=== PATIENT | female | born 1930 | race Hispanic/Latino ===

== ENCOUNTER 2017-10-07 11:14 | Inpatient (IN) | payer MEDICARE, OTHER ==
[2017-10-07 11:32] VITALS: BMI 26.5
--- NOTE | 2017-10-07 11:59 | RAD ---
HISTORY: Sepsis Patient COMPARISON: No prior. FINDINGS: LUNGS: No active pulmonary disease. PLEURA: No significant pleural effusion identified, no pneumothorax apparent. CARDIOVASCULAR: Normal. OSSEOUS STRUCTURES: No significant abnormalities. VISUALIZED UPPER ABDOMEN: Normal. OTHER FINDINGS: None. IMPRESSION: No active disease.
--- NOTE | 2017-10-07 12:09 | ED PDOC ---
Arrival/HPI - General Chief Complaint: Trauma Time Seen by Provider: 10/07/17 11:41 Historian: Patient - History of Present Illness Narrative History of Present Illness (Text): 10/07/17 11:43 A 87 year old female, whose past medical history includes dementia, hypertension , pneumonia, arthritis, and bladder CA, brought in by S, presents to the emergency department complaining of pain s/p fall. Patient reports she lives alone at home and had fallen. Patient was unable to get up for 2 days. Patient is uncertain and unable to recall what caused her to fall. States pain to left knee femur and left hip. Patient has no other complaints at this time PMD: Dr. Daniel Past Medical History - Provider Review Nursing Documentation Reviewed: Yes - Cardiac Hx Cardiac Disorders: Yes Hx Hypertension: Yes - Pulmonary Hx Pneumonia: Yes - Neurological Hx Paralysis: No - Hematological/Oncological Hx Blood Transfusions: No Hx Blood Transfusion Reaction: No - Musculoskeletal/Rheumatological Hx Arthritis: Yes Hx Falls: No - Genitourinary/Gynecological Hx Genitourinary Disorders: Yes Hx Bladder Cancer: Yes - Psychiatric Hx Emotional Abuse: No Hx Physical Abuse: No Hx Substance Use: No - Anesthesia Hx Anesthesia Reactions: Yes (diff waking up) Hx Malignant Hyperthermia: No - Suicidal Assessment Feels Threatened In Home Enviroment: No Family/Social History - Physician Review Nursing Documentation Reviewed: Yes Family/Social History: No Known Family HX Smoking Status: Former Smoker Hx Alcohol Use: Yes (wine occassionally) Hx Substance Use: No Allergies/Home Meds Allergies/Adverse Reactions: Allergies No Known Allergies Allergy (Verified 10/07/17 20:22) Review of Systems - Physician Review All systems were reviewed & negative as marked: Yes - Review of Systems Constitutional: Normal. absent: Fevers, Night Sweats Eyes: Normal ENT: Normal Respiratory: Normal Cardiovascular: Syncope Gastrointestinal: Normal Genitourinary Female: Normal Musculoskeletal: Other (left knee femur pain; left hip pain s/p fall) Skin: Normal Neurological: Headache Endocrine: Normal Hemo/Lymphatic: Normal Psychiatric: Normal Physical Exam Vital Signs Reviewed: Yes Vital Signs Pulse Resp BP Pulse Ox 10/07/17 17:03 93 H 19 135/63 95 10/07/17 11:41 106 H 19 150/83 95 Temperature: Afebrile Blood Pressure: Normal Pulse: Tachycardic Respiratory Rate: Normal Appearance: Positive for: Other (foul urine smell) Pain Distress: None Mental Status: No: Alert and Oriented X 3 (alert and oriented x 2 (person & place but not time)) - Systems Exam Head: Present: Other (purpura to forhead) Mouth: Present: Dry Respiratory/Chest: Present: Decreased Breath Sounds (at basis bivascularly) Cardiovascular: Present: Regular Rate and Rhythm, Normal S1, S2. No: Murmurs Abdomen: No: Tenderness, Distention, Peritoneal Signs Back: No: Midline Tenderness (no midline c-spine tenderness) Upper Extremity: Present: Normal Inspection. No: Cyanosis, Edema Lower Extremity: Present: Tenderness (left knee at joint lines), Other (mid femur pain) Neurological: Present: GCS=15, CN II-XII Intact, Speech Normal, Motor Func Grossly Intact, Normal Sensory Function, Normal Cerebellar Funct, Gait Normal Skin: Present: Rashes (mid lumbar) Psychiatric: Present: Alert. No: Oriented x 3 (oriented x 2(person & place but not time)) Medical Decision Making ED Course and Treatment: 10/07/17 11:46 Impression: 87 year old female with s/p fall AMS. Physical exam shows purpura to forehead; dry mucous membranes; lungs decreased in breath sounds at bases bivascularly; mid lumbar rash; mid femur pain; left knee tenderness at join lines. Plan: -- Head CT -- Cervical Spinal CT -- Pelvis CT -- Left Femur X-Ray -- Left hip X-Ray -- Labs -- Venous Blood Gas -- Lactated Ringer's -- Urinalysis -- Serology -- Blood Culture -- Urine Culture -- Reassess and disposition Progress Notes: EKG: Ordered, reviewed, and independently interpreted the EKG. Rate : 106 BPM Rhythm : Sinus tachycardia. Interpretation : No ST- and T- ischemic segments. QTC 196. Comparison : No previous EKG for comparison. - Lab Interpretations Microbiology Results: Microbiology Results 10/07/17 12:59 Blood Blood Culture - Final NO GROWTH AFTER 5 DAYS 10/07/17 12:59 Blood Gram Stain - Final TEST NOT PERFORMED 10/07/17 12:29 Blood Blood Culture - Final NO GROWTH AFTER 5 DAYS 10/07/17 12:29 Blood Gram Stain - Final TEST NOT PERFORMED 10/07/17 14:35 Urine,Clean Catch Urine Culture - Final Streptococcus Viridans Lab Results: 10/07/17 12:29 10/07/17 12:29 Lab Results 10/07/17 14:35: Urine Color Light yellow, Urine Appearance Cloudy, Urine pH 6.0 , Ur Specific [place] >= 1.030, Urine Protein 100 H, Urine Glucose (UA) Negative , Urine Ketones Negative, Urine Blood Large H, Urine Nitrate Negative, Urine Bilirubin Negative, Urine Urobilinogen 0.2, Ur Leukocyte Esterase Moderate H, Urine RBC Tntc, Urine WBC Tntc, Ur Epithelial Cells 1 - 3, Urine Bacteria Large 10/07/17 12:29: Sodium 145, Chloride 106, Potassium 3.6, Carbon Dioxide 25, Anion Gap 19, BUN 42 H, Creatinine 1.6 H, Est GFR ( Amer) 37, Est GFR ( Non-Af Amer) 31, Random Glucose 153 H, Calcium 9.8, Phosphorus 4.8 H, Magnesium 2.1, Total Bilirubin 0.9, AST 54 H, ALT 32, Alkaline Phosphatase 49, Total Creatine Kinase 651 H, CK-MB (CK-2) 12.7 H, CK-MB (CK-2) % 2.0 L, Troponin I 0.05, NT-Pro-B Natriuret Pep 2970 H, Total Protein 8.3, Albumin 4.3, Globulin 4.0, Albumin/Globulin Ratio 1.1 10/07/17 12:29: pO2 29 L, VBG pH 7.36, VBG pCO2 45.0, VBG HCO3 25.4, VBG Total CO2 26.8, VBG O2 Sat (Calc) 57.3, VBG Base Excess -0.4 L, VBG Potassium 4.2, Sodium 143.0, Chloride 108.0 H, Glucose 153 H, Lactate 2.1, FiO2 21.0, Venous Blood Potassium 4.2 10/07/17 12:29: PT 13.6 H, INR 1.18 H, APTT 19.2 L 10/07/17 12:29: Procalcitonin 0.65 H 10/07/17 12:29: WBC 6.7, RBC 3.59, Hgb 11.9 L, Hct 35.2 L, MCV 98.1, MCH 33.1, MCHC 33.8, RDW 15.5 H, Plt Count 271, MPV 10.7, Gran % 66.0, Lymph % (Auto) 24.9 , [place] % (Auto) 8.7 H, Eos % (Auto) 0.1 L, Baso % (Auto) 0.3, Gran # 4.42, Lymph # (Auto) 1.7, [place] # (Auto) 0.6, Eos # (Auto) 0.0, Baso # (Auto) 0.02 - RAD Interpretation Radiology Orders: 10/07/17 11:41 CHEST PORTABLE [RAD] Stat 10/07/17 11:43 CERVICAL SPINE W/O CONTRAST [CT] Stat HEAD W/O CONTRAST [CT] Stat 10/07/17 11:45 Femur Left [FEMUR MIN 2 VIEWS LT] [RAD] Stat 10/07/17 11:46 PELVIS W/O PO OR IV CONTRAST [CT] Stat Hip Left [HIP MIN 2V W/ PELVIS LT] [RAD] Stat - Medication Orders Current Medication Orders: Discontinued Medications Acetaminophen (Tylenol 325mg Tab) 650 mg PO Q4H PRN PRN Reason: Pain, Mild (1-3) Bisacodyl (Dulcolax) 10 mg RC ONCE ONE Stop: 10/11/17 08:28 Last Admin: 10/11/17 08:33 Dose: Not Given Non-Admin Reason: Patient Refused Cefpodoxime Proxetil (Vantin) 200 mg PO Q12 [facility] Last Admin: 10/11/17 09:26 Dose: 200 mg Docusate Sodium (Colace) 100 mg PO BID [facility] Last Admin: 10/11/17 09:27 Dose: 100 mg Lactated Ringer's 2,000 ml/ IV (SUPPLIES) 2,000 mls @ 4,082.34 mls/hr IV ONCE ONE PRN Reason: 60 ML/KG/HR Stop: 10/07/17 11:42 Last Admin: 10/07/17 12:26 Dose: 4,082.34 mls/hr eMAR Start Stop Document 10/07/17 12:26 MR (Rec: 10/07/17 12:27 MR [id number]) Intravenous Solution Start Date 10/07/17 Start Time 12:26 End Date 10/07/17 End time 13:06 Total Infusion Time 40 Ceftriaxone Sodium (Rocephin 1 Gram Ivpb) 1 gm in 100 mls @ 100 mls/hr IVPB DAILY [facility] PRN Reason: Protocol Last Admin: 10/10/17 10:04 Dose: 100 mls/hr eMAR Start Stop Document 10/10/17 10:04 BIR (Rec: 10/10/17 10:05 BIR [id number]) Intravenous Solution Start Date 10/10/17 Start Time 10:04 End Date 10/10/17 End time 11:15 Total Infusion Time 71 Sodium Chloride (Sodium Chloride 0.9%) 1,000 mls @ 75 mls/hr IV .[id number] [facility] Stop: 10/09/17 10:00 Last Admin: 10/08/17 16:04 Dose: Sodium Chloride (Sodium Chloride 0.9%) 1,000 mls @ 50 mls/hr IV .Q20H [facility] Stop: 10/09/17 10:00 Last Admin: 10/08/17 16:30 Dose: 50 mls/hr eMAR Start Stop Document 10/08/17 16:30 ARLYN (Rec: 10/08/17 16:30 ARLYN [id number]) Intravenous Solution Start Date 10/08/17 Start Time 16:30 End Date 10/09/17 End time 12:30 Total Infusion Time 1200 Losartan Potassium (Cozaar) 25 mg PO DAILY [facility] Last Admin: 10/11/17 11:30 Dose: 25 mg Pneumococcal Polyvalent Vaccine (Pneumovax 23 Vaccine) 0.5 ml IM .ONCE ONE Stop: 10/07/17 22:26 Polyethylene Glycol (Miralax) 17 gm PO DAILY [facility] Last Admin: 10/11/17 09:25 Dose: 17 gm Thiamine HCl (Vitamin B1 Tab) 100 mg PO DAILY [facility] Last Admin: 10/11/17 09:26 Dose: 100 mg - Scribe Statement The provider has reviewed the documentation as recorded by the Bianca Bright Provider Scribe Attestation: All medical record entries made by the Kinjalibkenia were at my direction and personally dictated by me. I have reviewed the chart and agree that the record accurately reflects my personal performance of the history, physical exam, medical decision making, and the department course for this patient. I have also personally directed, reviewed, and agree with the discharge instructions and disposition. Disposition/Present on Arrival - Present on Arrival Any Indicators Present on Arrival: Yes History of DVT/PE: No History of Uncontrolled Diabetes: No Urinary Catheter: Yes History of Decub. Ulcer: No History Surgical Site Infection Following: None - Disposition Have Diagnosis and Disposition been Completed?: Yes Diagnosis: UTI (urinary tract infection), Fracture of left humerus Disposition: HOSPITALIZED Disposition Time: 13:00 Patient Plan: Admission, Telemetry Condition: GOOD
[2017-10-07 12:47] LABS: BASO # 0.02 K/mm3 (0.0-2.0); BASO % 0.3 % (0.0-3.0); EOS % 0.1 % (1.5-5.0); GRAN # 4.42 (1.4-6.5); HEMOGLOBIN 11.9 g/dL (12.0-16.0); LYMPH # 1.7 (1.2-3.4); LYMPH % 24.9 % (22.0-35.0); MEAN CELL VOLUME 98.1 fl (80.0-105.0); MEAN CORPUSCULAR HEMOGLOBIN 33.1 pg (25.0-35.0); MEAN CORPUSCULAR HGB CONC 33.8 g/dl (31.0-37.0); MEAN PLATELET VOLUME 10.7 fl (7.0-11.0); MONO # 0.6 (0.1-0.6); MONO % 8.7 % (1.0-6.0); RBC 3.59 10^6/uL (3.5-6.1); RED CELL DISTRIBUTION WIDTH 15.5 % (11.5-14.5); WHITE BLOOD COUNT 6.7 10^3/ul (4.5-11.0)
[2017-10-07 12:48] LABS: VENOUS BLOOD GAS BASE EXCESS -0.4 mmol/L (0.0-2.0); VENOUS BLOOD GAS PO2 29 mm/Hg (30-55); VENOUS BLOOD PH 7.36 (7.32-7.43)
[2017-10-07 13:00] LABS: ALB/GLOB RATIO 1.1 (1.1-1.8); ALBUMIN 4.3 g/dL (3.0-4.8); CALCIUM 9.8 mg/dL (8.4-10.5)
[2017-10-07 13:04] LABS: INR 1.18 (0.93-1.08); PARTIAL THROMBOPLASTIN TIME 19.2 Seconds (25.1-36.5); PROTHROMBIN TIME 13.6 SECONDS (9.4-12.5)
[2017-10-07 13:10] LABS: TROPONIN I 0.05 ng/mL
[2017-10-07 13:25] LABS: CK-MB 12.7 ng/mL (0.0-3.6)
[2017-10-07 14:48] LABS: URINE BILIRUBIN NEGATIVE (NEGATIVE); URINE BLOOD LARGE (NEGATIVE); URINE GLUCOSE (UA) NEGATIVE (NEGATIVE); URINE LEUKOCYTE ESTERASE MODERATE Leu/uL (NEGATIVE); URINE PROTEIN 100 mg/dL (<30 mg/dL); URINE UROBILINOGEN 0.2 E.U./dL (<1 E.U./dL)
[2017-10-07 14:49] LABS: URINE APPEARANCE CLOUDY (CLEAR); URINE COLOR LIGHT YELLOW (YELLOW)
[2017-10-07 15:03] LABS: URINE BACTERIA LARGE (NEG); URINE RBC TNTC /hpf (0-2); URINE WBC TNTC /hpf (0-6)
--- NOTE | 2017-10-07 15:52 | CT ---
PROCEDURE: CT HEAD WITHOUT CONTRAST. HISTORY: fall COMPARISON: None available. TECHNIQUE: Axial computed tomography images were obtained through the head/brain without intravenous contrast. Coronal and sagittal reconstructed images. Radiation dose: Total exam DLP = 841.81 mGy-cm. This CT exam was performed using one or more of the following dose reduction techniques: Automated exposure control, adjustment of the mA and/or kV according to patient size, and/or use of iterative reconstruction technique. FINDINGS: HEMORRHAGE: No intracranial hemorrhage. BRAIN: No mass effect or edema. Cortical and cerebellar atrophy, periventricular small vessel disease. VENTRICLES: Unremarkable CALVARIUM: Unremarkable. PARANASAL SINUSES: Unremarkable as visualized. No significant inflammatory changes. MASTOID AIR CELLS: Unremarkable as visualized. No inflammatory changes. OTHER FINDINGS: None. IMPRESSION: No acute intracranial abnormalities. No significant findings to account for the clinical presentation.
--- NOTE | 2017-10-07 15:55 | CT ---
PROCEDURE: CT Cervical Spine without contrast HISTORY: fall COMPARISON: None available. TECHNIQUE: Axial computed tomography images were obtained of the cervical spine without the use of intravenous contrast. Coronal and sagittal reformatted images were created and reviewed. Radiation dose: Total exam DLP = 673.55 mGy-cm. This CT exam was performed using one or more of the following dose reduction techniques: Automated exposure control, adjustment of the mA and/or kV according to patient size, and/or use of iterative reconstruction technique. FINDINGS: VERTEBRAE: No fracture. Normal alignment. No destructive bony lesion. DISCS/SPINAL CANAL/NEURAL FORAMINA: Cervical spondylotic changes C5-6 and C6-7. Proliferative comparable hypertrophy changes without canal stenosis at these levels. PARASPINAL SOFT TISSUES: Unremarkable. OTHER FINDINGS: None. IMPRESSION: No acute findings related to/accounting for the clinical presentation.
--- NOTE | 2017-10-07 15:58 | CT ---
PROCEDURE: CT of the pelvis without contrast HISTORY: r/o bony trauma COMPARISON: TECHNIQUE: CT of the pelvis was performed in the axial plane without contrast. Reconstructions were performed on the PACs workstation FINDINGS: The study shows no evidence of pelvic fracture or hip fracture. The sacrum is also unremarkable. There is no evidence of soft tissue hematoma. IMPRESSION: No evidence of fracture
--- NOTE | 2017-10-07 16:01 | RAD ---
PROCEDURE: Left Femur Radiographs. HISTORY: fall COMPARISON: None. TECHNIQUE: AP and Lateral Radiographs of the left femur. FINDINGS: FEMUR: Normal. No fracture. SOFT TISSUES: Normal. OTHER FINDINGS: None. IMPRESSION: Unremarkable radiographs of the left femur.
--- NOTE | 2017-10-07 16:01 | RAD ---
PROCEDURE: Left Hip X-ray Radiographs. HISTORY: fall COMPARISON: None. FINDINGS: BONES: Normal. No fracture. JOINTS: Normal. SOFT TISSUES: Normal. OTHER FINDINGS: None. IMPRESSION: Normal left hip radiographs.
[2017-10-07 16:30] LABS: VENOUS BLOOD GAS PO2 45 mm/Hg (30-55)
--- NOTE | 2017-10-07 20:13 | CARD ---
APPROVED REPORT EKG Measurement Heart [id number] <Conclusion> Sinus tachycardia Otherwise normal ECG
[2017-10-07] MEDS ORDERED: Pneumococcal 23-Valent Vaccine IM ONE (22:25)
--- NOTE | 2017-10-08 05:00 | HP ---
HISTORY OF PRESENT ILLNESS: The patient is an 87-year-old female admitted through the emergency department after a fall at home. The patient reports being lying on the floor in her apartment, being unable to get up for the past 2 days. She denied any chest pain or shortness of breath. No cough. No nausea, no vomiting. No diarrhea. The patient lives alone at home. Her daughter checks on her every couple days. PAST MEDICAL HISTORY: Includes congestive heart failure, COPD, hypertension. PAST SURGICAL HISTORY: Patient has a history of carcinoma of the bladder, being followed by Dr. Keegan KONG. MEDICATIONS: Patient is on no current medications. ALLERGIES: SHE HAS NO KNOWN ALLERGIES. REVIEW OF SYSTEMS: Essentially as above. FAMILY HISTORY: Noncontributory. SOCIAL HISTORY: Patient is a smoker in the remote past. No history of alcohol use. Patient is previously independent with ADLs and need assistance with IADLs. PHYSICAL EXAMINATION: GENERAL: The patient is a well-developed female, in no acute distress. VITAL SIGNS: Blood pressure 148/81, pulse 95, temperature 98.6, respiratory rate 20. HEENT: Head is normocephalic, atraumatic. Pupils equal, round, reactive to light. Extraocular movements intact. NECK: Supple. No thyromegaly. No carotid bruit. No adenopathy. LUNGS: Clear. HEART: Regular rate and rhythm. ABDOMEN: Soft, nontender. Bowel sounds are normoactive. EXTREMITIES: With 1+ bipedal edema. NEUROLOGIC: The patient is awake and mildly confused without focal sensory or motor deficits. SKIN: Warm and dry. LABORATORY DATA: WBC 6.7, hemoglobin 11.9, hematocrit 35.2. Sodium 145, potassium 3.6, chloride 106, CO2 25, BUN 42, creatinine 1.6, glucose 153. CPK is elevated at 651. Troponin 0.05. BNP is elevated at 2970. Urinalysis shows large blood and moderate leukocyte esterase, rbc's and wbc's too numerous to count, large bacteria. IMPRESSION: 1. Urinary tract infection, dehydration, status post fall at home. 2. Congestive heart failure. 3. 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 4. Hypertension. 5. Cancer of the bladder. 6. Dementia, probable Alzheimer's type. PLAN: We will admit the patient to medical-surgical floor. Repeat troponin and BNP. Start empiric IV Rocephin 1 g every 24 hours. Physical therapy evaluation and treatment. Social work for discharge planning. CHRISTOFER Cardenas MD
[2017-10-08 07:52] LABS: BASO # 0.04 K/mm3 (0.0-2.0); BASO % 0.7 % (0.0-3.0); EOS # 0.1 (0.0-0.7); EOS % 2.2 % (1.5-5.0); GRAN # 2.74 (1.4-6.5); HEMOGLOBIN 11.2 g/dL (12.0-16.0); LYMPH # 2.4 (1.2-3.4); LYMPH % 40.9 % (22.0-35.0); MEAN CELL VOLUME 99.4 fl (80.0-105.0); MEAN CORPUSCULAR HEMOGLOBIN 32.6 pg (25.0-35.0); MEAN CORPUSCULAR HGB CONC 32.7 g/dl (31.0-37.0); MEAN PLATELET VOLUME 10.8 fl (7.0-11.0); MONO # 0.6 (0.1-0.6); MONO % 10.2 % (1.0-6.0); RBC 3.44 10^6/uL (3.5-6.1); RED CELL DISTRIBUTION WIDTH 15.8 % (11.5-14.5)
[2017-10-08 08:06] LABS: TROPONIN I 0.04 ng/mL
[2017-10-08 08:09] LABS: ALB/GLOB RATIO 1.1 (1.1-1.8); ALBUMIN 3.9 g/dL (3.0-4.8); CALCIUM 9.5 mg/dL (8.4-10.5)
[2017-10-08 08:37] LABS: CK MB% 1.7 % (2.5-3.0)
[2017-10-08] MEDS: cefTRIAXone 1 gm 1 GM/100 ML BAG IVPB SCH (09:50)
--- NOTE | 2017-10-08 11:53 | RAD ---
PROCEDURE: Radiographs of the Left Shoulder HISTORY: s/p fall /pain COMPARISON: No prior. FINDINGS: BONES: There is an acute nondisplaced fracture in the greater tuberosity of the humerus. Bone alignment is normal. There is diffuse bone demineralization. JOINTS: Glenohumeral and acromioclavicular joints preserved. Mild degenerative osteoarthritis. SOFT TISSUES: Normal. OTHER FINDINGS: None. IMPRESSION: Acute nondisplaced fracture in the greater tuberosity of the humerus.
--- NOTE | 2017-10-08 12:05 | RAD ---
PROCEDURE: Radiographs of the left elbow. HISTORY: s/p fall/pain COMPARISON: No prior. FINDINGS: BONES: Normal. No fracture. JOINTS: Normal. No osteoarthritis. SOFT TISSUES: Normal. JOINT EFFUSION: None. OTHER FINDINGS: None IMPRESSION: Unremarkable radiographs of the left elbow.
[2017-10-08] MEDS ORDERED: Sodium Chloride 0.9% 1,000 ML IV SCH ×2 (12:15→12:25)
--- NOTE | 2017-10-08 12:59 | CP.PCM.PN ---
Subjective - Date & Time of Evaluation Date of Evaluation: 10/08/17 Time of Evaluation: 11:30 - Subjective Subjective: c/o pain L shoulder, denies chest pain, no SOB Objective - Vital Signs/Intake and Output Vital Signs (last 24 hours): Temp Pulse Resp BP Pulse Ox 97.5 F L 91 H 20 150/81 96 10/08/17 12:00 10/08/17 12:00 10/08/17 12:00 10/08/17 12:00 10/08/17 06:00 Intake and Output: 10/08/17 10/08/17 06:59 18:59 Intake Total 360 Output Total 600 Balance -240 - Medications Medications: Current Medications Ceftriaxone Sodium (Rocephin 1 Gram Ivpb) 1 gm in 100 mls @ 100 mls/hr IVPB DAILY [facility] PRN Reason: Protocol Last Admin: 10/08/17 09:50 Dose: 100 mls/hr Sodium Chloride (Sodium Chloride 0.9%) 1,000 mls @ 50 mls/hr IV .Q20H [facility] Stop: 10/09/17 10:00 - Labs Labs: 10/08/17 07:00 10/08/17 07:00 PT 13.6 SECONDS (9.4-12.5) H 10/07/17 12:29 INR 1.18 (0.93-1.08) H 10/07/17 12:29 APTT 19.2 Seconds (25.1-36.5) L 10/07/17 12:29 - Respiratory Exam Respiratory Exam: Clear to Ausculation Bilateral, NORMAL BREATHING PATTERN - Cardiovascular Exam Cardiovascular Exam: REGULAR RHYTHM - GI/Abdominal Exam GI & Abdominal Exam: Soft, Normal Bowel Sounds - Extremities Exam Extremities Exam: Joint Swelling - Neurological Exam Neurological Exam: Altered, Awake - Skin Skin Exam: Dry, Warm Assessment and Plan (1) UTI (urinary tract infection) Status: Acute (2) Fracture of left humerus Status: Acute (3) Bladder carcinoma Status: Chronic (4) Dementia Status: Chronic - Assessment and Plan (Free Text) Plan: continue IV Abx, orthopedic surgery consult, PT and SW for discharge planning
--- NOTE | 2017-10-09 01:26 | CON ---
DATE: ORTHOPEDIC CONSULTATION HISTORY OF PRESENT ILLNESS: This is an 87-year-old female, lives alone, she is somewhat confused and altered mental status, came into the hospital on 10/07/[address] Daniel's service. He has been to see her for left shoulder pain. X-rays of the shoulder showed impacted fracture of left proximal humerus in acceptable position with extreme osteopenia. Right away, I put her in a sling to help immobilize shoulder as best as possible, so that we could avoid surgery. She is able to get up out of bed and we told her to if she does get up out of bed and ambulate, not to put any weight on that left shoulder, it is going to take 6 to 8 weeks to heal. I reinforced the sling, so it does not displace much and I will follow her while she is in [facility]. FINAL DIAGNOSIS: Impacted fracture of left proximal humerus at the surgical neck. Prognosis is good for good recovery and this one could heal without displacement for 6 weeks. Mor Bashir DO
[2017-10-09] MEDS: cefTRIAXone 1 gm 1 GM/100 ML BAG IVPB SCH (09:15)
[2017-10-09 11:55] LABS: BASO # 0.02 K/mm3 (0.0-2.0); BASO % 0.4 % (0.0-3.0); EOS # 0.2 (0.0-0.7); EOS % 3.6 % (1.5-5.0); GRAN # 2.03 (1.4-6.5); HEMOGLOBIN 9.9 g/dL (12.0-16.0); LYMPH # 2.3 (1.2-3.4); LYMPH % 44.4 % (22.0-35.0); MEAN CELL VOLUME 100.3 fl (80.0-105.0); MEAN CORPUSCULAR HEMOGLOBIN 32.6 pg (25.0-35.0); MEAN CORPUSCULAR HGB CONC 32.5 g/dl (31.0-37.0); MEAN PLATELET VOLUME 10.3 fl (7.0-11.0); MONO # 0.6 (0.1-0.6); MONO % 11.6 % (1.0-6.0); RBC 3.04 10^6/uL (3.5-6.1); RED CELL DISTRIBUTION WIDTH 15.7 % (11.5-14.5); WHITE BLOOD COUNT 5.1 10^3/ul (4.5-11.0)
[2017-10-09 12:04] LABS: ALBUMIN 3.3 g/dL (3.0-4.8); CALCIUM 8.5 mg/dL (8.4-10.5)
--- NOTE | 2017-10-10 09:33 | CP.PCM.PN ---
Subjective - Date & Time of Evaluation Date of Evaluation: 10/09/17 Time of Evaluation: 10:00 - Subjective Subjective: c/o pain L shoulder, otherwise NAD Objective - Vital Signs/Intake and Output Vital Signs (last 24 hours): Temp Pulse Resp BP Pulse Ox 98.3 F 82 20 156/81 H 94 L 10/10/17 08:47 10/10/17 08:47 10/10/17 08:47 10/10/17 08:47 10/10/17 08:47 Intake and Output: 10/10/17 10/10/17 06:59 18:59 Intake Total 380 Output Total 1100 Balance -720 - Medications Medications: Current Medications Ceftriaxone Sodium (Rocephin 1 Gram Ivpb) 1 gm in 100 mls @ 100 mls/hr IVPB DAILY [facility] PRN Reason: Protocol Last Admin: 10/09/17 09:15 Dose: 100 mls/hr - Labs Labs: 10/09/17 11:45 10/09/17 11:45 PT 13.6 SECONDS (9.4-12.5) H 10/07/17 12:29 INR 1.18 (0.93-1.08) H 10/07/17 12:29 APTT 19.2 Seconds (25.1-36.5) L 10/07/17 12:29 - Respiratory Exam Respiratory Exam: Clear to Ausculation Bilateral, NORMAL BREATHING PATTERN - Cardiovascular Exam Cardiovascular Exam: REGULAR RHYTHM - GI/Abdominal Exam GI & Abdominal Exam: Soft, Normal Bowel Sounds - Extremities Exam Additional comments: pain, decreased ROM L shoulder - Neurological Exam Neurological Exam: Altered - Skin Skin Exam: Dry, Warm Assessment and Plan (1) UTI (urinary tract infection) Status: Acute (2) Fracture of left humerus Status: Acute (3) Bladder carcinoma Status: Chronic (4) Dementia Status: Chronic - Assessment and Plan (Free Text) Plan: orthopedic surgery consult NEREIDA Kirkland for discharge planning
--- NOTE | 2017-10-10 09:37 | CP.PCM.PN ---
Subjective - Date & Time of Evaluation Date of Evaluation: 10/10/17 Time of Evaluation: 09:00 - Subjective Subjective: decreased pain L shoulder, remains confused, denies chest pain,no SOB Objective - Vital Signs/Intake and Output Vital Signs (last 24 hours): Temp Pulse Resp BP Pulse Ox 98.3 F 82 20 156/81 H 94 L 10/10/17 08:47 10/10/17 08:47 10/10/17 08:47 10/10/17 08:47 10/10/17 08:47 Intake and Output: 10/10/17 10/10/17 06:59 18:59 Intake Total 380 Output Total 1100 Balance -720 - Medications Medications: Current Medications Ceftriaxone Sodium (Rocephin 1 Gram Ivpb) 1 gm in 100 mls @ 100 mls/hr IVPB DAILY [facility] PRN Reason: Protocol Last Admin: 10/09/17 09:15 Dose: 100 mls/hr - Labs Labs: 10/09/17 11:45 10/09/17 11:45 PT 13.6 SECONDS (9.4-12.5) H 10/07/17 12:29 INR 1.18 (0.93-1.08) H 10/07/17 12:29 APTT 19.2 Seconds (25.1-36.5) L 10/07/17 12:29 - Respiratory Exam Respiratory Exam: Clear to Ausculation Bilateral, NORMAL BREATHING PATTERN - Cardiovascular Exam Cardiovascular Exam: REGULAR RHYTHM - GI/Abdominal Exam GI & Abdominal Exam: Soft, Normal Bowel Sounds - Extremities Exam Additional comments: sling L shoulder intact - Neurological Exam Neurological Exam: Altered - Skin Skin Exam: Dry, Warm Assessment and Plan (1) UTI (urinary tract infection) Status: Acute (2) Fracture of left humerus Status: Acute (3) Bladder carcinoma Status: Chronic (4) Dementia Status: Chronic - Assessment and Plan (Free Text) Plan: ortho consult appreciated, will obtain neuro eval for capacity for self-care, consult for CA bladder, SW for discharge planning
[2017-10-10 09:53] LABS: BASO # 0.01 K/mm3 (0.0-2.0); BASO % 0.2 % (0.0-3.0); EOS # 0.1 (0.0-0.7); EOS % 2.2 % (1.5-5.0); GRAN # 2.36 (1.4-6.5); GRAN % 47.6 % (50.0-68.0); HEMOGLOBIN 10.3 g/dL (12.0-16.0); LYMPH % 40.7 % (22.0-35.0); MEAN CELL VOLUME 100.3 fl (80.0-105.0); MEAN CORPUSCULAR HEMOGLOBIN 33.3 pg (25.0-35.0); MEAN CORPUSCULAR HGB CONC 33.2 g/dl (31.0-37.0); MEAN PLATELET VOLUME 10.4 fl (7.0-11.0); MONO # 0.5 (0.1-0.6); MONO % 9.3 % (1.0-6.0); RBC 3.09 10^6/uL (3.5-6.1); RED CELL DISTRIBUTION WIDTH 15.6 % (11.5-14.5)
[2017-10-10] MEDS: cefTRIAXone 1 gm 1 GM/100 ML BAG IVPB SCH (10:04)
[2017-10-10 10:05] LABS: IRON 60 ug/dL (45-180)
[2017-10-10 10:12] LABS: ALB/GLOB RATIO 1.1 (1.1-1.8); ALBUMIN 3.7 g/dL (3.0-4.8)
[2017-10-10 10:14] LABS: % IRON SATURATION 22 % (20-55); TOTAL IRON BINDING CAPACITY 272 ug/dL (265-497)
--- NOTE | 2017-10-10 11:14 | CT ---
PROCEDURE: CT Abdomen and Pelvis without intravenous contrast HISTORY: r/o bladder mass COMPARISON: 10/07/2017 CT TECHNIQUE: Without contrast. Contrast Dose: Radiation dose: Total exam DLP = Total exam DLP = 1316 mGy-cm. This CT exam was performed using one or more of the following dose reduction techniques: Automated exposure control, adjustment of the mA and/or kV according to patient size, and/or use of iterative reconstruction technique. FINDINGS: LOWER THORAX: Unremarkable. LIVER: Unremarkable. No gross lesion or ductal dilatation. GALLBLADDER AND BILE DUCTS: Unremarkable. PANCREAS: Unremarkable. No gross lesion or ductal dilatation. SPLEEN: Unremarkable. ADRENALS: Unremarkable. No mass. KIDNEYS AND URETERS: The ureters and renal collecting systems are mildly dilated. There is no obstructing stone. The bladder is decompressed by Starkey catheter. There is some air in both renal collecting systems. VASCULATURE: Unremarkable. No aortic aneurysm. BOWEL: Unremarkable. No obstruction. No gross mural thickening. APPENDIX: Unremarkable. Normal appendix. PERITONEUM: Unremarkable. No free fluid. No free air. LYMPH NODES: Unremarkable. No enlarged lymph nodes. BLADDER: The bladder is completely decompressed by Starkey catheter making it very difficult to evaluate for a possible mass. REPRODUCTIVE: Unremarkable. BONES: No acute fracture. OTHER FINDINGS: None. IMPRESSION: The bladder is completely decompressed by Starkey catheter making it very difficult to evaluate for a possible mass. No acute intra-abdominal findings
--- NOTE | 2017-10-10 14:21 | CP.PCM.PCO ---
Physician Communication Note - Physician Communication Note Physician Communication Note: transient delirium with cognitive impairment. rec: pt/kim/thiamine 100mg OD.
[2017-10-10 17:41] LABS: FOLATE 6.1 ng/mL
--- NOTE | 2017-10-10 23:44 | CON ---
HISTORY OF PRESENT ILLNESS: This is an 87-year-old female with a past medical history of CHF, COPD, hypertension, came to the hospital because the patient fell at home and was unable to get up from the floor for 2 days. No chest pain. Called to evaluate the patient. PAST MEDICAL HISTORY: CHF, COPD, hypertension, and the patient also has a history of carcinoma of the bladder. ALLERGIES: NO KNOWN DRUG ALLERGIES. REVIEW OF SYSTEMS: A 10-point review of systems was negative except . PHYSICAL EXAMINATION: HEENT: Normocephalic, atraumatic. NECK: Supple. NEUROLOGIC: Alert, awake, and oriented x3. No aphasia. Cranial nerves II through XII were tested. Pupils reactive. EOM intact. Visual pinzon full. No facial asymmetry. Tongue midline. Motor examination, moves all the extremities spontaneously except left upper extremity maybe secondary to her shoulder problem. Cerebellar gait deferred. IMPRESSION: Status post fall and possibly syncope, less likely seizure. PLAN: We will do CAT scan of the head and also continue present management. We will follow up. Eulalio Suh MD
[2017-10-11 06:54] LABS: HEMOGLOBIN 10.2 g/dL (12.0-16.0); MEAN CELL VOLUME 99.4 fl (80.0-105.0); MEAN CORPUSCULAR HEMOGLOBIN 32.5 pg (25.0-35.0); MEAN CORPUSCULAR HGB CONC 32.7 g/dl (31.0-37.0); MEAN PLATELET VOLUME 10.2 fl (7.0-11.0); RBC 3.14 10^6/uL (3.5-6.1); RED CELL DISTRIBUTION WIDTH 15.4 % (11.5-14.5); WHITE BLOOD COUNT 5.2 10^3/ul (4.5-11.0)
[2017-10-11 07:09] LABS: BLOOD UREA NITROGEN 34 mg/dL (7-21); GFR AFRICAN-AMERICAN > 60; GFR NON-AFRICAN AMERICAN 53
[2017-10-11] MEDS ORDERED: POLYETHYLENE GLYCOL 3350 17 GM/Dose PACKET PO SCH (10:00)
[2017-10-11] MEDS ORDERED: Cefpodoxime (Vantin) 200 mg Tab PO SCH (10:00)
--- NOTE | 2017-10-11 11:15 | PN ---
DATE: 10/11/2017 UPDATED REPORT An 87-year-old female was admitted to room 377, bed 2 on 10/07/2017 for medical reasons, was found to have a fracture of the left shoulder, which is minimally displaced and has to be reminded to keep using the left arm sling. I gave instructions to elevate the head of the bed 30-40 degrees to allow the shoulder to become dependent and improve reduction and help healing, not to put weight on the shoulder, to wear the sling at all times, and with physical therapy, she will get up out of bed and sit in the chair. Allow the left arm to hang down, which will help alignment of the fracture and help it to heal and it s going to take at least 4 to 6 weeks to heal with the sling. I will follow her in the hospital. Mor Bashir DO
--- NOTE | 2017-10-11 11:17 | CP.PCM.PN ---
Subjective - Date & Time of Evaluation Date of Evaluation: 10/11/17 Time of Evaluation: 11:15 - Subjective Subjective: NAD, confused, c/o L shoulder discomfort Objective - Vital Signs/Intake and Output Vital Signs (last 24 hours): Temp Pulse Resp BP Pulse Ox 98.1 F 84 18 172/80 H 92 L 10/11/17 06:00 10/11/17 06:00 10/11/17 06:00 10/11/17 06:00 10/11/17 06:00 Intake and Output: 10/11/17 10/11/17 06:59 18:59 Intake Total 420 Output Total 400 Balance 20 - Medications Medications: Current Medications Acetaminophen (Tylenol 325mg Tab) 650 mg PO Q4H PRN PRN Reason: Pain, Mild (1-3) Cefpodoxime Proxetil (Vantin) 200 mg PO Q12 [facility] Last Admin: 10/11/17 09:26 Dose: 200 mg Docusate Sodium (Colace) 100 mg PO BID [facility] Last Admin: 10/11/17 09:27 Dose: 100 mg Losartan Potassium (Cozaar) 25 mg PO DAILY [facility] Polyethylene Glycol (Miralax) 17 gm PO DAILY [facility] Last Admin: 10/11/17 09:25 Dose: 17 gm Thiamine HCl (Vitamin B1 Tab) 100 mg PO DAILY [facility] Last Admin: 10/11/17 09:26 Dose: 100 mg - Labs Labs: 10/11/17 06:00 10/11/17 06:00 PT 13.6 SECONDS (9.4-12.5) H 10/07/17 12:29 INR 1.18 (0.93-1.08) H 10/07/17 12:29 APTT 19.2 Seconds (25.1-36.5) L 10/07/17 12:29 - Respiratory Exam Respiratory Exam: Clear to Ausculation Bilateral - Cardiovascular Exam Cardiovascular Exam: REGULAR RHYTHM - GI/Abdominal Exam GI & Abdominal Exam: Soft, Normal Bowel Sounds - Extremities Exam Extremities Exam: Normal Inspection - Neurological Exam Neurological Exam: Altered, Awake - Skin Skin Exam: Dry, Warm Assessment and Plan (1) UTI (urinary tract infection) Status: Acute (2) Fracture of left humerus Status: Acute (3) Bladder carcinoma Status: Chronic (4) Dementia Status: Chronic (5) HTN (hypertension) Status: Chronic - Assessment and Plan (Free Text) Plan: add Losartan 25mg qd for elevated bp, /ortho follow-up, SW for discharge planning
[2017-10-11 18:22] VITALS: BP 143/79; PULSE 92; RESP 26; TEMP 98.6; O2SAT 94
--- NOTE | 2017-10-13 01:03 | DS ---
HOSPITAL COURSE: The patient is an 87-year-old female, admitted through the emergency department on 10/07/2017 after a fall at home. X-ray of the left shoulder revealed a fracture of the humerus. The patient was seen in consultation by Dr. Mor Bashir. The patient was placed in a sling and no further surgical intervention was planned. The patient was also treated for dehydration and a urinary tract infection. She received IV fluids as well as antibiotics and was discharged to subacute rehab in stable condition on 10/11/2017. Physical examination and vital signs are as per progress note dictated on 10/11/2017. IMPRESSION: 1. Urinary tract infection/dehydration, status post fall. 2. Fracture of left humerus. 3. Congestive heart failure. 4. Chronic obstructive pulmonary disease. 5. Hypertension. 6. Carcinoma of the bladder. 7. Probable Alzheimer's dementia. PLAN: The patient was discharged to [facility] on the following medications, losartan 25 mg daily, Vantin 200 mg every 12 hours, MiraLax 17 mg daily and thiamine 100 mg daily. The patient will be maintained on a heart-healthy diet. Activities ad libitum. The patient will be followed up at [facility] for subacute rehab. Jorge A Daniel JD/
--- NOTE | 2017-10-14 10:09 | CON ---
DATE:10/11/2017 GENITOURINARY CONSULTATION CHIEF COMPLAINT Status post fall. HISTORY OF PRESENT ILLNESS This is an 87-year-old female who is known to me. The patient had a fall at home and sustained a fracture of her upper extremity. The patient has a known history of bladder cancer. The patient is extremely noncompliant and has a long-standing history of dementia. I have not seen the patient in over five years. Last time I saw her, she was scheduled for a resection of bladder tumor. However, the patient canceled and refused to have the procedure done and never came for any followup. She reports she had been voiding normally at home, chronic frequency but denies any gross hematuria or weight loss. She does report she does not know how she fell at home, but she wound up on the floor. She was unable to get up for at least two days. She was then found on the floor and brought to the hospital. She had surgery for her arm reportedly and is now seen in her hospital room where she is recovering. The patient is awake and alert and answering questions, although not totally coherently given her history of dementia. consultation was requested regarding history of bladder cancer. PAST MEDICAL HISTORY: Significant for congestive heart failure, COPD, hypertension, bladder cancer. MEDICATIONS: The patient was on no medications chronically at home. In the hospital, she has been on Colace, MiraLax, Tylenol, Vantin and thiamine. ALLERGIES NO KNOWN DRUG ALLERGIES. FAMILY HISTORY: Noncontributory for this admission. SOCIAL HISTORY: The patient denies any current smoking or EtOH use. However, the patient used to smoke many years ago. REVIEW OF SYSTEMS: The patient is complaining of pain in her left arm. She is complaining of some weakness and lethargy. Otherwise, she denies any problems with any of her other systems. PHYSICAL EXAMINATION: GENERAL: The patient is awake and alert, answering questions. Her memory is somewhat suspect. VITAL SIGNS: She is afebrile. Temperature was 98.2, BP 152/72, pulse 96, respirations 20. NECK: Supple. There is no obvious adenopathy. CHEST: Exam reveals normal inspiratory effort. CARDIAC: Exam showed positive S1, S2. ABDOMEN: There is trace peripheral edema on abdominal exam. Soft, nontender, nondistended. There is no splenomegaly. GENITOURINARY: There is no costovertebral angle tenderness. External genitalia are normal. There is a Starkey catheter in place draining clear colored urine. EXTREMITIES: There is no cyanosis. There is trace edema. LABORATORY DATA: Urinalysis showed large blood, moderate leukocyte esterase, too numerous to count RBC and too numerous to count WBC, nitrites were negative, protein greater than 100. GFR of 53, which has improved with IV fluids and elevated serum chloride. WBC count 5.2. Urine culture positive for strep viridans 50,000-100,000 colonies per milliliter. RADIOLOGIC DATA: The patient had a CT scan of the abdomen and pelvis done yesterday, which showed mild dilatation of the ureters and renal collecting systems bilaterally. There are no obstructing stones. The bladder was decompressed by Starkey catheter. There is some air in both renal collecting systems. The bladder was completely decompressed by the Starkey making it difficult to evaluate for a possible mass. IMPRESSION AND PLAN: This is a 87-year-old female with history of bladder cancer who presents now after a fall. I had discussed with the patient that she should have a cystoscopy, which she promptly refused. This has been ongoing problem with this patient. She is extremely noncompliant and has not had urologic followup in many years. In any case, cystoscopy is not emergent. We will need to discuss with the patient's family if the patient is also being seen by Neurology. It is unclear if the patient is capable of making her own decisions or not or if there is a healthcare proxy. If there is a healthcare proxy, I will be happy to discuss cystoscopy with them and we can schedule this up as an outpatient to see if there is any active tumor in the bladder; can consider retrograde pyelograms as well given the dilation noted on the CT scan, although her renal function does appear to be normal for her age. Alternatively, given the patient's age and other medical issues, family and healthcare proxy would need to decide if they are interested in any active treatment of likely recurrent bladder cancer. I will discuss this with Dr. Daniel and if the patient's family and healthcare proxy want a cystoscopy, they can call my office and we can arrange to have this procedure performed. Thank you for allowing me to participate the care of this patient. Cong Allison MD [facility] # [id number] MTDLeilani
== END 2017-10-11 23:02 | DRG 563 ==
LOC: ED 11:14 → ERH 15:32 → 2RSO 17:17 → 3RSO 10-08 17:41
PROVIDERS: ADMIT Internal Medicine; ATTEND Internal Medicine
PROC: 2W3BXYZ Immobilization of Left Upper Arm using Other Device (ICD-10-PCS; principal; 2017-10-08)
DX: S42.212A Unspecified displaced fracture of surgical neck of left humerus, initial encounter for closed fracture (principal); N39.0 Urinary tract infection, site not specified; I11.0 Hypertensive heart disease with heart failure; I50.9 Heart failure, unspecified; C67.9 Malignant neoplasm of bladder, unspecified; G30.9 Alzheimer's disease, unspecified; F02.80 Dementia in other diseases classified elsewhere, unspecified severity, without behavioral disturbance, psychotic disturbance, mood disturbance, and anxiety; E86.0 Dehydration; J44.9 Chronic obstructive pulmonary disease, unspecified; Y92.009 Unspecified place in unspecified non-institutional (private) residence as the place of occurrence of the external cause; W19.XXXA Unspecified fall, initial encounter; Z91.19 Patient's noncompliance with other medical treatment and regimen; Z87.891 Personal history of nicotine dependence

== ENCOUNTER 2018-01-13 05:06 | Inpatient (IN) | payer MEDICARE, OTHER ==
--- NOTE | 2018-01-13 05:11 | ED PDOC ---
Arrival/HPI - General Historian: Patient, Family EM Caveat: Altered Mental Status, Dementia - History of Present Illness Time/Duration: 4-6 hours Symptom Onset: Sudden Symptom Course: Unchanged, Worsening Activities at Onset: Rest - General Chief Complaint: Respiratory Distress Time Seen by Provider: 01/13/18 05:08 - History of Present Illness Narrative History of Present Illness (Text): 01/13/18 05:10 Patient is an 87 year old female with PMH of COPD, DVT, and CHF who arrived via EMS with worsening respiratory distress started tonight. She is a poor historian , has a history of dementia. She is on eliquis for DVT. Denies any pain. On arrival, patient is tachypenic, anxious appearing. 01/13/18 05:32 Per family, she was doing well prior to this event and was able to ambulate independently. 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 ) - Musculoskeletal/Rheumatological Hx Arthritis: Yes (OA) - Genitourinary/Gynecological Hx Genitourinary Disorders: Yes Hx Bladder Cancer: Yes - Psychiatric Hx Substance Use: No - Anesthesia Hx Anesthesia Reactions: Yes (diff waking up) Hx Malignant Hyperthermia: No - Suicidal Assessment Feels Threatened In Home Enviroment: No Family/Social History - Physician Review Nursing Documentation Reviewed: Yes Family/Social History: Unknown Family HX Smoking Status: Former Smoker Hx Alcohol Use: No Hx Substance Use: No Allergies/Home Meds Allergies/Adverse Reactions: Allergies No Known Allergies Allergy (Verified 01/13/18 11:29) Home Medications: Home Meds Medication Instructions Recorded Confirmed Apixaban [Eliquis] 5 mg PO BID 01/13/18 01/13/18 amLODIPine [Norvasc] 5 mg PO DAILY 01/13/18 01/13/18 hydrALAZINE [Apresoline] 25 mg PO Q6H 01/13/18 01/13/18 traMADol [Ultram] 50 mg PO Q12H 01/13/18 01/13/18 Review of Systems - Physician Review All systems were reviewed & negative as marked: Yes (denies any pain) - Review of Systems Systems not reviewed;Unavailable: Dementia Physical Exam Vital Signs Reviewed: Yes Temperature: Afebrile Blood Pressure: Normal Pulse: Tachycardic Respiratory Rate: Tachypneic Appearance: Positive for: Ill-Appearing Mental Status: Positive for: Alert and Oriented X 3 - Systems Exam Head: Present: Atraumatic, Normocephalic Pupils: Present: PERRL Extroacular Muscles: Present: EOMI Mouth: Present: Dry Nose (External): Present: Atraumatic Neck: Present: Normal Range of Motion Respiratory/Chest: Present: Respiratory Distress, Accessory Muscle Use, Wheezes , Decreased Breath Sounds, Retracting, Tachypneic Cardiovascular: Present: Tachycardic Abdomen: No: Tenderness, Rebound, Guarding Upper Extremity: Present: Cyanosis. No: Edema Lower Extremity: Present: Cyanosis. No: Edema Skin: Present: Cold, Pale Psychiatric: Present: Alert, Anxious, Agitated Vital Signs Temp Pulse Resp BP Pulse Ox 01/13/18 06:54 97.1 F L 100 H 20 91/40 L 99 01/13/18 05:26 112 H 28 H 122/51 L 80 L Medical Decision Making - Lab Interpretations I have reviewed the lab results: Yes Interpretation: Abnormal lab values (H/H critical) - EKG Interpretation Interpreted by ED Physician: Yes Type: 12 lead EKG Comparison: No previous EKG avail. ED Course and Treatment: 01/13/18 05:34 -Patient placed on bipap -Currently SpO2 is 98-100% on bipap -Tachypnea and tachycardia improving on bipap -Currently receiving Duo-neb treatment 01/13/18 05:53 -Lab called with critical H/H result of 6.2/29.9 -Guaiac performed and was negative -Spoke with Dr. Estrada who agrees for CCU admission/evaluation 01/13/18 06:13 -VBG with lactate of 11.2 -Code sepsis called at 0614 -CXR with extensive pulmonary congestion, edema -ET intubation performed 0630 (Eder Alonso) 01/13/18 06:50 -pt seen with resident. 87 yo female, hx of chf, copd, dvt on eliquis, presents with ems for sob that started last night. pt upon arrival agated, hypoxic, tachypneic. bipap intiated. labs results marked LA, leukocytosis. antibiotics empically. noted new onset anemia, guiac neg, brown stool in emergency room pt on eliquis. nebs steriods anbitiocis initited. IVF iniatied. blood transfusion initiated. CT imaging ordered 2/2 marked Lactic acidosis. case discussed wtih dr meyer and dr estrada, icu, accpeted icu. (Feliciano Marrero) - Lab Interpretations Microbiology Results: Microbiology Results 01/13/18 05:10 Blood Blood Culture - Preliminary NO GROWTH AFTER 4 DAYS 01/13/18 05:40 Blood Blood Culture - Preliminary NO GROWTH AFTER 3 DAYS Lab Results: 01/13/18 05:10 01/13/18 05:10 Lab Results 01/13/18 06:20: Blood Type Confirm A NEGATIVE 01/13/18 06:00: Blood Type A NEGATIVE, Antibody Screen Negative, Crossmatch See Detail, BBK History Checked No verified bt 01/13/18 05:10: Sodium 144, Chloride 108 H, Potassium 3.9, Carbon Dioxide 12 L, Anion Gap 28 H, BUN 46 H, Creatinine 2.0 H, Est GFR ( Amer) 29, Est GFR ( Non-Af Amer) 24, Random Glucose 277 H, Calcium 9.8, Magnesium 2.1, Total Bilirubin 0.6, AST 38 H, ALT 12, Alkaline Phosphatase 43, Lactate Dehydrogenase 575, Total Creatine Kinase 33 L, Troponin I 0.07 D, NT-Pro-B Natriuret Pep 1330 H, Total Protein 7.5, Albumin 3.8, Globulin 3.7, Albumin/Globulin Ratio 1.0 L 01/13/18 05:10: PT 22.9 H, INR 1.96, APTT 25.5 01/13/18 05:10: WBC 14.2 H D, RBC 1.83 L, Hgb 6.2 L* D, Hct 19.9 L*, MCV 108.7 H D, MCH 33.9, MCHC 31.2, RDW 18.6 H, Plt Count 305, MPV 10.6, Gran % 22.3 L, Lymph % (Auto) 59.2 H, [place] % (Auto) 17.8 H, Eos % (Auto) 0.6 L, Baso % (Auto) 0.1, Gran # 3.16, Lymph # (Auto) 8.4 H, [place] # (Auto) 2.5 H, Eos # (Auto) 0.1, Baso # (Auto) 0.02 01/13/18 05:10: pO2 86 H, VBG pH 7.08 L*, VBG pCO2 41.0, VBG HCO3 12.2 L, VBG Total CO2 13.5 L, VBG O2 Sat (Calc) 95.8 H, VBG Base Excess -17.2 L, VBG Potassium 3.9, Sodium 141.0, Chloride 110.0 H, Glucose 287 H, Lactate 11.2 H*, FiO2 21.0, Venous Blood Potassium 3.9 - RAD Interpretation Radiology Orders: 01/13/18 05:10 CHEST PORTABLE [RAD] Stat 01/13/18 06:26 CHEST,ABDOMEN, PELVIS W/O CONT [CT] Stat CXR [CHEST PORTABLE] [RAD] Stat - EKG Interpretation EKG Interpretation (Text): 01/13/18 05:18 Sinus tachycardia, S and T wave changes consistent with prior ischemia, nonspecific (Eder Alonso) - Medication Orders Current Medication Orders: Albuterol/Ipratropium (Duoneb 3 Mg/0.5 Mg (3 Ml) Ud) 3 ml IH [id number] [facility] Last Admin: 01/17/18 06:43 Dose: 3 ml Albuterol/Ipratropium (Duoneb 3 Mg/0.5 Mg (3 Ml) Ud) 3 ml IH Q2H PRN PRN Reason: Shortness of Breath Furosemide (Lasix) 40 mg IVP BID [facility] Last Admin: 01/17/18 02:00 Dose: 40 mg Comments: adm post K replacement K 3.0 MAR Blood Pressure Document 01/17/18 02:00 [facility] (Rec: 01/17/18 04:[address]) Blood Pressure Blood Pressure (100/60-150/90) 120/56 IVP Administration Document 01/17/18 02:00 RISSA (Rec: 01/17/18 04:[address]) Charges for Administration # of IVP Administrations 1 Heparin Sodium (Porcine) (Heparin) 5,000 units SC Q12 TWAN PRN Reason: Protocol Last Admin: 01/16/18 21:17 Dose: 5,000 units Subcutaneous Administrations Document 01/16/18 21:17 LUMA (Rec: 01/16/18 21:18 [facility] [place] Injection Site MAR Injection Site Right Abdomen Charges for Administration # of Subcutaneous Administrations 1 Hydrocortisone Sodium Succinate (Solu-Cortef) 25 mg IVP Q12 TWAN Last Admin: 01/16/18 21:17 Dose: 25 mg IVP Administration Document 01/16/18 21:17 LUMA (Rec: 01/16/18 21:17 [facility] [place] [facility] [place] Charges for Administration # of IVP Administrations 1 Meropenem (Merrem Iv 1 Gm Premix) 50 mls @ 100 mls/hr IVPB Q12 TWAN PRN Reason: Protocol Last Admin: 01/16/18 21:16 Dose: 100 mls/hr eMAR Start Stop Document 01/16/18 21:16 LUMA (Rec: 01/16/18 21:17 [facility] [place] [facility] [place] Intravenous Solution Start Date 01/16/18 Start Time 22:15 End Date 01/16/18 End time 23:15 Total Infusion Time 60 Doxycycline Hyclate 100 mg/ (Sodium Chloride) 100 mls @ 100 mls/hr IVPB Q12 TWAN PRN Reason: Protocol Last Admin: 01/16/18 21:15 Dose: 100 mls/hr eMAR Start Stop Document 01/16/18 21:15 LUMA (Rec: 01/16/18 21:16 [facility] [place] Intravenous Solution Start Date 01/16/18 Start Time 21:15 End Date 01/16/18 End time 22:15 Total Infusion Time 60 Fentanyl Citrate (Fentanyl Citrate/Sodium Chloride 1 Mg/100 Ml) 1,000 mcg in 100 mls @ 6 mls/hr IV .[id number] PRN; Protocol; 60 MCG/HR PRN Reason: TITRATE PER MD ORDER Last Admin: 01/16/18 23:30 Dose: 100 mcg/hr, 10 mls/hr eMAR Start Stop Document 01/16/18 23:30 LUMA (Rec: 01/17/18 00:27 [facility] [place] Intravenous Solution Start Date 01/16/18 Start Time 23:30 Juarez Agitation Sedation Document 01/16/18 23:30 RISSAO (Rec: 01/17/18 00:27 [facility]14[facility]) Juarez Agitation Sedation Scale Juarez Agitation Sedation Scale Score -2 Light Sedation: briefly awakens with eye contact to voice (<10 sec) Titration Intervention Document 01/16/18 23:30 LUMA (Rec: 01/17/18 00:27 [facility]14[facility]) Titration Intake Cumulative Intake (Rx) 100 Waste Amount 0 Container Volume 100 Titration Dosing Titration Dose 100 IV Rate 10 Intake/Decrease Started/Running Cumulative Dose 1000 Propofol (Diprivan) 1,000 mg in 100 mls @ 4.872 mls/hr IV .[id number] PRN; Protocol; 10 MCG/KG/MIN PRN Reason: TITRATE PER MD ORDER Last Admin: 01/17/18 04:00 Dose: 15 mcg/kg/min, 7.307 mls/hr eMAR Start Stop Document 01/17/18 04:00 LUMA (Rec: 01/17/18 05:35 [facility]14[facility]) Intravenous Solution Start Date 01/17/18 Start Time 04:00 Juarez Agitation Sedation Document 01/17/18 04:00 LUMA (Rec: 01/17/18 05:35 [id number]) Juarez Agitation Sedation Scale Juarez Agitation Sedation Scale Score -2 Light Sedation: briefly awakens with eye contact to voice (<10 sec) Titration Intervention Document 01/17/18 04:00 LUMA (Rec: 01/17/18 05:35 [facility]14[facility]) Titration Intake Cumulative Intake (Rx) 100 Waste Amount 0 Container Volume 100 Titration Dosing Titration Dose 15 IV Rate 7.307 Intake/Decrease Started/Running Cumulative Dose 1000 Pantoprazole Sodium (Protonix Inj) 40 mg IVP DAILY TWAN Last Admin: 01/16/18 09:41 Dose: 40 mg IVP Administration Document 01/16/18 09:41 TERRI (Rec: 01/16/18 09:[address] [address] [facility] [address] [id number]) Charges for Administration # of IVP Administrations 1 Discontinued Medications Albuterol/Ipratropium (Duoneb 3 Mg/0.5 Mg (3 Ml) Ud) 3 ml IH Q15M TWAN Stop: 01/13/18 05:46 Last Admin: 01/13/18 05:46 Dose: 3 ml Furosemide (Lasix) 40 mg IVP ONCE ONE Stop: 01/15/18 07:52 Last Admin: 01/15/18 08:41 Dose: 40 mg MAR Blood Pressure Document 01/15/18 08:41 OYELO (Rec: 01/15/18 08:41 OYELO [id number]) Blood Pressure Blood Pressure (100/60-150/90) 114/41 IVP Administration Document 01/15/18 08:41 OYELO (Rec: 01/15/18 08:41 OYELO [id number]) Charges for Administration # of IVP Administrations 1 Furosemide (Lasix) 40 mg IVP ONCE STA Stop: 01/15/18 16:40 Last Admin: 01/15/18 16:50 Dose: 40 mg MAR Blood Pressure Document 01/15/18 16:50 OYELO (Rec: 01/15/18 16:50 OYELO [id number]) Blood Pressure Blood Pressure (100/60-150/90) 112/42 IVP Administration Document 01/15/18 16:50 OYELO (Rec: 01/15/18 16:50 OYELO [id number]) Charges for Administration # of IVP Administrations 1 Furosemide (Lasix) 40 mg IVP DAILY [facility] Last Admin: 01/16/18 09:42 Dose: 40 mg MAR Blood Pressure Document 01/16/18 09:42 OYELO (Rec: 01/16/18 09:42 OYELO [id number]) Blood Pressure Blood Pressure (100/60-150/90) 181/73 IVP Administration Document 01/16/18 09:42 OYELO (Rec: 01/16/18 09:42 OYELO [id number]) Charges for Administration # of IVP Administrations 1 Furosemide (Lasix) 40 mg IVP BID [facility] Last Admin: 01/16/18 11:37 Dose: Hydrocortisone Sodium Succinate (Solu-Cortef) 50 mg IVP Q6 [facility] Last Admin: 01/15/18 05:21 Dose: 50 mg IVP Administration Document 01/15/18 05:21 KGD (Rec: 01/15/18 05:21 KGD [id number]) Charges for Administration # of IVP Administrations 1 Hydrocortisone Sodium Succinate (Solu-Cortef) 50 mg IVP STAT STA Stop: 01/13/18 15:47 Last Admin: 01/13/18 16:18 Dose: 50 mg IVP Administration Document 01/13/18 16:18 MDU (Rec: 01/13/18 16:18 MDU [id number]) Charges for Administration # of IVP Administrations 1 Hydrocortisone Sodium Succinate (Solu-Cortef) 50 mg IVP Q12 TWAN Last Admin: 01/16/18 09:41 Dose: 50 mg IVP Administration Document 01/16/18 09:41 OYELO (Rec: 01/16/18 09:41 OYELO [id number]) Charges for Administration # of IVP Administrations 1 Sodium Chloride (Sodium Chloride 0.9%) 500 mls @ 999 mls/hr IV .Q31M STA Stop: 01/13/18 06:43 Last Admin: 01/13/18 06:00 Dose: 999 mls/hr eMAR Start Stop Document 01/13/18 06:00 TA (Rec: 01/13/18 06:40 TA [id number]) Intravenous Solution Start Date 01/13/18 Start Time 06:00 Vancomycin HCl (Vancomycin 1gm) 1 gm in 250 mls @ 167 mls/hr IVPB STAT STA PRN Reason: Protocol Stop: 01/13/18 07:42 Last Admin: 01/13/18 06:53 Dose: 167 mls/hr eMAR Start Stop Document 01/13/18 06:53 TA (Rec: 01/13/18 06:53 TA [id number]) Intravenous Solution Start Date 01/13/18 Start Time 06:53 Piperacillin Sod/Tazobactam Sod (Zosyn 3.375 In Ns 100ml) 100 mls @ 200 mls/hr IVPB STAT STA PRN Reason: Protocol Stop: 01/13/18 06:42 Last Admin: 01/13/18 06:41 Dose: 200 mls/hr eMAR Start Stop Document 01/13/18 06:41 TA (Rec: 01/13/18 06:42 TA [id number]) Intravenous Solution Start Date 01/13/18 Start Time 06:42 Sodium Chloride (Sodium Chloride 0.9%) 500 mls @ 999 mls/hr IV .Q31M STA Stop: 01/13/18 06:57 Last Admin: 01/13/18 07:29 Dose: 999 mls/hr eMAR Start Stop Document 01/13/18 07:29 SRE (Rec: 01/13/18 07:29 SRE [id number]) Intravenous Solution Start Date 01/13/18 Start Time 07:00 End Date 01/13/18 End time 07:30 Total Infusion Time 30 Propofol (Diprivan) 1,000 mg in 100 mls @ 4.79 mls/hr IV .[id number] PRN; Protocol ; 10 MCG/KG/MIN PRN Reason: TITRATE PER MD ORDER Last Admin: 01/14/18 07:55 Dose: 15 mcg/kg/min, 7.185 mls/hr eMAR Start Stop Document 01/14/18 07:55 KAC (Rec: 01/14/18 07:56 [facility]14ICUPC) Intravenous Solution Start Date 01/14/18 Start Time 07:56 Juarez Agitation Sedation Document 01/14/18 07:55 KAC (Rec: 01/14/18 07:56 [facility]-[id number]) Juarez Agitation Sedation Scale Juarez Agitation Sedation Scale Score -3 Moderate Sedation:Movement or eye opening to voice (no eye contact) Titration Intervention Document 01/14/18 07:55 KAC (Rec: 01/14/18 07:56 [facility] Titration Intake Cumulative Intake (Rx) 450 Waste Amount 0 Container Volume 100 Titration Dosing Titration Dose 15 IV Rate 7.185 Intake/Decrease Started/Increased Cumulative Dose 4500 Sodium Chloride (Sodium Chloride 0.9%) 1,000 mls @ 999 mls/hr IV .Q1H1M STA Stop: 01/13/18 08:49 Last Admin: 01/13/18 08:00 Dose: 999 mls/hr eMAR Start Stop Document 01/13/18 08:00 MDU (Rec: 01/13/18 11:30 MDU [id number]) Intravenous Solution Start Date 01/13/18 Start Time 07:30 End Date 01/13/18 End time 08:00 Total Infusion Time 30 Sodium Chloride (Sodium Chloride 0.9%) 2,000 mls @ 999 mls/hr IV .Q2H1M STA Stop: 01/13/18 09:50 Last Admin: 01/13/18 08:29 Dose: 999 mls/hr eMAR Start Stop Document 01/13/18 08:29 SRE (Rec: 01/13/18 08:30 SRE [id number]) Intravenous Solution Start Date 01/13/18 Start Time 07:55 End Date 01/13/18 End time 08:55 Total Infusion Time 60 Sodium Bicarbonate 75 meq/ (Sodium Chloride) 1,075 mls @ 100 mls/hr IV .[id number] TWAN Last Admin: 01/14/18 05:51 Dose: 100 mls/hr eMAR Start Stop Document 01/14/18 05:51 JZI (Rec: 01/14/18 05:51 JZI [id number]) Intravenous Solution Start Date 01/14/18 Start Time 05:51 Meropenem 250 mg/ Sodium (Chloride) 100 mls @ 100 mls/hr IVPB Q12H TWAN PRN Reason: Protocol Stop: 01/13/18 09:14 Last Admin: 01/13/18 10:45 Dose: 100 mls/hr eMAR Start Stop Document 01/13/18 10:45 MDU (Rec: 01/13/18 10:45 MDU [id number]) Intravenous Solution Start Date 01/13/18 Start Time 10:45 End Date 01/13/18 End time 11:45 Total Infusion Time 60 Vancomycin HCl (Vancomycin 1gm) 1 gm in 250 mls @ 167 mls/hr IVPB DAILY TWAN PRN Reason: Protocol Phytonadione 10 mg/ Sodium (Chloride) 51 mls @ 100 mls/hr IV ONCE ONE Stop: 01/13/18 09:30 Last Admin: 01/13/18 09:44 Dose: 100 mls/hr eMAR Start Stop Document 01/13/18 09:44 MDU (Rec: 01/13/18 09:45 MDU [id number]) Intravenous Solution Start Date 01/13/18 Start Time 09:44 End Date 01/13/18 End time 10:14 Total Infusion Time 30 NOREPINEPHRINE BIT/0.9 % NACL (Levophed 4 Mg/ 250 Ml Ns Premixed) 4 mg in 250 mls @ 15 mls/hr IV .[id number] PRN; Protocol; 4 MCG/MIN PRN Reason: TITRATE PER MD ORDER Last Titration: 01/14/18 11:00 Dose: 2 mcg/min, 7.5 mls/hr Titration Intervention Document 01/14/18 11:00 KA (Rec: 01/14/18 13:49 [facility]14ICUPC) Titration Intake Titration Intake 20 Cumulative Intake 20 Cumulative Intake (Rx) 270 Waste Amount 0 Container Volume 230 Titration Dosing Titration Dose 2 IV Rate 7.5 Intake/Decrease Decreased Cumulative Dose 4.32 Linezolid (Zyvox 600mg/300ml D5w) 600 mg in 300 mls @ 200 mls/hr IVPB Q12 TWAN PRN Reason: Protocol Stop: 01/20/18 10:01 Last Admin: 01/15/18 10:09 Dose: 200 mls/hr eMAR Start Stop Document 01/15/18 10:09 OYELO (Rec: 01/15/18 10:09 OYELO [id number]) Intravenous Solution Start Date 01/15/18 Start Time 11:40 End Date 01/15/18 End time 13:10 Total Infusion Time 90 Vasopressin 20 units/ Sodium (Chloride) 101 mls @ 9.09 mls/hr IV .Q11H7M TWAN; 0.03 U/MIN PRN Reason: Protocol Last Admin: 01/14/18 14:00 Dose: 9.09 mls/hr eMAR Start Stop Document 01/14/18 14:00 [facility] (Rec: 01/14/18 17:13 [facility]14ICUP) Intravenous Solution Start Date 01/14/18 Start Time 02:00 MAR Blood Pressure Document 01/14/18 14:00 [facility] (Rec: 01/14/18 17:13 [id number]) Blood Pressure Blood Pressure (100/60-150/90) 113/63 Fentanyl Citrate (Fentanyl Citrate/Sodium Chloride 1 Mg/100 Ml) 1,000 mcg in 100 mls @ 7.5 mls/hr IV .[id number] PRN; Protocol; 75 MCG/HR PRN Reason: TITRATE PER MD ORDER Last Titration: 01/16/18 07:00 Dose: 0 mcg/hr, 0 mls/hr Juarez Agitation Sedation Document 01/16/18 07:00 OYELO (Rec: 01/16/18 11:26 OYELO [id number]) Juarez Agitation Sedation Scale Juarez Agitation Sedation Scale Score -2 Light Sedation: briefly awakens with eye contact to voice (<10 sec) Titration Intervention Document 01/16/18 07:00 OYELO (Rec: 01/16/18 11:26 OYELO [id number]) Titration Intake Titration Intake 59 Cumulative Intake 80 Cumulative Intake (Rx) 80 Waste Amount 0 Container Volume 20 Titration Dosing Titration Dose 0 IV Rate 0 Intake/Decrease Paused Cumulative Dose 800 Midazolam 100 mg/100ml in NS (Midazolam 100 Mg/100ml In Ns) 100 mg in 100 mls @ 5 mls/hr IV .Q20H PRN; Protocol; 5 MG/HR PRN Reason: Agitation Last Admin: 01/15/18 05:22 Dose: 5 mg/hr, 5 mls/hr eMAR Start Stop Document 01/15/18 05:22 KGD (Rec: 01/15/18 05:22 KGD [id number]) Intravenous Solution Start Date 01/15/18 Start Time 05:22 Juarez Agitation Sedation Document 01/15/18 05:22 KGD (Rec: 01/15/18 05:22 KGD [id number]) Juarez Agitation Sedation Scale Juarez Agitation Sedation Scale Score -2 Light Sedation: briefly awakens with eye contact to voice (<10 sec) Titration Intervention Document 01/15/18 05:22 KGD (Rec: 01/15/18 05:22 KGD [id number]) Titration Intake Cumulative Intake (Rx) 100 Waste Amount 0 Container Volume 100 Titration Dosing Titration Dose 5 IV Rate 5 Intake/Decrease Started/Running Cumulative Dose 100 Cisatracurium Besylate 200 mg/ (Sodium Chloride) 270 mls @ 3.04 mls/hr IV .Q24H PRN; Protocol; 0.5 MCG/KG/MIN PRN Reason: TITRATE PER MD ORDER Last Titration: 01/15/18 08:00 Dose: 0 mcg/kg/min, 0 mls/hr Titration Intervention Document 01/15/18 08:00 OYELO (Rec: 01/15/18 08:48 OYELO [id number]) Titration Intake Titration Intake 75 Cumulative Intake 145 Cumulative Intake (Rx) 145 Waste Amount 0 Container Volume 125 Titration Dosing Titration Dose 0 IV Rate 0 Intake/Decrease Paused Cumulative Dose 107.4073 Sodium Bicarbonate 150 meq/ (Dextrose) 1,150 mls @ 100 mls/hr IV .[id number] TWAN Last Admin: 01/14/18 21:35 Dose: 100 mls/hr eMAR Start Stop Document 01/14/18 21:35 KGD (Rec: 01/14/18 21:35 KGD [id number]) Intravenous Solution Start Date 01/14/18 Start Time 21:35 Potassium Chloride (Potassium Chloride 20 Meq/100 Ml) 20 meq in 100 mls @ 50 mls/hr IVPB Q2H [facility] Stop: 01/15/18 21:29 Last Admin: 01/16/18 00:33 Dose: 50 mls/hr eMAR Start Stop Document 01/16/18 00:33 JDEMETRIO (Rec: 01/16/18 00:33 JZI [id number]) Intravenous Solution Start Date 01/16/18 Start Time 00:33 Potassium Chloride (Potassium Chloride 20 Meq/100 Ml) 20 meq in 100 mls @ 50 mls/hr IVPB Q2H [facility] Stop: 01/16/18 10:59 Last Admin: 01/16/18 09:42 Dose: 50 mls/hr eMAR Start Stop Document 01/16/18 09:42 OYELO (Rec: 01/16/18 09:43 OYELO [id number]) Intravenous Solution Start Date 01/16/18 Start Time 09:43 End Date 01/16/18 End time 11:43 Total Infusion Time 120 Fentanyl Citrate (Fentanyl Citrate/Sodium Chloride 1 Mg/100 Ml) 1,000 mcg in 100 mls @ 10 mls/hr IV .Q10H PRN; Protocol; 100 MCG/HR PRN Reason: TITRATE PER MD ORDER Potassium Chloride (Potassium Chloride 20 Meq/100 Ml) 20 meq in 100 mls @ 50 mls/hr IVPB Q2H [facility] Stop: 01/17/18 01:29 Last Admin: 01/17/18 00:14 Dose: 50 mls/hr eMAR Start Stop Document 01/17/18 00:14 JBO (Rec: 01/17/18 00:14 JBO [facility] [id number] Intravenous Solution Start Date 01/17/18 Start Time 00:00 End Date 01/17/18 End time 02:00 Total Infusion Time 120 Methylprednisolone (Solu-Medrol) 125 mg IVP STAT STA Stop: 01/13/18 05:11 Last Admin: 01/13/18 05:20 Dose: 125 mg IVP Administration Document 01/13/18 05:20 TA (Rec: 01/13/18 05:20 TA [id number]) Charges for Administration # of IVP Administrations 1 Midazolam HCl (Versed Inj) 2 mg IVP ONCE ONE Stop: 01/13/18 09:13 Last Admin: 01/13/18 09:34 Dose: 2 mg IVP Administration Document 01/13/18 09:34 MDU (Rec: 01/13/18 09:34 MDU [id number]) Charges for Administration # of IVP Administrations 1 Pantoprazole Sodium (Protonix Inj) 40 mg IVP Q12 TWAN Last Admin: 01/14/18 21:35 Dose: 40 mg IVP Administration Document 01/14/18 21:35 KGD (Rec: 01/14/18 21:35 KGD [id number]) Charges for Administration # of IVP Administrations 1 Pneumococcal Polyvalent Vaccine (Pneumovax 23 Vaccine) 0.5 ml IM .ONCE ONE Stop: 01/13/18 15:12 Disposition/Present on Arrival - Present on Arrival Any Indicators Present on Arrival: Yes History of DVT/PE: No History of Uncontrolled Diabetes: No Urinary Catheter: Yes History of Decub. Ulcer: No History Surgical Site Infection Following: None - Disposition Have Diagnosis and Disposition been Completed?: Yes Disposition Time: 05:56 Patient Plan: Admission, ICU - Disposition Diagnosis: Acute and chronic respiratory failure, CHF (congestive heart failure) Disposition: HOSPITALIZED Patient Problems: Current Active Problems Problem Status Onset Acute and chronic respiratory failure Acute CHF (congestive heart failure) Acute Condition: CRITICAL Endotracheal Intubation - Endotracheal Intubation Intubated With ETT Size: 7.5 Blade Type Used: Curved Indication: Respiratory Failure, Airway Protection Intubated: Orally Pre-Intubation Airway Assessment: Ventilated And Oxygenated Medications Used During Pre-Intubation: Etomidate Paralyzed With: Succinylcholine Post-Intubation Assessment: ETT Secured AT (cm): (22), Breath Sounds Equal Bilat , Placement Confirmed Via CXR, Color Change W/End Tidal CO2 Detector, Oxygen Saturation:
[2018-01-13] MEDS: Albuterol-Ipratrop 3 mg / 0.5 (3 ml) UD IH SCH ×7 (05:20→23:50)
[2018-01-13 05:42] LABS: BASO # 0.02 K/mm3 (0.0-2.0); BASO % 0.1 % (0.0-3.0); EOS # 0.1 (0.0-0.7); EOS % 0.6 % (1.5-5.0); GRAN # 3.16 (1.4-6.5); GRAN % 22.3 % (50.0-68.0); LYMPH # 8.4 (1.2-3.4); LYMPH % 59.2 % (22.0-35.0); MEAN CELL VOLUME 108.7 fl (80.0-105.0); MEAN CORPUSCULAR HEMOGLOBIN 33.9 pg (25.0-35.0); MEAN CORPUSCULAR HGB CONC 31.2 g/dl (31.0-37.0); MEAN PLATELET VOLUME 10.6 fl (7.0-11.0); MONO # 2.5 (0.1-0.6); MONO % 17.8 % (1.0-6.0); RBC 1.83 10^6/uL (3.5-6.1); RED CELL DISTRIBUTION WIDTH 18.6 % (11.5-14.5); WHITE BLOOD COUNT 14.2 10^3/ul (4.5-11.0)
[2018-01-13 05:45] LABS: ALBUMIN 3.8 g/dL (3.0-4.8); CALCIUM 9.8 mg/dL (8.4-10.5)
[2018-01-13 05:49] LABS: HEMOGLOBIN 6.2 g/dL (12.0-16.0)
[2018-01-13 05:51] LABS: INR 1.96; PARTIAL THROMBOPLASTIN TIME 25.5 Seconds (25.1-36.5); PROTHROMBIN TIME 22.9 SECONDS (9.4-12.5)
[2018-01-13 05:57] LABS: TROPONIN I 0.07 ng/mL
[2018-01-13 06:10] LABS: VENOUS BLOOD GAS BASE EXCESS -17.2 mmol/L (0.0-2.0); VENOUS BLOOD GAS PO2 86 mm/Hg (30-55)
[2018-01-13 06:12] LABS: VENOUS BLOOD PH 7.08 (7.32-7.43)
[2018-01-13] MEDS ORDERED: Vancomycin 1gm in NS 250ml 1 GM/250 ML BAG IVPB STA (06:13)
[2018-01-13] MEDS ORDERED: Sodium Chloride 0.9% 500 ML IV STA ×2 (06:13→06:27)
[2018-01-13] MEDS ORDERED: Rocuronium 10 mg/ml (5 ml) ONE (06:20)
[2018-01-13] MEDS ORDERED: Succinylcholine 200 mg/10 ml Inj IV ONE (06:23)
[2018-01-13] MEDS: Piperacillin/Tazobact 3.375 gm 100 ML IVPB STA ×2 (06:39→06:41)
[2018-01-13 07:10] LABS: URINE BILIRUBIN NEGATIVE (NEGATIVE); URINE BLOOD LARGE (NEGATIVE); URINE GLUCOSE (UA) NEGATIVE (NEGATIVE); URINE LEUKOCYTE ESTERASE LARGE Leu/uL (NEGATIVE); URINE PROTEIN 100 mg/dL (<30 mg/dL); URINE UROBILINOGEN 0.2 E.U./dL (<1 E.U./dL)
[2018-01-13 07:13] LABS: URINE APPEARANCE CLOUDY (CLEAR); URINE COLOR LIGHT YELLOW (YELLOW)
[2018-01-13] MEDS: Propofol 10 mg/ml 1,000 MG/100 ML VIAL IV PRN ×4 (07:26→21:00)
[2018-01-13 07:44] LABS: ARTERIAL BLOOD GAS HCO3 15.4 mmol/L (21-28); ARTERIAL BLOOD GAS O2 SAT 98.8 % (95-98); ARTERIAL BLOOD GAS PCO2 26 mm/Hg (35-45); ARTERIAL BLOOD GAS PH 7.38 (7.35-7.45); ARTERIAL BLOOD GAS TCO2 16.2 mmol.L (22-28)
[2018-01-13] MEDS ORDERED: Sodium Chloride 0.9% 1,000 ML IV STA (07:49)
[2018-01-13] MEDS ORDERED: Sodium Chloride 0.9% 2,000 ML IV STA (07:50)
[2018-01-13 07:54] LABS: URINE RBC TNTC /hpf (0-2); URINE WBC TNTC /hpf (0-6)
[2018-01-13 07:55] LABS: URINE BACTERIA LARGE (NEG)
[2018-01-13] MEDS ORDERED: Phytonadione 10 mg/ml Inj (Adult) SC ONE (08:24)
--- NOTE | 2018-01-13 08:30 | RAD ---
Date of service: 01/13/2018 HISTORY: intubation COMPARISON: 01/13/2018. FINDINGS: Endotracheal tube terminates 1.8 cm proximal to the sidra. The nasogastric tube terminates in the stomach. LUNGS: The lungs are well inflated. There is diffuse interstitial thickening in both lungs. There is superimposed patchy airspace disease in the right upper lobe. PLEURA: Bilateral pleural effusions, no pneumothorax apparent. CARDIOVASCULAR: Normal. OSSEOUS STRUCTURES: No significant abnormalities. VISUALIZED UPPER ABDOMEN: Normal. OTHER FINDINGS: None. IMPRESSION: Interstitial pulmonary fibrosis. Airspace disease in the right upper lobe may represent developing pneumonia. Small pleural effusions. Endotracheal tube terminates 1.8 cm proximal to the sidra.
--- NOTE | 2018-01-13 08:32 | RAD ---
Date of service: 01/13/2018 HISTORY: Shortness of breath COMPARISON: 10/07/2017. FINDINGS: LUNGS: There is interval development of diffuse interstitial thickening in the lungs. There is bibasilar atelectasis. PLEURA: Small pleural effusions, no pneumothorax apparent. CARDIOVASCULAR: Normal. OSSEOUS STRUCTURES: No significant abnormalities. VISUALIZED UPPER ABDOMEN: Normal. OTHER FINDINGS: None. IMPRESSION: Findings are most compatible with diffuse interstitial pulmonary fibrosis.
--- NOTE | 2018-01-13 08:49 | CP.PCM.CON ---
History of Present Illness - History of Present Illness History of Present Illness: MICU CONSULT NOTE HPI Patient is 87yo female with PMHx of dementia,HTN, COPD/emphysema, former smoker , diastolic CHF, DVT on Eliquis s/p IVC filter, presented with worsening SOB, respiratory failure. History obtained from daughter, who states that the patient woke up from sleep complaining of SOB. Pt presented with resp distress, placed on BIPAP, failued, subsequently intubated by ER staff. Currently intubated, awake, following simple commands. Labs, imaging, chart reviewed. PMHx as above PSHx IVC filter Meds as per EMR FHx NC Social former smoker, lives at home with daughter ROS cannot obtain, intubated Past Patient History - Infectious Disease Hx of Infectious Diseases: None - Past Medical History & Family History Past Medical History?: Yes - Past Social History Smoking Status: Former Smoker - CARDIAC Hx Hypertension: Yes - PULMONARY Hx Chronic Obstructive Pulmonary Disease (COPD): Yes (Emphysema) - NEUROLOGICAL Hx Dementia: Yes - HEENT Hx HEENT Problems: No - RENAL Hx Chronic Kidney Disease: Yes (BLADDER TUMOR/MASS) - ENDOCRINE/METABOLIC Hx Endocrine Disorders: No - HEMATOLOGICAL/ONCOLOGICAL Hx Cancer: Yes - INTEGUMENTARY Hx Dermatological Problems: Yes Hx Psoriasis: Yes (EXSTENSIVE SPECIALLY TO WHOLE BACK AND BUTTOCKS.FLUSHED SKIN. ) - MUSCULOSKELETAL/RHEUMATOLOGICAL Hx Arthritis: Yes (OA) - GENITOURINARY/GYNECOLOGICAL Hx Genitourinary Disorders: Yes Hx Bladder Cancer: Yes - PSYCHIATRIC Hx Substance Use: No - SURGICAL HISTORY Hx Surgeries: Yes (TONSILLECTOMY,BLADDER SX- TURBT,TONSILLECTOMY) - ANESTHESIA Hx Anesthesia Reactions: Yes (diff waking up) Hx Malignant Hyperthermia: No Meds Allergies/Adverse Reactions: Allergies Allergy/AdvReac Type Severity Reaction Status Date / Time No Known Allergies Allergy Verified 01/13/18 05:17 - Medications Medications: Current Medications Propofol (Diprivan) 1,000 mg in 100 mls @ 4.79 mls/hr IV .[id number] PRN; Protocol ; 10 MCG/KG/MIN PRN Reason: TITRATE PER MD ORDER Last Admin: 01/13/18 07:26 Dose: 5.01 mcg/kg/min, 2.4 mls/hr Sodium Chloride (Sodium Chloride 0.9%) 1,000 mls @ 999 mls/hr IV .Q1H1M STA Stop: 01/13/18 08:49 Sodium Chloride (Sodium Chloride 0.9%) 2,000 mls @ 999 mls/hr IV .Q2H1M STA Stop: 01/13/18 09:50 Last Admin: 01/13/18 08:29 Dose: 999 mls/hr Sodium Bicarbonate 75 meq/ (Sodium Chloride) 1,075 mls @ 100 mls/hr IV .[id number] TWAN Meropenem 250 mg/ Sodium (Chloride) 100 mls @ 100 mls/hr IVPB Q12H TWAN PRN Reason: Protocol Stop: 01/13/18 09:14 Vancomycin HCl (Vancomycin 1gm) 1 gm in 250 mls @ 167 mls/hr IVPB DAILY TWAN PRN Reason: Protocol Physical Exam - Constitutional Appears: No Acute Distress, Agitated, Confused - Head Exam Head Exam: NORMAL INSPECTION - Eye Exam Eye Exam: Normal appearance - ENT Exam ENT Exam: Mucous Membranes Dry - Respiratory Exam Respiratory Exam: Rales, NORMAL BREATHING PATTERN - Cardiovascular Exam Cardiovascular Exam: REGULAR RHYTHM, +S1, +S2 - GI/Abdominal Exam GI & Abdominal Exam: Normal Bowel Sounds, Soft - Extremities Exam Extremities exam: Positive for: normal inspection - Neurological Exam Neurological exam: Altered Results - Vital Signs Recent Vital Signs: Last Vital Signs Temp 98 F 01/13/18 08:00 Pulse 86 01/13/18 08:00 Resp 16 01/13/18 08:00 BP 121/63 01/13/18 08:00 Pulse Ox 100 01/13/18 08:00 - Labs Result Diagrams: 01/13/18 05:10 01/13/18 05:10 Labs: Laboratory Results - last 24 hr 01/13/18 01/13/18 06:53 07:30 pCO2 26 L pO2 167.0 H HCO3 15.4 L ABG pH 7.38 ABG Total CO2 16.2 L ABG O2 Saturation 98.8 H ABG Base Excess -8.0 L ABG Potassium 2.9 L Sodium 145.0 Chloride 120.0 H Glucose 145 H Lactate 2.5 H FiO2 100.0 Arterial Blood Potassium 2.9 L Urine Color Light yellow Urine Appearance Cloudy Urine pH 6.0 Ur Specific [place] 1.025 Urine Protein 100 H Urine Glucose (UA) Negative Urine Ketones Negative Urine Blood Large H Urine Nitrate Negative Urine Bilirubin Negative Urine Urobilinogen 0.2 Ur Leukocyte Esterase Large H Urine RBC Tntc Urine WBC Tntc Urine Bacteria Large - Imaging and Cardiology Chest x-ray Status: Image reviewed by me, Report reviewed by me Assessment & Plan - Assessment and Plan (Free Text) Assessment: 87yo female PMhx of COPD, Dementia, HTN, diastolic CHF, DVT on Eliquis, s/p IVC filter a.w anemia, lactic acidosis, septic shock, resp failure Anemia DVT on eliquis, s/p IVC filter Septic Shock resp failure Metabolic Acidosis UTI ARDS r/o cardiogenic shock - currently afebrile, SBP 90-100, intubated, sedated, on PRVC - labs, imaging, chart reviewed Recommend: - cont with vent support, low tidal vol ventilation, 27/03/350/60% - duonebs PRN - Broad spectrum abx: Vanco, Merrem - panculture, UCx, BCx, check procal - check urine Lg, Strep - needs central line - hold BP meds - ECHO - 1/2NS with 75meq NaBicarb @100cc/hr - transfuse 2u prbc, 2u FFP, Vit K 10 mg IV x 1 - renal consult - UA, Ulytes - Renal sono - repeat labs in PM - Q6hr CBC monitoring - check guiac - PPI BID - GI eval - GI ppx - DVT ppx - Monitor in MICU Critical care time 45 minutes
[2018-01-13] MEDS ORDERED: Phytonadione 10 MG in Sodium Chloride 0.9% 50 ML IV ONE (09:00)
[2018-01-13] MEDS: NOREPINEPHRINE BIT/0.9 % NACL 4 MG/250 ML BAG IV PRN (09:05)
[2018-01-13] MEDS ORDERED: Albuterol-Ipratrop 3 mg / 0.5 (3 ml) UD IH PRN (09:07)
[2018-01-13] MEDS ORDERED: Midazolam 2 MG/2 ML VIAL IVP ONE (09:12)
[2018-01-13 10:10] LABS: VENOUS BLOOD GAS BASE EXCESS -7.5 mmol/L (0.0-2.0); VENOUS BLOOD GAS PO2 221 mm/Hg (30-55)
--- NOTE | 2018-01-13 10:26 | RAD ---
Date of service: 01/13/2018 HISTORY: s/p tlc insertion COMPARISON: No prior. FINDINGS: LUNGS: There is a new left internal jugular line that terminates in the SVC. No pneumothorax. Endotracheal and nasogastric tubes unchanged. Bilateral infiltrates unchanged PLEURA: No significant pleural effusion identified, no pneumothorax apparent. CARDIOVASCULAR: Normal. OSSEOUS STRUCTURES: No significant abnormalities. VISUALIZED UPPER ABDOMEN: Normal. OTHER FINDINGS: None. IMPRESSION: There is a new left internal jugular line that terminates in the SVC. No pneumothorax. Endotracheal and nasogastric tubes unchanged. Bilateral infiltrates unchanged
--- NOTE | 2018-01-13 11:07 | CT ---
Date of service: 01/13/2018 PROCEDURE: CT Chest, Abdomen and Pelvis without intravenous contrast HISTORY: leukocytosis, lactic acidosis COMPARISON: None available. TECHNIQUE: Radiation dose: Total exam DLP = 1203 mGy-cm. This CT exam was performed using one or more of the following dose reduction techniques: Automated exposure control, adjustment of the mA and/or kV according to patient size, and/or use of iterative reconstruction technique. FINDINGS: CT CHEST WITHOUT CONTRAST: LUNGS: Diffuse infiltrates are seen in the periphery of both lungs. There is focal consolidation in both lung bases. Findings are most consistent with pneumonia. MEDIASTINUM: Unremarkable. Normal caliber aorta and pulmonary arterial trunk. Normal size heart. Coronary artery calcifications LYMPH NODES: Unremarkable. PLEURA: Unremarkable. No pneumothorax. No pleural fluid. BONES: Unremarkable. OTHER FINDINGS: Nasogastric and endotracheal tube in satisfactory position CT ABDOMEN AND PELVIS: LIVER: Unremarkable. No gross lesion or ductal dilatation. GALLBLADDER AND BILE DUCTS: Unremarkable. PANCREAS: Unremarkable. No gross lesion or ductal dilatation. SPLEEN: Unremarkable. ADRENALS: There is a 2 cm nodule in the right adrenal gland. KIDNEYS AND URETERS: Unremarkable. No hydronephrosis. No solid mass. VASCULATURE: A caval filter is present BOWEL: Unremarkable. No obstruction. No gross mural thickening. APPENDIX: Normal appendix. PERITONEUM: Unremarkable. No free fluid. No free air. LYMPH NODES: Unremarkable. No enlarged lymph nodes. BLADDER: The bladder is decompressed around a Starkey catheter. The ureters are mildly dilated. There is mild hydronephrosis. REPRODUCTIVE: Unremarkable. BONES: Multilevel disc degeneration OTHER FINDINGS: None. IMPRESSION: Diffuse infiltrates are seen in the periphery of both lungs. There is focal consolidation in both lung bases. Findings are most consistent with pneumonia. The bladder is decompressed around a Starkey catheter. The ureters are mildly dilated. There is mild hydronephrosis.
[2018-01-13] MEDS: Linezolid 600 mg in D5W 300 ml 600 MG/300 ML BAG IVPB SCH ×2 (11:24→22:57)
[2018-01-13] MEDS: Meropenem IV 1 gm in NS 50 ML IVPB SCH ×2 (11:29→22:54)
--- NOTE | 2018-01-13 12:29 | PCM.PROC ---
Procedures Attestation:: I certify that I have explained the specified Operation(s) or Procedure(s), risks, benefits and reasonable alternatives to the Patient and/or other person responsible. The opportunity was given to ask questions and all questions answered - Central Line Placement Left Internal Jugular Triple Lumen Catheter Aseptic technique was employed throughout the procedure: Hand Hygiene done prior to procedure, Full sterile barriers (mask, hair cover, sterile gown, sterile gloves), Chloraprep Antiseptic: 30 second prep for IJ or SC sites CVP Time Out Performed: Yes Pt. Placed on Pulse Ox Monitor: Yes Central Line Prep: Povidone-Iodine 1% Local Anesthesia Used: Lidocaine 1% Amount of Anesthesia Used (mls): 10 Ultrasound Used for Placement: Yes Central Line Lumen Inserted: triple Central Line Length: 20 cm (24) Post Procedure: Sutured in Place, Good Blood Return, All Ports Aspirated, Flushed, Capped, Sterile Dressing Applied Secured by: Suture Post procedure dressing: Gauze, Clear vapor permeable, Chlorhexidine disc ( Biopatch) Post Procedure X-Ray: Yes Patient Tolerated Procedure: Well Immediate Complications: None Additional Comments: Supervised and assisted by Dr. Ross Rees MD. Dr. Rees was present for and assisted on all callahan elements of procedure.
--- NOTE | 2018-01-13 13:31 | CP.PCM.CON ---
History of Present Illness - History of Present Illness History of Present Illness: 87 year old female with PMH of COPD, HTN, history of DVT on anticoagulation S/P IVC filter placement, dementia, chronic CHF came in to [facility] because of worsening shortness of breath and cough. She was noted to be in respiratory distress when the patient woke up and was complaining of shortness of breath. In the ED, the patient needed to be intubated, put on the ventilator and sent to the ICU for closer observation and monitoring. The patient was noted to have leukocytosis and elevated lactate levels. Full ROS is unobtainable because of the patient being on the ventilator. Infectious Diseases consult is requested to further evaluate and manage. Review of Systems - Review of Systems Systems not reviewed;Unavailable: Intubated Past Patient History - Infectious Disease Hx of Infectious Diseases: None - Past Medical History & Family History Past Medical History?: Yes - Past Social History Smoking Status: Former Smoker - CARDIAC Hx Hypertension: Yes - PULMONARY Hx Chronic Obstructive Pulmonary Disease (COPD): Yes (Emphysema) - NEUROLOGICAL Hx Dementia: Yes - HEENT Hx HEENT Problems: No - RENAL Hx Chronic Kidney Disease: Yes (BLADDER TUMOR/MASS) - ENDOCRINE/METABOLIC Hx Endocrine Disorders: No - HEMATOLOGICAL/ONCOLOGICAL Hx Cancer: Yes - INTEGUMENTARY Hx Dermatological Problems: Yes Hx Psoriasis: Yes (EXSTENSIVE SPECIALLY TO WHOLE BACK AND BUTTOCKS.FLUSHED SKIN. ) - MUSCULOSKELETAL/RHEUMATOLOGICAL Hx Arthritis: Yes (OA) - GENITOURINARY/GYNECOLOGICAL Hx Genitourinary Disorders: Yes Hx Bladder Cancer: Yes - PSYCHIATRIC Hx Substance Use: No - SURGICAL HISTORY Hx Surgeries: Yes (TONSILLECTOMY,BLADDER SX- TURBT,TONSILLECTOMY) - ANESTHESIA Hx Anesthesia Reactions: Yes (diff waking up) Hx Malignant Hyperthermia: No Meds Allergies/Adverse Reactions: Allergies Allergy/AdvReac Type Severity Reaction Status Date / Time No Known Allergies Allergy Verified 01/13/18 11:29 - Medications Medications: Current Medications Albuterol/Ipratropium (Duoneb 3 Mg/0.5 Mg (3 Ml) Ud) 3 ml IH [id number] TWAN Albuterol/Ipratropium (Duoneb 3 Mg/0.5 Mg (3 Ml) Ud) 3 ml IH Q2H PRN PRN Reason: Shortness of Breath Propofol (Diprivan) 1,000 mg in 100 mls @ 4.79 mls/hr IV .[id number] PRN; Protocol ; 10 MCG/KG/MIN PRN Reason: TITRATE PER MD ORDER Last Admin: 01/13/18 07:26 Dose: 5.01 mcg/kg/min, 2.4 mls/hr Sodium Bicarbonate 75 meq/ (Sodium Chloride) 1,075 mls @ 100 mls/hr IV .[id number] TWAN Vancomycin HCl (Vancomycin 1gm) 1 gm in 250 mls @ 167 mls/hr IVPB DAILY TWAN PRN Reason: Protocol NOREPINEPHRINE BIT/0.9 % NACL (Levophed 4 Mg/ 250 Ml Ns Premixed) 4 mg in 250 mls @ 15 mls/hr IV .[id number] PRN; Protocol; 4 MCG/MIN PRN Reason: TITRATE PER MD ORDER Pantoprazole Sodium (Protonix Inj) 40 mg IVP Q12 TWAN Physical Exam - Constitutional Appears: Chronically Ill - Head Exam Head Exam: NORMAL INSPECTION - ENT Exam ENT Exam: Mucous Membranes Moist Additional comments: ET tube in place - Neck Exam Neck exam: Negative for: Meningismus Additional comments: left IJ TLC in place - Respiratory Exam Respiratory Exam: Decreased Breath Sounds - Cardiovascular Exam Cardiovascular Exam: +S1, +S2 - GI/Abdominal Exam GI & Abdominal Exam: Soft. absent: Tenderness Results - Vital Signs Recent Vital Signs: Last Vital Signs Temp 96.8 F L 01/13/18 08:56 Pulse 93 H 01/13/18 09:00 Resp 27 H 01/13/18 09:00 BP 91/20 L 01/13/18 09:00 Pulse Ox 91 L 01/13/18 09:00 - Labs Result Diagrams: 01/13/18 05:10 01/13/18 05:10 Labs: Laboratory Results - last 24 hr 01/13/18 01/13/18 06:53 07:30 pCO2 26 L pO2 167.0 H HCO3 15.4 L ABG pH 7.38 ABG Total CO2 16.2 L ABG O2 Saturation 98.8 H ABG Base Excess -8.0 L ABG Potassium 2.9 L Sodium 145.0 Chloride 120.0 H Glucose 145 H Lactate 2.5 H FiO2 100.0 Arterial Blood Potassium 2.9 L Urine Color Light yellow Urine Appearance Cloudy Urine pH 6.0 Ur Specific [place] 1.025 Urine Protein 100 H Urine Glucose (UA) Negative Urine Ketones Negative Urine Blood Large H Urine Nitrate Negative Urine Bilirubin Negative Urine Urobilinogen 0.2 Ur Leukocyte Esterase Large H Urine RBC Tntc Urine WBC Tntc Urine Bacteria Large Assessment & Plan - Assessment and Plan (Free Text) Plan: Assessment Consider severe sepsis/ septic shock due to bilateral lower lobe healthcare- associated pneumonia with possible gram positive cocci and/or gram negative bacilli and/or atypical organisms COPD HTN history of DVT on anticoagulation S/P IVC filter placement dementia chronic CHF Plan Started Zyvox, Merrem and Doxycycline pending blood, sputum cx, urine Legionella Ag, PCT; reviewed CT C/A/P will monitor clinically
[2018-01-13 14:26] LABS: GRAN # 2.7 (1.4-6.5); GRAN % 66.3 % (50.0-68.0); HEMOGLOBIN 7.8 g/dL (12.0-16.0); LYMPH % 25.1 % (22.0-35.0); MEAN CELL VOLUME 94.8 fl (80.0-105.0); MEAN CORPUSCULAR HEMOGLOBIN 31.1 pg (25.0-35.0); MEAN CORPUSCULAR HGB CONC 32.8 g/dl (31.0-37.0); MONO # 0.4 (0.1-0.6); MONO % 8.6 % (1.0-6.0); RBC 2.51 10^6/uL (3.5-6.1); RED CELL DISTRIBUTION WIDTH 21.3 % (11.5-14.5); WHITE BLOOD COUNT 4.1 10^3/ul (4.5-11.0)
[2018-01-13 14:44] LABS: VENOUS BLOOD GAS BASE EXCESS -8.3 mmol/L (0.0-2.0); VENOUS BLOOD GAS PO2 166 mm/Hg (30-55); VENOUS BLOOD PH 7.26 (7.32-7.43)
[2018-01-13 15:11] VITALS: BMI 25.2
[2018-01-13] MEDS ORDERED: Pneumococcal 23-Valent Vaccine IM ONE (15:11)
--- NOTE | 2018-01-13 15:19 | CP.PCM.CON ---
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 hold ACEI/ARB due to MAR. avoid hypotension. maintain hemodynamic stable Monitor Input/Output, daily weights and renal function with basic metabolic panel PRBC today as ordered work up for adrenal adenoma as outpt once pt stable Dose meds/antibiotics for reduced GFR. Glycemic control Further work up/management as per primary team Thanks for allowing me to participate in care of your patient. Will follow patient with you. Please call if any Qs. had d/w team Dr Celso Mcclendon Office: [phone] Chief Complaint; Unable Reason for consultation is acute kidney injury HPI: Pt is a 87-year-old female with history of dementia osteoarthritis Ckd stage III baseline grade 1.1-1.3 with GFR 55 Chronic obstructive pulmonary disease with pulmonary hypertension also bladder tumor patient/family had refused intervention, came to hospital with shortness of breath, respi distress , pneumonia/UTI with sepsis, respi failure s/p intubated but also with MAR since presentation and hence renal consulted Patient with hx bilateral extensive deep DVT she had IVC filter placed and was also on systemic a/c No recent iodinated contrast exposure. Noted obvious episodes of low BP. ROS: unable to obtain from pt Physical Examination: General Appearance: orally intubated, ill appearing. Vitals reviewed and noted as below Head; Atraumatic, normocephalic ENT: intubated EYES: deferred Neck; supple no lymphadenopathy, no thyromegaly or bruit Lungs: Normal respiratory rate/effort. Breath sounds bilateral equal and with basal crackle+ Heart: Normal rate. s1s2 normal. No rub or gallop. Extremities: no edema. No varicose veins Neurological: Patient is sedated Skin: Warm and dry. Normal turgor. No rash. Palpitation: Normal elasticity for age Abdomen: Abdomen is soft. Bowel sounds +. There is no abdominal tenderness, no guarding/rigidity no organomegaly Psych: unable MSK: no joint tenderness or swelling. Digits and nails normal, no deformity : kidney/bladder not palpable, has nazario Labs/imaging reviewed. Past medical history, past surgical history, family history, social history, allergy reviewed and noted as below Family hx: no hx of CKD. Rest non-contributory work up reviewed Past Patient History - Infectious Disease Hx of Infectious Diseases: None - Past Medical History & Family History Past Medical History?: Yes - Past Social History Smoking Status: Former Smoker - CARDIAC Hx Hypertension: Yes - PULMONARY Hx Chronic Obstructive Pulmonary Disease (COPD): Yes (Emphysema) - NEUROLOGICAL Hx Dementia: Yes - HEENT Hx HEENT Problems: No - RENAL Hx Chronic Kidney Disease: Yes (BLADDER TUMOR/MASS) - ENDOCRINE/METABOLIC Hx Endocrine Disorders: No - HEMATOLOGICAL/ONCOLOGICAL Hx Cancer: Yes - INTEGUMENTARY Hx Dermatological Problems: Yes Hx Psoriasis: Yes (EXSTENSIVE SPECIALLY TO WHOLE BACK AND BUTTOCKS.FLUSHED SKIN. ) - MUSCULOSKELETAL/RHEUMATOLOGICAL Hx Arthritis: Yes (OA) - GENITOURINARY/GYNECOLOGICAL Hx Genitourinary Disorders: Yes Hx Bladder Cancer: Yes - PSYCHIATRIC Hx Substance Use: No - SURGICAL HISTORY Hx Surgeries: Yes (TONSILLECTOMY,BLADDER SX- TURBT,TONSILLECTOMY) - ANESTHESIA Hx Anesthesia Reactions: Yes (diff waking up) Hx Malignant Hyperthermia: No Meds Allergies/Adverse Reactions: Allergies Allergy/AdvReac Type Severity Reaction Status Date / Time No Known Allergies Allergy Verified 01/13/18 11:29 - Medications Medications: Current Medications Albuterol/Ipratropium (Duoneb 3 Mg/0.5 Mg (3 Ml) Ud) 3 ml IH [id number] TWAN Albuterol/Ipratropium (Duoneb 3 Mg/0.5 Mg (3 Ml) Ud) 3 ml IH Q2H PRN PRN Reason: Shortness of Breath Hydrocortisone Sodium Succinate (Solu-Cortef) 50 mg IVP Q6 TWAN Propofol (Diprivan) 1,000 mg in 100 mls @ 4.79 mls/hr IV .[id number] PRN; Protocol ; 10 MCG/KG/MIN PRN Reason: TITRATE PER MD ORDER Last Admin: 01/13/18 12:33 Dose: 50 mcg/kg/min, 23.95 mls/hr Sodium Bicarbonate 75 meq/ (Sodium Chloride) 1,075 mls @ 100 mls/hr IV .[id number] TWAN Last Admin: 01/13/18 10:49 Dose: Not Given NOREPINEPHRINE BIT/0.9 % NACL (Levophed 4 Mg/ 250 Ml Ns Premixed) 4 mg in 250 mls @ 15 mls/hr IV .[id number] PRN; Protocol; 4 MCG/MIN PRN Reason: TITRATE PER MD ORDER Last Titration: 01/13/18 09:10 Dose: 5 mcg/min, 18.75 mls/hr Meropenem (Merrem Iv 1 Gm Premix) 50 mls @ 100 mls/hr IVPB Q12 TWAN PRN Reason: Protocol Last Admin: 01/13/18 11:29 Dose: Not Given Doxycycline Hyclate 100 mg/ (Sodium Chloride) 100 mls @ 100 mls/hr IVPB Q12 TWAN PRN Reason: Protocol Last Admin: 01/13/18 10:46 Dose: 100 mls/hr Linezolid (Zyvox 600mg/300ml D5w) 600 mg in 300 mls @ 200 mls/hr IVPB Q12 TWAN PRN Reason: Protocol Stop: 01/20/18 10:01 Last Admin: 01/13/18 11:24 Dose: 200 mls/hr Vasopressin 20 units/ Sodium (Chloride) 101 mls @ 9.09 mls/hr IV .[id number] TWAN; 0.03 U/MIN PRN Reason: Protocol Pantoprazole Sodium (Protonix Inj) 40 mg IVP Q12 TWAN Last Admin: 01/13/18 11:37 Dose: 40 mg Results - Vital Signs Recent Vital Signs: Last Vital Signs Temp 93.9 F L 01/13/18 13:30 Pulse 75 01/13/18 13:30 Resp 22 01/13/18 13:29 BP 104/52 L 01/13/18 13:30 Pulse Ox 97 01/13/18 13:30 - Labs Result Diagrams: 01/13/18 14:00 01/13/18 05:10 Labs: Laboratory Results - last 24 hr 01/13/18 01/13/1801/13/18 06:53 07:30 10:00 WBC RBC Hgb Hct MCV MCH MCHC RDW Plt Count MPV Gran % Lymph % (Auto) Dare % (Auto) Eos % (Auto) Baso % (Auto) Gran # Lymph # (Auto) Dare # (Auto) Eos # (Auto) Baso # (Auto) pCO2 26 L pO2 167.0 H 221 H HCO3 15.4 L ABG pH 7.38 ABG Total CO2 16.2 L ABG O2 Saturation 98.8 H ABG Base Excess -8.0 L ABG Potassium 2.9 L VBG pH 7.30 L VBG pCO2 37.0 L VBG HCO3 18.2 L VBG Total CO2 19.3 L VBG O2 Sat (Calc) 100.3 H VBG Base Excess -7.5 L VBG Potassium 3.6 Sodium 145.0 143.0 Chloride 120.0 H 114.0 H Glucose 145 H 194 H Lactate 2.5 H 2.3 H FiO2 100.0 21.0 Arterial Blood Potassium 2.9 L Venous Blood Potassium 3.6 Urine Color Light yellow Urine Appearance Cloudy Urine pH 6.0 Ur Specific [place] 1.025 Urine Protein 100 H Urine Glucose (UA) Negative Urine Ketones Negative Urine Blood Large H Urine Nitrate Negative Urine Bilirubin Negative Urine Urobilinogen 0.2 Ur Leukocyte Esterase Large H Urine RBC Tntc Urine WBC Tntc Urine Bacteria Large 01/13/18 01/13/18 14:00 14:00 WBC 4.1 L D RBC 2.51 L Hgb 7.8 L Hct 23.8 L MCV 94.8 D MCH 31.1 MCHC 32.8 RDW 21.3 H Plt Count 195 MPV 10.0 Gran % 66.3 Lymph % (Auto) 25.1 Dare % (Auto) 8.6 H Eos % (Auto) 0.0 L Baso % (Auto) 0.0 Gran # 2.70 Lymph # (Auto) 1.0 L Dare # (Auto) 0.4 Eos # (Auto) 0.0 Baso # (Auto) 0.00 pCO2 pO2 166 H HCO3 ABG pH ABG Total CO2 ABG O2 Saturation ABG Base Excess ABG Potassium VBG pH 7.26 L VBG pCO2 41.0 VBG HCO3 18.4 L VBG Total CO2 19.7 L VBG O2 Sat (Calc) 99.4 H VBG Base Excess -8.3 L VBG Potassium 3.7 Sodium 141.0 Chloride 112.0 H Glucose 275 H Lactate 1.7 FiO2 21.0 Arterial Blood Potassium Venous Blood Potassium 3.7 Urine Color Urine Appearance Urine pH Ur Specific [place] Urine Protein Urine Glucose (UA) Urine Ketones Urine Blood Urine Nitrate Urine Bilirubin Urine Urobilinogen Ur Leukocyte Esterase Urine RBC Urine WBC Urine Bacteria
[2018-01-13 21:31] LABS: ARTERIAL BLOOD GAS HCO3 18.6 mmol/L (21-28); ARTERIAL BLOOD GAS HEMOGLOBIN 6.6 g/dL (11.7-17.4); ARTERIAL BLOOD GAS O2 CAPACITY 9.1 mL/dl (16-24); ARTERIAL BLOOD GAS O2 SAT 98.6 % (95-98); ARTERIAL BLOOD GAS PCO2 33 mm/Hg (35-45); ARTERIAL BLOOD GAS PH 7.36 (7.35-7.45); ARTERIAL BLOOD GAS TCO2 19.6 mmol.L (22-28)
--- NOTE | 2018-01-13 22:41 | CARD ---
APPROVED REPORT Date of service: 01/13/2018 EKG Measurement Heart [id number] <Conclusion> Sinus tachycardia with premature supraventricular complexes ST & T wave abnormality, consider lateral ischemia Abnormal ECG
[2018-01-14] MEDS: Propofol 10 mg/ml 1,000 MG/100 ML VIAL IV PRN ×2 (00:14→07:55)
[2018-01-14] MEDS: NOREPINEPHRINE BIT/0.9 % NACL 4 MG/250 ML BAG IV PRN (02:22)
--- NOTE | 2018-01-14 02:25 | HP ---
Copied To: CHRISTOFER Cardenas MD Attending MD: CHRISTOFER Cardenas MD DATE OF EXAM: 01/13/2018 HISTORY OF PRESENT ILLNESS: The patient is an 87-year-old female who presented to the emergency department today in respiratory distress. The patient was placed on BiPAP, continued to deteriorate in the emergency department and was intubated. She is now intubated in the Intensive Care Unit, currently on IV sedation with ventilatory support. 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 The patient has a history of dementia. PAST SURGICAL HISTORY: Includes deep vein thrombosis status post IVC filter placement. 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 She was recently admitted to [facility] with a fracture of the humerus. ALLERGIES: THE PATIENT HAS NO KNOWN DRUG ALLERGIES. CURRENT MEDICATIONS: Include doxycycline IV, meropenem IV. The patient has received vancomycin IV. She is on IV Versed and she is on IV Zosyn empirically for presumed sepsis. Her regular medications include Norvasc 10 mg daily, Eliquis 5 mg twice daily and hydralazine 25 mg four times daily. FAMILY HISTORY: Noncontributory. SOCIAL HISTORY: The patient has a history of 40+ pack years tobacco in the remote past. No alcohol abuse. She currently lives with her daughter. She is dependent with IADLs and requires some assistance with ADLs. REVIEW OF SYSTEMS: Unobtainable as the patient is intubated and sedated. PHYSICAL EXAMINATION: GENERAL: The patient is a well-developed female, intubated on the ventilator. VITAL SIGNS: Blood pressure 104/52, temperature 93.9, pulse 72. The patient is on ventilator assist control rate of 20, tidal volume 365, FiO2 of 60% with a PEEP of 10. HEENT: Head is normocephalic, atraumatic. Endotracheal tube is intact. NECK: Supple. LUNGS: Show good air entry bilaterally with some scattered crepitations. HEART: Regular rate and rhythm. Grade II/ systolic murmur. ABDOMEN: Soft, slightly distended. Bowel sounds are hypoactive. EXTREMITIES: There is trace anasarca. NEUROLOGICALLY: The patient is sedated. SKIN: Warm and dry. LABORATORY DATA: WBCs on admission 14.2, now 4.1; hemoglobin 7.8 from 6.2 status post transfusion of packed red cells; Platelet count 195. Sodium of 144, potassium of 3.9, chloride 108, CO2 of 12, BUN 46, creatinine 2, glucose 277. BNP is elevated at 1330. Troponin is 0.07. Urine shows large blood, large leukocyte esterase, rbc's and wbc's too numerous to count with large bacteria. Chest x-ray shows possible pneumonia. CT scan of the chest, abdomen and pelvis shows no intra-abdominal pathology. IMPRESSION: 1. Ventilatory failure, rule out pneumonia with sepsis. 2. Acute kidney injury. 3. Hypertension with hypertensive cardiovascular disease, congestive heart failure. 4. Chronic obstructive pulmonary disease. 5. Dementia. 6. History of cancer of bladder status post transurethral resection of bladder tumor. 7. History of deep venous thrombosis status post inferior vena cava filter, on Eliquis. PLAN: Continue supportive care on mechanical ventilation, empiric IV antibiotics have been started and cultures are pending. Prognosis is poor. Family is aware. Jorge A Daniel JD/
[2018-01-14] MEDS: Albuterol-Ipratrop 3 mg / 0.5 (3 ml) UD IH SCH ×6 (03:45→23:35)
[2018-01-14 05:29] LABS: BASO # 0.01 K/mm3 (0.0-2.0); BASO % 0.1 % (0.0-3.0); GRAN # 4.65 (1.4-6.5); GRAN % 57.6 % (50.0-68.0); HEMOGLOBIN 7.7 g/dL (12.0-16.0); LYMPH # 1.5 (1.2-3.4); LYMPH % 19.1 % (22.0-35.0); MEAN CELL VOLUME 92.7 fl (80.0-105.0); MEAN CORPUSCULAR HEMOGLOBIN 31.3 pg (25.0-35.0); MEAN CORPUSCULAR HGB CONC 33.8 g/dl (31.0-37.0); MEAN PLATELET VOLUME 10.1 fl (7.0-11.0); MONO # 1.9 (0.1-0.6); MONO % 23.2 % (1.0-6.0); PLATELET COUNT 192 10^3/uL (120.0-450.0); RBC 2.46 10^6/uL (3.5-6.1); RED CELL DISTRIBUTION WIDTH 22.5 % (11.5-14.5); WHITE BLOOD COUNT 8.1 10^3/ul (4.5-11.0)
[2018-01-14 06:27] LABS: ARTERIAL BLOOD GAS O2 SAT 94.2 % (95-98); ARTERIAL BLOOD GAS PCO2 37 mm/Hg (35-45); ARTERIAL BLOOD GAS PH 7.34 (7.35-7.45); ARTERIAL BLOOD GAS TCO2 21.1 mmol.L (22-28)
[2018-01-14 06:32] LABS: BAND 8 % (0-2); LYMPHOCYTE 23 % (22.0-35.0); NEUTROPHIL 49 % (50.0-70.0)
[2018-01-14 06:33] LABS: ANISOCYTOSIS 1+; MONOCYTE 20 % (1.0-6.0); PLATELET ESTIMATE NORMAL (NORMAL)
[2018-01-14 06:34] LABS: ALBUMIN 3.6 g/dL (3.0-4.8); CALCIUM 8.9 mg/dL (8.4-10.5)
[2018-01-14] MEDS ORDERED: Fentanyl 1000mcg/100ml NS 1,000 MCG/100 ML BAG IV PRN (08:35)
[2018-01-14] MEDS ORDERED: Cisatracurium Besylate 200 MG in Sodium Chloride 0.9% 250 ML IV PRN (08:36)
[2018-01-14] MEDS: Midazolam 100 mg/100ml in NS 100 MG/100 ML SOL IV PRN (09:26)
[2018-01-14] MEDS: Linezolid 600 mg in D5W 300 ml 600 MG/300 ML BAG IVPB SCH ×2 (09:52→21:34)
--- NOTE | 2018-01-14 09:58 | RAD ---
Date of service: 01/14/2018 HISTORY: ards COMPARISON: 01/13/2018 FINDINGS: LUNGS: Diffuse bilateral pulmonary alveolar opacity, minimally improved. PLEURA: No significant pleural effusion identified, no pneumothorax apparent. CARDIOVASCULAR: Normal heart size. ET tube, NG tube and left IJ central venous catheter are unchanged. OSSEOUS STRUCTURES: No significant abnormalities. VISUALIZED UPPER ABDOMEN: Normal. OTHER FINDINGS: None. IMPRESSION: Minimal improvement in diffuse alveolar opacity. Otherwise no change.
[2018-01-14] MEDS ORDERED: Vancomycin 1gm in NS 250ml 1 GM/250 ML BAG IVPB SCH (10:00)
--- NOTE | 2018-01-14 10:47 | CP.PCM.PN ---
Subjective - Date & Time of Evaluation Date of Evaluation: 01/14/18 Time of Evaluation: 09:45 - Subjective Subjective: sedated; on vent Objective - Vital Signs/Intake and Output Vital Signs (last 24 hours): Temp Pulse Resp BP Pulse Ox 97.5 F L 99 H 22 145/64 92 L 01/14/18 04:00 01/14/18 10:00 01/13/18 13:29 01/14/18 05:00 01/14/18 05:00 Intake and Output: 01/14/18 01/14/18 06:59 18:59 Intake Total 395 15 Balance 395 15 - Medications Medications: Current Medications Albuterol/Ipratropium (Duoneb 3 Mg/0.5 Mg (3 Ml) Ud) 3 ml IH [id number] TWAN Last Admin: 01/14/18 07:30 Dose: 3 ml Albuterol/Ipratropium (Duoneb 3 Mg/0.5 Mg (3 Ml) Ud) 3 ml IH Q2H PRN PRN Reason: Shortness of Breath Heparin Sodium (Porcine) (Heparin) 5,000 units SC Q12 TWAN PRN Reason: Protocol Hydrocortisone Sodium Succinate (Solu-Cortef) 50 mg IVP Q6 TWAN Last Admin: 01/13/18 19:51 Dose: 50 mg NOREPINEPHRINE BIT/0.9 % NACL (Levophed 4 Mg/ 250 Ml Ns Premixed) 4 mg in 250 mls @ 15 mls/hr IV .[id number] PRN; Protocol; 4 MCG/MIN PRN Reason: TITRATE PER MD ORDER Last Admin: 01/14/18 02:22 Dose: 4 mcg/min, 15 mls/hr Meropenem (Merrem Iv 1 Gm Premix) 50 mls @ 100 mls/hr IVPB Q12 TWAN PRN Reason: Protocol Last Admin: 01/13/18 22:54 Dose: 100 mls/hr Doxycycline Hyclate 100 mg/ (Sodium Chloride) 100 mls @ 100 mls/hr IVPB Q12 TWAN PRN Reason: Protocol Last Admin: 01/14/18 09:51 Dose: 100 mls/hr Linezolid (Zyvox 600mg/300ml D5w) 600 mg in 300 mls @ 200 mls/hr IVPB Q12 TWAN PRN Reason: Protocol Stop: 01/20/18 10:01 Last Admin: 01/14/18 09:52 Dose: 200 mls/hr Vasopressin 20 units/ Sodium (Chloride) 101 mls @ 9.09 mls/hr IV .[id number] TWAN; 0.03 U/MIN PRN Reason: Protocol Last Admin: 01/14/18 01:55 Dose: 9.09 mls/hr Fentanyl Citrate (Fentanyl Citrate/Sodium Chloride 1 Mg/100 Ml) 1,000 mcg in 100 mls @ 7.5 mls/hr IV .[id number] PRN; Protocol; 75 MCG/HR PRN Reason: TITRATE PER MD ORDER Last Admin: 01/14/18 08:48 Dose: 75 mcg/hr, 7.5 mls/hr Midazolam 100 mg/100ml in NS (Midazolam 100 Mg/100ml In Ns) 100 mg in 100 mls @ 5 mls/hr IV .Q20H PRN; Protocol; 5 MG/HR PRN Reason: Agitation Last Admin: 01/14/18 09:26 Dose: 5 mg/hr, 5 mls/hr Cisatracurium Besylate 200 mg/ (Sodium Chloride) 270 mls @ 3.04 mls/hr IV .Q24H PRN; Protocol; 0.5 MCG/KG/MIN PRN Reason: TITRATE PER MD ORDER Last Admin: 01/14/18 09:25 Dose: 0.5 mcg/kg/min, 3.04 mls/hr Sodium Bicarbonate 150 meq/ (Dextrose) 1,150 mls @ 100 mls/hr IV .[id number] TWAN Pantoprazole Sodium (Protonix Inj) 40 mg IVP Q12 TWAN Last Admin: 01/14/18 09:51 Dose: 40 mg - Labs Labs: 01/14/18 05:15 01/14/18 05:15 PT 22.9 SECONDS (9.4-12.5) H 01/13/18 05:10 INR 1.96 01/13/18 05:10 APTT 25.5 Seconds (25.1-36.5) 01/13/18 05:10 - Respiratory Exam Respiratory Exam: Rhonchi Additional comments: on vent AC20/TV300/FiO2 70%/PEEP18, ET tube intact, good air entry bilat - Cardiovascular Exam Cardiovascular Exam: REGULAR RHYTHM - GI/Abdominal Exam GI & Abdominal Exam: Soft, Diminished Bowel Sounds - Extremities Exam Extremities Exam: Pedal Edema - Skin Skin Exam: Dry, Warm Assessment and Plan (1) Acute and chronic respiratory failure Status: Acute (2) CHF (congestive heart failure) Status: Acute (3) Acute renal failure Status: Acute (4) Congestive heart failure Status: Chronic (5) Fracture of left humerus Status: Resolved (6) Myocardial infarct Status: Resolved (7) UTI (urinary tract infection) Status: Acute (8) Bladder carcinoma Status: Chronic (9) Dementia Status: Chronic (10) HTN (hypertension) Status: Chronic - Assessment and Plan (Free Text) Plan: continue vent support/pressors/IV Abx, cultures pending, prognosis poor
[2018-01-14 11:05] LABS: ARTERIAL BLOOD GAS HEMOGLOBIN 7.1 g/dL (11.7-17.4); ARTERIAL BLOOD GAS O2 CAPACITY 9.8 mL/dl (16-24); ARTERIAL BLOOD GAS O2 CONTENT 9.4 ML/dl (15-23); ARTERIAL BLOOD GAS O2 SAT 95.9 % (95-98); ARTERIAL BLOOD GAS PCO2 70 mm/Hg (35-45); ARTERIAL BLOOD GAS TCO2 27.1 mmol.L (22-28)
[2018-01-14 11:08] LABS: ARTERIAL BLOOD GAS PH 7.16 (7.35-7.45)
[2018-01-14] MEDS: Meropenem IV 1 gm in NS 50 ML IVPB SCH ×2 (12:00→21:34)
[2018-01-14 12:16] LABS: ARTERIAL BLOOD GAS HCO3 24.2 mmol/L (21-28); ARTERIAL BLOOD GAS HEMOGLOBIN 7.2 g/dL (11.7-17.4); ARTERIAL BLOOD GAS O2 CAPACITY 10.1 mL/dl (16-24); ARTERIAL BLOOD GAS O2 CONTENT 9.9 ML/dl (15-23); ARTERIAL BLOOD GAS PCO2 62 mm/Hg (35-45); ARTERIAL BLOOD GAS TCO2 26.1 mmol.L (22-28)
--- NOTE | 2018-01-14 12:37 | CP.CCUPN ---
<Florencio Rust Shay - Last Filed: 01/14/18 12:28> CCU Subjective - Physician Review Events Since Last Encounter (Free Text): 01/14/18 12:38 Patient seen and examined at bedside. Patient became non-responsive overnight, propofol drip was stopped. Otherwise, patient's history is limited 2/2 intubation and sedation status. CCU Objective - Vital Signs / Intake & Output Vital Signs (Last 4 hours): Vital Signs Temp Pulse BP Pulse Ox 01/14/18 10:50 97.7 F 100 H 93 L 01/14/18 10:40 97.7 F 103 H 93 L 01/14/18 10:30 97.7 F 104 H 152/65 H 93 L 01/14/18 10:20 97.7 F 105 H 94 L 01/14/18 10:10 97.5 F L 99 H 97 01/14/18 10:00 97.5 F L 96 H 143/63 97 01/14/18 09:50 97.3 F L 97 H 96 01/14/18 09:40 97.2 F L 92 H 90 L 01/14/18 09:30 97.0 F L 86 120/44 L 94 L 01/14/18 09:27 96.8 F L 84 110/49 L 94 L 01/14/18 09:20 96.8 F L 83 94 L 01/14/18 09:10 96.4 F L 83 94 L 01/14/18 09:00 96.4 F L 87 116/47 L 93 L 01/14/18 08:50 96.3 F L 85 94 L 01/14/18 08:40 96.1 F L 80 96 01/14/18 08:33 95.9 F L 81 91/51 L 94 L 01/14/18 08:30 95.9 F L 81 93/44 L 93 L Intake and Output (Last 8hrs): Intake & Output 01/13/18 01/14/18 01/14/18 22:59 06:59 14:59 Intake Total 3300 295 15 Output Total 450 Balance 2850 295 15 Weight 81.193 kg Intake: IV 1900 295 15 Right Forearm 1500 Right Upper arm 150 Blood Product 1200 Other 200 Output: Urine 450 Urethral (Starkey) 450 Other: # Bowel Movements 0 - Physical Exam Head: Positive for: Atraumatic, Normocephalic Pupils: Positive for: PERRL Extroacular Muscles: Positive for: EOMI Mouth: Positive for: Dry Nose (External): Positive for: Atraumatic Neck: Positive for: Normal Range of Motion Respiratory/Chest: Positive for: Respiratory Distress, Accessory Muscle Use, Wheezes, Decreased Breath Sounds, Retracting, Tachypneic Cardiovascular: Positive for: Tachycardic Abdomen: Negative for: Tenderness, Rebound, Guarding Upper Extremity: Positive for: Cyanosis. Negative for: Edema Lower Extremity: Positive for: Cyanosis. Negative for: Edema Skin: Positive for: Cold, Pale Psychiatric: Positive for: Alert, Anxious, Agitated - Medications Active Medications: Active Medications Generic Name Dose Route Start Last Admin Trade Name Freq PRN Reason Stop Dose Admin Albuterol/Ipratropium 3 ml 01/13/18 11:30 01/14/18 07:30 Duoneb 3 Mg/0.5 Mg (3 Ml) Ud IH 3 ml [id number] TWAN Administration Albuterol/Ipratropium 3 ml 01/13/18 09:07 Duoneb 3 Mg/0.5 Mg (3 Ml) Ud IH Q2H PRN Shortness of Breath Heparin Sodium (Porcine) 5,000 units 01/14/18 10:00 Heparin SC Q12 TWAN Protocol Hydrocortisone Sodium Succinate 50 mg 01/13/18 18:00 01/13/18 19:51 Solu-Cortef IVP 50 mg Q6 TWAN Administration NOREPINEPHRINE BIT/0.9 % NACL 4 mg in 250 mls @ 15 mls/hr 01/13/18 09:07 12/25 02:22 Levophed 4 Mg/ 250 Ml Ns Premixed IV 4 mcg/min .[id number] PRN 15 mls/hr TITRATE PER MD ORDER Administration Protocol 4 MCG/MIN Meropenem 50 mls @ 100 mls/hr 01/13/18 10:00 01/13/18 22:54 Merrem Iv 1 Gm Premix IVPB 100 mls/hr Q12 TWAN Administration Protocol Doxycycline Hyclate 100 mg/ 100 mls @ 100 mls/hr 01/13/18 10:00 01/14/18 09: 51 Sodium Chloride IVPB 100 mls/hr Q12 TWAN Administration Protocol Linezolid 600 mg in 300 mls @ 200 mls/hr 01/13/18 10:00 01/14/18 09:52 Zyvox 600mg/300ml D5w IVPB 01/20/18 10:01 200 mls/hr Q12 TWAN Administration Protocol Vasopressin 20 units/ Sodium 101 mls @ 9.09 mls/hr 01/13/18 15:15 01/14/18 01 :55 Chloride IV 9.09 mls/hr .[id number] TWAN Administration Protocol 0.03 U/MIN Fentanyl Citrate 1,000 mcg in 100 mls @ 7.5 mls/hr 01/14/18 08:35 01/14/18 08 :48 Fentanyl Citrate/Sodium Chloride 1 Mg/100 Ml IV 75 mcg/hr .[id number] PRN 7.5 mls/hr TITRATE PER MD ORDER Administration Protocol 75 MCG/HR Midazolam 100 mg/100ml in NS 100 mg in 100 mls @ 5 mls/hr 01/14/18 08:35 12/25 09:26 Midazolam 100 Mg/100ml In Ns IV 5 mg/hr .Q20H PRN 5 mls/hr Agitation Administration Protocol 5 MG/HR Cisatracurium Besylate 200 mg/ 270 mls @ 3.04 mls/hr 01/14/18 08:36 01/14/18 09:25 Sodium Chloride IV 0.5 mcg/kg/min .Q24H PRN 3.04 mls/hr TITRATE PER MD ORDER Administration Protocol 0.5 MCG/KG/MIN Sodium Bicarbonate 150 meq/ 1,150 mls @ 100 mls/hr 01/14/18 08:45 Dextrose IV .[id number] TWAN Pantoprazole Sodium 40 mg 01/13/18 10:00 01/14/18 09:51 Protonix Inj IVP 40 mg Q12 TWAN Administration - Patient Studies Lab Studies: Microbiology Studies 01/13/18 08:30 MRSA Culture (Admit) - Final Naris MRSA NOT DETECTED Lab Studies 01/14/18 01/14/18 01/14/18 Range/Units 12:10 10:50 06:10 WBC (4.5-11.0) 10^3/ul RBC (3.5-6.1) 10^6/uL Hgb (12.0-16.0) g/dL Hct (36.0-48.0) % MCV (80.0-105.0) fl MCH (25.0-35.0) pg MCHC (31.0-37.0) g/dl RDW (11.5-14.5) % Plt Count (120.0-450.0) 10^3/uL MPV (7.0-11.0) fl Gran % (50.0-68.0) % Lymph % (Auto) (22.0-35.0) % Lee % (Auto) (1.0-6.0) % Eos % (Auto) (1.5-5.0) % Baso % (Auto) (0.0-3.0) % Gran # (1.4-6.5) Lymph # (Auto) (1.2-3.4) Lee # (Auto) (0.1-0.6) Eos # (Auto) (0.0-0.7) Baso # (Auto) (0.0-2.0) K/mm3 Neutrophils % (Manual) (50.0-70.0) % Band Neutrophils % (0-2) % Lymphocytes % (Manual) (22.0-35.0) % Monocytes % (Manual) (1.0-6.0) % Platelet Evaluation (NORMAL) Anisocytosis (manual) pCO2 62 H 70 H 37 (35-45) mm/Hg pO2 90.0 80.0 60.0 L (30-55) mm/Hg HCO3 24.2 25.0 20.0 L (21-28) mmol/L ABG pH 7.20 L 7.16 L* 7.34 L (7.35-7.45) ABG Total CO2 26.1 27.1 21.1 L (22-28) mmol.L ABG O2 Saturation 98.0 95.9 94.2 L (95-98) % ABG O2 Content 9.9 L 9.4 L (15-23) ML/dl ABG Base Excess -3.8 L -3.7 L -5.3 L (-2.0-3.0) mmol/L ABG Hemoglobin 7.2 L 7.1 L (11.7-17.4) g/dL ABG Carboxyhemoglobin 1.5 1.4 (0.5-1.5) % POC ABG HHb (Measured) 2.0 4.0 (0-5) % ABG Methemoglobin 0.6 1.4 (0.0-3.0) % ABG O2 Capacity 10.1 L 9.8 L (16-24) mL/dl ABG Potassium 3.0 L (3.6-5.2) mmol/L VBG pH (7.32-7.43) VBG pCO2 (40-60) VBG HCO3 (21-28) mmol/l VBG Total CO2 (22-28) mmol.L VBG O2 Sat (Calc) (40-65) % VBG Base Excess (0.0-2.0) mmol/L VBG Potassium (3.6-5.2) mmol/L Hgb O2 Saturation 95.9 93.2 L (95.0-98.0) % Sodium 143.0 (132-148) mmol/L Chloride 113.0 H (98-107) mmol/L Glucose 179 H (65-105) mg/dl Lactate 1.7 (0.7-2.1) mmol/L FiO2 60.0 60.0 60.0 % Potassium (3.6-5.0) mmol/L Carbon Dioxide (21-33) mmol/L Anion Gap (10-20) BUN (7-21) mg/dL Creatinine (0.7-1.2) mg/dl Est GFR ( Amer) Est GFR (Non-Af Amer) POC Glucose (mg/dL) (65-110) mg/dL Random Glucose (70-110) mg/dL Lactic Acid (0.7-2.1) mmol/L Calcium (8.4-10.5) mg/dL Phosphorus (2.5-4.5) mg/dL Magnesium (1.7-2.2) mg/dL Total Bilirubin (0.2-1.3) mg/dL AST (14-36) U/L ALT (7-56) U/L Alkaline Phosphatase (38-126) U/L Ammonia (9-33) umol/L Total Protein (5.8-8.3) g/dL Albumin (3.0-4.8) g/dL Globulin gm/dL Albumin/Globulin Ratio (1.1-1.8) Procalcitonin (0.19-0.49) NG/ML Arterial Blood Potassium 3.0 L (3.6-5.2) mmol/L Venous Blood Potassium (3.6-5.2) mmol/L 01/14/18 01/14/18 01/14/18 Range/Units 05:15 05:15 05:15 WBC (4.5-11.0) 10^3/ul RBC (3.5-6.1) 10^6/uL Hgb (12.0-16.0) g/dL Hct (36.0-48.0) % MCV (80.0-105.0) fl MCH (25.0-35.0) pg MCHC (31.0-37.0) g/dl RDW (11.5-14.5) % Plt Count (120.0-450.0) 10^3/uL MPV (7.0-11.0) fl Gran % (50.0-68.0) % Lymph % (Auto) (22.0-35.0) % Lee % (Auto) (1.0-6.0) % Eos % (Auto) (1.5-5.0) % Baso % (Auto) (0.0-3.0) % Gran # (1.4-6.5) Lymph # (Auto) (1.2-3.4) Lee # (Auto) (0.1-0.6) Eos # (Auto) (0.0-0.7) Baso # (Auto) (0.0-2.0) K/mm3 Neutrophils % (Manual) (50.0-70.0) % Band Neutrophils % (0-2) % Lymphocytes % (Manual) (22.0-35.0) % Monocytes % (Manual) (1.0-6.0) % Platelet Evaluation (NORMAL) Anisocytosis (manual) pCO2 (35-45) mm/Hg pO2 (30-55) mm/Hg HCO3 (21-28) mmol/L ABG pH (7.35-7.45) ABG Total CO2 (22-28) mmol.L ABG O2 Saturation (95-98) % ABG O2 Content (15-23) ML/dl ABG Base Excess (-2.0-3.0) mmol/L ABG Hemoglobin (11.7-17.4) g/dL ABG Carboxyhemoglobin (0.5-1.5) % POC ABG HHb (Measured) (0-5) % ABG Methemoglobin (0.0-3.0) % ABG O2 Capacity (16-24) mL/dl ABG Potassium (3.6-5.2) mmol/L VBG pH (7.32-7.43) VBG pCO2 (40-60) VBG HCO3 (21-28) mmol/l VBG Total CO2 (22-28) mmol.L VBG O2 Sat (Calc) (40-65) % VBG Base Excess (0.0-2.0) mmol/L VBG Potassium (3.6-5.2) mmol/L Hgb O2 Saturation (95.0-98.0) % Sodium 144 (132-148) mmol/L Chloride 109 H (98-107) mmol/L Glucose (65-105) mg/dl Lactate (0.7-2.1) mmol/L FiO2 % Potassium 3.7 (3.6-5.0) mmol/L Carbon Dioxide 21 (21-33) mmol/L Anion Gap 18 (10-20) BUN 46 H (7-21) mg/dL Creatinine 1.4 H (0.7-1.2) mg/dl Est GFR ( Amer) 43 Est GFR (Non-Af Amer) 36 POC Glucose (mg/dL) (65-110) mg/dL Random Glucose 176 H (70-110) mg/dL Lactic Acid 2.0 (0.7-2.1) mmol/L Calcium 8.9 (8.4-10.5) mg/dL Phosphorus 4.4 (2.5-4.5) mg/dL Magnesium 1.9 (1.7-2.2) mg/dL Total Bilirubin 0.9 (0.2-1.3) mg/dL AST 52 H D (14-36) U/L ALT 26 (7-56) U/L Alkaline Phosphatase 48 (38-126) U/L Ammonia < 9 L (9-33) umol/L Total Protein 7.1 (5.8-8.3) g/dL Albumin 3.6 (3.0-4.8) g/dL Globulin 3.5 gm/dL Albumin/Globulin Ratio 1.0 L (1.1-1.8) Procalcitonin (0.19-0.49) NG/ML Arterial Blood Potassium (3.6-5.2) mmol/L Venous Blood Potassium (3.6-5.2) mmol/L 01/14/18 01/14/18 01/13/18 Range/Units 05:15 03:59 21:28 WBC 8.1 D (4.5-11.0) 10^3/ul RBC 2.46 L (3.5-6.1) 10^6/uL Hgb 7.7 L (12.0-16.0) g/dL Hct 22.8 L (36.0-48.0) % MCV 92.7 (80.0-105.0) fl MCH 31.3 (25.0-35.0) pg MCHC 33.8 (31.0-37.0) g/dl RDW 22.5 H (11.5-14.5) % Plt Count 192 (120.0-450.0) 10^3/uL MPV 10.1 (7.0-11.0) fl Gran % 57.6 (50.0-68.0) % Lymph % (Auto) 19.1 L (22.0-35.0) % Lee % (Auto) 23.2 H (1.0-6.0) % Eos % (Auto) 0.0 L (1.5-5.0) % Baso % (Auto) 0.1 (0.0-3.0) % Gran # 4.65 (1.4-6.5) Lymph # (Auto) 1.5 (1.2-3.4) Lee # (Auto) 1.9 H (0.1-0.6) Eos # (Auto) 0.0 (0.0-0.7) Baso # (Auto) 0.01 (0.0-2.0) K/mm3 Neutrophils % (Manual) 49 L (50.0-70.0) % Band Neutrophils % 8 H (0-2) % Lymphocytes % (Manual) 23 (22.0-35.0) % Monocytes % (Manual) 20 H (1.0-6.0) % Platelet Evaluation Normal (NORMAL) Anisocytosis (manual) 1+ pCO2 33 L (35-45) mm/Hg pO2 78.0 L (30-55) mm/Hg HCO3 18.6 L (21-28) mmol/L ABG pH 7.36 (7.35-7.45) ABG Total CO2 19.6 L (22-28) mmol.L ABG O2 Saturation 98.6 H (95-98) % ABG O2 Content 9.0 L (15-23) ML/dl ABG Base Excess -6.2 L (-2.0-3.0) mmol/L ABG Hemoglobin 6.6 L (11.7-17.4) g/dL ABG Carboxyhemoglobin 1.9 H (0.5-1.5) % POC ABG HHb (Measured) 1.4 (0-5) % ABG Methemoglobin 1.2 (0.0-3.0) % ABG O2 Capacity 9.1 L (16-24) mL/dl ABG Potassium (3.6-5.2) mmol/L VBG pH (7.32-7.43) VBG pCO2 (40-60) VBG HCO3 (21-28) mmol/l VBG Total CO2 (22-28) mmol.L VBG O2 Sat (Calc) (40-65) % VBG Base Excess (0.0-2.0) mmol/L VBG Potassium (3.6-5.2) mmol/L Hgb O2 Saturation 95.5 (95.0-98.0) % Sodium (132-148) mmol/L Chloride (98-107) mmol/L Glucose (65-105) mg/dl Lactate (0.7-2.1) mmol/L FiO2 60.0 % Potassium (3.6-5.0) mmol/L Carbon Dioxide (21-33) mmol/L Anion Gap (10-20) BUN (7-21) mg/dL Creatinine (0.7-1.2) mg/dl Est GFR ( Amer) Est GFR (Non-Af Amer) POC Glucose (mg/dL) 209 H (65-110) mg/dL Random Glucose (70-110) mg/dL Lactic Acid (0.7-2.1) mmol/L Calcium (8.4-10.5) mg/dL Phosphorus (2.5-4.5) mg/dL Magnesium (1.7-2.2) mg/dL Total Bilirubin (0.2-1.3) mg/dL AST (14-36) U/L ALT (7-56) U/L Alkaline Phosphatase (38-126) U/L Ammonia (9-33) umol/L Total Protein (5.8-8.3) g/dL Albumin (3.0-4.8) g/dL Globulin gm/dL Albumin/Globulin Ratio (1.1-1.8) Procalcitonin (0.19-0.49) NG/ML Arterial Blood Potassium (3.6-5.2) mmol/L Venous Blood Potassium (3.6-5.2) mmol/L 01/13/18 01/13/18 01/13/18 Range/Units 14:00 14:00 10:00 WBC 4.1 L D (4.5-11.0) 10^3/ul RBC 2.51 L (3.5-6.1) 10^6/uL Hgb 7.8 L (12.0-16.0) g/dL Hct 23.8 L (36.0-48.0) % MCV 94.8 D (80.0-105.0) fl MCH 31.1 (25.0-35.0) pg MCHC 32.8 (31.0-37.0) g/dl RDW 21.3 H (11.5-14.5) % Plt Count 195 (120.0-450.0) 10^3/uL MPV 10.0 (7.0-11.0) fl Gran % 66.3 (50.0-68.0) % Lymph % (Auto) 25.1 (22.0-35.0) % Lee % (Auto) 8.6 H (1.0-6.0) % Eos % (Auto) 0.0 L (1.5-5.0) % Baso % (Auto) 0.0 (0.0-3.0) % Gran # 2.70 (1.4-6.5) Lymph # (Auto) 1.0 L (1.2-3.4) Lee # (Auto) 0.4 (0.1-0.6) Eos # (Auto) 0.0 (0.0-0.7) Baso # (Auto) 0.00 (0.0-2.0) K/mm3 Neutrophils % (Manual) (50.0-70.0) % Band Neutrophils % (0-2) % Lymphocytes % (Manual) (22.0-35.0) % Monocytes % (Manual) (1.0-6.0) % Platelet Evaluation (NORMAL) Anisocytosis (manual) pCO2 (35-45) mm/Hg pO2 166 H (30-55) mm/Hg HCO3 (21-28) mmol/L ABG pH (7.35-7.45) ABG Total CO2 (22-28) mmol.L ABG O2 Saturation (95-98) % ABG O2 Content (15-23) ML/dl ABG Base Excess (-2.0-3.0) mmol/L ABG Hemoglobin (11.7-17.4) g/dL ABG Carboxyhemoglobin (0.5-1.5) % POC ABG HHb (Measured) (0-5) % ABG Methemoglobin (0.0-3.0) % ABG O2 Capacity (16-24) mL/dl ABG Potassium (3.6-5.2) mmol/L VBG pH 7.26 L (7.32-7.43) VBG pCO2 41.0 (40-60) VBG HCO3 18.4 L (21-28) mmol/l VBG Total CO2 19.7 L (22-28) mmol.L VBG O2 Sat (Calc) 99.4 H (40-65) % VBG Base Excess -8.3 L (0.0-2.0) mmol/L VBG Potassium 3.7 (3.6-5.2) mmol/L Hgb O2 Saturation (95.0-98.0) % Sodium 141.0 (132-148) mmol/L Chloride 112.0 H (98-107) mmol/L Glucose 275 H (65-105) mg/dl Lactate 1.7 (0.7-2.1) mmol/L FiO2 21.0 % Potassium (3.6-5.0) mmol/L Carbon Dioxide (21-33) mmol/L Anion Gap (10-20) BUN (7-21) mg/dL Creatinine (0.7-1.2) mg/dl Est GFR ( Amer) Est GFR (Non-Af Amer) POC Glucose (mg/dL) (65-110) mg/dL Random Glucose (70-110) mg/dL Lactic Acid (0.7-2.1) mmol/L Calcium (8.4-10.5) mg/dL Phosphorus (2.5-4.5) mg/dL Magnesium (1.7-2.2) mg/dL Total Bilirubin (0.2-1.3) mg/dL AST (14-36) U/L ALT (7-56) U/L Alkaline Phosphatase (38-126) U/L Ammonia (9-33) umol/L Total Protein (5.8-8.3) g/dL Albumin (3.0-4.8) g/dL Globulin gm/dL Albumin/Globulin Ratio (1.1-1.8) Procalcitonin 0.71 H (0.19-0.49) NG/ML Arterial Blood Potassium (3.6-5.2) mmol/L Venous Blood Potassium 3.7 (3.6-5.2) mmol/L Laboratory Results - last 24 hr 01/13/18 01/13/18 01/13/18 10:00 14:00 14:00 WBC 4.1 L D RBC 2.51 L Hgb 7.8 L Hct 23.8 L MCV 94.8 D MCH 31.1 MCHC 32.8 RDW 21.3 H Plt Count 195 MPV 10.0 Gran % 66.3 Lymph % (Auto) 25.1 Lee % (Auto) 8.6 H Eos % (Auto) 0.0 L Baso % (Auto) 0.0 Gran # 2.70 Lymph # (Auto) 1.0 L Lee # (Auto) 0.4 Eos # (Auto) 0.0 Baso # (Auto) 0.00 Neutrophils % (Manual) Band Neutrophils % Lymphocytes % (Manual) Monocytes % (Manual) Platelet Evaluation Anisocytosis (manual) pCO2 pO2 166 H HCO3 ABG pH ABG Total CO2 ABG O2 Saturation ABG O2 Content ABG Base Excess ABG Hemoglobin ABG Carboxyhemoglobin POC ABG HHb (Measured) ABG Methemoglobin ABG O2 Capacity ABG Potassium VBG pH 7.26 L VBG pCO2 41.0 VBG HCO3 18.4 L VBG Total CO2 19.7 L VBG O2 Sat (Calc) 99.4 H VBG Base Excess -8.3 L VBG Potassium 3.7 Hgb O2 Saturation Sodium 141.0 Chloride 112.0 H Glucose 275 H Lactate 1.7 FiO2 21.0 Potassium Carbon Dioxide Anion Gap BUN Creatinine Est GFR ( Amer) Est GFR (Non-Af Amer) POC Glucose (mg/dL) Random Glucose Lactic Acid Calcium Phosphorus Magnesium Total Bilirubin AST ALT Alkaline Phosphatase Ammonia Total Protein Albumin Globulin Albumin/Globulin Ratio Procalcitonin 0.71 H Arterial Blood Potassium Venous Blood Potassium 3.7 01/13/18 01/14/18 01/14/18 21:28 03:59 05:15 WBC 8.1 D RBC 2.46 L Hgb 7.7 L Hct 22.8 L MCV 92.7 MCH 31.3 MCHC 33.8 RDW 22.5 H Plt Count 192 MPV 10.1 Gran % 57.6 Lymph % (Auto) 19.1 L Lee % (Auto) 23.2 H Eos % (Auto) 0.0 L Baso % (Auto) 0.1 Gran # 4.65 Lymph # (Auto) 1.5 Lee # (Auto) 1.9 H Eos # (Auto) 0.0 Baso # (Auto) 0.01 Neutrophils % (Manual) 49 L Band Neutrophils % 8 H Lymphocytes % (Manual) 23 Monocytes % (Manual) 20 H Platelet Evaluation Normal Anisocytosis (manual) 1+ pCO2 33 L pO2 78.0 L HCO3 18.6 L ABG pH 7.36 ABG Total CO2 19.6 L ABG O2 Saturation 98.6 H ABG O2 Content 9.0 L ABG Base Excess -6.2 L ABG Hemoglobin 6.6 L ABG Carboxyhemoglobin 1.9 H POC ABG HHb (Measured) 1.4 ABG Methemoglobin 1.2 ABG O2 Capacity 9.1 L ABG Potassium VBG pH VBG pCO2 VBG HCO3 VBG Total CO2 VBG O2 Sat (Calc) VBG Base Excess VBG Potassium Hgb O2 Saturation 95.5 Sodium Chloride Glucose Lactate FiO2 60.0 Potassium Carbon Dioxide Anion Gap BUN Creatinine Est GFR ( Amer) Est GFR (Non-Af Amer) POC Glucose (mg/dL) 209 H Random Glucose Lactic Acid Calcium Phosphorus Magnesium Total Bilirubin AST ALT Alkaline Phosphatase Ammonia Total Protein Albumin Globulin Albumin/Globulin Ratio Procalcitonin Arterial Blood Potassium Venous Blood Potassium 01/14/18 01/14/18 01/14/18 05:15 05:15 05:15 WBC RBC Hgb Hct MCV MCH MCHC RDW Plt Count MPV Gran % Lymph % (Auto) Lee % (Auto) Eos % (Auto) Baso % (Auto) Gran # Lymph # (Auto) Lee # (Auto) Eos # (Auto) Baso # (Auto) Neutrophils % (Manual) Band Neutrophils % Lymphocytes % (Manual) Monocytes % (Manual) Platelet Evaluation Anisocytosis (manual) pCO2 pO2 HCO3 ABG pH ABG Total CO2 ABG O2 Saturation ABG O2 Content ABG Base Excess ABG Hemoglobin ABG Carboxyhemoglobin POC ABG HHb (Measured) ABG Methemoglobin ABG O2 Capacity ABG Potassium VBG pH VBG pCO2 VBG HCO3 VBG Total CO2 VBG O2 Sat (Calc) VBG Base Excess VBG Potassium Hgb O2 Saturation Sodium 144 Chloride 109 H Glucose Lactate FiO2 Potassium 3.7 Carbon Dioxide 21 Anion Gap 18 BUN 46 H Creatinine 1.4 H Est GFR ( Amer) 43 Est GFR (Non-Af Amer) 36 POC Glucose (mg/dL) Random Glucose 176 H Lactic Acid 2.0 Calcium 8.9 Phosphorus 4.4 Magnesium 1.9 Total Bilirubin 0.9 AST 52 H D ALT 26 Alkaline Phosphatase 48 Ammonia < 9 L Total Protein 7.1 Albumin 3.6 Globulin 3.5 Albumin/Globulin Ratio 1.0 L Procalcitonin Arterial Blood Potassium Venous Blood Potassium 01/14/18 01/14/18 01/14/18 06:10 10:50 12:10 WBC RBC Hgb Hct MCV MCH MCHC RDW Plt Count MPV Gran % Lymph % (Auto) Lee % (Auto) Eos % (Auto) Baso % (Auto) Gran # Lymph # (Auto) Lee # (Auto) Eos # (Auto) Baso # (Auto) Neutrophils % (Manual) Band Neutrophils % Lymphocytes % (Manual) Monocytes % (Manual) Platelet Evaluation Anisocytosis (manual) pCO2 37 70 H 62 H pO2 60.0 L 80.0 90.0 HCO3 20.0 L 25.0 24.2 ABG pH 7.34 L 7.16 L* 7.20 L ABG Total CO2 21.1 L 27.1 26.1 ABG O2 Saturation 94.2 L 95.9 98.0 ABG O2 Content 9.4 L 9.9 L ABG Base Excess -5.3 L -3.7 L -3.8 L ABG Hemoglobin 7.1 L 7.2 L ABG Carboxyhemoglobin 1.4 1.5 POC ABG HHb (Measured) 4.0 2.0 ABG Methemoglobin 1.4 0.6 ABG O2 Capacity 9.8 L 10.1 L ABG Potassium 3.0 L VBG pH VBG pCO2 VBG HCO3 VBG Total CO2 VBG O2 Sat (Calc) VBG Base Excess VBG Potassium Hgb O2 Saturation 93.2 L 95.9 Sodium 143.0 Chloride 113.0 H Glucose 179 H Lactate 1.7 FiO2 60.0 60.0 60.0 Potassium Carbon Dioxide Anion Gap BUN Creatinine Est GFR ( Amer) Est GFR (Non-Af Amer) POC Glucose (mg/dL) Random Glucose Lactic Acid Calcium Phosphorus Magnesium Total Bilirubin AST ALT Alkaline Phosphatase Ammonia Total Protein Albumin Globulin Albumin/Globulin Ratio Procalcitonin Arterial Blood Potassium 3.0 L Venous Blood Potassium Fingerstick Blood Sugar Results: 209 Assessment/Plan - Assessment and Plan (Free Text) Assessment: 87 F under ICU mgmt for Multiorgan failure including possible ARDS vs Acute Hypercapneic HYpoxic Respiratory Failure, MAR likely 2/2 septic shock due to UTI vs HCAP PNA. Acute Metabolic Acidosis with Superimposed Respiratory Alkalosis - improving Acute Anemia Hx DVT on eliquis, s/p IVC filter RE: anemia, patient's Hgb 6.2 5A-->1U at 8:41 and 1 U at 10:56; 1 FFP at 1:04--> Hg 7.8 at 2P-->1 U FFP at 3:52P-->Hgb this am 7.7. Regarding septic shock, WBC of 14.2 --> 8.1, patient pressures being maintained on pressors. Blood cultures are negative thus far; Chest XR from this am shows no interval change from yesterday. RE: MAR, patient's creatinine is improving from 2.0 to 1.4. Plan: Neuro: Sedated and paralyzed with Nimbex, Versed, and Fentanyl; Maintained normothermia with kyle hugger Pulm: Vent settings: 60 15 18 320; Abx: Doxy, Zyvox, Merrem; Duonebs. Maintain high PEEP low Tv. Maintain O2 Sats > 92% Cardio: Vasopressin; Levophed. Maintain MAP > 70 GI: Protonix for GI PPX, no indication for early gastric feeding given that patient is on pressors : Bicarb drip, continue to correct met acidosis by treating septic shock. Maintain euvolemia; monitor MAR ID: Continue Doxy, Merrem, Zyvox Heme: Patient is s/p 2U PRBC and 2 U FFP with stable Hgb, Heparin for DVT PPX Endo: Maintain euglycemia <Edmund Fox - Last Filed: 01/14/18 18:11> CCU Objective - Vital Signs / Intake & Output Intake and Output (Last 8hrs): Intake & Output 01/14/18 01/14/18 01/14/18 06:59 14:59 22:59 Intake Total 295 45 75 Balance 295 45 75 Weight 179 lb Intake: IV 295 45 75 - Medications Active Medications: Active Medications Generic Name Dose Route Start Last Admin Trade Name Freq PRN Reason Stop Dose Admin Albuterol/Ipratropium 3 ml 01/13/18 11:30 01/14/18 15:53 Duoneb 3 Mg/0.5 Mg (3 Ml) Ud IH 3 ml [id number] TWAN Administration Albuterol/Ipratropium 3 ml 01/13/18 09:07 Duoneb 3 Mg/0.5 Mg (3 Ml) Ud IH Q2H PRN Shortness of Breath Heparin Sodium (Porcine) 5,000 units 01/14/18 10:00 01/14/18 13:47 Heparin SC 5,000 units Q12 TWAN Administration Protocol Hydrocortisone Sodium Succinate 50 mg 01/13/18 18:00 01/14/18 17:09 Solu-Cortef IVP 50 mg Q6 TWAN Administration NOREPINEPHRINE BIT/0.9 % NACL 4 mg in 250 mls @ 15 mls/hr 01/13/18 09:07 12/25 11:00 Levophed 4 Mg/ 250 Ml Ns Premixed IV 2 mcg/min .[id number] PRN 7.5 mls/hr TITRATE PER MD ORDER Titration Protocol 4 MCG/MIN Meropenem 50 mls @ 100 mls/hr 01/13/18 10:00 01/14/18 12:00 Merrem Iv 1 Gm Premix IVPB 100 mls/hr Q12 TWAN Administration Protocol Doxycycline Hyclate 100 mg/ 100 mls @ 100 mls/hr 01/13/18 10:00 01/14/18 09: 51 Sodium Chloride IVPB 100 mls/hr Q12 TWAN Administration Protocol Linezolid 600 mg in 300 mls @ 200 mls/hr 01/13/18 10:00 01/14/18 09:52 Zyvox 600mg/300ml D5w IVPB 01/20/18 10:01 200 mls/hr Q12 TWAN Administration Protocol Vasopressin 20 units/ Sodium 101 mls @ 9.09 mls/hr 01/13/18 15:15 01/14/18 14 :00 Chloride IV 9.09 mls/hr .[id number] TWAN Administration Protocol 0.03 U/MIN Fentanyl Citrate 1,000 mcg in 100 mls @ 7.5 mls/hr 01/14/18 08:35 01/14/18 17 :16 Fentanyl Citrate/Sodium Chloride 1 Mg/100 Ml IV 70 mcg/hr .[id number] PRN 7 mls/hr TITRATE PER MD ORDER Titration Protocol 75 MCG/HR Midazolam 100 mg/100ml in NS 100 mg in 100 mls @ 5 mls/hr 01/14/18 08:35 12/25 09:26 Midazolam 100 Mg/100ml In Ns IV 5 mg/hr .Q20H PRN 5 mls/hr Agitation Administration Protocol 5 MG/HR Cisatracurium Besylate 200 mg/ 270 mls @ 3.04 mls/hr 01/14/18 08:36 01/14/18 18:05 Sodium Chloride IV 1 mcg/kg/min .Q24H PRN 6.09 mls/hr TITRATE PER MD ORDER Titration Protocol 0.5 MCG/KG/MIN Sodium Bicarbonate 150 meq/ 1,150 mls @ 100 mls/hr 01/14/18 08:45 01/14/18 16 :57 Dextrose IV 100 mls/hr .[id number] TWAN Administration Pantoprazole Sodium 40 mg 01/13/18 10:00 01/14/18 09:51 Protonix Inj IVP 40 mg Q12 TWAN Administration - Patient Studies Lab Studies: Microbiology Studies 01/13/18 06:53 Urine Culture - Preliminary Urine Gram Negative Deepak 01/13/18 08:30 MRSA Culture (Admit) - Final Naris MRSA NOT DETECTED Lab Studies 01/14/18 01/14/18 01/14/18 Range/Units 17:55 16:19 12:10 WBC 7.4 (4.5-11.0) 10^3/ul RBC 2.30 L (3.5-6.1) 10^6/uL Hgb 7.2 L (12.0-16.0) g/dL Hct 22.2 L (36.0-48.0) % MCV 96.5 D (80.0-105.0) fl MCH 31.3 (25.0-35.0) pg MCHC 32.4 (31.0-37.0) g/dl RDW 22.9 H (11.5-14.5) % Plt Count 192 (120.0-450.0) 10^3/uL MPV 9.8 (7.0-11.0) fl Gran % 57.3 (50.0-68.0) % Lymph % (Auto) 24.0 (22.0-35.0) % Lee % (Auto) 18.7 H (1.0-6.0) % Eos % (Auto) 0.0 L (1.5-5.0) % Baso % (Auto) 0.0 (0.0-3.0) % Gran # 4.22 (1.4-6.5) Lymph # (Auto) 1.8 (1.2-3.4) Lee # (Auto) 1.4 H (0.1-0.6) Eos # (Auto) 0.0 (0.0-0.7) Baso # (Auto) 0.00 (0.0-2.0) K/mm3 Neutrophils % (Manual) (50.0-70.0) % Band Neutrophils % (0-2) % Lymphocytes % (Manual) (22.0-35.0) % Monocytes % (Manual) (1.0-6.0) % Platelet Evaluation (NORMAL) Anisocytosis (manual) pCO2 52 H 62 H (35-45) mm/Hg pO2 62.0 L 90.0 (80-100) mm/Hg HCO3 24.4 24.2 (21-28) mmol/L ABG pH 7.28 L 7.20 L (7.35-7.45) ABG Total CO2 26.0 26.1 (22-28) mmol.L ABG O2 Saturation 95.4 98.0 (95-98) % ABG O2 Content 9.9 L (15-23) ML/dl ABG Base Excess -3.0 L -3.8 L (-2.0-3.0) mmol/L ABG Hemoglobin 7.2 L (11.7-17.4) g/dL ABG Carboxyhemoglobin 1.5 (0.5-1.5) % POC ABG HHb (Measured) 2.0 (0-5) % ABG Methemoglobin 0.6 (0.0-3.0) % ABG O2 Capacity 10.1 L (16-24) mL/dl ABG Potassium (3.6-5.2) mmol/L Hgb O2 Saturation 95.9 (95.0-98.0) % Glucose 125 H (65-105) mg/dl Lactate 1.0 (0.7-2.1) mmol/L FiO2 50 60.0 % Sodium (132-148) mmol/L Potassium (3.6-5.0) mmol/L Chloride 111.0 H (98-107) mmol/L Carbon Dioxide (21-33) mmol/L Anion Gap (10-20) BUN (7-21) mg/dL Creatinine (0.7-1.2) mg/dl Est GFR ( Amer) Est GFR (Non-Af Amer) POC Glucose (mg/dL) (65-110) mg/dL Random Glucose (70-110) mg/dL Lactic Acid (0.7-2.1) mmol/L Calcium (8.4-10.5) mg/dL Phosphorus (2.5-4.5) mg/dL Magnesium (1.7-2.2) mg/dL Total Bilirubin (0.2-1.3) mg/dL AST (14-36) U/L ALT (7-56) U/L Alkaline Phosphatase (38-126) U/L Ammonia (9-33) umol/L Total Protein (5.8-8.3) g/dL Albumin (3.0-4.8) g/dL Globulin gm/dL Albumin/Globulin Ratio (1.1-1.8) Arterial Blood Potassium (3.6-5.2) mmol/L 01/14/18 01/14/18 01/14/18 Range/Units 10:50 06:10 05:15 WBC (4.5-11.0) 10^3/ul RBC (3.5-6.1) 10^6/uL Hgb (12.0-16.0) g/dL Hct (36.0-48.0) % MCV (80.0-105.0) fl MCH (25.0-35.0) pg MCHC (31.0-37.0) g/dl RDW (11.5-14.5) % Plt Count (120.0-450.0) 10^3/uL MPV (7.0-11.0) fl Gran % (50.0-68.0) % Lymph % (Auto) (22.0-35.0) % Lee % (Auto) (1.0-6.0) % Eos % (Auto) (1.5-5.0) % Baso % (Auto) (0.0-3.0) % Gran # (1.4-6.5) Lymph # (Auto) (1.2-3.4) Lee # (Auto) (0.1-0.6) Eos # (Auto) (0.0-0.7) Baso # (Auto) (0.0-2.0) K/mm3 Neutrophils % (Manual) (50.0-70.0) % Band Neutrophils % (0-2) % Lymphocytes % (Manual) (22.0-35.0) % Monocytes % (Manual) (1.0-6.0) % Platelet Evaluation (NORMAL) Anisocytosis (manual) pCO2 70 H 37 (35-45) mm/Hg pO2 80.0 60.0 L (80-100) mm/Hg HCO3 25.0 20.0 L (21-28) mmol/L ABG pH 7.16 L* 7.34 L (7.35-7.45) ABG Total CO2 27.1 21.1 L (22-28) mmol.L ABG O2 Saturation 95.9 94.2 L (95-98) % ABG O2 Content 9.4 L (15-23) ML/dl ABG Base Excess -3.7 L -5.3 L (-2.0-3.0) mmol/L ABG Hemoglobin 7.1 L (11.7-17.4) g/dL ABG Carboxyhemoglobin 1.4 (0.5-1.5) % POC ABG HHb (Measured) 4.0 (0-5) % ABG Methemoglobin 1.4 (0.0-3.0) % ABG O2 Capacity 9.8 L (16-24) mL/dl ABG Potassium 3.0 L (3.6-5.2) mmol/L Hgb O2 Saturation 93.2 L (95.0-98.0) % Glucose 179 H (65-105) mg/dl Lactate 1.7 (0.7-2.1) mmol/L FiO2 60.0 60.0 % Sodium 143.0 (132-148) mmol/L Potassium (3.6-5.0) mmol/L Chloride 113.0 H (98-107) mmol/L Carbon Dioxide (21-33) mmol/L Anion Gap (10-20) BUN (7-21) mg/dL Creatinine (0.7-1.2) mg/dl Est GFR ( Amer) Est GFR (Non-Af Amer) POC Glucose (mg/dL) (65-110) mg/dL Random Glucose (70-110) mg/dL Lactic Acid 2.0 (0.7-2.1) mmol/L Calcium (8.4-10.5) mg/dL Phosphorus (2.5-4.5) mg/dL Magnesium (1.7-2.2) mg/dL Total Bilirubin (0.2-1.3) mg/dL AST (14-36) U/L ALT (7-56) U/L Alkaline Phosphatase (38-126) U/L Ammonia (9-33) umol/L Total Protein (5.8-8.3) g/dL Albumin (3.0-4.8) g/dL Globulin gm/dL Albumin/Globulin Ratio (1.1-1.8) Arterial Blood Potassium 3.0 L (3.6-5.2) mmol/L 01/14/18 01/14/18 01/14/18 Range/Units 05:15 05:15 05:15 WBC 8.1 D (4.5-11.0) 10^3/ul RBC 2.46 L (3.5-6.1) 10^6/uL Hgb 7.7 L (12.0-16.0) g/dL Hct 22.8 L (36.0-48.0) % MCV 92.7 (80.0-105.0) fl MCH 31.3 (25.0-35.0) pg MCHC 33.8 (31.0-37.0) g/dl RDW 22.5 H (11.5-14.5) % Plt Count 192 (120.0-450.0) 10^3/uL MPV 10.1 (7.0-11.0) fl Gran % 57.6 (50.0-68.0) % Lymph % (Auto) 19.1 L (22.0-35.0) % Lee % (Auto) 23.2 H (1.0-6.0) % Eos % (Auto) 0.0 L (1.5-5.0) % Baso % (Auto) 0.1 (0.0-3.0) % Gran # 4.65 (1.4-6.5) Lymph # (Auto) 1.5 (1.2-3.4) Lee # (Auto) 1.9 H (0.1-0.6) Eos # (Auto) 0.0 (0.0-0.7) Baso # (Auto) 0.01 (0.0-2.0) K/mm3 Neutrophils % (Manual) 49 L (50.0-70.0) % Band Neutrophils % 8 H (0-2) % Lymphocytes % (Manual) 23 (22.0-35.0) % Monocytes % (Manual) 20 H (1.0-6.0) % Platelet Evaluation Normal (NORMAL) Anisocytosis (manual) 1+ pCO2 (35-45) mm/Hg pO2 (80-100) mm/Hg HCO3 (21-28) mmol/L ABG pH (7.35-7.45) ABG Total CO2 (22-28) mmol.L ABG O2 Saturation (95-98) % ABG O2 Content (15-23) ML/dl ABG Base Excess (-2.0-3.0) mmol/L ABG Hemoglobin (11.7-17.4) g/dL ABG Carboxyhemoglobin (0.5-1.5) % POC ABG HHb (Measured) (0-5) % ABG Methemoglobin (0.0-3.0) % ABG O2 Capacity (16-24) mL/dl ABG Potassium (3.6-5.2) mmol/L Hgb O2 Saturation (95.0-98.0) % Glucose (65-105) mg/dl Lactate (0.7-2.1) mmol/L FiO2 % Sodium 144 (132-148) mmol/L Potassium 3.7 (3.6-5.0) mmol/L Chloride 109 H (98-107) mmol/L Carbon Dioxide 21 (21-33) mmol/L Anion Gap 18 (10-20) BUN 46 H (7-21) mg/dL Creatinine 1.4 H (0.7-1.2) mg/dl Est GFR ( Amer) 43 Est GFR (Non-Af Amer) 36 POC Glucose (mg/dL) (65-110) mg/dL Random Glucose 176 H (70-110) mg/dL Lactic Acid (0.7-2.1) mmol/L Calcium 8.9 (8.4-10.5) mg/dL Phosphorus 4.4 (2.5-4.5) mg/dL Magnesium 1.9 (1.7-2.2) mg/dL Total Bilirubin 0.9 (0.2-1.3) mg/dL AST 52 H D (14-36) U/L ALT 26 (7-56) U/L Alkaline Phosphatase 48 (38-126) U/L Ammonia < 9 L (9-33) umol/L Total Protein 7.1 (5.8-8.3) g/dL Albumin 3.6 (3.0-4.8) g/dL Globulin 3.5 gm/dL Albumin/Globulin Ratio 1.0 L (1.1-1.8) Arterial Blood Potassium (3.6-5.2) mmol/L 01/14/18 01/13/18 Range/Units 03:59 21:28 WBC (4.5-11.0) 10^3/ul RBC (3.5-6.1) 10^6/uL Hgb (12.0-16.0) g/dL Hct (36.0-48.0) % MCV (80.0-105.0) fl MCH (25.0-35.0) pg MCHC (31.0-37.0) g/dl RDW (11.5-14.5) % Plt Count (120.0-450.0) 10^3/uL MPV (7.0-11.0) fl Gran % (50.0-68.0) % Lymph % (Auto) (22.0-35.0) % Lee % (Auto) (1.0-6.0) % Eos % (Auto) (1.5-5.0) % Baso % (Auto) (0.0-3.0) % Gran # (1.4-6.5) Lymph # (Auto) (1.2-3.4) Lee # (Auto) (0.1-0.6) Eos # (Auto) (0.0-0.7) Baso # (Auto) (0.0-2.0) K/mm3 Neutrophils % (Manual) (50.0-70.0) % Band Neutrophils % (0-2) % Lymphocytes % (Manual) (22.0-35.0) % Monocytes % (Manual) (1.0-6.0) % Platelet Evaluation (NORMAL) Anisocytosis (manual) pCO2 33 L (35-45) mm/Hg pO2 78.0 L (80-100) mm/Hg HCO3 18.6 L (21-28) mmol/L ABG pH 7.36 (7.35-7.45) ABG Total CO2 19.6 L (22-28) mmol.L ABG O2 Saturation 98.6 H (95-98) % ABG O2 Content 9.0 L (15-23) ML/dl ABG Base Excess -6.2 L (-2.0-3.0) mmol/L ABG Hemoglobin 6.6 L (11.7-17.4) g/dL ABG Carboxyhemoglobin 1.9 H (0.5-1.5) % POC ABG HHb (Measured) 1.4 (0-5) % ABG Methemoglobin 1.2 (0.0-3.0) % ABG O2 Capacity 9.1 L (16-24) mL/dl ABG Potassium (3.6-5.2) mmol/L Hgb O2 Saturation 95.5 (95.0-98.0) % Glucose (65-105) mg/dl Lactate (0.7-2.1) mmol/L FiO2 60.0 % Sodium (132-148) mmol/L Potassium (3.6-5.0) mmol/L Chloride (98-107) mmol/L Carbon Dioxide (21-33) mmol/L Anion Gap (10-20) BUN (7-21) mg/dL Creatinine (0.7-1.2) mg/dl Est GFR ( Amer) Est GFR (Non-Af Amer) POC Glucose (mg/dL) 209 H (65-110) mg/dL Random Glucose (70-110) mg/dL Lactic Acid (0.7-2.1) mmol/L Calcium (8.4-10.5) mg/dL Phosphorus (2.5-4.5) mg/dL Magnesium (1.7-2.2) mg/dL Total Bilirubin (0.2-1.3) mg/dL AST (14-36) U/L ALT (7-56) U/L Alkaline Phosphatase (38-126) U/L Ammonia (9-33) umol/L Total Protein (5.8-8.3) g/dL Albumin (3.0-4.8) g/dL Globulin gm/dL Albumin/Globulin Ratio (1.1-1.8) Arterial Blood Potassium (3.6-5.2) mmol/L Laboratory Results - last 24 hr 01/13/18 01/14/18 01/14/18 21:28 03:59 05:15 WBC 8.1 D RBC 2.46 L Hgb 7.7 L Hct 22.8 L MCV 92.7 MCH 31.3 MCHC 33.8 RDW 22.5 H Plt Count 192 MPV 10.1 Gran % 57.6 Lymph % (Auto) 19.1 L Lee % (Auto) 23.2 H Eos % (Auto) 0.0 L Baso % (Auto) 0.1 Gran # 4.65 Lymph # (Auto) 1.5 Lee # (Auto) 1.9 H Eos # (Auto) 0.0 Baso # (Auto) 0.01 Neutrophils % (Manual) 49 L Band Neutrophils % 8 H Lymphocytes % (Manual) 23 Monocytes % (Manual) 20 H Platelet Evaluation Normal Anisocytosis (manual) 1+ pCO2 33 L pO2 78.0 L HCO3 18.6 L ABG pH 7.36 ABG Total CO2 19.6 L ABG O2 Saturation 98.6 H ABG O2 Content 9.0 L ABG Base Excess -6.2 L ABG Hemoglobin 6.6 L ABG Carboxyhemoglobin 1.9 H POC ABG HHb (Measured) 1.4 ABG Methemoglobin 1.2 ABG O2 Capacity 9.1 L ABG Potassium Hgb O2 Saturation 95.5 Glucose Lactate FiO2 60.0 Sodium Potassium Chloride Carbon Dioxide Anion Gap BUN Creatinine Est GFR ( Amer) Est GFR (Non-Af Amer) POC Glucose (mg/dL) 209 H Random Glucose Lactic Acid Calcium Phosphorus Magnesium Total Bilirubin AST ALT Alkaline Phosphatase Ammonia Total Protein Albumin Globulin Albumin/Globulin Ratio Arterial Blood Potassium 01/14/18 01/14/18 01/14/18 05:15 05:15 05:15 WBC RBC Hgb Hct MCV MCH MCHC RDW Plt Count MPV Gran % Lymph % (Auto) Lee % (Auto) Eos % (Auto) Baso % (Auto) Gran # Lymph # (Auto) Lee # (Auto) Eos # (Auto) Baso # (Auto) Neutrophils % (Manual) Band Neutrophils % Lymphocytes % (Manual) Monocytes % (Manual) Platelet Evaluation Anisocytosis (manual) pCO2 pO2 HCO3 ABG pH ABG Total CO2 ABG O2 Saturation ABG O2 Content ABG Base Excess ABG Hemoglobin ABG Carboxyhemoglobin POC ABG HHb (Measured) ABG Methemoglobin ABG O2 Capacity ABG Potassium Hgb O2 Saturation Glucose Lactate FiO2 Sodium 144 Potassium 3.7 Chloride 109 H Carbon Dioxide 21 Anion Gap 18 BUN 46 H Creatinine 1.4 H Est GFR ( Amer) 43 Est GFR (Non-Af Amer) 36 POC Glucose (mg/dL) Random Glucose 176 H Lactic Acid 2.0 Calcium 8.9 Phosphorus 4.4 Magnesium 1.9 Total Bilirubin 0.9 AST 52 H D ALT 26 Alkaline Phosphatase 48 Ammonia < 9 L Total Protein 7.1 Albumin 3.6 Globulin 3.5 Albumin/Globulin Ratio 1.0 L Arterial Blood Potassium 01/14/18 01/14/18 01/14/18 06:10 10:50 12:10 WBC RBC Hgb Hct MCV MCH MCHC RDW Plt Count MPV Gran % Lymph % (Auto) Lee % (Auto) Eos % (Auto) Baso % (Auto) Gran # Lymph # (Auto) Lee # (Auto) Eos # (Auto) Baso # (Auto) Neutrophils % (Manual) Band Neutrophils % Lymphocytes % (Manual) Monocytes % (Manual) Platelet Evaluation Anisocytosis (manual) pCO2 37 70 H 62 H pO2 60.0 L 80.0 90.0 HCO3 20.0 L 25.0 24.2 ABG pH 7.34 L 7.16 L* 7.20 L ABG Total CO2 21.1 L 27.1 26.1 ABG O2 Saturation 94.2 L 95.9 98.0 ABG O2 Content 9.4 L 9.9 L ABG Base Excess -5.3 L -3.7 L -3.8 L ABG Hemoglobin 7.1 L 7.2 L ABG Carboxyhemoglobin 1.4 1.5 POC ABG HHb (Measured) 4.0 2.0 ABG Methemoglobin 1.4 0.6 ABG O2 Capacity 9.8 L 10.1 L ABG Potassium 3.0 L Hgb O2 Saturation 93.2 L 95.9 Glucose 179 H Lactate 1.7 FiO2 60.0 60.0 60.0 Sodium 143.0 Potassium Chloride 113.0 H Carbon Dioxide Anion Gap BUN Creatinine Est GFR ( Amer) Est GFR (Non-Af Amer) POC Glucose (mg/dL) Random Glucose Lactic Acid Calcium Phosphorus Magnesium Total Bilirubin AST ALT Alkaline Phosphatase Ammonia Total Protein Albumin Globulin Albumin/Globulin Ratio Arterial Blood Potassium 3.0 L 01/14/18 01/14/18 16:19 17:55 WBC 7.4 RBC 2.30 L Hgb 7.2 L Hct 22.2 L MCV 96.5 D MCH 31.3 MCHC 32.4 RDW 22.9 H Plt Count 192 MPV 9.8 Gran % 57.3 Lymph % (Auto) 24.0 Lee % (Auto) 18.7 H Eos % (Auto) 0.0 L Baso % (Auto) 0.0 Gran # 4.22 Lymph # (Auto) 1.8 Lee # (Auto) 1.4 H Eos # (Auto) 0.0 Baso # (Auto) 0.00 Neutrophils % (Manual) Band Neutrophils % Lymphocytes % (Manual) Monocytes % (Manual) Platelet Evaluation Anisocytosis (manual) pCO2 52 H pO2 62.0 L HCO3 24.4 ABG pH 7.28 L ABG Total CO2 26.0 ABG O2 Saturation 95.4 ABG O2 Content ABG Base Excess -3.0 L ABG Hemoglobin ABG Carboxyhemoglobin POC ABG HHb (Measured) ABG Methemoglobin ABG O2 Capacity ABG Potassium Hgb O2 Saturation Glucose 125 H Lactate 1.0 FiO2 50 Sodium Potassium Chloride 111.0 H Carbon Dioxide Anion Gap BUN Creatinine Est GFR ( Amer) Est GFR (Non-Af Amer) POC Glucose (mg/dL) Random Glucose Lactic Acid Calcium Phosphorus Magnesium Total Bilirubin AST ALT Alkaline Phosphatase Ammonia Total Protein Albumin Globulin Albumin/Globulin Ratio Arterial Blood Potassium Attending/Attestation - Attestation I have personally seen and examined this patient.: Yes I have fully participated in the care of the patient.: Yes I have reviewed all pertinent clinical information: Yes Notes (Text): 01/14/18 18:[address] Fox's note
--- NOTE | 2018-01-14 12:44 | CP.PCM.PN ---
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 hold ACEI/ARB due to MAR. avoid hypotension. maintain hemodynamic stable Monitor Input/Output, daily weights and renal function with basic metabolic panel PRBC as needed, supplement lytes as needed can d/c bicarb drip from renal perspective and can give NS or LR if needed. consider loop diuretics soon, as tolerated by BP work up for adrenal adenoma as outpt once pt stable Dose meds/antibiotics for reduced GFR. Glycemic control Further work up/management as per primary team Thanks for allowing me to participate in care of your patient. Will follow patient with you. Please call if any Qs. had d/w team Dr Celso Mcclendon Office: [phone] Chief Complaint; Unable Reason for consultation is acute kidney injury HPI: Pt is a 87-year-old female with history of dementia osteoarthritis Ckd stage III baseline grade 1.1-1.3 with GFR 55 Chronic obstructive pulmonary disease with pulmonary hypertension also bladder tumor patient/family had refused intervention, came to hospital with shortness of breath, respi distress , pneumonia/UTI with sepsis, respi failure s/p intubated but also with MAR since presentation and hence renal consulted Patient with hx bilateral extensive deep DVT she had IVC filter placed and was also on systemic a/c No recent iodinated contrast exposure. Noted obvious episodes of low BP. ROS: unable to obtain from pt Physical Examination: General Appearance: orally intubated, ill appearing. Vitals reviewed and noted as below Head; Atraumatic, normocephalic ENT: intubated EYES: deferred Neck; supple no lymphadenopathy, no thyromegaly or bruit Lungs: Normal respiratory rate/effort. Breath sounds bilateral equal and with basal crackle+ Heart: Normal rate. s1s2 normal. No rub or gallop. Extremities: no edema. No varicose veins Neurological: Patient is sedated Skin: Warm and dry. Normal turgor. No rash. Palpitation: Normal elasticity for age Abdomen: Abdomen is soft. Bowel sounds +. There is no abdominal tenderness, no guarding/rigidity no organomegaly Psych: unable MSK: no joint tenderness or swelling. Digits and nails normal, no deformity : kidney/bladder not palpable, has nazario Labs/imaging reviewed. Past medical history, past surgical history, family history, social history, allergy reviewed and noted as below Family hx: no hx of CKD. Rest non-contributory work up reviewed Objective - Vital Signs/Intake and Output Vital Signs (last 24 hours): Temp Pulse Resp BP Pulse Ox 97.7 F 100 H 22 152/65 H 93 L 01/14/18 10:50 01/14/18 10:50 01/13/18 13:29 01/14/18 10:30 01/14/18 10:50 Intake and Output: 01/14/18 01/14/18 06:59 18:59 Intake Total 395 15 Balance 395 15 - Medications Medications: Current Medications Albuterol/Ipratropium (Duoneb 3 Mg/0.5 Mg (3 Ml) Ud) 3 ml [id number] Last Admin: 01/14/18 07:30 Dose: 3 ml Albuterol/Ipratropium (Duoneb 3 Mg/0.5 Mg (3 Ml) Ud) 3 ml IH Q2H PRN PRN Reason: Shortness of Breath Heparin Sodium (Porcine) (Heparin) 5,000 units SC Q12 TWAN PRN Reason: Protocol Hydrocortisone Sodium Succinate (Solu-Cortef) 50 mg IVP Q6 TWAN Last Admin: 01/13/18 19:51 Dose: 50 mg NOREPINEPHRINE BIT/0.9 % NACL (Levophed 4 Mg/ 250 Ml Ns Premixed) 4 mg in 250 mls @ 15 mls/hr IV .[id number] PRN; Protocol; 4 MCG/MIN PRN Reason: TITRATE PER MD ORDER Last Admin: 01/14/18 02:22 Dose: 4 mcg/min, 15 mls/hr Meropenem (Merrem Iv 1 Gm Premix) 50 mls @ 100 mls/hr IVPB Q12 TWAN PRN Reason: Protocol Last Admin: 01/13/18 22:54 Dose: 100 mls/hr Doxycycline Hyclate 100 mg/ (Sodium Chloride) 100 mls @ 100 mls/hr IVPB Q12 TWAN PRN Reason: Protocol Last Admin: 01/14/18 09:51 Dose: 100 mls/hr Linezolid (Zyvox 600mg/300ml D5w) 600 mg in 300 mls @ 200 mls/hr IVPB Q12 TWAN PRN Reason: Protocol Stop: 01/20/18 10:01 Last Admin: 01/14/18 09:52 Dose: 200 mls/hr Vasopressin 20 units/ Sodium (Chloride) 101 mls @ 9.09 mls/hr IV .[id number] TWAN; 0.03 U/MIN PRN Reason: Protocol Last Admin: 01/14/18 01:55 Dose: 9.09 mls/hr Fentanyl Citrate (Fentanyl Citrate/Sodium Chloride 1 Mg/100 Ml) 1,000 mcg in 100 mls @ 7.5 mls/hr IV .[id number] PRN; Protocol; 75 MCG/HR PRN Reason: TITRATE PER MD ORDER Last Admin: 01/14/18 08:48 Dose: 75 mcg/hr, 7.5 mls/hr Midazolam 100 mg/100ml in NS (Midazolam 100 Mg/100ml In Ns) 100 mg in 100 mls @ 5 mls/hr IV .Q20H PRN; Protocol; 5 MG/HR PRN Reason: Agitation Last Admin: 01/14/18 09:26 Dose: 5 mg/hr, 5 mls/hr Cisatracurium Besylate 200 mg/ (Sodium Chloride) 270 mls @ 3.04 mls/hr IV .Q24H PRN; Protocol; 0.5 MCG/KG/MIN PRN Reason: TITRATE PER MD ORDER Last Admin: 01/14/18 09:25 Dose: 0.5 mcg/kg/min, 3.04 mls/hr Sodium Bicarbonate 150 meq/ (Dextrose) 1,150 mls @ 100 mls/hr IV .[id number] TWAN Pantoprazole Sodium (Protonix Inj) 40 mg IVP Q12 TWAN Last Admin: 01/14/18 09:51 Dose: 40 mg - Labs Labs: 01/14/18 05:15 01/14/18 05:15 PT 22.9 SECONDS (9.4-12.5) H 01/13/18 05:10 INR 1.96 01/13/18 05:10 APTT 25.5 Seconds (25.1-36.5) 01/13/18 05:10
--- NOTE | 2018-01-14 14:47 | PN ---
Copied To: Edmund Fox MD Attending MD: Edmund Fox MD DATE: 01/14/2018 SUBJECTIVE: The patient is examined at bedside. She is on propofol 50 mcg/kg per minute (will be switched to Versed, fentanyl in anticipation of neuromuscular blockade with Nimbex). The patient is on norepinephrine 6 mcg per minute and vasopressin 0.03 units per minute. The patient is on bicarb drip at 100 mL per hour. PHYSICAL EXAMINATION: VITAL SIGNS: The patient is on PRVC 360/20/15/60. On that setting, the patient's blood pressure is 116/47 with mean arterial pressure of 77, heart rate 83, oxygen saturation 94%, end-tidal CO2 on the monitor 27, temperature 96.6 (the patient is on Kaet Hugger and was slightly hypothermic prior to that). HEENT: Head and neck atraumatic. LUNGS: Few crackles bilaterally. HEART: Regular rate and rhythm. S1, S2 distant. ABDOMEN: Soft, nontender, nondistended. MUSCULOSKELETAL: No C/C/E. NEURO: The patient is sedated. SKIN: Moist. PSYCH: Patient is sedated. LABORATORY DATA: WBC 8.1, hemoglobin 7.7, platelet count 192. Sodium 144, potassium 3.7, chloride 109, carbon dioxide 21, BUN 46, creatinine 1.4, down from 2. Lactic acid 2, AST 52, ALT 26, ammonia less than 9, total bilirubin 0.9, INR 1.96. ABG from today morning 7.34/37/60 on 60% FIO2. Lactic acid 1.7. Urine is positive for large leukocyte esterase but negative for nitrites, wbc's too numerous to be counted, bacteria large amount, rbc's too numerous to be counted. Chest x-ray showed bilateral fluffy infiltrates consistent with pulmonary edema, whether cardiogenic or noncardiogenic. Echocardiogram is pending. MEDICATIONS; DuoNeb p.r.n. every 4 hours, doxycycline, fentanyl drip, heparin 5000 subcu every 12 hours, hydrocortisone 50 mg IV every 6 hours, meropenem, Nimbex drip, norepinephrine drip, Protonix, bicarb drip, vasopressin, Versed, Zyvox. ASSESSMENT AND PLAN: This is an 87-year-old lady who presented with septic shock secondary to either severe community-acquired pneumonia or urinary tract infection, complicated by multiorgan system failure including acute kidney injury, septic encephalopathy, hypoxemic respiratory failure, acute respiratory distress syndrome, severe lactic acidosis. Neuro: At present time, the patient will be sedated with Versed and fentanyl, propofol will be switched off due to its hypotensive effect. The patient will be on neuromuscular blockade to improve ventilator-patient synchrony in light of worsening acute respiratory distress syndrome. Pulmonary: The patient will be on strict protective lung ventilation including tidal volume 4-8 mL per predicted body weight and maintaining plateau pressure less than 30. We will try to maintain driving pressure below 15 and stress index between 0.95 and 1.1. We will start the patient on neuromuscular blockade. We will continue with permissive hypercapnia, however will try to limit pc02 to below 50 if possible (nice review by Jain et al; CHEST 2018). Of note, the patient will be on bicarb drip in light of recent BICAR- ICU trial result--will adjust Ve to avoid potential pc02 rise due to increased production. We will continue with head of bed elevated more than 35 degrees and oral hygiene. Deep venous thrombosis prophylaxis and gastrointestinal prophylaxis as a part of ventilator-associated pneumonia bundle will be instituted. Sputum culture was sent for analysis. Once hypoxemic respiratory failure improved and septic shock improved, we will consider conservative fluid and oxygen management with daily sedation vacation and weaning trials. The patient has pulmonary edema, cardiogenic versus noncardiogenic (ARDS: inflammatory vs capillary leak in the setting of sepsis). Echocardiogram is pending. BNP is not highly elevated and troponin is negative. There were no specific ischemic changes on EKG. Cardiovascular: The patient appears to be in distributive shock secondary to sepsis/urinary tract infection. Urine cultures pending. Septic workup is in progress. Patient is supported with norepinephrine 6 mcg per minute, vasopressin 0.03 units per minute and stress-dose steroids. Echocardiogram is pending to rule out cardiogenic component to the patient's hemodynamic compromise. Infectious Disease: The patient appears to be in septic shock. Blood, urine and sputum culture were ordered. Urine for Legionella and streptococcal antigen are ordered. The patient is on doxycycline, meropenem, and Zyvox. Infectious Disease service is following the patient as well. Gastrointestinal: The patient will be n.p.o. for now. Gastrointestinal prophylaxis, head of bed elevated more than 35 degrees. Renal: The patient has acute kidney injury which Is somewhat getting better. Urine output for the last night 450 mL. Creatinine down to 1.4 from 2. Bicarb drip is going in light of recent results of BICAR-ICU trial. We will continue to maintain euvolemia, avoiding hyperchloremia. Avoiding hypo or hyperglycemia for additional nephro protective effect. We will try to avoid nephrotoxic medication but not at expense of treating underlying disease. Nephrology consult is pending. Heme: We will maintain hemoglobin between 7 and 9 in the absence of overt bleeding and improved lactic acidosis. Endocrine: We will maintain blood glucose within 140-180 range according to night sugar trial. The patient is on stress-dose steroids. ccm time 40 min Edmund Fox MD MTDD
[2018-01-14 16:34] LABS: ARTERIAL BLOOD GAS HCO3 24.4 mmol/L (21-28); ARTERIAL BLOOD GAS PCO2 52 mm/Hg (35-45); ARTERIAL BLOOD GAS PH 7.28 (7.35-7.45)
[2018-01-14 16:35] LABS: ARTERIAL BLOOD GAS FIO2 50 %; ARTERIAL BLOOD GAS O2 SAT 95.4 % (95-98)
[2018-01-14] MEDS: Sodium Bicarbonate 8.4% 150 MEQ in Dextrose 5% In Water 1,000 ML IV SCH ×2 (16:57→21:35)
--- NOTE | 2018-01-14 17:57 | CARD ---
APPROVED REPORT Date of service: 01/14/2018 EXAM: Two-dimensional and M-mode echocardiogram with Doppler and color Doppler. INDICATION Congestive Heart Failure 2D DIMENSIONS Left Atrium (2D)5.0 (1.6-4.0cm)IVSd1.3 (0.7-1.1cm) LVDd3.8 (3.9-5.9cm)PWd1.2 (0.7-1.1cm) LVDs2.5 (2.5-4.0cm)FS (%) 34.7 % LVEF (%)64.7 (>50%) M-Mode DIMENSIONS Aortic Root2.80 (2.2-3.7cm)Aortic Cusp Exc.1.50 (1.5-2.0cm) Aortic Valve AoV Peak Cdonbphf888.0cm/sAoV VTI48.6cmAO Peak GR.18mmHg LVOT Peak Oorsiecb077.0cm/sLVOT VTI25.40cmAO Mean GR.10mmHg Mitral Valve MV E Mxbwmbtk124.0cm/sMV A Ivdnbrfu321.0cm/sMV IGG05ie E/A ratio1.5MVA (PHT)2.50cm2 TDI Lateral E' Peak V7.31cm/sMedial E' Peak V5.65cm/sE/Lateral E'22.8 E/Medial E'29.6 Pulmonary Valve PV Peak Pqheywln67.5cm/sPV Peak Grad.3mmHg Tricuspid Valve TR Peak Kmjzlepj613tp/sRAP UBMMKKZZ26jaAdEU Peak Gr.35mmHg [id number] LEFT VENTRICLE The left ventricle is normal size. There is mild concentric left ventricular hypertrophy. The left ventricular ejection fraction is within the normal range. Septal hypokinesis Transmitral Doppler flow pattern is Grade II-pseudonormal filling dynamics. RIGHT VENTRICLE The right ventricle is normal size. There is normal right ventricular wall thickness. The right ventricular systolic function is normal. ATRIA The left atrium is mildly dilated. The right atrium is mildly dilated. AORTIC VALVE The aortic valve is moderately sclerotic. No aortic regurgitation is present. MITRAL VALVE The mitral valve is moderately thickened. Mitral regurgitation is mild to moderate. There is no mitral valve stenosis. TRICUSPID VALVE The tricuspid valve is normal in structure. There is mild to moderate tricuspid regurgitation. There is mild to moderate pulmonary hypertension. GREAT VESSELS The aortic root is normal in size. PERICARDIAL EFFUSION There is a trace loculated anterior pericardial effusion. <Conclusion> The left ventricle is normal size. There is mild concentric left ventricular hypertrophy. The left ventricular ejection fraction is within the normal range. Septal hypokinesis Transmitral Doppler flow pattern is Grade II-pseudonormal filling dynamics. The aortic valve is moderately sclerotic. Mitral regurgitation is mild to moderate. There is mild to moderate tricuspid regurgitation. There is mild to moderate pulmonary hypertension.
--- NOTE | 2018-01-14 17:58 | RAD ---
Date of service: 01/14/2018 HISTORY: Pneumonia. COMPARISON: January 14, 2018. Time of the most recent examination: 08:48. FINDINGS: LUNGS: Improving multifocal infiltrates bilaterally. PLEURA: No significant pleural effusion identified, no pneumothorax apparent. CARDIOVASCULAR: Normal. OSSEOUS STRUCTURES: No significant abnormalities. VISUALIZED UPPER ABDOMEN: Normal. OTHER FINDINGS: Stable position of nasogastric tube and endotracheal tube. Stable position of venous access catheter. IMPRESSION: Improving pulmonary edema. Stable, satisfactory position ventilatory, vascular and nasogastric apparatus.
[2018-01-14 18:04] LABS: GRAN # 4.22 (1.4-6.5); GRAN % 57.3 % (50.0-68.0); HEMOGLOBIN 7.2 g/dL (12.0-16.0); LYMPH # 1.8 (1.2-3.4); MEAN CELL VOLUME 96.5 fl (80.0-105.0); MEAN CORPUSCULAR HEMOGLOBIN 31.3 pg (25.0-35.0); MEAN CORPUSCULAR HGB CONC 32.4 g/dl (31.0-37.0); MEAN PLATELET VOLUME 9.8 fl (7.0-11.0); MONO # 1.4 (0.1-0.6); MONO % 18.7 % (1.0-6.0); RBC 2.3 10^6/uL (3.5-6.1); RED CELL DISTRIBUTION WIDTH 22.9 % (11.5-14.5); WHITE BLOOD COUNT 7.4 10^3/ul (4.5-11.0)
--- NOTE | 2018-01-14 18:09 | CP.PCM.PN ---
Subjective - Date & Time of Evaluation Date of Evaluation: 01/14/18 Time of Evaluation: 09:15 - Subjective Subjective: Patient continues to be on the ventilator, no fevers, sedated. Objective - Vital Signs/Intake and Output Vital Signs (last 24 hours): Temp Pulse Resp BP Pulse Ox 97.5 F L 95 H 22 145/64 92 L 01/14/18 04:00 01/14/18 05:00 01/13/18 13:29 01/14/18 05:00 01/14/18 05:00 Intake and Output: 01/13/18 01/14/18 18:59 06:59 Intake Total 3665 395 Output Total 450 Balance 3215 395 - Medications Medications: Current Medications Albuterol/Ipratropium (Duoneb 3 Mg/0.5 Mg (3 Ml) Ud) 3 ml IH [id number] [facility] Last Admin: 01/14/18 03:45 Dose: 3 ml Albuterol/Ipratropium (Duoneb 3 Mg/0.5 Mg (3 Ml) Ud) 3 ml IH Q2H PRN PRN Reason: Shortness of Breath Hydrocortisone Sodium Succinate (Solu-Cortef) 50 mg IVP Q6 [facility] Last Admin: 01/13/18 19:51 Dose: 50 mg Propofol (Diprivan) 1,000 mg in 100 mls @ 4.79 mls/hr IV .[id number] PRN; Protocol ; 10 MCG/KG/MIN PRN Reason: TITRATE PER MD ORDER Last Titration: 01/14/18 04:00 Dose: 0 mcg/kg/min, 0 mls/hr Sodium Bicarbonate 75 meq/ (Sodium Chloride) 1,075 mls @ 100 mls/hr IV .[id number] [facility] Last Admin: 01/14/18 05:51 Dose: 100 mls/hr NOREPINEPHRINE BIT/0.9 % NACL (Levophed 4 Mg/ 250 Ml Ns Premixed) 4 mg in 250 mls @ 15 mls/hr IV .[id number] PRN; Protocol; 4 MCG/MIN PRN Reason: TITRATE PER MD ORDER Last Admin: 01/14/18 02:22 Dose: 4 mcg/min, 15 mls/hr Meropenem (Merrem Iv 1 Gm Premix) 50 mls @ 100 mls/hr IVPB Q12 TWAN PRN Reason: Protocol Last Admin: 01/13/18 22:54 Dose: 100 mls/hr Doxycycline Hyclate 100 mg/ (Sodium Chloride) 100 mls @ 100 mls/hr IVPB Q12 TWAN PRN Reason: Protocol Last Admin: 01/13/18 22:56 Dose: 100 mls/hr Linezolid (Zyvox 600mg/300ml D5w) 600 mg in 300 mls @ 200 mls/hr IVPB Q12 TWAN PRN Reason: Protocol Stop: 01/20/18 10:01 Last Admin: 01/13/18 22:57 Dose: 200 mls/hr Vasopressin 20 units/ Sodium (Chloride) 101 mls @ 9.09 mls/hr IV .[id number] TWAN; 0.03 U/MIN PRN Reason: Protocol Last Admin: 01/14/18 01:55 Dose: 9.09 mls/hr Pantoprazole Sodium (Protonix Inj) 40 mg IVP Q12 TWAN Last Admin: 01/13/18 22:55 Dose: 40 mg - Labs Labs: 01/14/18 05:15 01/14/18 05:15 PT 22.9 SECONDS (9.4-12.5) H 01/13/18 05:10 INR 1.96 01/13/18 05:10 APTT 25.5 Seconds (25.1-36.5) 01/13/18 05:10 - Constitutional Appears: Chronically Ill, Other (intubated, sedated) - ENT Exam Additional comments: ET tube in place - Respiratory Exam Respiratory Exam: Decreased Breath Sounds - Cardiovascular Exam Cardiovascular Exam: +S1, +S2 - GI/Abdominal Exam GI & Abdominal Exam: Soft. absent: Tenderness Assessment and Plan - Assessment and Plan (Free Text) Plan: Assessment Consider severe sepsis/ septic shock due to bilateral lower lobe healthcare- associated pneumonia with possible gram positive cocci and/or gram negative bacilli and/or atypical organisms COPD HTN history of DVT on anticoagulation S/P IVC filter placement dementia chronic CHF Plan continue Zyvox, Merrem and Doxycycline day 2 pending final cx results, urine Legionella Ag; PCT is elevated at 0.71; reviewed CT C/A/P will continue to monitor clinically overall prognosis is poor
[2018-01-14 18:24] LABS: ALBUMIN 3.2 g/dL (3.0-4.8); CALCIUM 7.9 mg/dL (8.4-10.5)
[2018-01-14 21:18] LABS: ARTERIAL BLOOD GAS HCO3 28.2 mmol/L (21-28); ARTERIAL BLOOD GAS HEMOGLOBIN 7.1 g/dL (11.7-17.4); ARTERIAL BLOOD GAS O2 CAPACITY 9.8 mL/dl (16-24); ARTERIAL BLOOD GAS O2 CONTENT 9.7 ML/dl (15-23); ARTERIAL BLOOD GAS O2 SAT 98.5 % (95-98); ARTERIAL BLOOD GAS PCO2 81 mm/Hg (35-45); ARTERIAL BLOOD GAS TCO2 30.7 mmol.L (22-28)
[2018-01-14 21:22] LABS: ARTERIAL BLOOD GAS PH 7.15 (7.35-7.45)
[2018-01-14 23:27] LABS: ARTERIAL BLOOD GAS HCO3 25.9 mmol/L (21-28); ARTERIAL BLOOD GAS HEMOGLOBIN 6.3 g/dL (11.7-17.4); ARTERIAL BLOOD GAS O2 CAPACITY 9.1 mL/dl (16-24); ARTERIAL BLOOD GAS O2 SAT 99.3 % (95-98); ARTERIAL BLOOD GAS PCO2 47 mm/Hg (35-45); ARTERIAL BLOOD GAS PH 7.35 (7.35-7.45); ARTERIAL BLOOD GAS TCO2 27.3 mmol.L (22-28)
[2018-01-15] MEDS: Albuterol-Ipratrop 3 mg / 0.5 (3 ml) UD IH SCH ×6 (04:15→23:20)
[2018-01-15] MEDS: Midazolam 100 mg/100ml in NS 100 MG/100 ML SOL IV PRN (05:22)
[2018-01-15 05:50] LABS: ARTERIAL BLOOD GAS HCO3 26.6 mmol/L (21-28); ARTERIAL BLOOD GAS O2 SAT 99.4 % (95-98); ARTERIAL BLOOD GAS PCO2 41 mm/Hg (35-45); ARTERIAL BLOOD GAS PH 7.42 (7.35-7.45); ARTERIAL BLOOD GAS TCO2 27.9 mmol.L (22-28)
[2018-01-15 06:21] LABS: GRAN # 2.01 (1.4-6.5); LYMPH # 0.8 (1.2-3.4); LYMPH % 22.3 % (22.0-35.0); MEAN CELL VOLUME 95.5 fl (80.0-105.0); MEAN CORPUSCULAR HEMOGLOBIN 31.7 pg (25.0-35.0); MEAN CORPUSCULAR HGB CONC 33.2 g/dl (31.0-37.0); MEAN PLATELET VOLUME 10.2 fl (7.0-11.0); MONO # 0.9 (0.1-0.6); MONO % 23.7 % (1.0-6.0); RBC 1.99 10^6/uL (3.5-6.1); RED CELL DISTRIBUTION WIDTH 22.6 % (11.5-14.5); WHITE BLOOD COUNT 3.7 10^3/ul (4.5-11.0)
[2018-01-15 06:31] LABS: ALBUMIN 2.9 g/dL (3.0-4.8)
[2018-01-15 06:43] LABS: HEMOGLOBIN 6.3 g/dL (12.0-16.0)
--- NOTE | 2018-01-15 09:09 | RAD ---
Date of service: 01/14/2018 HISTORY: r/o pn thx COMPARISON: Earlier same day FINDINGS: LUNGS: No change in left-sided infiltrate. No evidence of pneumothorax. Central lines and tubes are unchanged PLEURA: No significant pleural effusion identified, no pneumothorax apparent. CARDIOVASCULAR: Normal. OSSEOUS STRUCTURES: No significant abnormalities. VISUALIZED UPPER ABDOMEN: Normal. OTHER FINDINGS: None. IMPRESSION: No change in left-sided infiltrate. No evidence of pneumothorax. Central lines and tubes unchanged
--- NOTE | 2018-01-15 09:22 | RAD ---
Date of service: 01/15/2018 HISTORY: PNA; ARDS COMPARISON: 01/14/2018 FINDINGS: LUNGS: Left-sided perihilar infiltrate. Bilateral interstitial infiltrate. Findings are unchanged PLEURA: No significant pleural effusion identified, no pneumothorax apparent. CARDIOVASCULAR: Normal. OSSEOUS STRUCTURES: No significant abnormalities. VISUALIZED UPPER ABDOMEN: Normal. OTHER FINDINGS: Central lines and tubes unchanged IMPRESSION: No change in bilateral infiltrates left greater than right
--- NOTE | 2018-01-15 09:36 | CP.PCM.PN ---
Subjective - Date & Time of Evaluation Date of Evaluation: 01/15/18 Time of Evaluation: 09:20 - Subjective Subjective: remains on vent, AC14/TV360/FiO2 40%, unresponsive Objective - Vital Signs/Intake and Output Vital Signs (last 24 hours): Temp Pulse Resp BP Pulse Ox 98.6 F 75 30 H 102/41 L 100 01/15/18 09:23 01/15/18 09:23 01/15/18 09:23 01/15/18 09:23 01/15/18 07:42 Intake and Output: 01/15/18 01/15/18 06:59 18:59 Intake Total 1174 75 Balance 1174 75 - Medications Medications: Current Medications Albuterol/Ipratropium (Duoneb 3 Mg/0.5 Mg (3 Ml) Ud) 3 ml IH [id number] TWAN Last Admin: 01/15/18 08:01 Dose: 3 ml Albuterol/Ipratropium (Duoneb 3 Mg/0.5 Mg (3 Ml) Ud) 3 ml IH Q2H PRN PRN Reason: Shortness of Breath Heparin Sodium (Porcine) (Heparin) 5,000 units SC Q12 TWAN PRN Reason: Protocol Last Admin: 01/14/18 21:34 Dose: 5,000 units Hydrocortisone Sodium Succinate (Solu-Cortef) 50 mg IVP Q12 TWAN Meropenem (Merrem Iv 1 Gm Premix) 50 mls @ 100 mls/hr IVPB Q12 TWAN PRN Reason: Protocol Last Admin: 01/14/18 21:34 Dose: 100 mls/hr Doxycycline Hyclate 100 mg/ (Sodium Chloride) 100 mls @ 100 mls/hr IVPB Q12 TWAN PRN Reason: Protocol Last Admin: 01/14/18 21:45 Dose: 100 mls/hr Linezolid (Zyvox 600mg/300ml D5w) 600 mg in 300 mls @ 200 mls/hr IVPB Q12 TWAN PRN Reason: Protocol Stop: 01/20/18 10:01 Last Admin: 01/14/18 21:34 Dose: 200 mls/hr Fentanyl Citrate (Fentanyl Citrate/Sodium Chloride 1 Mg/100 Ml) 1,000 mcg in 100 mls @ 7.5 mls/hr IV .[id number] PRN; Protocol; 75 MCG/HR PRN Reason: TITRATE PER MD ORDER Last Titration: 01/14/18 19:07 Dose: 6 mcg/hr, 0.6 mls/hr Midazolam 100 mg/100ml in NS (Midazolam 100 Mg/100ml In Ns) 100 mg in 100 mls @ 5 mls/hr IV .Q20H PRN; Protocol; 5 MG/HR PRN Reason: Agitation Last Admin: 01/15/18 05:22 Dose: 5 mg/hr, 5 mls/hr Cisatracurium Besylate 200 mg/ (Sodium Chloride) 270 mls @ 3.04 mls/hr IV .Q24H PRN; Protocol; 0.5 MCG/KG/MIN PRN Reason: TITRATE PER MD ORDER Last Titration: 01/15/18 08:00 Dose: 0 mcg/kg/min, 0 mls/hr Pantoprazole Sodium (Protonix Inj) 40 mg IVP DAILY TWAN - Labs Labs: 01/15/18 06:00 01/15/18 06:00 PT 22.9 SECONDS (9.4-12.5) H 01/13/18 05:10 INR 1.96 01/13/18 05:10 APTT 25.5 Seconds (25.1-36.5) 01/13/18 05:10 - Respiratory Exam Respiratory Exam: Rhonchi Additional comments: ET tube intact, good air entry bilat - Cardiovascular Exam Cardiovascular Exam: REGULAR RHYTHM - GI/Abdominal Exam GI & Abdominal Exam: Soft, Diminished Bowel Sounds - Extremities Exam Extremities Exam: Pedal Edema - Neurological Exam Neurological Exam: Altered - Skin Skin Exam: Dry, Warm Assessment and Plan (1) Acute and chronic respiratory failure Status: Acute (2) CHF (congestive heart failure) Status: Acute (3) Acute renal failure Status: Acute (4) Congestive heart failure Status: Chronic (5) UTI (urinary tract infection) Status: Acute (6) Bladder carcinoma Status: Chronic (7) Dementia Status: Chronic (8) HTN (hypertension) Status: Chronic - Assessment and Plan (Free Text) Plan: continue vent support/IVAbx/prognosis remains poor
[2018-01-15] MEDS: Meropenem IV 1 gm in NS 50 ML IVPB SCH ×2 (10:05→21:39)
[2018-01-15] MEDS: Linezolid 600 mg in D5W 300 ml 600 MG/300 ML BAG IVPB SCH (10:09)
--- NOTE | 2018-01-15 13:58 | CP.PCM.PN ---
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 avoid hypotension. maintain hemodynamic stable Monitor Input/Output, daily weights and renal function with basic metabolic panel PRBC as needed, supplement lytes as needed can continue with trial of loop diuretics, as tolerated by BP work up for adrenal adenoma as outpt once pt stable Dose meds/antibiotics for reduced GFR. Glycemic control Further work up/management as per primary team Thanks for allowing me to participate in care of your patient. Will follow patient with you. Please call if any Qs. had d/w team Dr Celso Mcclendon Office: [phone] Chief Complaint; Unable Reason for consultation is acute kidney injury HPI: Pt is a 87-year-old female with history of dementia osteoarthritis Ckd stage III baseline grade 1.1-1.3 with GFR 55 Chronic obstructive pulmonary disease with pulmonary hypertension also bladder tumor patient/family had refused intervention, came to hospital with shortness of breath, respi distress , pneumonia/UTI with sepsis, respi failure s/p intubated but also with MAR since presentation and hence renal consulted Patient with hx bilateral extensive deep DVT she had IVC filter placed and was also on systemic a/c No recent iodinated contrast exposure. Noted obvious episodes of low BP. ROS: unable to obtain from pt Physical Examination: General Appearance: orally intubated, ill appearing. 40% fiO2 and PEEP 14. off pressors now Vitals reviewed and noted as below Head; Atraumatic, normocephalic ENT: intubated EYES: deferred Neck; supple no lymphadenopathy, no thyromegaly or bruit Lungs: Normal respiratory rate/effort. Breath sounds bilateral equal and clearer Heart: Normal rate. s1s2 normal. No rub or gallop. Extremities: no edema. No varicose veins Neurological: Patient is sedated Skin: Warm and dry. Normal turgor. No rash. Palpitation: Normal elasticity for age Abdomen: Abdomen is soft. Bowel sounds +. There is no abdominal tenderness, no guarding/rigidity no organomegaly Psych: unable MSK: no joint tenderness or swelling. Digits and nails normal, no deformity : kidney/bladder not palpable, has nazario Labs/imaging reviewed. Past medical history, past surgical history, family history, social history, allergy reviewed and noted as below Family hx: no hx of CKD. Rest non-contributory work up reviewed Objective - Vital Signs/Intake and Output Vital Signs (last 24 hours): Temp Pulse Resp BP Pulse Ox 97.7 F 73 30 H 118/53 L 100 01/15/18 12:25 01/15/18 12:25 01/15/18 12:25 01/15/18 12:25 01/15/18 07:42 Intake and Output: 01/15/18 01/15/18 06:59 18:59 Intake Total 1174 445 Balance 1174 445 - Medications Medications: Current Medications Albuterol/Ipratropium (Duoneb 3 Mg/0.5 Mg (3 Ml) Ud) 3 ml IH [id number] [facility] Last Admin: 01/15/18 11:03 Dose: 3 ml Albuterol/Ipratropium (Duoneb 3 Mg/0.5 Mg (3 Ml) Ud) 3 ml IH Q2H PRN PRN Reason: Shortness of Breath Heparin Sodium (Porcine) (Heparin) 5,000 units SC Q12 TWAN PRN Reason: Protocol Last Admin: 01/15/18 10:11 Dose: 5,000 units Hydrocortisone Sodium Succinate (Solu-Cortef) 50 mg IVP Q12 TWAN Last Admin: 01/15/18 12:06 Dose: 50 mg Meropenem (Merrem Iv 1 Gm Premix) 50 mls @ 100 mls/hr IVPB Q12 TWAN PRN Reason: Protocol Last Admin: 01/15/18 10:05 Dose: 100 mls/hr Doxycycline Hyclate 100 mg/ (Sodium Chloride) 100 mls @ 100 mls/hr IVPB Q12 TWAN PRN Reason: Protocol Last Admin: 01/15/18 10:08 Dose: 100 mls/hr Linezolid (Zyvox 600mg/300ml D5w) 600 mg in 300 mls @ 200 mls/hr IVPB Q12 TWAN PRN Reason: Protocol Stop: 01/20/18 10:01 Last Admin: 01/15/18 10:09 Dose: 200 mls/hr Fentanyl Citrate (Fentanyl Citrate/Sodium Chloride 1 Mg/100 Ml) 1,000 mcg in 100 mls @ 7.5 mls/hr IV .[id number] PRN; Protocol; 75 MCG/HR PRN Reason: TITRATE PER MD ORDER Last Titration: 01/14/18 19:07 Dose: 6 mcg/hr, 0.6 mls/hr Midazolam 100 mg/100ml in NS (Midazolam 100 Mg/100ml In Ns) 100 mg in 100 mls @ 5 mls/hr IV .Q20H PRN; Protocol; 5 MG/HR PRN Reason: Agitation Last Admin: 01/15/18 05:22 Dose: 5 mg/hr, 5 mls/hr Cisatracurium Besylate 200 mg/ (Sodium Chloride) 270 mls @ 3.04 mls/hr IV .Q24H PRN; Protocol; 0.5 MCG/KG/MIN PRN Reason: TITRATE PER MD ORDER Last Titration: 01/15/18 08:00 Dose: 0 mcg/kg/min, 0 mls/hr Pantoprazole Sodium (Protonix Inj) 40 mg IVP DAILY [facility] Last Admin: 01/15/18 10:10 Dose: 40 mg - Labs Labs: 01/15/18 06:00 01/15/18 06:00 PT 22.9 SECONDS (9.4-12.5) H 01/13/18 05:10 INR 1.96 01/13/18 05:10 APTT 25.5 Seconds (25.1-36.5) 01/13/18 05:10
--- NOTE | 2018-01-15 14:15 | CP.CCUPN ---
<YocastaFlorencio - Last Filed: 01/15/18 14:03> CCU Subjective - Physician Review Events Since Last Encounter (Free Text): 01/15/18 14:03 Patient seen and examined at bedside. No acute overnight events. History limited 2/2 patient's intubation status. Patient's hemoglobin dropped this am. CCU Objective - Vital Signs / Intake & Output Vital Signs (Last 4 hours): Vital Signs Temp Pulse Resp BP 01/15/18 12:25 97.7 F 73 30 H 118/53 L 01/15/18 12:13 97.7 F 73 30 H 121/51 L 01/15/18 12:07 97.9 F 78 30 H 124/56 L 01/15/18 12:00 76 01/15/18 11:55 97.9 F 77 30 H 123/54 L 01/15/18 10:08 98.2 F 67 30 H 112/49 L Intake and Output (Last 8hrs): Intake & Output 01/14/18 01/15/18 01/15/18 22:59 06:59 14:59 Intake Total 999 1168 445 Output Total 700 Balance 299 1168 445 Weight 81.193 kg Intake: IV 999 1168 75 Left Wrist 450 450 Right Antecubital 360 360 Right Forearm 108 108 Right Upper arm 150 Blood Product 320 Red Blood Cells Cpd As1 320 Lr Unit [id number] Red Blood Cells Cpd As1 0 Lr Unit [id number] Other 50 Red Blood Cells Cpd As1 50 Lr Unit [id number] Output: Urine 700 Urethral (Starkey) 700 - Physical Exam Head: Positive for: Atraumatic, Normocephalic Pupils: Positive for: PERRL Extroacular Muscles: Positive for: EOMI Mouth: Positive for: Dry Nose (External): Positive for: Atraumatic Neck: Positive for: Normal Range of Motion Respiratory/Chest: Positive for: Respiratory Distress, Accessory Muscle Use, Wheezes, Decreased Breath Sounds, Retracting, Tachypneic Cardiovascular: Positive for: Tachycardic Abdomen: Negative for: Tenderness, Rebound, Guarding Upper Extremity: Positive for: Cyanosis. Negative for: Edema Lower Extremity: Positive for: Cyanosis. Negative for: Edema Skin: Positive for: Cold, Pale Psychiatric: Positive for: Alert, Anxious, Agitated - Medications Active Medications: Active Medications Generic Name Dose Route Start Last Admin Trade Name Freq PRN Reason Stop Dose Admin Albuterol/Ipratropium 3 ml 01/13/18 11:30 01/15/18 11:03 Duoneb 3 Mg/0.5 Mg (3 Ml) Ud IH 3 ml [id number] TWAN Administration Albuterol/Ipratropium 3 ml 01/13/18 09:07 Duoneb 3 Mg/0.5 Mg (3 Ml) Ud IH Q2H PRN Shortness of Breath Heparin Sodium (Porcine) 5,000 units 01/14/18 10:00 01/15/18 10:11 Heparin SC 5,000 units Q12 TWAN Administration Protocol Hydrocortisone Sodium Succinate 50 mg 01/15/18 12:00 01/15/18 12:06 Solu-Cortef IVP 50 mg Q12 TWAN Administration Meropenem 50 mls @ 100 mls/hr 01/13/18 10:00 01/15/18 10:05 Merrem Iv 1 Gm Premix IVPB 100 mls/hr Q12 TWAN Administration Protocol Doxycycline Hyclate 100 mg/ 100 mls @ 100 mls/hr 01/13/18 10:00 01/15/18 10: 08 Sodium Chloride IVPB 100 mls/hr Q12 TWAN Administration Protocol Linezolid 600 mg in 300 mls @ 200 mls/hr 01/13/18 10:00 01/15/18 10:09 Zyvox 600mg/300ml D5w IVPB 01/20/18 10:01 200 mls/hr Q12 TWAN Administration Protocol Fentanyl Citrate 1,000 mcg in 100 mls @ 7.5 mls/hr 01/14/18 08:35 01/14/18 19 :07 Fentanyl Citrate/Sodium Chloride 1 Mg/100 Ml IV 6 mcg/hr .[id number] PRN 0.6 mls/hr TITRATE PER MD ORDER Titration Protocol 75 MCG/HR Midazolam 100 mg/100ml in NS 100 mg in 100 mls @ 5 mls/hr 01/14/18 08:35 01/25 05:22 Midazolam 100 Mg/100ml In Ns IV 5 mg/hr .Q20H PRN 5 mls/hr Agitation Administration Protocol 5 MG/HR Cisatracurium Besylate 200 mg/ 270 mls @ 3.04 mls/hr 01/14/18 08:36 08/08/18 08:00 Sodium Chloride IV 0 mcg/kg/min .Q24H PRN 0 mls/hr TITRATE PER MD ORDER Titration Protocol 0.5 MCG/KG/MIN Pantoprazole Sodium 40 mg 01/15/18 10:00 01/15/18 10:10 Protonix Inj IVP 40 mg DAILY TWAN Administration - Patient Studies Lab Studies: Microbiology Studies 01/13/18 06:53 Urine Culture - Final Urine Escherichia Coli 01/14/18 19:14 Gram Stain - Final Trachasp 01/13/18 08:30 MRSA Culture (Admit) - Final Naris MRSA NOT DETECTED Lab Studies 01/15/18 01/15/18 01/15/18 Range/Units 06:00 06:00 06:00 WBC 3.7 L D (4.5-11.0) 10^3/ul RBC 1.99 L (3.5-6.1) 10^6/uL Hgb 6.3 L* (12.0-16.0) g/dL Hct 19.0 L* (36.0-48.0) % MCV 95.5 (80.0-105.0) fl MCH 31.7 (25.0-35.0) pg MCHC 33.2 (31.0-37.0) g/dl RDW 22.6 H (11.5-14.5) % Plt Count 161 (120.0-450.0) 10^3/uL MPV 10.2 (7.0-11.0) fl Gran % 54.0 (50.0-68.0) % Lymph % (Auto) 22.3 (22.0-35.0) % [place] % (Auto) 23.7 H (1.0-6.0) % Eos % (Auto) 0.0 L (1.5-5.0) % Baso % (Auto) 0.0 (0.0-3.0) % Gran # 2.01 (1.4-6.5) Lymph # (Auto) 0.8 L (1.2-3.4) [place] # (Auto) 0.9 H (0.1-0.6) Eos # (Auto) 0.0 (0.0-0.7) Baso # (Auto) 0.00 (0.0-2.0) K/mm3 pCO2 (35-45) mm/Hg pO2 (80-100) mm/Hg HCO3 (21-28) mmol/L ABG pH (7.35-7.45) ABG Total CO2 (22-28) mmol.L ABG O2 Saturation (95-98) % ABG O2 Content (15-23) ML/dl ABG Base Excess (-2.0-3.0) mmol/L ABG Hemoglobin (11.7-17.4) g/dL ABG Carboxyhemoglobin (0.5-1.5) % POC ABG HHb (Measured) (0-5) % ABG Methemoglobin (0.0-3.0) % ABG O2 Capacity (16-24) mL/dl ABG Potassium (3.6-5.2) mmol/L Hgb O2 Saturation (95.0-98.0) % Chloride 104 (98-107) mmol/L Glucose (65-105) mg/dl Lactate (0.7-2.1) mmol/L FiO2 % Sodium 140 (132-148) mmol/L Potassium 4.0 (3.6-5.0) mmol/L Carbon Dioxide 26 (21-33) mmol/L Anion Gap 13 (10-20) BUN 54 H (7-21) mg/dL Creatinine 1.5 H (0.7-1.2) mg/dl Est GFR ( Amer) 40 Est GFR (Non-Af Amer) 33 Random Glucose 106 (70-110) mg/dL Calcium 8.0 L (8.4-10.5) mg/dL Phosphorus 4.3 (2.5-4.5) mg/dL Magnesium 1.8 (1.7-2.2) mg/dL Total Bilirubin 0.6 (0.2-1.3) mg/dL AST 30 (14-36) U/L ALT 28 (7-56) U/L Alkaline Phosphatase 34 L (38-126) U/L Total Protein 5.8 (5.8-8.3) g/dL Albumin 2.9 L (3.0-4.8) g/dL Globulin 3.0 gm/dL Albumin/Globulin Ratio 1.0 L (1.1-1.8) Procalcitonin 1.92 H (0.19-0.49) NG/ML Arterial Blood Potassium (3.6-5.2) mmol/L 01/15/18 01/14/18 01/14/18 Range/Units 05:40 23:20 21:13 WBC (4.5-11.0) 10^3/ul RBC (3.5-6.1) 10^6/uL Hgb (12.0-16.0) g/dL Hct (36.0-48.0) % MCV (80.0-105.0) fl MCH (25.0-35.0) pg MCHC (31.0-37.0) g/dl RDW (11.5-14.5) % Plt Count (120.0-450.0) 10^3/uL MPV (7.0-11.0) fl Gran % (50.0-68.0) % Lymph % (Auto) (22.0-35.0) % [place] % (Auto) (1.0-6.0) % Eos % (Auto) (1.5-5.0) % Baso % (Auto) (0.0-3.0) % Gran # (1.4-6.5) Lymph # (Auto) (1.2-3.4) [place] # (Auto) (0.1-0.6) Eos # (Auto) (0.0-0.7) Baso # (Auto) (0.0-2.0) K/mm3 pCO2 41 47 H 81 H* (35-45) mm/Hg pO2 165.0 H 141.0 H 84.0 (80-100) mm/Hg HCO3 26.6 25.9 28.2 H (21-28) mmol/L ABG pH 7.42 7.35 7.15 L* (7.35-7.45) ABG Total CO2 27.9 27.3 30.7 H (22-28) mmol.L ABG O2 Saturation 99.4 H 99.3 H 98.5 H (95-98) % ABG O2 Content 9.0 L 9.7 L (15-23) ML/dl ABG Base Excess 1.9 0.2 -1.0 (-2.0-3.0) mmol/L ABG Hemoglobin 6.3 L 7.1 L (11.7-17.4) g/dL ABG Carboxyhemoglobin 1.3 2.1 H (0.5-1.5) % POC ABG HHb (Measured) 0.7 1.5 (0-5) % ABG Methemoglobin 0.8 0.4 (0.0-3.0) % ABG O2 Capacity 9.1 L 9.8 L (16-24) mL/dl ABG Potassium 3.6 (3.6-5.2) mmol/L Hgb O2 Saturation 97.2 96.0 (95.0-98.0) % Chloride 112.0 H (98-107) mmol/L Glucose 107 H (65-105) mg/dl Lactate 1.3 (0.7-2.1) mmol/L FiO2 50.0 50.0 50.0 % Sodium 140.0 (132-148) mmol/L Potassium (3.6-5.0) mmol/L Carbon Dioxide (21-33) mmol/L Anion Gap (10-20) BUN (7-21) mg/dL Creatinine (0.7-1.2) mg/dl Est GFR ( Amer) Est GFR (Non-Af Amer) Random Glucose (70-110) mg/dL Calcium (8.4-10.5) mg/dL Phosphorus (2.5-4.5) mg/dL Magnesium (1.7-2.2) mg/dL Total Bilirubin (0.2-1.3) mg/dL AST (14-36) U/L ALT (7-56) U/L Alkaline Phosphatase (38-126) U/L Total Protein (5.8-8.3) g/dL Albumin (3.0-4.8) g/dL Globulin gm/dL Albumin/Globulin Ratio (1.1-1.8) Procalcitonin (0.19-0.49) NG/ML Arterial Blood Potassium 3.6 (3.6-5.2) mmol/L 01/14/18 01/14/18 01/14/18 Range/Units 17:55 17:55 16:19 WBC 7.4 (4.5-11.0) 10^3/ul RBC 2.30 L (3.5-6.1) 10^6/uL Hgb 7.2 L (12.0-16.0) g/dL Hct 22.2 L (36.0-48.0) % MCV 96.5 D (80.0-105.0) fl MCH 31.3 (25.0-35.0) pg MCHC 32.4 (31.0-37.0) g/dl RDW 22.9 H (11.5-14.5) % Plt Count 192 (120.0-450.0) 10^3/uL MPV 9.8 (7.0-11.0) fl Gran % 57.3 (50.0-68.0) % Lymph % (Auto) 24.0 (22.0-35.0) % [place] % (Auto) 18.7 H (1.0-6.0) % Eos % (Auto) 0.0 L (1.5-5.0) % Baso % (Auto) 0.0 (0.0-3.0) % Gran # 4.22 (1.4-6.5) Lymph # (Auto) 1.8 (1.2-3.4) [place] # (Auto) 1.4 H (0.1-0.6) Eos # (Auto) 0.0 (0.0-0.7) Baso # (Auto) 0.00 (0.0-2.0) K/mm3 pCO2 52 H (35-45) mm/Hg pO2 62.0 L (80-100) mm/Hg HCO3 24.4 (21-28) mmol/L ABG pH 7.28 L (7.35-7.45) ABG Total CO2 26.0 (22-28) mmol.L ABG O2 Saturation 95.4 (95-98) % ABG O2 Content (15-23) ML/dl ABG Base Excess -3.0 L (-2.0-3.0) mmol/L ABG Hemoglobin (11.7-17.4) g/dL ABG Carboxyhemoglobin (0.5-1.5) % POC ABG HHb (Measured) (0-5) % ABG Methemoglobin (0.0-3.0) % ABG O2 Capacity (16-24) mL/dl ABG Potassium (3.6-5.2) mmol/L Hgb O2 Saturation (95.0-98.0) % Chloride 105 111.0 H (98-107) mmol/L Glucose 125 H (65-105) mg/dl Lactate 1.0 (0.7-2.1) mmol/L FiO2 50 % Sodium 141 (132-148) mmol/L Potassium 3.9 (3.6-5.0) mmol/L Carbon Dioxide 27 (21-33) mmol/L Anion Gap 12 (10-20) BUN 46 H (7-21) mg/dL Creatinine 1.3 H (0.7-1.2) mg/dl Est GFR ( Amer) 47 Est GFR (Non-Af Amer) 39 Random Glucose 168 H (70-110) mg/dL Calcium 7.9 L (8.4-10.5) mg/dL Phosphorus 5.3 H (2.5-4.5) mg/dL Magnesium 1.8 (1.7-2.2) mg/dL Total Bilirubin 0.6 (0.2-1.3) mg/dL AST 31 (14-36) U/L ALT 29 (7-56) U/L Alkaline Phosphatase 40 (38-126) U/L Total Protein 6.5 (5.8-8.3) g/dL Albumin 3.2 (3.0-4.8) g/dL Globulin 3.3 gm/dL Albumin/Globulin Ratio 1.0 L (1.1-1.8) Procalcitonin (0.19-0.49) NG/ML Arterial Blood Potassium (3.6-5.2) mmol/L Laboratory Results - last 24 hr 01/14/18 01/14/18 01/14/18 16:19 17:55 17:55 WBC 7.4 RBC 2.30 L Hgb 7.2 L Hct 22.2 L MCV 96.5 D MCH 31.3 MCHC 32.4 RDW 22.9 H Plt Count 192 MPV 9.8 Gran % 57.3 Lymph % (Auto) 24.0 [place] % (Auto) 18.7 H Eos % (Auto) 0.0 L Baso % (Auto) 0.0 Gran # 4.22 Lymph # (Auto) 1.8 [place] # (Auto) 1.4 H Eos # (Auto) 0.0 Baso # (Auto) 0.00 pCO2 52 H pO2 62.0 L HCO3 24.4 ABG pH 7.28 L ABG Total CO2 26.0 ABG O2 Saturation 95.4 ABG O2 Content ABG Base Excess -3.0 L ABG Hemoglobin ABG Carboxyhemoglobin POC ABG HHb (Measured) ABG Methemoglobin ABG O2 Capacity ABG Potassium Hgb O2 Saturation Chloride 111.0 H 105 Glucose 125 H Lactate 1.0 FiO2 50 Sodium 141 Potassium 3.9 Carbon Dioxide 27 Anion Gap 12 BUN 46 H Creatinine 1.3 H Est GFR ( Amer) 47 Est GFR (Non-Af Amer) 39 Random Glucose 168 H Calcium 7.9 L Phosphorus 5.3 H Magnesium 1.8 Total Bilirubin 0.6 AST 31 ALT 29 Alkaline Phosphatase 40 Total Protein 6.5 Albumin 3.2 Globulin 3.3 Albumin/Globulin Ratio 1.0 L Procalcitonin Arterial Blood Potassium 01/14/18 01/14/18 01/15/18 21:13 23:20 05:40 WBC RBC Hgb Hct MCV MCH MCHC RDW Plt Count MPV Gran % Lymph % (Auto) [place] % (Auto) Eos % (Auto) Baso % (Auto) Gran # Lymph # (Auto) [place] # (Auto) Eos # (Auto) Baso # (Auto) pCO2 81 H* 47 H 41 pO2 84.0 141.0 H 165.0 H HCO3 28.2 H 25.9 26.6 ABG pH 7.15 L* 7.35 7.42 ABG Total CO2 30.7 H 27.3 27.9 ABG O2 Saturation 98.5 H 99.3 H 99.4 H ABG O2 Content 9.7 L 9.0 L ABG Base Excess -1.0 0.2 1.9 ABG Hemoglobin 7.1 L 6.3 L ABG Carboxyhemoglobin 2.1 H 1.3 POC ABG HHb (Measured) 1.5 0.7 ABG Methemoglobin 0.4 0.8 ABG O2 Capacity 9.8 L 9.1 L ABG Potassium 3.6 Hgb O2 Saturation 96.0 97.2 Chloride 112.0 H Glucose 107 H Lactate 1.3 FiO2 50.0 50.0 50.0 Sodium 140.0 Potassium Carbon Dioxide Anion Gap BUN Creatinine Est GFR ( Amer) Est GFR (Non-Af Amer) Random Glucose Calcium Phosphorus Magnesium Total Bilirubin AST ALT Alkaline Phosphatase Total Protein Albumin Globulin Albumin/Globulin Ratio Procalcitonin Arterial Blood Potassium 3.6 01/15/18 01/15/18 01/15/18 06:00 06:00 06:00 WBC 3.7 L D RBC 1.99 L Hgb 6.3 L* Hct 19.0 L* MCV 95.5 MCH 31.7 MCHC 33.2 RDW 22.6 H Plt Count 161 MPV 10.2 Gran % 54.0 Lymph % (Auto) 22.3 [place] % (Auto) 23.7 H Eos % (Auto) 0.0 L Baso % (Auto) 0.0 Gran # 2.01 Lymph # (Auto) 0.8 L [place] # (Auto) 0.9 H Eos # (Auto) 0.0 Baso # (Auto) 0.00 pCO2 pO2 HCO3 ABG pH ABG Total CO2 ABG O2 Saturation ABG O2 Content ABG Base Excess ABG Hemoglobin ABG Carboxyhemoglobin POC ABG HHb (Measured) ABG Methemoglobin ABG O2 Capacity ABG Potassium Hgb O2 Saturation Chloride 104 Glucose Lactate FiO2 Sodium 140 Potassium 4.0 Carbon Dioxide 26 Anion Gap 13 BUN 54 H Creatinine 1.5 H Est GFR ( Amer) 40 Est GFR (Non-Af Amer) 33 Random Glucose 106 Calcium 8.0 L Phosphorus 4.3 Magnesium 1.8 Total Bilirubin 0.6 AST 30 ALT 28 Alkaline Phosphatase 34 L Total Protein 5.8 Albumin 2.9 L Globulin 3.0 Albumin/Globulin Ratio 1.0 L Procalcitonin 1.92 H Arterial Blood Potassium Fingerstick Blood Sugar Results: 209 Critical Care Progress Note - Nutrition Nutrition: Nutrition Category Date Time Status NPO Diet [DIET] Diets 01/15/18 Breakfast Ordered Assessment/Plan - Assessment and Plan (Free Text) Assessment: 87 F under ICU mgmt for Multiorgan failure including lactic acidosis, possible ARDS, and MAR likely 2/2 septic shock due to UTI vs HCAP PNA. Acute Metabolic Acidosis with Superimposed Respiratory Alkalosis - resolved Acute Anemia s/p 4 U PRBC, 2 U FFP Hx DVT on eliquis, s/p IVC filter RE: anemia, patient's Hgb 6.2 5A-->1U at 8:41 and 1 U at 10:56; 1 FFP at 1:04--> Hg 7.8 at 2P-->1 U FFP at 3:52P-->Hgb yesterday am 7.7; but this morning, Hgb was 6.3 Regarding septic shock, WBC of 14.2 --> 8.1-->3.7 this AM, patient pressures being maintained on pressors. Blood cultures are negative thus far, but U Cx with akbar-sensitive E.Coli; Chest XR from this am shows no interval change from yesterday. RE: MAR, patient's creatinine is improving from 2.0 to 1.5. Patient's acidosis status is improved today, as well as patient's shock. However, some concern re: pancytopenia has arisen, this could be secondary to ABx vs Sepsis. Plan: Neuro: Sedated with Versed and Fentanyl; Maintained normothermia without kyle hugger Pulm: Vent settings: 40 14 30 360; Abx: Continue Doxy, Merrem; d/c Zyvox. Continue Duonebs. Maintain high PEEP low Tv; tapered steroids to Solu-cortef 50q12 from q8 Maintain O2 Sats > 92% Cardio: Off pressors; Start Lasix today. Maintain MAP > 70 for this patient , given septic shock GI: Protonix for GI PPX, no indication for early gastric feeding given that patient was on pressors < 24 hours ago : Discontinue bicarb drip, continue to correct metabolic acidosis by treating septic shock. Maintain euvolemia; monitor MAR ID: Continue Doxy, Merrem; discontinue Zyvox in setting of akbar-cytopenia Heme: Patient is s/p 2U PRBC and 2 U FFP with stable Hgb, Heparin for DVT PPX. Endo: Maintain euglycemia <Edmund Fox - Last Filed: 01/15/18 17:59> CCU Objective - Vital Signs / Intake & Output Vital Signs (Last 4 hours): Vital Signs Temp Pulse Resp BP 01/15/18 16:50 112/42 L 01/15/18 14:54 97.7 F 70 30 H 120/50 L 01/15/18 14:52 97.7 F 70 30 H 120/50 L Intake and Output (Last 8hrs): Intake & Output 01/15/18 01/15/1818 06:59 14:59 22:59 Intake Total 1168 1540 57 Output Total 950 475 Balance 1168 590 -418 Weight 179 lb Intake: IV 1168 75 7 Left Internal Jugular 7 Left Wrist 450 Right Antecubital 360 Right Forearm 108 Right Upper arm 150 Blood Product 1295 Red Blood Cells Cpd As1 320 Lr Unit [id number] Red Blood Cells Cpd As1 325 Lr Unit [id number] Other 170 50 Red Blood Cells Cpd As1 50 Lr Unit [id number] Red Blood Cells Cpd As1 20 Lr Unit [id number] Output: Urine 950 475 Urethral (Starkey) 950 475 Other: # Bowel Movements 0 0 - Medications Active Medications: Active Medications Generic Name Dose Route Start Last Admin Trade Name Freq PRN Reason Stop Dose Admin Albuterol/Ipratropium 3 ml 01/13/18 11:30 01/15/18 16:15 Duoneb 3 Mg/0.5 Mg (3 Ml) Ud IH 3 ml [id number] TWAN Administration Albuterol/Ipratropium 3 ml 01/13/18 09:07 Duoneb 3 Mg/0.5 Mg (3 Ml) Ud IH Q2H PRN Shortness of Breath Heparin Sodium (Porcine) 5,000 units 01/14/18 10:00 01/15/18 10:11 Heparin SC 5,000 units Q12 TWAN Administration Protocol Hydrocortisone Sodium Succinate 50 mg 01/15/18 12:00 01/15/18 12:06 Solu-Cortef IVP 50 mg Q12 TWAN Administration Meropenem 50 mls @ 100 mls/hr 01/13/18 10:00 01/15/18 10:05 Merrem Iv 1 Gm Premix IVPB 100 mls/hr Q12 TWAN Administration Protocol Doxycycline Hyclate 100 mg/ 100 mls @ 100 mls/hr 01/13/18 10:00 01/15/18 10: 08 Sodium Chloride IVPB 100 mls/hr Q12 TWAN Administration Protocol Fentanyl Citrate 1,000 mcg in 100 mls @ 7.5 mls/hr 01/14/18 08:35 01/14/18 19 :07 Fentanyl Citrate/Sodium Chloride 1 Mg/100 Ml IV 6 mcg/hr .[id number] PRN 0.6 mls/hr TITRATE PER MD ORDER Titration Protocol 75 MCG/HR Cisatracurium Besylate 200 mg/ 270 mls @ 3.04 mls/hr 01/14/18 08:36 01/15/18 08:00 Sodium Chloride IV 0 mcg/kg/min .Q24H PRN 0 mls/hr TITRATE PER MD ORDER Titration Protocol 0.5 MCG/KG/MIN Potassium Chloride 20 meq in 100 mls @ 50 mls/hr 01/15/18 17:30 Potassium Chloride 20 Meq/100 Ml IVPB 01/15/18 21:29 Q2H TWAN Pantoprazole Sodium 40 mg 01/15/18 10:00 01/15/18 10:10 Protonix Inj IVP 40 mg DAILY TWAN Administration - Patient Studies Lab Studies: Microbiology Studies 01/13/18 06:53 Urine Culture - Final Urine Escherichia Coli 01/14/18 19:14 Gram Stain - Final Trachasp Lab Studies 01/15/18 01/15/18 01/15/18 Range/Units 16:40 15:30 06:00 WBC 4.4 L (4.5-11.0) 10^3/ul RBC 2.79 L (3.5-6.1) 10^6/uL Hgb 8.6 L D (12.0-16.0) g/dL Hct 25.9 L (36.0-48.0) % MCV 92.8 (80.0-105.0) fl MCH 30.8 (25.0-35.0) pg MCHC 33.2 (31.0-37.0) g/dl RDW 19.4 H (11.5-14.5) % Plt Count 122 (120.0-450.0) 10^3/uL MPV 9.5 (7.0-11.0) fl Gran % (50.0-68.0) % Lymph % (Auto) (22.0-35.0) % [place] % (Auto) (1.0-6.0) % Eos % (Auto) (1.5-5.0) % Baso % (Auto) (0.0-3.0) % Gran # (1.4-6.5) Lymph # (Auto) (1.2-3.4) [place] # (Auto) (0.1-0.6) Eos # (Auto) (0.0-0.7) Baso # (Auto) (0.0-2.0) K/mm3 pCO2 38 (35-45) mm/Hg pO2 90.0 (80-100) mm/Hg HCO3 27.7 (21-28) mmol/L ABG pH 7.47 H (7.35-7.45) ABG Total CO2 28.9 H (22-28) mmol.L ABG O2 Saturation 99.2 H (95-98) % ABG O2 Content (15-23) ML/dl ABG Base Excess 3.9 H (-2.0-3.0) mmol/L ABG Hemoglobin (11.7-17.4) g/dL ABG Carboxyhemoglobin (0.5-1.5) % POC ABG HHb (Measured) (0-5) % ABG Methemoglobin (0.0-3.0) % ABG O2 Capacity (16-24) mL/dl ABG Potassium 3.1 L (3.6-5.2) mmol/L Hgb O2 Saturation (95.0-98.0) % Glucose 108 H (65-105) mg/dl Lactate 1.1 (0.7-2.1) mmol/L Mechanical Rate 25 FiO2 40.0 % Tidal Volume 360 PEEP 14 Sodium 141.0 (132-148) mmol/L Potassium (3.6-5.0) mmol/L Chloride 110.0 H (98-107) mmol/L Carbon Dioxide (21-33) mmol/L Anion Gap (10-20) BUN (7-21) mg/dL Creatinine (0.7-1.2) mg/dl Est GFR ( Amer) Est GFR (Non-Af Amer) Random Glucose (70-110) mg/dL Calcium (8.4-10.5) mg/dL Phosphorus (2.5-4.5) mg/dL Magnesium (1.7-2.2) mg/dL Total Bilirubin (0.2-1.3) mg/dL AST (14-36) U/L ALT (7-56) U/L Alkaline Phosphatase (38-126) U/L Total Protein (5.8-8.3) g/dL Albumin (3.0-4.8) g/dL Globulin gm/dL Albumin/Globulin Ratio (1.1-1.8) Procalcitonin 1.92 H (0.19-0.49) NG/ML Arterial Blood Potassium 3.1 L (3.6-5.2) mmol/L 01/15/18 01/15/18 01/15/18 Range/Units 06:00 06:00 05:40 WBC 3.7 L D (4.5-11.0) 10^3/ul RBC 1.99 L (3.5-6.1) 10^6/uL Hgb 6.3 L* (12.0-16.0) g/dL Hct 19.0 L* (36.0-48.0) % MCV 95.5 (80.0-105.0) fl MCH 31.7 (25.0-35.0) pg MCHC 33.2 (31.0-37.0) g/dl RDW 22.6 H (11.5-14.5) % Plt Count 161 (120.0-450.0) 10^3/uL MPV 10.2 (7.0-11.0) fl Gran % 54.0 (50.0-68.0) % Lymph % (Auto) 22.3 (22.0-35.0) % [place] % (Auto) 23.7 H (1.0-6.0) % Eos % (Auto) 0.0 L (1.5-5.0) % Baso % (Auto) 0.0 (0.0-3.0) % Gran # 2.01 (1.4-6.5) Lymph # (Auto) 0.8 L (1.2-3.4) [place] # (Auto) 0.9 H (0.1-0.6) Eos # (Auto) 0.0 (0.0-0.7) Baso # (Auto) 0.00 (0.0-2.0) K/mm3 pCO2 41 (35-45) mm/Hg pO2 165.0 H (80-100) mm/Hg HCO3 26.6 (21-28) mmol/L ABG pH 7.42 (7.35-7.45) ABG Total CO2 27.9 (22-28) mmol.L ABG O2 Saturation 99.4 H (95-98) % ABG O2 Content (15-23) ML/dl ABG Base Excess 1.9 (-2.0-3.0) mmol/L ABG Hemoglobin (11.7-17.4) g/dL ABG Carboxyhemoglobin (0.5-1.5) % POC ABG HHb (Measured) (0-5) % ABG Methemoglobin (0.0-3.0) % ABG O2 Capacity (16-24) mL/dl ABG Potassium 3.6 (3.6-5.2) mmol/L Hgb O2 Saturation (95.0-98.0) % Glucose 107 H (65-105) mg/dl Lactate 1.3 (0.7-2.1) mmol/L Mechanical Rate FiO2 50.0 % Tidal Volume PEEP Sodium 140 140.0 (132-148) mmol/L Potassium 4.0 (3.6-5.0) mmol/L Chloride 104 112.0 H (98-107) mmol/L Carbon Dioxide 26 (21-33) mmol/L Anion Gap 13 (10-20) BUN 54 H (7-21) mg/dL Creatinine 1.5 H (0.7-1.2) mg/dl Est GFR ( Amer) 40 Est GFR (Non-Af Amer) 33 Random Glucose 106 (70-110) mg/dL Calcium 8.0 L (8.4-10.5) mg/dL Phosphorus 4.3 (2.5-4.5) mg/dL Magnesium 1.8 (1.7-2.2) mg/dL Total Bilirubin 0.6 (0.2-1.3) mg/dL AST 30 (14-36) U/L ALT 28 (7-56) U/L Alkaline Phosphatase 34 L (38-126) U/L Total Protein 5.8 (5.8-8.3) g/dL Albumin 2.9 L (3.0-4.8) g/dL Globulin 3.0 gm/dL Albumin/Globulin Ratio 1.0 L (1.1-1.8) Procalcitonin (0.19-0.49) NG/ML Arterial Blood Potassium 3.6 (3.6-5.2) mmol/L 01/14/18 01/14/18 01/14/18 Range/Units 23:20 21:13 17:55 WBC (4.5-11.0) 10^3/ul RBC (3.5-6.1) 10^6/uL Hgb (12.0-16.0) g/dL Hct (36.0-48.0) % MCV (80.0-105.0) fl MCH (25.0-35.0) pg MCHC (31.0-37.0) g/dl RDW (11.5-14.5) % Plt Count (120.0-450.0) 10^3/uL MPV (7.0-11.0) fl Gran % (50.0-68.0) % Lymph % (Auto) (22.0-35.0) % [place] % (Auto) (1.0-6.0) % Eos % (Auto) (1.5-5.0) % Baso % (Auto) (0.0-3.0) % Gran # (1.4-6.5) Lymph # (Auto) (1.2-3.4) [place] # (Auto) (0.1-0.6) Eos # (Auto) (0.0-0.7) Baso # (Auto) (0.0-2.0) K/mm3 pCO2 47 H 81 H* (35-45) mm/Hg pO2 141.0 H 84.0 (80-100) mm/Hg HCO3 25.9 28.2 H (21-28) mmol/L ABG pH 7.35 7.15 L* (7.35-7.45) ABG Total CO2 27.3 30.7 H (22-28) mmol.L ABG O2 Saturation 99.3 H 98.5 H (95-98) % ABG O2 Content 9.0 L 9.7 L (15-23) ML/dl ABG Base Excess 0.2 -1.0 (-2.0-3.0) mmol/L ABG Hemoglobin 6.3 L 7.1 L (11.7-17.4) g/dL ABG Carboxyhemoglobin 1.3 2.1 H (0.5-1.5) % POC ABG HHb (Measured) 0.7 1.5 (0-5) % ABG Methemoglobin 0.8 0.4 (0.0-3.0) % ABG O2 Capacity 9.1 L 9.8 L (16-24) mL/dl ABG Potassium (3.6-5.2) mmol/L Hgb O2 Saturation 97.2 96.0 (95.0-98.0) % Glucose (65-105) mg/dl Lactate (0.7-2.1) mmol/L Mechanical Rate FiO2 50.0 50.0 % Tidal Volume PEEP Sodium 141 (132-148) mmol/L Potassium 3.9 (3.6-5.0) mmol/L Chloride 105 (98-107) mmol/L Carbon Dioxide 27 (21-33) mmol/L Anion Gap 12 (10-20) BUN 46 H (7-21) mg/dL Creatinine 1.3 H (0.7-1.2) mg/dl Est GFR ( Amer) 47 Est GFR (Non-Af Amer) 39 Random Glucose 168 H (70-110) mg/dL Calcium 7.9 L (8.4-10.5) mg/dL Phosphorus 5.3 H (2.5-4.5) mg/dL Magnesium 1.8 (1.7-2.2) mg/dL Total Bilirubin 0.6 (0.2-1.3) mg/dL AST 31 (14-36) U/L ALT 29 (7-56) U/L Alkaline Phosphatase 40 (38-126) U/L Total Protein 6.5 (5.8-8.3) g/dL Albumin 3.2 (3.0-4.8) g/dL Globulin 3.3 gm/dL Albumin/Globulin Ratio 1.0 L (1.1-1.8) Procalcitonin (0.19-0.49) NG/ML Arterial Blood Potassium (3.6-5.2) mmol/L 01/14/18 Range/Units 17:55 WBC 7.4 (4.5-11.0) 10^3/ul RBC 2.30 L (3.5-6.1) 10^6/uL Hgb 7.2 L (12.0-16.0) g/dL Hct 22.2 L (36.0-48.0) % MCV 96.5 D (80.0-105.0) fl MCH 31.3 (25.0-35.0) pg MCHC 32.4 (31.0-37.0) g/dl RDW 22.9 H (11.5-14.5) % Plt Count 192 (120.0-450.0) 10^3/uL MPV 9.8 (7.0-11.0) fl Gran % 57.3 (50.0-68.0) % Lymph % (Auto) 24.0 (22.0-35.0) % [place] % (Auto) 18.7 H (1.0-6.0) % Eos % (Auto) 0.0 L (1.5-5.0) % Baso % (Auto) 0.0 (0.0-3.0) % Gran # 4.22 (1.4-6.5) Lymph # (Auto) 1.8 (1.2-3.4) [place] # (Auto) 1.4 H (0.1-0.6) Eos # (Auto) 0.0 (0.0-0.7) Baso # (Auto) 0.00 (0.0-2.0) K/mm3 pCO2 (35-45) mm/Hg pO2 (80-100) mm/Hg HCO3 (21-28) mmol/L ABG pH (7.35-7.45) ABG Total CO2 (22-28) mmol.L ABG O2 Saturation (95-98) % ABG O2 Content (15-23) ML/dl ABG Base Excess (-2.0-3.0) mmol/L ABG Hemoglobin (11.7-17.4) g/dL ABG Carboxyhemoglobin (0.5-1.5) % POC ABG HHb (Measured) (0-5) % ABG Methemoglobin (0.0-3.0) % ABG O2 Capacity (16-24) mL/dl ABG Potassium (3.6-5.2) mmol/L Hgb O2 Saturation (95.0-98.0) % Glucose (65-105) mg/dl Lactate (0.7-2.1) mmol/L Mechanical Rate FiO2 % Tidal Volume PEEP Sodium (132-148) mmol/L Potassium (3.6-5.0) mmol/L Chloride (98-107) mmol/L Carbon Dioxide (21-33) mmol/L Anion Gap (10-20) BUN (7-21) mg/dL Creatinine (0.7-1.2) mg/dl Est GFR ( Amer) Est GFR (Non-Af Amer) Random Glucose (70-110) mg/dL Calcium (8.4-10.5) mg/dL Phosphorus (2.5-4.5) mg/dL Magnesium (1.7-2.2) mg/dL Total Bilirubin (0.2-1.3) mg/dL AST (14-36) U/L ALT (7-56) U/L Alkaline Phosphatase (38-126) U/L Total Protein (5.8-8.3) g/dL Albumin (3.0-4.8) g/dL Globulin gm/dL Albumin/Globulin Ratio (1.1-1.8) Procalcitonin (0.19-0.49) NG/ML Arterial Blood Potassium (3.6-5.2) mmol/L Laboratory Results - last 24 hr 01/14/18 01/14/18 01/14/18 17:55 17:55 21:13 WBC 7.4 RBC 2.30 L Hgb 7.2 L Hct 22.2 L MCV 96.5 D MCH 31.3 MCHC 32.4 RDW 22.9 H Plt Count 192 MPV 9.8 Gran % 57.3 Lymph % (Auto) 24.0 [place] % (Auto) 18.7 H Eos % (Auto) 0.0 L Baso % (Auto) 0.0 Gran # 4.22 Lymph # (Auto) 1.8 [place] # (Auto) 1.4 H Eos # (Auto) 0.0 Baso # (Auto) 0.00 pCO2 81 H* pO2 84.0 HCO3 28.2 H ABG pH 7.15 L* ABG Total CO2 30.7 H ABG O2 Saturation 98.5 H ABG O2 Content 9.7 L ABG Base Excess -1.0 ABG Hemoglobin 7.1 L ABG Carboxyhemoglobin 2.1 H POC ABG HHb (Measured) 1.5 ABG Methemoglobin 0.4 ABG O2 Capacity 9.8 L ABG Potassium Hgb O2 Saturation 96.0 Glucose Lactate Mechanical Rate FiO2 50.0 Tidal Volume PEEP Sodium 141 Potassium 3.9 Chloride 105 Carbon Dioxide 27 Anion Gap 12 BUN 46 H Creatinine 1.3 H Est GFR ( Amer) 47 Est GFR (Non-Af Amer) 39 Random Glucose 168 H Calcium 7.9 L Phosphorus 5.3 H Magnesium 1.8 Total Bilirubin 0.6 AST 31 ALT 29 Alkaline Phosphatase 40 Total Protein 6.5 Albumin 3.2 Globulin 3.3 Albumin/Globulin Ratio 1.0 L Procalcitonin Arterial Blood Potassium 01/14/18 01/15/18 01/15/18 23:20 05:40 06:00 WBC 3.7 L D RBC 1.99 L Hgb 6.3 L* Hct 19.0 L* MCV 95.5 MCH 31.7 MCHC 33.2 RDW 22.6 H Plt Count 161 MPV 10.2 Gran % 54.0 Lymph % (Auto) 22.3 [place] % (Auto) 23.7 H Eos % (Auto) 0.0 L Baso % (Auto) 0.0 Gran # 2.01 Lymph # (Auto) 0.8 L [place] # (Auto) 0.9 H Eos # (Auto) 0.0 Baso # (Auto) 0.00 pCO2 47 H 41 pO2 141.0 H 165.0 H HCO3 25.9 26.6 ABG pH 7.35 7.42 ABG Total CO2 27.3 27.9 ABG O2 Saturation 99.3 H 99.4 H ABG O2 Content 9.0 L ABG Base Excess 0.2 1.9 ABG Hemoglobin 6.3 L ABG Carboxyhemoglobin 1.3 POC ABG HHb (Measured) 0.7 ABG Methemoglobin 0.8 ABG O2 Capacity 9.1 L ABG Potassium 3.6 Hgb O2 Saturation 97.2 Glucose 107 H Lactate 1.3 Mechanical Rate FiO2 50.0 50.0 Tidal Volume PEEP Sodium 140.0 Potassium Chloride 112.0 H Carbon Dioxide Anion Gap BUN Creatinine Est GFR ( Amer) Est GFR (Non-Af Amer) Random Glucose Calcium Phosphorus Magnesium Total Bilirubin AST ALT Alkaline Phosphatase Total Protein Albumin Globulin Albumin/Globulin Ratio Procalcitonin Arterial Blood Potassium 3.6 01/15/18 01/15/18 01/15/18 06:00 06:00 15:30 WBC 4.4 L RBC 2.79 L Hgb 8.6 L D Hct 25.9 L MCV 92.8 MCH 30.8 MCHC 33.2 RDW 19.4 H Plt Count 122 MPV 9.5 Gran % Lymph % (Auto) [place] % (Auto) Eos % (Auto) Baso % (Auto) Gran # Lymph # (Auto) [place] # (Auto) Eos # (Auto) Baso # (Auto) pCO2 pO2 HCO3 ABG pH ABG Total CO2 ABG O2 Saturation ABG O2 Content ABG Base Excess ABG Hemoglobin ABG Carboxyhemoglobin POC ABG HHb (Measured) ABG Methemoglobin ABG O2 Capacity ABG Potassium Hgb O2 Saturation Glucose Lactate Mechanical Rate FiO2 Tidal Volume PEEP Sodium 140 Potassium 4.0 Chloride 104 Carbon Dioxide 26 Anion Gap 13 BUN 54 H Creatinine 1.5 H Est GFR ( Amer) 40 Est GFR (Non-Af Amer) 33 Random Glucose 106 Calcium 8.0 L Phosphorus 4.3 Magnesium 1.8 Total Bilirubin 0.6 AST 30 ALT 28 Alkaline Phosphatase 34 L Total Protein 5.8 Albumin 2.9 L Globulin 3.0 Albumin/Globulin Ratio 1.0 L Procalcitonin 1.92 H Arterial Blood Potassium 01/15/18 16:40 WBC RBC Hgb Hct MCV MCH MCHC RDW Plt Count MPV Gran % Lymph % (Auto) [place] % (Auto) Eos % (Auto) Baso % (Auto) Gran # Lymph # (Auto) [place] # (Auto) Eos # (Auto) Baso # (Auto) pCO2 38 pO2 90.0 HCO3 27.7 ABG pH 7.47 H ABG Total CO2 28.9 H ABG O2 Saturation 99.2 H ABG O2 Content ABG Base Excess 3.9 H ABG Hemoglobin ABG Carboxyhemoglobin POC ABG HHb (Measured) ABG Methemoglobin ABG O2 Capacity ABG Potassium 3.1 L Hgb O2 Saturation Glucose 108 H Lactate 1.1 Mechanical Rate 25 FiO2 40.0 Tidal Volume 360 PEEP 14 Sodium 141.0 Potassium Chloride 110.0 H Carbon Dioxide Anion Gap BUN Creatinine Est GFR ( Amer) Est GFR (Non-Af Amer) Random Glucose Calcium Phosphorus Magnesium Total Bilirubin AST ALT Alkaline Phosphatase Total Protein Albumin Globulin Albumin/Globulin Ratio Procalcitonin Arterial Blood Potassium 3.1 L Critical Care Progress Note - Nutrition Nutrition: Nutrition Category Date Time Status NPO Diet [DIET] Diets 01/15/18 Breakfast Ordered Attending/Attestation - Attestation I have personally seen and examined this patient.: Yes I have fully participated in the care of the patient.: Yes I have reviewed all pertinent clinical information: Yes Notes (Text): 01/15/18 17:[address] Fox's note
--- NOTE | 2018-01-15 14:27 | PN ---
Copied To: Edmund Fox MD Attending MD: Edmund Fox MD DATE: 01/15/2018 SUBJECTIVE: The patient is seen and examined at bedside. She is on Nimbex 0.8 mcg/kg per minute. The patient is on Versed 5 mg/hr and fentanyl 60 mcg/hr. Her blood gas substantially improved overnight. She is on PRVC 360/30/14/40% (changes were made from last night, such as, decrease of FiO2 from 50% to 40% and respiratory rate from 35 to 30). The patient's stress index is close to 1, driving pressure about 12. At present time, nimbex will be stopped and the patient will be monitored off of neuromuscular blockade. Levophed and vasopressin were stopped yesterday as well. PHYSICAL EXAMINATION: VITAL SIGNS: Heart rate 93, oxygen saturation 92%, end-tidal CO2 on the monitor 40, respiratory rate 30, temperature 99, blood pressure 137/61. ENT: Head and neck, atraumatic. LUNGS: A few rales, left more than right. HEART: Regular rate an d rhythm. S1, S2 normal. ABDOMEN: Soft, nontender, nondistended. MUSCULOSKELETAL: Trace bilateral pedal and ankle edema. NEUROLOGIC: The patient is still on the neuromuscular blockade. SKIN: Moist. PSYCH: The patient is under neuromuscular blockade. LABORATORY DATA: Chest x-ray showed some improvement in bilateral infiltrates, endotracheal tube is in correct position. WBC 3.7, hemoglobin 6.3, platelet count 161. Sodium 140, potassium 4, chloride 104, carbon dioxide 26, BUN 54, creatinine 1.5, glucose 106, AST 30, ALT 28, total bilirubin 0.6. ABG today morning 7.42/41/165 (the patient is on 50% FiO2 and respiratory rate 35; since ABG was done, the above changes were . Urine culture positive for gram negative rods. MEDICATIONS: DuoNeb p.r.n. and every 4 hours, doxycycline, fentanyl drip, Lasix 40 mg IV times 1 was ordered, hydrocortisone 50 mg IV every 12 hours, heparin 5000 subcu every 12 hours, meropenem, Nimbex drip, Protonix 40 mg IV daily, Diamox, Versed. Edmund Fox MD [facility] # [id number] DONNA
--- NOTE | 2018-01-15 14:29 | PN ---
Copied To: Edmund Fox MD Attending MD: Edmund Fox MD This is an addendum to my progress note dictated earlier on 01/15/2018 DATE: 01/15/2018 ASSESSMENT AND PLAN: This is an 87-year-old lady who presented to ICU with septic shock secondary to UTI complicated by multiorgan system failure including acute respiratory distress syndrome, hypoxemic respiratory failure, acute kidney injury, severe lactic acidosis, and septic encephalopathy. The patient required intubation, neuromuscular blockade, and vasopressor support. Neuro: At present time, the patient showed some strides toward improvement in her respiratory status. Neuromuscular blockade will be stopped. We will try to taper down her sedation and assess her mental status afterwards. Need for EEG or CT head will be determined later when enough time given for presumed clearance of NMB and sedatives. Pulmonary: We will continue with strict protective lung ventilation strategy including tidal volume 4 to 8 mL per predicted body weight and plateau pressure less than 30 cm of water. Presently, plateau pressure is 25 and her gas exchange parameters substantially improved. Her acid base disorder substantially improved, which allowed to decrease respiratory rate to 30 from 35. Her stress index is 1.08. Her PEEP 14. Her driving pressure is 12. At present time, we will proceed with conservative fluid and oxygen management. We will maintain pO2 between 75 and 100. The patient will be diuresed, first dose of 40 mg Lasix was ordered. Chest x-ray shows slight improvement compared with yesterday. I will continue with head of bed elevated more than 35 degrees. Oral hygiene. We will continue with daily sedation vacation and when a little bit more awake and alert, weaning trial. Cardiovascular: The patient's distributive shock resolved. Echocardiogram did not show significant left or right ventricular abnormalities.. ID: The patient has UTI with gram-negative rods. She is on meropenem. I will touch base with ID service whether it is time to de-escalate antibiotic therapy just to cover gram negatives. Meanwhile, blood culture is negative. MRSA screen is negative and sputum analysis did not show any organism or polymorphonuclear cells. Procalcitonin was slightly elevated at 0.71. We will repeat procalcitonin to follow its trends. GI: The patient currently is n.p.o.; however, once neuromuscular blockade is a little bit worn off, we will start the patient on trophic feeds with aspiration precaution. Her vasopressor support was weaned off. I will continue with GI prophylaxis. Endocrine: The patient is on stress dose steroids; however, we will start weaning it down. We will maintain blood glucose within 140 to 180 range according to [employer] trial. Renal: The patient has slight spike in creatinine. The patient had urine output 250 mL overnight, which represents a little drop to less than 0.5 mL/kg per hour. Bicarbonate drip was stopped yesterday. Nephrology service is following the following the patient as well. We will try to avoid hyperchloremia and maintain euvolemia and euglycemia. We might want to repeat renal ultrasound as CAT scan of the abdomen and pelvis showed mild hydronephrosis and we will follow up on that. Heme: The patient has pancytopenia with drop in white cell count, hemoglobin and platelets. We will maintain hemoglobin between 7 and 9 mg/dL. The patient will be transfused two units of blood. I am concerned about leukopenia, which per se is a poor prognostic feature in sepsis, however overall clinically patient is doing better; We will continue target euvolemia, euglycemia, normothermia and oxygen saturation more than 90%. We will continue with DVT and GI prophylaxis. Addendum: ABG much improved, but shows mild combined respiratory and metabolic alkalosis. Will continue with diuresis, to maintain neg 1L fluid, but will go down on RR/Ve--patient is not overbreathing vent yet. Versed and nimbex stopped , open eyes on command, but very sleepy. Procalcitonin came back higher--likely due to worsening MAR-->will repeat CMP. Patient responded to first dose lasix well with about 100 cc/hr u/o for first 4 hrs, but still positive fluid balance marley. Will try to balance between keeping lungs dry and avoid kidney hypoperfusion. Responded to 2 PRBC adequately. Started NGT feeds. Bedside bladder scanner did not reveal significant urine retention ccm time 40 min Edmund Fox MD MTDLeilani
[2018-01-15 15:49] LABS: HEMOGLOBIN 8.6 g/dL (12.0-16.0); MEAN CELL VOLUME 92.8 fl (80.0-105.0); MEAN CORPUSCULAR HEMOGLOBIN 30.8 pg (25.0-35.0); MEAN CORPUSCULAR HGB CONC 33.2 g/dl (31.0-37.0); MEAN PLATELET VOLUME 9.5 fl (7.0-11.0); RBC 2.79 10^6/uL (3.5-6.1); RED CELL DISTRIBUTION WIDTH 19.4 % (11.5-14.5); WHITE BLOOD COUNT 4.4 10^3/ul (4.5-11.0)
--- NOTE | 2018-01-15 16:42 | CP.PCM.PN ---
Subjective - Date & Time of Evaluation Date of Evaluation: 01/15/18 Time of Evaluation: 08:10 - Subjective Subjective: Patient continues to be on the ventilator, no fevers, sedated, no diarrhea. Objective - Vital Signs/Intake and Output Vital Signs (last 24 hours): Temp Pulse Resp BP Pulse Ox 97.7 F 70 30 H 120/50 L 100 01/15/18 14:54 01/15/18 14:54 01/15/18 14:54 01/15/18 14:54 01/15/18 07:42 Intake and Output: 01/15/18 01/15/18 06:59 18:59 Intake Total 1174 1540 Output Total 1250 Balance 1174 290 - Medications Medications: Current Medications Albuterol/Ipratropium (Duoneb 3 Mg/0.5 Mg (3 Ml) Ud) 3 ml IH [id number] TWAN Last Admin: 01/15/18 16:15 Dose: 3 ml Albuterol/Ipratropium (Duoneb 3 Mg/0.5 Mg (3 Ml) Ud) 3 ml IH Q2H PRN PRN Reason: Shortness of Breath Heparin Sodium (Porcine) (Heparin) 5,000 units SC Q12 TWAN PRN Reason: Protocol Last Admin: 01/15/18 10:11 Dose: 5,000 units Hydrocortisone Sodium Succinate (Solu-Cortef) 50 mg IVP Q12 TWAN Last Admin: 01/15/18 12:06 Dose: 50 mg Meropenem (Merrem Iv 1 Gm Premix) 50 mls @ 100 mls/hr IVPB Q12 TWAN PRN Reason: Protocol Last Admin: 01/15/18 10:05 Dose: 100 mls/hr Doxycycline Hyclate 100 mg/ (Sodium Chloride) 100 mls @ 100 mls/hr IVPB Q12 TWAN PRN Reason: Protocol Last Admin: 01/15/18 10:08 Dose: 100 mls/hr Fentanyl Citrate (Fentanyl Citrate/Sodium Chloride 1 Mg/100 Ml) 1,000 mcg in 100 mls @ 7.5 mls/hr IV .[id number] PRN; Protocol; 75 MCG/HR PRN Reason: TITRATE PER MD ORDER Last Titration: 01/14/18 19:07 Dose: 6 mcg/hr, 0.6 mls/hr Midazolam 100 mg/100ml in NS (Midazolam 100 Mg/100ml In Ns) 100 mg in 100 mls @ 5 mls/hr IV .Q20H PRN; Protocol; 5 MG/HR PRN Reason: Agitation Last Admin: 01/15/18 05:22 Dose: 5 mg/hr, 5 mls/hr Cisatracurium Besylate 200 mg/ (Sodium Chloride) 270 mls @ 3.04 mls/hr IV .Q24H PRN; Protocol; 0.5 MCG/KG/MIN PRN Reason: TITRATE PER MD ORDER Last Titration: 01/15/18 08:00 Dose: 0 mcg/kg/min, 0 mls/hr Pantoprazole Sodium (Protonix Inj) 40 mg IVP DAILY TWAN Last Admin: 01/15/18 10:10 Dose: 40 mg - Labs Labs: 01/15/18 15:30 01/15/18 06:00 PT 22.9 SECONDS (9.4-12.5) H 01/13/18 05:10 INR 1.96 01/13/18 05:10 APTT 25.5 Seconds (25.1-36.5) 01/13/18 05:10 - Constitutional Appears: Other (intubated and sedated) - Head Exam Head Exam: NORMAL INSPECTION - ENT Exam Additional comments: ET tube in place - Neck Exam Additional comments: left IJ TLC in place - Respiratory Exam Respiratory Exam: Decreased Breath Sounds - Cardiovascular Exam Cardiovascular Exam: +S1, +S2 - GI/Abdominal Exam GI & Abdominal Exam: Soft. absent: Tenderness Assessment and Plan - Assessment and Plan (Free Text) Plan: Assessment Consider severe sepsis/ septic shock due to bilateral lower lobe healthcare- associated pneumonia with possible gram positive cocci and/or gram negative bacilli and/or atypical organisms COPD HTN history of DVT on anticoagulation S/P IVC filter placement dementia chronic CHF Plan continue Zyvox, Merrem and Doxycycline day 3 - cx have been negative, urine Legionella Ag is negative; PCT is elevated at 0.71; reviewed CT C/A/P will continue to monitor clinically overall prognosis is poor
[2018-01-15 16:43] LABS: ARTERIAL BLOOD GAS HCO3 27.7 mmol/L (21-28); ARTERIAL BLOOD GAS O2 SAT 99.2 % (95-98); ARTERIAL BLOOD GAS PCO2 38 mm/Hg (35-45); ARTERIAL BLOOD GAS PH 7.47 (7.35-7.45); ARTERIAL BLOOD GAS TCO2 28.9 mmol.L (22-28)
[2018-01-15 20:40] LABS: CALCIUM 8.1 mg/dL (8.4-10.5)
[2018-01-16] MEDS: Albuterol-Ipratrop 3 mg / 0.5 (3 ml) UD IH SCH ×6 (03:50→22:49)
[2018-01-16 06:41] LABS: GRAN # 3.44 (1.4-6.5); GRAN % 58.4 % (50.0-68.0); HEMOGLOBIN 9.1 g/dL (12.0-16.0); LYMPH % 17.7 % (22.0-35.0); MEAN CELL VOLUME 92.2 fl (80.0-105.0); MEAN CORPUSCULAR HGB CONC 33.6 g/dl (31.0-37.0); MEAN PLATELET VOLUME 10.7 fl (7.0-11.0); MONO # 1.4 (0.1-0.6); MONO % 23.9 % (1.0-6.0); RBC 2.94 10^6/uL (3.5-6.1); RED CELL DISTRIBUTION WIDTH 19.7 % (11.5-14.5); WHITE BLOOD COUNT 5.9 10^3/ul (4.5-11.0)
[2018-01-16 06:48] LABS: ALBUMIN 3.2 g/dL (3.0-4.8); CALCIUM 8.4 mg/dL (8.4-10.5)
--- NOTE | 2018-01-16 09:30 | RAD ---
Date of service: 01/16/2018 HISTORY: ARDS; PNA COMPARISON: 01/15/2018. FINDINGS: Endotracheal tube terminates 2.5 cm proximal to the sidra. The right IJV line terminates in the left brachiocephalic vein. The nasogastric tube terminates in the stomach. LUNGS: There is interval worsening with development of presumable alveolar pulmonary edema. PLEURA: Suspect layering pleural effusions, no pneumothorax apparent. CARDIOVASCULAR: Normal. OSSEOUS STRUCTURES: No significant abnormalities. VISUALIZED UPPER ABDOMEN: Normal. OTHER FINDINGS: None. IMPRESSION: Worsening presumable alveolar pulmonary edema. No focal consolidation. Stable position of support line and tubes.
[2018-01-16] MEDS: Meropenem IV 1 gm in NS 50 ML IVPB SCH ×2 (09:44→21:16)
--- NOTE | 2018-01-16 10:28 | CP.PCM.PN ---
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 avoid hypotension. maintain hemodynamic stable Monitor Input/Output, daily weights and renal function with basic metabolic panel PRBC as needed, supplement lytes as needed continue diuresis withloop diuretics, as tolerated by BP. good UOP yesterday work up for adrenal adenoma as outpt once pt stable Dose meds/antibiotics for reduced GFR. Glycemic control Further work up/management as per primary team Thanks for allowing me to participate in care of your patient. Will follow patient with you. Please call if any Qs. had d/w team Dr Celso Mcclendon Office: [phone] Chief Complaint; Unable Reason for consultation is acute kidney injury HPI: Pt is a 87-year-old female with history of dementia osteoarthritis Ckd stage III baseline grade 1.1-1.3 with GFR 55 Chronic obstructive pulmonary disease with pulmonary hypertension also bladder tumor patient/family had refused intervention, came to hospital with shortness of breath, respi distress , pneumonia/UTI with sepsis, respi failure s/p intubated but also with MAR since presentation and hence renal consulted Patient with hx bilateral extensive deep DVT she had IVC filter placed and was also on systemic a/c No recent iodinated contrast exposure. Noted obvious episodes of low BP. ROS: unable to obtain from pt Physical Examination: General Appearance: orally intubated, better appearing. off pressors now Vitals reviewed and noted as below Head; Atraumatic, normocephalic ENT: intubated EYES: deferred Neck; supple no lymphadenopathy, no thyromegaly or bruit Lungs: Normal respiratory rate/effort. Breath sounds bilateral equal and clearer Heart: Normal rate. s1s2 normal. No rub or gallop. Extremities: no edema. No varicose veins Neurological: Patient is sedated Skin: Warm and dry. Normal turgor. No rash. Palpitation: Normal elasticity for age Abdomen: Abdomen is soft. Bowel sounds +. There is no abdominal tenderness, no guarding/rigidity no organomegaly Psych: unable MSK: no joint tenderness or swelling. Digits and nails normal, no deformity : kidney/bladder not palpable, has nazario Labs/imaging reviewed. Past medical history, past surgical history, family history, social history, allergy reviewed and noted as below Family hx: no hx of CKD. Rest non-contributory work up reviewed Objective - Vital Signs/Intake and Output Vital Signs (last 24 hours): Temp Pulse Resp BP Pulse Ox 96.8 F L 86 24 181/73 H 94 L 01/15/18 21:20 01/16/18 02:00 01/16/18 06:50 01/16/18 09:42 01/16/18 06:50 Intake and Output: 01/16/18 01/16/18 06:59 18:59 Intake Total 810 180 Output Total 1600 700 Balance -790 -520 - Medications Medications: Current Medications Albuterol/Ipratropium (Duoneb 3 Mg/0.5 Mg (3 Ml) Ud) 3 ml IH [id number] [facility] Last Admin: 01/16/18 07:00 Dose: 3 ml Albuterol/Ipratropium (Duoneb 3 Mg/0.5 Mg (3 Ml) Ud) 3 ml IH Q2H PRN PRN Reason: Shortness of Breath Furosemide (Lasix) 40 mg IVP BID [facility] Heparin Sodium (Porcine) (Heparin) 5,000 units SC Q12 TWAN PRN Reason: Protocol Last Admin: 01/16/18 09:44 Dose: 5,000 units Hydrocortisone Sodium Succinate (Solu-Cortef) 50 mg IVP Q12 [facility] Last Admin: 01/16/18 09:41 Dose: 50 mg Meropenem (Merrem Iv 1 Gm Premix) 50 mls @ 100 mls/hr IVPB Q12 TWAN PRN Reason: Protocol Last Admin: 01/16/18 09:44 Dose: 100 mls/hr Doxycycline Hyclate 100 mg/ (Sodium Chloride) 100 mls @ 100 mls/hr IVPB Q12 TWAN PRN Reason: Protocol Last Admin: 01/16/18 09:43 Dose: 100 mls/hr Fentanyl Citrate (Fentanyl Citrate/Sodium Chloride 1 Mg/100 Ml) 1,000 mcg in 100 mls @ 7.5 mls/hr IV .[id number] PRN; Protocol; 75 MCG/HR PRN Reason: TITRATE PER MD ORDER Last Titration: 01/14/18 19:07 Dose: 6 mcg/hr, 0.6 mls/hr Cisatracurium Besylate 200 mg/ (Sodium Chloride) 270 mls @ 3.04 mls/hr IV .Q24H PRN; Protocol; 0.5 MCG/KG/MIN PRN Reason: TITRATE PER MD ORDER Last Titration: 01/15/18 08:00 Dose: 0 mcg/kg/min, 0 mls/hr Potassium Chloride (Potassium Chloride 20 Meq/100 Ml) 20 meq in 100 mls @ 50 mls/hr IVPB Q2H TWAN Stop: 01/16/18 10:59 Last Admin: 01/16/18 09:42 Dose: 50 mls/hr Pantoprazole Sodium (Protonix Inj) 40 mg IVP DAILY TWAN Last Admin: 01/16/18 09:41 Dose: 40 mg - Labs Labs: 01/16/18 06:00 01/16/18 06:00 PT 22.9 SECONDS (9.4-12.5) H 01/13/18 05:10 INR 1.96 01/13/18 05:10 APTT 25.5 Seconds (25.1-36.5) 01/13/18 05:10
--- NOTE | 2018-01-16 11:00 | CP.CCUPN ---
<Florencio Rust - Last Filed: 01/16/18 10:52> CCU Subjective - Physician Review Events Since Last Encounter (Free Text): 01/16/18 10:52 Patient seen and examined at bedside. Patient seen by wound care yesterday, no skin breakdown noted. Otherwise no acute overnight events. History limited 2/ 2 intubation status. Hgb stabilized this am. CCU Objective - Vital Signs / Intake & Output Vital Signs (Last 4 hours): Vital Signs Temp Pulse BP Pulse Ox 01/16/18 10:20 98.8 F 106 H 95 01/16/18 10:10 98.8 F 107 H 95 01/16/18 10:00 98.8 F 112 H 185/75 H 93 L 01/16/18 09:50 98.6 F 110 H 95 01/16/18 09:42 181/73 H 01/16/18 09:40 98.6 F 112 H 90 L 01/16/18 09:30 98.6 F 117 H 181/73 H 91 L 01/16/18 09:20 98.6 F 105 H 93 L 01/16/18 09:10 98.6 F 108 H 92 L 01/16/18 09:00 172/77 H 01/16/18 08:59 98.6 F 109 H 94 L 01/16/18 08:50 98.6 F 103 H 94 L 01/16/18 08:40 98.6 F 106 H 95 01/16/18 08:30 98.8 F 105 H 156/62 H 94 L 01/16/18 08:20 98.8 F 111 H 92 L 01/16/18 08:10 98.8 F 105 H 93 L 01/16/18 08:00 159/64 H 01/16/18 07:59 98.6 F 103 H 93 L 01/16/18 07:50 98.6 F 109 H 94 L 01/16/18 07:40 98.6 F 107 H 95 01/16/18 07:30 98.8 F 107 H 153/60 H 92 L 01/16/18 07:20 98.8 F 106 H 95 01/16/18 07:10 98.8 F 106 H 96 01/16/18 07:00 98.8 F 102 H 156/57 H 96 Intake and Output (Last 8hrs): Intake & Output 01/15/18 01/16/18 01/16/18 22:59 06:59 14:59 Intake Total 135 810 180 Output Total 800 1600 700 Balance -665 -790 -520 Intake: IV 25 350 120 Left Forearm 0 0 Left Internal Jugular 7 350 100 Left Wrist 0 0 Right Antecubital 0 0 Right Forearm 18 20 Right Upper arm 0 Tube Feeding 60 460 60 Other 50 Output: Urine 800 1600 700 Urethral (Starkey) 800 1600 700 Emesis 0 0 Other: # Bowel Movements 0 0 0 - Physical Exam Head: Positive for: Atraumatic, Normocephalic Pupils: Positive for: PERRL Extroacular Muscles: Positive for: EOMI Mouth: Positive for: Dry Nose (External): Positive for: Atraumatic Neck: Positive for: Normal Range of Motion Respiratory/Chest: Positive for: Respiratory Distress, Accessory Muscle Use, Wheezes, Decreased Breath Sounds, Retracting, Tachypneic Cardiovascular: Positive for: Tachycardic Abdomen: Negative for: Tenderness, Rebound, Guarding Upper Extremity: Positive for: Cyanosis. Negative for: Edema Lower Extremity: Positive for: Cyanosis. Negative for: Edema Skin: Positive for: Cold, Pale Psychiatric: Positive for: Alert, Anxious, Agitated - Medications Active Medications: Active Medications Generic Name Dose Route Start Last Admin Trade Name Freq PRN Reason Stop Dose Admin Albuterol/Ipratropium 3 ml 01/13/18 11:30 01/16/18 07:00 Duoneb 3 Mg/0.5 Mg (3 Ml) Ud IH 3 ml [id number] TWAN Administration Albuterol/Ipratropium 3 ml 01/13/18 09:07 Duoneb 3 Mg/0.5 Mg (3 Ml) Ud IH Q2H PRN Shortness of Breath Furosemide 40 mg 01/16/18 10:00 Lasix IVP BID TWAN Heparin Sodium (Porcine) 5,000 units 01/14/18 10:00 01/16/18 09:44 Heparin SC 5,000 units Q12 TWAN Administration Protocol Hydrocortisone Sodium Succinate 50 mg 01/15/18 12:00 01/16/18 09:41 Solu-Cortef IVP 50 mg Q12 TWAN Administration Meropenem 50 mls @ 100 mls/hr 01/13/18 10:00 01/16/18 09:44 Merrem Iv 1 Gm Premix IVPB 100 mls/hr Q12 TWAN Administration Protocol Doxycycline Hyclate 100 mg/ 100 mls @ 100 mls/hr 01/13/18 10:00 01/16/18 09: 43 Sodium Chloride IVPB 100 mls/hr Q12 TWAN Administration Protocol Fentanyl Citrate 1,000 mcg in 100 mls @ 7.5 mls/hr 01/14/18 08:35 01/14/18 19 :07 Fentanyl Citrate/Sodium Chloride 1 Mg/100 Ml IV 6 mcg/hr .[id number] PRN 0.6 mls/hr TITRATE PER MD ORDER Titration Protocol 75 MCG/HR Cisatracurium Besylate 200 mg/ 270 mls @ 3.04 mls/hr 01/14/18 08:36 01/15/18 08:00 Sodium Chloride IV 0 mcg/kg/min .Q24H PRN 0 mls/hr TITRATE PER MD ORDER Titration Protocol 0.5 MCG/KG/MIN Potassium Chloride 20 meq in 100 mls @ 50 mls/hr 01/16/18 07:00 01/16/18 09: 42 Potassium Chloride 20 Meq/100 Ml IVPB 01/16/18 10:59 50 mls/hr Q2H TWAN Administration Pantoprazole Sodium 40 mg 01/15/18 10:00 01/16/18 09:41 Protonix Inj IVP 40 mg DAILY TWAN Administration - Patient Studies Lab Studies: Microbiology Studies 01/14/18 19:14 Gram Stain - Final Trachasp 01/13/18 06:53 Urine Culture - Final Urine Escherichia Coli Lab Studies 01/16/18 01/16/18 01/15/18 Range/Units 06:00 06:00 20:15 WBC 5.9 D (4.5-11.0) 10^3/ul RBC 2.94 L (3.5-6.1) 10^6/uL Hgb 9.1 L (12.0-16.0) g/dL Hct 27.1 L (36.0-48.0) % MCV 92.2 (80.0-105.0) fl MCH 31.0 (25.0-35.0) pg MCHC 33.6 (31.0-37.0) g/dl RDW 19.7 H (11.5-14.5) % Plt Count 152 (120.0-450.0) 10^3/uL MPV 10.7 (7.0-11.0) fl Gran % 58.4 (50.0-68.0) % Lymph % (Auto) 17.7 L (22.0-35.0) % Walsh % (Auto) 23.9 H (1.0-6.0) % Eos % (Auto) 0.0 L (1.5-5.0) % Baso % (Auto) 0.0 (0.0-3.0) % Gran # 3.44 (1.4-6.5) Lymph # (Auto) 1.0 L (1.2-3.4) Walsh # (Auto) 1.4 H (0.1-0.6) Eos # (Auto) 0.0 (0.0-0.7) Baso # (Auto) 0.00 (0.0-2.0) K/mm3 pCO2 (35-45) mm/Hg pO2 (80-100) mm/Hg HCO3 (21-28) mmol/L ABG pH (7.35-7.45) ABG Total CO2 (22-28) mmol.L ABG O2 Saturation (95-98) % ABG Base Excess (-2.0-3.0) mmol/L ABG Potassium (3.6-5.2) mmol/L Sodium 143 142 (132-148) mmol/L Chloride 104 104 (98-107) mmol/L Glucose (65-105) mg/dl Lactate (0.7-2.1) mmol/L Mechanical Rate FiO2 % Tidal Volume PEEP Potassium 3.2 L 3.0 L (3.6-5.0) mmol/L Carbon Dioxide 30 29 (21-33) mmol/L Anion Gap 13 12 (10-20) BUN 62 H 57 H (7-21) mg/dL Creatinine 1.7 H 1.7 H (0.7-1.2) mg/dl Est GFR ( Amer) 35 35 Est GFR (Non-Af Amer) 29 29 Random Glucose 108 118 H (70-110) mg/dL Calcium 8.4 8.1 L (8.4-10.5) mg/dL Phosphorus 2.7 (2.5-4.5) mg/dL Magnesium 1.8 (1.7-2.2) mg/dL Total Bilirubin 0.8 (0.2-1.3) mg/dL AST 35 (14-36) U/L ALT 23 (7-56) U/L Alkaline Phosphatase 40 (38-126) U/L Total Protein 6.2 (5.8-8.3) g/dL Albumin 3.2 (3.0-4.8) g/dL Globulin 3.1 gm/dL Albumin/Globulin Ratio 1.0 L (1.1-1.8) Procalcitonin (0.19-0.49) NG/ML Arterial Blood Potassium (3.6-5.2) mmol/L 01/15/18 01/15/18 01/15/18 Range/Units 16:40 15:30 06:00 WBC 4.4 L (4.5-11.0) 10^3/ul RBC 2.79 L (3.5-6.1) 10^6/uL Hgb 8.6 L D (12.0-16.0) g/dL Hct 25.9 L (36.0-48.0) % MCV 92.8 (80.0-105.0) fl MCH 30.8 (25.0-35.0) pg MCHC 33.2 (31.0-37.0) g/dl RDW 19.4 H (11.5-14.5) % Plt Count 122 (120.0-450.0) 10^3/uL MPV 9.5 (7.0-11.0) fl Gran % (50.0-68.0) % Lymph % (Auto) (22.0-35.0) % Walsh % (Auto) (1.0-6.0) % Eos % (Auto) (1.5-5.0) % Baso % (Auto) (0.0-3.0) % Gran # (1.4-6.5) Lymph # (Auto) (1.2-3.4) Walsh # (Auto) (0.1-0.6) Eos # (Auto) (0.0-0.7) Baso # (Auto) (0.0-2.0) K/mm3 pCO2 38 (35-45) mm/Hg pO2 90.0 (80-100) mm/Hg HCO3 27.7 (21-28) mmol/L ABG pH 7.47 H (7.35-7.45) ABG Total CO2 28.9 H (22-28) mmol.L ABG O2 Saturation 99.2 H (95-98) % ABG Base Excess 3.9 H (-2.0-3.0) mmol/L ABG Potassium 3.1 L (3.6-5.2) mmol/L Sodium 141.0 (132-148) mmol/L Chloride 110.0 H (98-107) mmol/L Glucose 108 H (65-105) mg/dl Lactate 1.1 (0.7-2.1) mmol/L Mechanical Rate 25 FiO2 40.0 % Tidal Volume 360 PEEP 14 Potassium (3.6-5.0) mmol/L Carbon Dioxide (21-33) mmol/L Anion Gap (10-20) BUN (7-21) mg/dL Creatinine (0.7-1.2) mg/dl Est GFR ( Amer) Est GFR (Non-Af Amer) Random Glucose (70-110) mg/dL Calcium (8.4-10.5) mg/dL Phosphorus (2.5-4.5) mg/dL Magnesium (1.7-2.2) mg/dL Total Bilirubin (0.2-1.3) mg/dL AST (14-36) U/L ALT (7-56) U/L Alkaline Phosphatase (38-126) U/L Total Protein (5.8-8.3) g/dL Albumin (3.0-4.8) g/dL Globulin gm/dL Albumin/Globulin Ratio (1.1-1.8) Procalcitonin 1.92 H (0.19-0.49) NG/ML Arterial Blood Potassium 3.1 L (3.6-5.2) mmol/L Laboratory Results - last 24 hr 01/15/18 01/15/18 01/15/18 06:00 15:30 16:40 WBC 4.4 L RBC 2.79 L Hgb 8.6 L D Hct 25.9 L MCV 92.8 MCH 30.8 MCHC 33.2 RDW 19.4 H Plt Count 122 MPV 9.5 Gran % Lymph % (Auto) Walsh % (Auto) Eos % (Auto) Baso % (Auto) Gran # Lymph # (Auto) Walsh # (Auto) Eos # (Auto) Baso # (Auto) pCO2 38 pO2 90.0 HCO3 27.7 ABG pH 7.47 H ABG Total CO2 28.9 H ABG O2 Saturation 99.2 H ABG Base Excess 3.9 H ABG Potassium 3.1 L Sodium 141.0 Chloride 110.0 H Glucose 108 H Lactate 1.1 Mechanical Rate 25 FiO2 40.0 Tidal Volume 360 PEEP 14 Potassium Carbon Dioxide Anion Gap BUN Creatinine Est GFR ( Amer) Est GFR (Non-Af Amer) Random Glucose Calcium Phosphorus Magnesium Total Bilirubin AST ALT Alkaline Phosphatase Total Protein Albumin Globulin Albumin/Globulin Ratio Procalcitonin 1.92 H Arterial Blood Potassium 3.1 L 01/15/18 01/16/18 01/16/18 20:15 06:00 06:00 WBC 5.9 D RBC 2.94 L Hgb 9.1 L Hct 27.1 L MCV 92.2 MCH 31.0 MCHC 33.6 RDW 19.7 H Plt Count 152 MPV 10.7 Gran % 58.4 Lymph % (Auto) 17.7 L Walsh % (Auto) 23.9 H Eos % (Auto) 0.0 L Baso % (Auto) 0.0 Gran # 3.44 Lymph # (Auto) 1.0 L Walsh # (Auto) 1.4 H Eos # (Auto) 0.0 Baso # (Auto) 0.00 pCO2 pO2 HCO3 ABG pH ABG Total CO2 ABG O2 Saturation ABG Base Excess ABG Potassium Sodium 142 143 Chloride 104 104 Glucose Lactate Mechanical Rate FiO2 Tidal Volume PEEP Potassium 3.0 L 3.2 L Carbon Dioxide 29 30 Anion Gap 12 13 BUN 57 H 62 H Creatinine 1.7 H 1.7 H Est GFR ( Amer) 35 35 Est GFR (Non-Af Amer) 29 29 Random Glucose 118 H 108 Calcium 8.1 L 8.4 Phosphorus 2.7 Magnesium 1.8 Total Bilirubin 0.8 AST 35 ALT 23 Alkaline Phosphatase 40 Total Protein 6.2 Albumin 3.2 Globulin 3.1 Albumin/Globulin Ratio 1.0 L Procalcitonin Arterial Blood Potassium Fingerstick Blood Sugar Results: 209 Critical Care Progress Note - Nutrition Nutrition: Nutrition Category Date Time Status NPO Diet [DIET] Diets 01/15/18 Breakfast Ordered Assessment/Plan - Assessment and Plan (Free Text) Assessment: 87 F under ICU mgmt for septic shock due to UTI vs HCAP PNA with multiorgan failure in the setting of lactic acidosis, possible ARDS, and MAR - improving. Acute Metabolic Acidosis with Superimposed Respiratory Alkalosis - resolved Acute Anemia s/p 4 U PRBC, 2 U FFP Hx DVT on eliquis, s/p IVC filter RE: anemia, patient's hemoglobin has stabilized after discontinuation of Zyvox. On admission, patient's Hgb 6.2 5A-->1U at 8:41 and 1 U at 10:56; 1 FFP at 1: 04-->Hg 7.8 at 2P-->1 U FFP at 3:52P-->Hgb on 01/14 am 7.7; 01/15 morning, Hgb was 6.3, now stable at 9.1. Regarding septic shock, WBC of 14.2 --> 8.1-->3.7 yesterday AM, now stabilized patient pressures maintained now off of pressors. Blood cultures are negative thus far, but U Cx with akbar-sensitive E.Coli; Chest XR from this am shows no interval change from yesterday. RE: MAR, patient's creatinine was improving from 2.0 to 1.3, but has been bumping back up the past two days, likely 2/2 lasix and volume status. Patient's acidosis status is improved today, as well as patient's shock. However, some concern re: pancytopenia has arisen, this could be secondary to ABx vs Sepsis; pancytopenia improved after Zyvx was discotninued Plan: Neuro: Sedated with Versed and Fentanyl; Maintained normothermia without kyle hugger Pulm: Vent settings: 50 10 20 350; Abx: Continue Doxy, Merrem; d/c Zyvox. Continue Duonebs. Maintain high PEEP low Tv; tapered steroids to Solu-cortef 25q12 from 50q12 Maintain O2 Sats > 92% Cardio: Off pressors; Start Lasix 40 BID, changed from daily. Maintain MAP > 70 for this patient, given septic shock GI: Protonix for GI PPX, continue gastric feeding : Discontinue bicarb drip, continue to correct metabolic acidosis by treating septic shock. Maintain euvolemia; monitor MAR Per Nephro: work up for adrenal adenoma as outpt once pt stable Dose meds/ antibiotics for reduced GFR. ID: Continue Doxy, Merrem; discontinue Zyvox in setting of akbar-cytopenia Heme: Patient is s/p 3U PRBC and 2 U FFP with stable Hgb, Heparin for DVT PPX. Endo: Maintain euglycemia <Ross Rees - Last Filed: 01/16/18 12:01> CCU Objective - Vital Signs / Intake & Output Vital Signs (Last 4 hours): Vital Signs Temp Pulse BP Pulse Ox 01/16/18 10:20 98.8 F 106 H 95 01/16/18 10:10 98.8 F 107 H 95 01/16/18 10:00 98.8 F 112 H 185/75 H 93 L 01/16/18 09:50 98.6 F 110 H 95 01/16/18 09:42 181/73 H 01/16/18 09:40 98.6 F 112 H 90 L 01/16/18 09:30 98.6 F 117 H 181/73 H 91 L 01/16/18 09:20 98.6 F 105 H 93 L 01/16/18 09:10 98.6 F 108 H 92 L 01/16/18 09:00 172/77 H 01/16/18 08:59 98.6 F 109 H 94 L 01/16/18 08:50 98.6 F 103 H 94 L 01/16/18 08:40 98.6 F 106 H 95 01/16/18 08:30 98.8 F 105 H 156/62 H 94 L 01/16/18 08:20 98.8 F 111 H 92 L 01/16/18 08:10 98.8 F 105 H 93 L 01/16/18 08:00 159/64 H 01/16/18 07:59 98.6 F 103 H 93 L Intake and Output (Last 8hrs): Intake & Output 01/15/18 01/16/18 01/16/18 22:59 06:59 14:59 Intake Total 135 810 239 Output Total 800 1600 700 Balance -665 -790 -461 Intake: IV 25 350 179 Left Forearm 0 0 Left Internal Jugular 7 350 100 Left Wrist 0 0 Right Antecubital 0 0 Right Forearm 18 20 Right Upper arm 0 Tube Feeding 60 460 60 Other 50 Output: Urine 800 1600 700 Urethral (Starkey) 800 1600 700 Emesis 0 0 Other: # Bowel Movements 0 0 0 - Medications Active Medications: Active Medications Generic Name Dose Route Start Last Admin Trade Name Freq PRN Reason Stop Dose Admin Albuterol/Ipratropium 3 ml 01/13/18 11:30 01/16/18 11:01 Duoneb 3 Mg/0.5 Mg (3 Ml) Ud IH 3 ml [id number] TWAN Administration Albuterol/Ipratropium 3 ml 01/13/18 09:07 Duoneb 3 Mg/0.5 Mg (3 Ml) Ud IH Q2H PRN Shortness of Breath Furosemide 40 mg 01/16/18 22:00 Lasix IVP BID TWAN Heparin Sodium (Porcine) 5,000 units 01/14/18 10:00 01/16/18 09:44 Heparin SC 5,000 units Q12 TWAN Administration Protocol Hydrocortisone Sodium Succinate 50 mg 01/15/18 12:00 01/16/18 09:41 Solu-Cortef IVP 50 mg Q12 TWAN Administration Meropenem 50 mls @ 100 mls/hr 01/13/18 10:00 01/16/18 09:44 Merrem Iv 1 Gm Premix IVPB 100 mls/hr Q12 TWAN Administration Protocol Doxycycline Hyclate 100 mg/ 100 mls @ 100 mls/hr 01/13/18 10:00 01/16/18 09: 43 Sodium Chloride IVPB 100 mls/hr Q12 TWAN Administration Protocol Cisatracurium Besylate 200 mg/ 270 mls @ 3.04 mls/hr 01/14/18 08:36 01/15/18 08:00 Sodium Chloride IV 0 mcg/kg/min .Q24H PRN 0 mls/hr TITRATE PER MD ORDER Titration Protocol 0.5 MCG/KG/MIN Fentanyl Citrate 1,000 mcg in 100 mls @ 6 mls/hr 01/16/18 11:22 Fentanyl Citrate/Sodium Chloride 1 Mg/100 Ml IV .[id number] PRN TITRATE PER MD ORDER Protocol 60 MCG/HR Pantoprazole Sodium 40 mg 01/15/18 10:00 01/16/18 09:41 Protonix Inj IVP 40 mg DAILY TWAN Administration - Patient Studies Lab Studies: Microbiology Studies 01/14/18 19:14 Gram Stain - Final Trachasp 01/13/18 06:53 Urine Culture - Final Urine Escherichia Coli Lab Studies 01/16/18 01/16/18 01/15/18 Range/Units 06:00 06:00 20:15 WBC 5.9 D (4.5-11.0) 10^3/ul RBC 2.94 L (3.5-6.1) 10^6/uL Hgb 9.1 L (12.0-16.0) g/dL Hct 27.1 L (36.0-48.0) % MCV 92.2 (80.0-105.0) fl MCH 31.0 (25.0-35.0) pg MCHC 33.6 (31.0-37.0) g/dl RDW 19.7 H (11.5-14.5) % Plt Count 152 (120.0-450.0) 10^3/uL MPV 10.7 (7.0-11.0) fl Gran % 58.4 (50.0-68.0) % Lymph % (Auto) 17.7 L (22.0-35.0) % Walsh % (Auto) 23.9 H (1.0-6.0) % Eos % (Auto) 0.0 L (1.5-5.0) % Baso % (Auto) 0.0 (0.0-3.0) % Gran # 3.44 (1.4-6.5) Lymph # (Auto) 1.0 L (1.2-3.4) Walsh # (Auto) 1.4 H (0.1-0.6) Eos # (Auto) 0.0 (0.0-0.7) Baso # (Auto) 0.00 (0.0-2.0) K/mm3 pCO2 (35-45) mm/Hg pO2 (80-100) mm/Hg HCO3 (21-28) mmol/L ABG pH (7.35-7.45) ABG Total CO2 (22-28) mmol.L ABG O2 Saturation (95-98) % ABG Base Excess (-2.0-3.0) mmol/L ABG Potassium (3.6-5.2) mmol/L Sodium 143 142 (132-148) mmol/L Chloride 104 104 (98-107) mmol/L Glucose (65-105) mg/dl Lactate (0.7-2.1) mmol/L Mechanical Rate FiO2 % Tidal Volume PEEP Potassium 3.2 L 3.0 L (3.6-5.0) mmol/L Carbon Dioxide 30 29 (21-33) mmol/L Anion Gap 13 12 (10-20) BUN 62 H 57 H (7-21) mg/dL Creatinine 1.7 H 1.7 H (0.7-1.2) mg/dl Est GFR ( Amer) 35 35 Est GFR (Non-Af Amer) 29 29 Random Glucose 108 118 H (70-110) mg/dL Calcium 8.4 8.1 L (8.4-10.5) mg/dL Phosphorus 2.7 (2.5-4.5) mg/dL Magnesium 1.8 (1.7-2.2) mg/dL Total Bilirubin 0.8 (0.2-1.3) mg/dL AST 35 (14-36) U/L ALT 23 (7-56) U/L Alkaline Phosphatase 40 (38-126) U/L Total Protein 6.2 (5.8-8.3) g/dL Albumin 3.2 (3.0-4.8) g/dL Globulin 3.1 gm/dL Albumin/Globulin Ratio 1.0 L (1.1-1.8) Procalcitonin (0.19-0.49) NG/ML Arterial Blood Potassium (3.6-5.2) mmol/L 01/15/18 01/15/18 01/15/18 Range/Units 16:40 15:30 06:00 WBC 4.4 L (4.5-11.0) 10^3/ul RBC 2.79 L (3.5-6.1) 10^6/uL Hgb 8.6 L D (12.0-16.0) g/dL Hct 25.9 L (36.0-48.0) % MCV 92.8 (80.0-105.0) fl MCH 30.8 (25.0-35.0) pg MCHC 33.2 (31.0-37.0) g/dl RDW 19.4 H (11.5-14.5) % Plt Count 122 (120.0-450.0) 10^3/uL MPV 9.5 (7.0-11.0) fl Gran % (50.0-68.0) % Lymph % (Auto) (22.0-35.0) % Walsh % (Auto) (1.0-6.0) % Eos % (Auto) (1.5-5.0) % Baso % (Auto) (0.0-3.0) % Gran # (1.4-6.5) Lymph # (Auto) (1.2-3.4) Walsh # (Auto) (0.1-0.6) Eos # (Auto) (0.0-0.7) Baso # (Auto) (0.0-2.0) K/mm3 pCO2 38 (35-45) mm/Hg pO2 90.0 (80-100) mm/Hg HCO3 27.7 (21-28) mmol/L ABG pH 7.47 H (7.35-7.45) ABG Total CO2 28.9 H (22-28) mmol.L ABG O2 Saturation 99.2 H (95-98) % ABG Base Excess 3.9 H (-2.0-3.0) mmol/L ABG Potassium 3.1 L (3.6-5.2) mmol/L Sodium 141.0 (132-148) mmol/L Chloride 110.0 H (98-107) mmol/L Glucose 108 H (65-105) mg/dl Lactate 1.1 (0.7-2.1) mmol/L Mechanical Rate 25 FiO2 40.0 % Tidal Volume 360 PEEP 14 Potassium (3.6-5.0) mmol/L Carbon Dioxide (21-33) mmol/L Anion Gap (10-20) BUN (7-21) mg/dL Creatinine (0.7-1.2) mg/dl Est GFR ( Amer) Est GFR (Non-Af Amer) Random Glucose (70-110) mg/dL Calcium (8.4-10.5) mg/dL Phosphorus (2.5-4.5) mg/dL Magnesium (1.7-2.2) mg/dL Total Bilirubin (0.2-1.3) mg/dL AST (14-36) U/L ALT (7-56) U/L Alkaline Phosphatase (38-126) U/L Total Protein (5.8-8.3) g/dL Albumin (3.0-4.8) g/dL Globulin gm/dL Albumin/Globulin Ratio (1.1-1.8) Procalcitonin 1.92 H (0.19-0.49) NG/ML Arterial Blood Potassium 3.1 L (3.6-5.2) mmol/L Laboratory Results - last 24 hr 01/15/18 01/15/18 01/15/18 06:00 15:30 16:40 WBC 4.4 L RBC 2.79 L Hgb 8.6 L D Hct 25.9 L MCV 92.8 MCH 30.8 MCHC 33.2 RDW 19.4 H Plt Count 122 MPV 9.5 Gran % Lymph % (Auto) Walsh % (Auto) Eos % (Auto) Baso % (Auto) Gran # Lymph # (Auto) Walsh # (Auto) Eos # (Auto) Baso # (Auto) pCO2 38 pO2 90.0 HCO3 27.7 ABG pH 7.47 H ABG Total CO2 28.9 H ABG O2 Saturation 99.2 H ABG Base Excess 3.9 H ABG Potassium 3.1 L Sodium 141.0 Chloride 110.0 H Glucose 108 H Lactate 1.1 Mechanical Rate 25 FiO2 40.0 Tidal Volume 360 PEEP 14 Potassium Carbon Dioxide Anion Gap BUN Creatinine Est GFR ( Amer) Est GFR (Non-Af Amer) Random Glucose Calcium Phosphorus Magnesium Total Bilirubin AST ALT Alkaline Phosphatase Total Protein Albumin Globulin Albumin/Globulin Ratio Procalcitonin 1.92 H Arterial Blood Potassium 3.1 L 01/15/18 01/16/18 01/16/18 20:15 06:00 06:00 WBC 5.9 D RBC 2.94 L Hgb 9.1 L Hct 27.1 L MCV 92.2 MCH 31.0 MCHC 33.6 RDW 19.7 H Plt Count 152 MPV 10.7 Gran % 58.4 Lymph % (Auto) 17.7 L Walsh % (Auto) 23.9 H Eos % (Auto) 0.0 L Baso % (Auto) 0.0 Gran # 3.44 Lymph # (Auto) 1.0 L Walsh # (Auto) 1.4 H Eos # (Auto) 0.0 Baso # (Auto) 0.00 pCO2 pO2 HCO3 ABG pH ABG Total CO2 ABG O2 Saturation ABG Base Excess ABG Potassium Sodium 142 143 Chloride 104 104 Glucose Lactate Mechanical Rate FiO2 Tidal Volume PEEP Potassium 3.0 L 3.2 L Carbon Dioxide 29 30 Anion Gap 12 13 BUN 57 H 62 H Creatinine 1.7 H 1.7 H Est GFR ( Amer) 35 35 Est GFR (Non-Af Amer) 29 29 Random Glucose 118 H 108 Calcium 8.1 L 8.4 Phosphorus 2.7 Magnesium 1.8 Total Bilirubin 0.8 AST 35 ALT 23 Alkaline Phosphatase 40 Total Protein 6.2 Albumin 3.2 Globulin 3.1 Albumin/Globulin Ratio 1.0 L Procalcitonin Arterial Blood Potassium Critical Care Progress Note - Nutrition Nutrition: Nutrition Category Date Time Status NPO Diet [DIET] Diets 01/15/18 Breakfast Ordered Assessment/Plan - Assessment and Plan (Free Text) Assessment: Patient seen and examined, on rounds with resident, agree with note with following additions/exceptions: Patient is 87yo female PMhx of COPD, Dementia, HTN, diastolic CHF, DVT on Eliquis, s/p IVC filter a.w anemia, lactic acidosis, septic shock, resp failure , ARDS. Patient was on paralytics, now OFF. Aferbrile, HD stable, OFF vasopressor support Labs, imaging, chart reviewed Patient FiO2 requirements and PEEP decreasing. CXR today with worsening congestion, volume overload, on Lasix IV Would hold off extubation today given CXR findings. Anemia DVT on eliquis, s/p IVC filter Septic Shock resp failure Metabolic Acidosis UTI ARDS Recommend: - cont with vent support, low tidal vol ventilation, daily CPAP trials, ABGs, CXR - duonebs PRN - Abx as per ID, consider changing Merrem to Rocephin - hold BP meds - Lasix 40mg IV BID - renal follow up - PPI BID - GI ppx - DVT ppx - Monitor in MICU Critical care time 30 minutes
[2018-01-16] MEDS: Fentanyl 1000mcg/100ml NS 1,000 MCG/100 ML BAG IV PRN ×2 (11:12→23:30)
[2018-01-16] MEDS ORDERED: Fentanyl 1000mcg/100ml NS 1,000 MCG/100 ML BAG IV PRN (11:20)
--- NOTE | 2018-01-16 11:57 | CP.PCM.PN ---
Subjective - Date & Time of Evaluation Date of Evaluation: 01/16/18 Time of Evaluation: 08:55 - Subjective Subjective: Continues to be on the ventilator, awake but not following all commands, no fevers overnight. Objective - Vital Signs/Intake and Output Vital Signs (last 24 hours): Temp Pulse Resp BP Pulse Ox 96.8 F L 93 H 24 129/46 L 94 L 01/15/18 21:20 01/15/18 22:00 01/16/18 06:50 01/15/18 21:00 01/16/18 06:50 - Medications Medications: Current Medications Albuterol/Ipratropium (Duoneb 3 Mg/0.5 Mg (3 Ml) Ud) 3 ml IH [id number] TWAN Last Admin: 01/16/18 07:00 Dose: 3 ml Albuterol/Ipratropium (Duoneb 3 Mg/0.5 Mg (3 Ml) Ud) 3 ml IH Q2H PRN PRN Reason: Shortness of Breath Heparin Sodium (Porcine) (Heparin) 5,000 units SC Q12 TWAN PRN Reason: Protocol Last Admin: 01/15/18 21:39 Dose: 5,000 units Hydrocortisone Sodium Succinate (Solu-Cortef) 50 mg IVP Q12 TWAN Last Admin: 01/15/18 21:38 Dose: 50 mg Meropenem (Merrem Iv 1 Gm Premix) 50 mls @ 100 mls/hr IVPB Q12 TWAN PRN Reason: Protocol Last Admin: 01/15/18 21:39 Dose: 100 mls/hr Doxycycline Hyclate 100 mg/ (Sodium Chloride) 100 mls @ 100 mls/hr IVPB Q12 TWAN PRN Reason: Protocol Last Admin: 01/16/18 01:06 Dose: 100 mls/hr Fentanyl Citrate (Fentanyl Citrate/Sodium Chloride 1 Mg/100 Ml) 1,000 mcg in 100 mls @ 7.5 mls/hr IV .[id number] PRN; Protocol; 75 MCG/HR PRN Reason: TITRATE PER MD ORDER Last Titration: 01/14/18 19:07 Dose: 6 mcg/hr, 0.6 mls/hr Cisatracurium Besylate 200 mg/ (Sodium Chloride) 270 mls @ 3.04 mls/hr IV .Q24H PRN; Protocol; 0.5 MCG/KG/MIN PRN Reason: TITRATE PER MD ORDER Last Titration: 01/15/18 08:00 Dose: 0 mcg/kg/min, 0 mls/hr Potassium Chloride (Potassium Chloride 20 Meq/100 Ml) 20 meq in 100 mls @ 50 mls/hr IVPB Q2H TWAN Stop: 01/16/18 10:59 Pantoprazole Sodium (Protonix Inj) 40 mg IVP DAILY TWAN Last Admin: 01/15/18 10:10 Dose: 40 mg - Labs Labs: 01/15/18 15:30 01/16/18 06:00 PT 22.9 SECONDS (9.4-12.5) H 01/13/18 05:10 INR 1.96 01/13/18 05:10 APTT 25.5 Seconds (25.1-36.5) 01/13/18 05:10 - Constitutional Appears: Chronically Ill, Other (intubated) - Head Exam Head Exam: NORMAL INSPECTION - ENT Exam Additional comments: ET tube in place - Neck Exam Additional comments: left IJ TLC in place - Respiratory Exam Respiratory Exam: Decreased Breath Sounds - Cardiovascular Exam Cardiovascular Exam: +S1, +S2 - GI/Abdominal Exam GI & Abdominal Exam: Soft. absent: Tenderness Assessment and Plan - Assessment and Plan (Free Text) Plan: Assessment Consider severe sepsis/ septic shock due to bilateral lower lobe healthcare- associated pneumonia with possible gram positive cocci and/or gram negative bacilli and/or atypical organisms COPD HTN history of DVT on anticoagulation S/P IVC filter placement dementia chronic CHF Plan continue Merrem and Doxycycline day 4, we have d/c'ed Zyvox since MRSA nares is negative and so far sputum cx are negative - cx have been negative, urine Legionella Ag is negative; PCT is elevated at 0.71; reviewed CT C/A/P - should complete 4-7 days of antibiotics will continue to monitor clinically overall prognosis is poor
--- NOTE | 2018-01-16 13:08 | CP.PCM.PN ---
Subjective - Date & Time of Evaluation Date of Evaluation: 01/16/18 Time of Evaluation: 12:00 - Subjective Subjective: remains on vent, now awake and responsive to verbal commands Objective - Vital Signs/Intake and Output Vital Signs (last 24 hours): Temp Pulse Resp BP Pulse Ox 98.8 F 106 H 24 185/75 H 95 01/16/18 10:20 01/16/18 10:20 01/16/18 06:50 01/16/18 10:00 01/16/18 10:20 Intake and Output: 01/16/18 01/16/18 06:59 18:59 Intake Total 810 245 Output Total 1600 700 Balance -790 -455 - Medications Medications: Current Medications Albuterol/Ipratropium (Duoneb 3 Mg/0.5 Mg (3 Ml) Ud) 3 ml IH [id number] [facility] Last Admin: 01/16/18 11:01 Dose: 3 ml Albuterol/Ipratropium (Duoneb 3 Mg/0.5 Mg (3 Ml) Ud) 3 ml IH Q2H PRN PRN Reason: Shortness of Breath Furosemide (Lasix) 40 mg IVP BID [facility] Heparin Sodium (Porcine) (Heparin) 5,000 units SC Q12 TWAN PRN Reason: Protocol Last Admin: 01/16/18 09:44 Dose: 5,000 units Hydrocortisone Sodium Succinate (Solu-Cortef) 50 mg IVP Q12 [facility] Last Admin: 01/16/18 09:41 Dose: 50 mg Meropenem (Merrem Iv 1 Gm Premix) 50 mls @ 100 mls/hr IVPB Q12 TWAN PRN Reason: Protocol Last Admin: 01/16/18 09:44 Dose: 100 mls/hr Doxycycline Hyclate 100 mg/ (Sodium Chloride) 100 mls @ 100 mls/hr IVPB Q12 TWAN PRN Reason: Protocol Last Admin: 01/16/18 09:43 Dose: 100 mls/hr Cisatracurium Besylate 200 mg/ (Sodium Chloride) 270 mls @ 3.04 mls/hr IV .Q24H PRN; Protocol; 0.5 MCG/KG/MIN PRN Reason: TITRATE PER MD ORDER Last Titration: 01/15/18 08:00 Dose: 0 mcg/kg/min, 0 mls/hr Fentanyl Citrate (Fentanyl Citrate/Sodium Chloride 1 Mg/100 Ml) 1,000 mcg in 100 mls @ 6 mls/hr IV .[id number] PRN; Protocol; 60 MCG/HR PRN Reason: TITRATE PER MD ORDER Last Titration: 01/16/18 12:19 Dose: 80 mcg/hr, 8 mls/hr Pantoprazole Sodium (Protonix Inj) 40 mg IVP DAILY TWAN Last Admin: 01/16/18 09:41 Dose: 40 mg - Labs Labs: 01/16/18 06:00 01/16/18 06:00 PT 22.9 SECONDS (9.4-12.5) H 01/13/18 05:10 INR 1.96 01/13/18 05:10 APTT 25.5 Seconds (25.1-36.5) 01/13/18 05:10 - Respiratory Exam Respiratory Exam: Rhonchi Additional comments: ET tube intact, vent AC14, TV360, FiO2 50%, PEEP10, good air entry bilat - Cardiovascular Exam Cardiovascular Exam: REGULAR RHYTHM - GI/Abdominal Exam GI & Abdominal Exam: Soft, Normal Bowel Sounds - Extremities Exam Extremities Exam: Pedal Edema - Neurological Exam Neurological Exam: Awake - Skin Skin Exam: Dry, Warm Assessment and Plan (1) Acute and chronic respiratory failure Status: Acute (2) CHF (congestive heart failure) Status: Acute (3) Acute renal failure Status: Acute (4) Congestive heart failure Status: Chronic (5) UTI (urinary tract infection) Status: Acute (6) Bladder carcinoma Status: Chronic (7) Dementia Status: Chronic (8) HTN (hypertension) Status: Chronic - Assessment and Plan (Free Text) Plan: continue vent support/wean as tolerated/prognosis guarded
--- NOTE | 2018-01-16 17:20 | RAD ---
Date of service: 01/16/2018 HISTORY: Monitor fluid status; Patient intubated COMPARISON: Multiple serial examinations preceding the most recent study: January 16, 2018. Time of the most recent examination: 08:56 FINDINGS: LUNGS: Stable pulmonary edema. PLEURA: No significant pleural effusion identified, no pneumothorax apparent. CARDIOVASCULAR: No significant interval change compared to the prior examination(s). OSSEOUS STRUCTURES: No significant abnormalities. VISUALIZED UPPER ABDOMEN: Normal. OTHER FINDINGS: Stable, satisfactory position ventilatory, vascular and nasogastric apparatus. IMPRESSION: Stable severe and slightly asymmetrical pulmonary edema right more pronounced than left. Stable position of support apparatus.
[2018-01-16] MEDS: Propofol 10 mg/ml 1,000 MG/100 ML VIAL IV PRN (17:24)
[2018-01-16 21:11] LABS: CALCIUM 8.4 mg/dL (8.4-10.5)
[2018-01-17] MEDS: Propofol 10 mg/ml 1,000 MG/100 ML VIAL IV PRN (04:00)
[2018-01-17] MEDS: Albuterol-Ipratrop 3 mg / 0.5 (3 ml) UD IH SCH ×5 (05:00→23:13)
[2018-01-17 06:11] LABS: ARTERIAL BLOOD GAS HCO3 31.9 mmol/L (21-28); ARTERIAL BLOOD GAS HEMOGLOBIN 9.4 g/dL (11.7-17.4); ARTERIAL BLOOD GAS O2 CAPACITY 12.9 mL/dl (16-24); ARTERIAL BLOOD GAS O2 CONTENT 12.8 ML/dl (15-23); ARTERIAL BLOOD GAS O2 SAT 99.1 % (95-98); ARTERIAL BLOOD GAS PCO2 48 mm/Hg (35-45); ARTERIAL BLOOD GAS PH 7.43 (7.35-7.45); ARTERIAL BLOOD GAS TCO2 33.4 mmol.L (22-28)
[2018-01-17 06:39] LABS: GRAN # 2.47 (1.4-6.5); GRAN % 48.5 % (50.0-68.0); HEMOGLOBIN 9.4 g/dL (12.0-16.0); LYMPH # 1.7 (1.2-3.4); LYMPH % 33.4 % (22.0-35.0); MEAN CELL VOLUME 94.7 fl (80.0-105.0); MEAN CORPUSCULAR HEMOGLOBIN 31.3 pg (25.0-35.0); MEAN CORPUSCULAR HGB CONC 33.1 g/dl (31.0-37.0); MEAN PLATELET VOLUME 10.4 fl (7.0-11.0); MONO # 0.9 (0.1-0.6); MONO % 18.1 % (1.0-6.0); RED CELL DISTRIBUTION WIDTH 19.7 % (11.5-14.5); WHITE BLOOD COUNT 5.1 10^3/ul (4.5-11.0)
[2018-01-17 07:06] LABS: ALBUMIN 3.2 g/dL (3.0-4.8); CALCIUM 8.6 mg/dL (8.4-10.5)
--- NOTE | 2018-01-17 09:25 | RAD ---
Date of service: 01/17/2018 HISTORY: fluid overload COMPARISON: 01/16/2018 FINDINGS: LUNGS: The endotracheal tube and nasogastric tube are unchanged. There is improved vascular and interstitial congestion. PLEURA: No significant pleural effusion identified, no pneumothorax apparent. CARDIOVASCULAR: Normal. OSSEOUS STRUCTURES: No significant abnormalities. VISUALIZED UPPER ABDOMEN: Normal. OTHER FINDINGS: Left internal jugular line in satisfactory position IMPRESSION: Improved vascular and interstitial congestion.
[2018-01-17] MEDS: Meropenem IV 1 gm in NS 50 ML IVPB SCH ×2 (09:43→22:30)
[2018-01-17] MEDS: Fentanyl 1000mcg/100ml NS 1,000 MCG/100 ML BAG IV PRN ×2 (09:58→22:07)
--- NOTE | 2018-01-17 10:32 | CP.CCUPN ---
<Florencio Rust - Last Filed: 01/17/18 10:35> CCU Subjective - Physician Review Events Since Last Encounter (Free Text): 01/17/18 09:53 Patient seen and examined at bedside. No acute events overnight. Patient is awake today, moving her eyes spontaneously. Still cannot communicate 2/2 intubation status. CCU Objective - Vital Signs / Intake & Output Vital Signs (Last 4 hours): Vital Signs Temp Pulse Resp BP Pulse Ox 01/17/18 09:36 134/56 L 01/17/18 06:40 97.7 F 70 98 01/17/18 06:39 25 H 96 01/17/18 06:30 97.7 F 69 132/57 L 95 01/17/18 06:20 97.7 F 63 100 01/17/18 06:10 97.7 F 58 L 100 01/17/18 06:00 97.7 F 59 L 20 125/45 L 100 Intake and Output (Last 8hrs): Intake & Output 01/16/18 01/17/18 01/17/18 22:59 06:59 14:59 Intake Total 398.8 1249.2 Output Total 1340 Balance -941.2 1249.2 Weight 79.18 kg Intake: IV 168.8 789.2 Left Forearm 0 Left Internal Jugular 64 640 Left Wrist 0 Right Antecubital 0 Right Forearm 60 Right Upper arm 0 Tube Feeding 180 460 Other 50 Output: Urine 1340 Urethral (Starkey) 1340 Stool 0 Emesis 0 Other: # Voids Urethral (Starkey) 900 - Physical Exam Head: Positive for: Atraumatic, Normocephalic Pupils: Positive for: PERRL Extroacular Muscles: Positive for: EOMI Mouth: Positive for: Dry Nose (External): Positive for: Atraumatic Neck: Positive for: Normal Range of Motion Respiratory/Chest: Positive for: Respiratory Distress, Accessory Muscle Use, Wheezes, Decreased Breath Sounds, Retracting, Tachypneic Cardiovascular: Positive for: Tachycardic Abdomen: Negative for: Tenderness, Rebound, Guarding Upper Extremity: Positive for: Cyanosis. Negative for: Edema Lower Extremity: Positive for: Cyanosis. Negative for: Edema Skin: Positive for: Cold, Pale Psychiatric: Positive for: Alert, Anxious, Agitated - Medications Active Medications: Active Medications Generic Name Dose Route Start Last Admin Trade Name Freq PRN Reason Stop Dose Admin Albuterol/Ipratropium 3 ml 01/13/18 11:30 01/17/18 06:43 Duoneb 3 Mg/0.5 Mg (3 Ml) Ud IH 3 ml [id number] TWAN Administration Albuterol/Ipratropium 3 ml 01/13/18 09:07 Duoneb 3 Mg/0.5 Mg (3 Ml) Ud IH Q2H PRN Shortness of Breath Furosemide 40 mg 01/16/18 22:00 01/17/18 09:36 Lasix IVP 40 mg BID TWAN Administration Heparin Sodium (Porcine) 5,000 units 01/14/18 10:00 01/17/18 09:40 Heparin SC 5,000 units Q12 TWAN Administration Protocol Hydrocortisone Sodium Succinate 25 mg 01/16/18 14:17 01/17/18 09:32 Solu-Cortef IVP 25 mg Q12 TWAN Administration Meropenem 50 mls @ 100 mls/hr 01/13/18 10:00 01/17/18 09:43 Merrem Iv 1 Gm Premix IVPB 100 mls/hr Q12 TWAN Administration Protocol Doxycycline Hyclate 100 mg/ 100 mls @ 100 mls/hr 01/13/18 10:00 01/17/18 09: 43 Sodium Chloride IVPB 100 mls/hr Q12 TWAN Administration Protocol Fentanyl Citrate 1,000 mcg in 100 mls @ 6 mls/hr 01/16/18 11:22 01/16/18 23: 30 Fentanyl Citrate/Sodium Chloride 1 Mg/100 Ml IV 100 mcg/hr .[id number] PRN 10 mls/hr TITRATE PER MD ORDER Administration Protocol 60 MCG/HR Propofol 1,000 mg in 100 mls @ 4.872 mls/hr 01/16/18 17:13 01/17/18 04:00 Diprivan IV 15 mcg/kg/min .[id number] PRN 7.307 mls/hr TITRATE PER MD ORDER Administration Protocol 10 MCG/KG/MIN Pantoprazole Sodium 40 mg 01/15/18 10:00 01/17/18 09:42 Protonix Inj IVP 40 mg DAILY TWAN Administration - Patient Studies Lab Studies: Microbiology Studies 01/14/18 19:14 Gram Stain - Final Trachasp Sputum Culture - Final Yeast Species Lab Studies 01/17/18 01/17/18 01/17/18 Range/Units 06:00 06:00 05:55 WBC 5.1 (4.5-11.0) 10^3/ul RBC 3.00 L (3.5-6.1) 10^6/uL Hgb 9.4 L (12.0-16.0) g/dL Hct 28.4 L (36.0-48.0) % MCV 94.7 (80.0-105.0) fl MCH 31.3 (25.0-35.0) pg MCHC 33.1 (31.0-37.0) g/dl RDW 19.7 H (11.5-14.5) % Plt Count 151 (120.0-450.0) 10^3/uL MPV 10.4 (7.0-11.0) fl Gran % 48.5 L (50.0-68.0) % Lymph % (Auto) 33.4 (22.0-35.0) % Talbot % (Auto) 18.1 H (1.0-6.0) % Eos % (Auto) 0.0 L (1.5-5.0) % Baso % (Auto) 0.0 (0.0-3.0) % Gran # 2.47 (1.4-6.5) Lymph # (Auto) 1.7 (1.2-3.4) Talbot # (Auto) 0.9 H (0.1-0.6) Eos # (Auto) 0.0 (0.0-0.7) Baso # (Auto) 0.00 (0.0-2.0) K/mm3 pCO2 48 H (35-45) mm/Hg pO2 104.0 H (80-100) mm/Hg HCO3 31.9 H (21-28) mmol/L ABG pH 7.43 (7.35-7.45) ABG Total CO2 33.4 H (22-28) mmol.L ABG O2 Saturation 99.1 H (95-98) % ABG O2 Content 12.8 L (15-23) ML/dl ABG Base Excess 6.7 H (-2.0-3.0) mmol/L ABG Hemoglobin 9.4 L (11.7-17.4) g/dL ABG Carboxyhemoglobin 2.1 H (0.5-1.5) % POC ABG HHb (Measured) 0.9 (0-5) % ABG Methemoglobin 1.4 (0.0-3.0) % ABG O2 Capacity 12.9 L (16-24) mL/dl Hgb O2 Saturation 95.6 (95.0-98.0) % FiO2 50.0 % Sodium 144 (132-148) mmol/L Potassium 4.3 (3.6-5.0) mmol/L Chloride 103 (98-107) mmol/L Carbon Dioxide 35 H (21-33) mmol/L Anion Gap 10 (10-20) BUN 73 H (7-21) mg/dL Creatinine 1.4 H (0.7-1.2) mg/dl Est GFR ( Amer) 43 Est GFR (Non-Af Amer) 36 Random Glucose 96 (70-110) mg/dL Calcium 8.6 (8.4-10.5) mg/dL Phosphorus 3.3 (2.5-4.5) mg/dL Magnesium 1.8 (1.7-2.2) mg/dL Total Bilirubin 1.1 (0.2-1.3) mg/dL AST 38 H (14-36) U/L ALT 19 (7-56) U/L Alkaline Phosphatase 39 (38-126) U/L Total Protein 6.3 (5.8-8.3) g/dL Albumin 3.2 (3.0-4.8) g/dL Globulin 3.1 gm/dL Albumin/Globulin Ratio 1.0 L (1.1-1.8) /02/25 Range/Units 20:50 WBC (4.5-11.0) 10^3/ul RBC (3.5-6.1) 10^6/uL Hgb (12.0-16.0) g/dL Hct (36.0-48.0) % MCV (80.0-105.0) fl MCH (25.0-35.0) pg MCHC (31.0-37.0) g/dl RDW (11.5-14.5) % Plt Count (120.0-450.0) 10^3/uL MPV (7.0-11.0) fl Gran % (50.0-68.0) % Lymph % (Auto) (22.0-35.0) % Talbot % (Auto) (1.0-6.0) % Eos % (Auto) (1.5-5.0) % Baso % (Auto) (0.0-3.0) % Gran # (1.4-6.5) Lymph # (Auto) (1.2-3.4) Talbot # (Auto) (0.1-0.6) Eos # (Auto) (0.0-0.7) Baso # (Auto) (0.0-2.0) K/mm3 pCO2 (35-45) mm/Hg pO2 (80-100) mm/Hg HCO3 (21-28) mmol/L ABG pH (7.35-7.45) ABG Total CO2 (22-28) mmol.L ABG O2 Saturation (95-98) % ABG O2 Content (15-23) ML/dl ABG Base Excess (-2.0-3.0) mmol/L ABG Hemoglobin (11.7-17.4) g/dL ABG Carboxyhemoglobin (0.5-1.5) % POC ABG HHb (Measured) (0-5) % ABG Methemoglobin (0.0-3.0) % ABG O2 Capacity (16-24) mL/dl Hgb O2 Saturation (95.0-98.0) % FiO2 % Sodium 145 (132-148) mmol/L Potassium 3.0 L (3.6-5.0) mmol/L Chloride 103 (98-107) mmol/L Carbon Dioxide 34 H (21-33) mmol/L Anion Gap 11 (10-20) BUN 65 H (7-21) mg/dL Creatinine 1.4 H (0.7-1.2) mg/dl Est GFR ( Amer) 43 Est GFR (Non-Af Amer) 36 Random Glucose 86 (70-110) mg/dL Calcium 8.4 (8.4-10.5) mg/dL Phosphorus (2.5-4.5) mg/dL Magnesium 1.7 (1.7-2.2) mg/dL Total Bilirubin (0.2-1.3) mg/dL AST (14-36) U/L ALT (7-56) U/L Alkaline Phosphatase (38-126) U/L Total Protein (5.8-8.3) g/dL Albumin (3.0-4.8) g/dL Globulin gm/dL Albumin/Globulin Ratio (1.1-1.8) Laboratory Results - last 24 hr 01/16/18 01/17/18 01/17/18 20:50 05:55 06:00 WBC 5.1 RBC 3.00 L Hgb 9.4 L Hct 28.4 L MCV 94.7 MCH 31.3 MCHC 33.1 RDW 19.7 H Plt Count 151 MPV 10.4 Gran % 48.5 L Lymph % (Auto) 33.4 Talbot % (Auto) 18.1 H Eos % (Auto) 0.0 L Baso % (Auto) 0.0 Gran # 2.47 Lymph # (Auto) 1.7 Talbot # (Auto) 0.9 H Eos # (Auto) 0.0 Baso # (Auto) 0.00 pCO2 48 H pO2 104.0 H HCO3 31.9 H ABG pH 7.43 ABG Total CO2 33.4 H ABG O2 Saturation 99.1 H ABG O2 Content 12.8 L ABG Base Excess 6.7 H ABG Hemoglobin 9.4 L ABG Carboxyhemoglobin 2.1 H POC ABG HHb (Measured) 0.9 ABG Methemoglobin 1.4 ABG O2 Capacity 12.9 L Hgb O2 Saturation 95.6 FiO2 50.0 Sodium 145 Potassium 3.0 L Chloride 103 Carbon Dioxide 34 H Anion Gap 11 BUN 65 H Creatinine 1.4 H Est GFR ( Amer) 43 Est GFR (Non-Af Amer) 36 Random Glucose 86 Calcium 8.4 Phosphorus Magnesium 1.7 Total Bilirubin AST ALT Alkaline Phosphatase Total Protein Albumin Globulin Albumin/Globulin Ratio 01/17/18 06:00 WBC RBC Hgb Hct MCV MCH MCHC RDW Plt Count MPV Gran % Lymph % (Auto) Talbot % (Auto) Eos % (Auto) Baso % (Auto) Gran # Lymph # (Auto) Talbot # (Auto) Eos # (Auto) Baso # (Auto) pCO2 pO2 HCO3 ABG pH ABG Total CO2 ABG O2 Saturation ABG O2 Content ABG Base Excess ABG Hemoglobin ABG Carboxyhemoglobin POC ABG HHb (Measured) ABG Methemoglobin ABG O2 Capacity Hgb O2 Saturation FiO2 Sodium 144 Potassium 4.3 Chloride 103 Carbon Dioxide 35 H Anion Gap 10 BUN 73 H Creatinine 1.4 H Est GFR ( Amer) 43 Est GFR (Non-Af Amer) 36 Random Glucose 96 Calcium 8.6 Phosphorus 3.3 Magnesium 1.8 Total Bilirubin 1.1 AST 38 H ALT 19 Alkaline Phosphatase 39 Total Protein 6.3 Albumin 3.2 Globulin 3.1 Albumin/Globulin Ratio 1.0 L Fingerstick Blood Sugar Results: 209 Critical Care Progress Note - Nutrition Nutrition: Nutrition Category Date Time Status NPO Diet [DIET] Diets 01/15/18 Breakfast Ordered Assessment/Plan - Assessment and Plan (Free Text) Assessment: 87 F under ICU mgmt for septic shock due to UTI vs HCAP PNA with multiorgan failure in the setting of lactic acidosis, possible ARDS, and MAR - improving. 1. Acute Metabolic Acidosis with Superimposed Respiratory Alkalosis - resolved 2. Acute Anemia s/p 4 U PRBC, 2 U FFP 3. Hx DVT on eliquis, s/p IVC filter RE: anemia, patient's hemoglobin has stabilized after discontinuation of Zyvox. On admission, patient's Hgb 6.2 5A-->1U at 8:41 and 1 U at 10:56; 1 FFP at 1: 04-->Hg 7.8 at 2P-->1 U FFP at 3:52P-->Hgb on 01/14 am 7.7; 01/15 morning, Hgb was 6.3, now stable at 9.1. Regarding septic shock, WBC of 14.2 --> 8.1-->3.7 yesterday AM, now stabilized patient pressures maintained now off of pressors. Blood cultures are negative thus far, but U Cx with akbar-sensitive E.Coli; Chest XR from this am shows no interval change from yesterday. RE: MAR, patient's creatinine was improving from 2.0 to 1.3, but has been bumping back up the past two days, likely 2/2 lasix and volume status. Patient's acidosis status is improved today, as well as patient's shock. However, some concern re: pancytopenia arose, could have been secondary to ABx vs Sepsis; pancytopenia improved after Zyvx was discontinued Plan: Neuro: Sedated with Versed and Fentanyl; Maintained normothermia without kyle hugger Pulm: Vent settings: 50/8/20/360; Abx: Continue Doxy, Merrem; d/c Zyvox. Continue Duonebs. Maintain high PEEP low Tv; Maintain steroids Solu-cortef 25q12. Maintain O2 Sats > 92% Cardio: Off pressors; Lasix 40 BID, changed from daily. Maintain MAP > 70 for this patient, given septic shock GI: Protonix for GI PPX, continue gastric feeding : Discontinue bicarb drip, continue to correct metabolic acidosis by treating septic shock. Maintain euvolemia; monitor MAR Per Nephro: work up for adrenal adenoma as outpt once pt stable Dose meds/ antibiotics for reduced GFR. ID: Continue Doxy, Merrem; discontinue Zyvox in setting of akbar-cytopenia Heme: Patient is s/p 3U PRBC and 2 U FFP with stable Hgb, Heparin for DVT PPX. Endo: Maintain euglycemia <Garett Gil - Last Filed: 01/17/18 10:56> CCU Objective - Vital Signs / Intake & Output Vital Signs (Last 4 hours): Vital Signs BP 01/17/18 09:36 134/56 L Intake and Output (Last 8hrs): Intake & Output 01/16/18 01/17/18 01/17/18 22:59 06:59 14:59 Intake Total 398.8 1249.2 100 Output Total 1340 Balance -941.2 1249.2 100 Weight 174 lb 9 oz Intake: IV 168.8 789.2 100 Left Forearm 0 Left Internal Jugular 64 640 Left Wrist 0 Right Antecubital 0 Right Forearm 60 Right Upper arm 0 Tube Feeding 180 460 Other 50 Output: Urine 1340 Urethral (Starkey) 1340 Stool 0 Emesis 0 Other: # Voids Urethral (Starkey) 900 - Medications Active Medications: Active Medications Generic Name Dose Route Start Last Admin Trade Name Freq PRN Reason Stop Dose Admin Albuterol/Ipratropium 3 ml 01/13/18 11:30 01/17/18 06:43 Duoneb 3 Mg/0.5 Mg (3 Ml) Ud IH 3 ml [id number] TWAN Administration Albuterol/Ipratropium 3 ml 01/13/18 09:07 Duoneb 3 Mg/0.5 Mg (3 Ml) Ud IH Q2H PRN Shortness of Breath Furosemide 40 mg 01/16/18 22:00 01/17/18 09:36 Lasix IVP 40 mg BID TWAN Administration Heparin Sodium (Porcine) 5,000 units 01/14/18 10:00 01/17/18 09:40 Heparin SC 5,000 units Q12 TWAN Administration Protocol Hydrocortisone Sodium Succinate 25 mg 01/16/18 14:17 01/17/18 09:32 Solu-Cortef IVP 25 mg Q12 TWAN Administration Meropenem 50 mls @ 100 mls/hr 01/13/18 10:00 01/17/18 09:43 Merrem Iv 1 Gm Premix IVPB 100 mls/hr Q12 TWAN Administration Protocol Doxycycline Hyclate 100 mg/ 100 mls @ 100 mls/hr 01/13/18 10:00 01/17/18 09: 43 Sodium Chloride IVPB 100 mls/hr Q12 TWAN Administration Protocol Fentanyl Citrate 1,000 mcg in 100 mls @ 6 mls/hr 01/16/18 11:22 01/17/18 09: 58 Fentanyl Citrate/Sodium Chloride 1 Mg/100 Ml IV 100 mcg/hr .[id number] PRN 10 mls/hr TITRATE PER MD ORDER Administration Protocol 60 MCG/HR Propofol 1,000 mg in 100 mls @ 4.872 mls/hr 01/16/18 17:13 01/17/18 04:00 Diprivan IV 15 mcg/kg/min .[id number] PRN 7.307 mls/hr TITRATE PER MD ORDER Administration Protocol 10 MCG/KG/MIN Pantoprazole Sodium 40 mg 01/15/18 10:00 01/17/18 09:42 Protonix Inj IVP 40 mg DAILY TWAN Administration - Patient Studies Lab Studies: Microbiology Studies 01/14/18 19:14 Gram Stain - Final Trachasp Sputum Culture - Final Yeast Species Lab Studies 01/17/18 01/17/18 01/17/18 Range/Units 06:00 06:00 05:55 WBC 5.1 (4.5-11.0) 10^3/ul RBC 3.00 L (3.5-6.1) 10^6/uL Hgb 9.4 L (12.0-16.0) g/dL Hct 28.4 L (36.0-48.0) % MCV 94.7 (80.0-105.0) fl MCH 31.3 (25.0-35.0) pg MCHC 33.1 (31.0-37.0) g/dl RDW 19.7 H (11.5-14.5) % Plt Count 151 (120.0-450.0) 10^3/uL MPV 10.4 (7.0-11.0) fl Gran % 48.5 L (50.0-68.0) % Lymph % (Auto) 33.4 (22.0-35.0) % Talbot % (Auto) 18.1 H (1.0-6.0) % Eos % (Auto) 0.0 L (1.5-5.0) % Baso % (Auto) 0.0 (0.0-3.0) % Gran # 2.47 (1.4-6.5) Lymph # (Auto) 1.7 (1.2-3.4) Talbot # (Auto) 0.9 H (0.1-0.6) Eos # (Auto) 0.0 (0.0-0.7) Baso # (Auto) 0.00 (0.0-2.0) K/mm3 pCO2 48 H (35-45) mm/Hg pO2 104.0 H (80-100) mm/Hg HCO3 31.9 H (21-28) mmol/L ABG pH 7.43 (7.35-7.45) ABG Total CO2 33.4 H (22-28) mmol.L ABG O2 Saturation 99.1 H (95-98) % ABG O2 Content 12.8 L (15-23) ML/dl ABG Base Excess 6.7 H (-2.0-3.0) mmol/L ABG Hemoglobin 9.4 L (11.7-17.4) g/dL ABG Carboxyhemoglobin 2.1 H (0.5-1.5) % POC ABG HHb (Measured) 0.9 (0-5) % ABG Methemoglobin 1.4 (0.0-3.0) % ABG O2 Capacity 12.9 L (16-24) mL/dl Hgb O2 Saturation 95.6 (95.0-98.0) % FiO2 50.0 % Sodium 144 (132-148) mmol/L Potassium 4.3 (3.6-5.0) mmol/L Chloride 103 (98-107) mmol/L Carbon Dioxide 35 H (21-33) mmol/L Anion Gap 10 (10-20) BUN 73 H (7-21) mg/dL Creatinine 1.4 H (0.7-1.2) mg/dl Est GFR ( Amer) 43 Est GFR (Non-Af Amer) 36 Random Glucose 96 (70-110) mg/dL Calcium 8.6 (8.4-10.5) mg/dL Phosphorus 3.3 (2.5-4.5) mg/dL Magnesium 1.8 (1.7-2.2) mg/dL Total Bilirubin 1.1 (0.2-1.3) mg/dL AST 38 H (14-36) U/L ALT 19 (7-56) U/L Alkaline Phosphatase 39 (38-126) U/L Total Protein 6.3 (5.8-8.3) g/dL Albumin 3.2 (3.0-4.8) g/dL Globulin 3.1 gm/dL Albumin/Globulin Ratio 1.0 L (1.1-1.8) 01/16/18 Range/Units 20:50 WBC (4.5-11.0) 10^3/ul RBC (3.5-6.1) 10^6/uL Hgb (12.0-16.0) g/dL Hct (36.0-48.0) % MCV (80.0-105.0) fl MCH (25.0-35.0) pg MCHC (31.0-37.0) g/dl RDW (11.5-14.5) % Plt Count (120.0-450.0) 10^3/uL MPV (7.0-11.0) fl Gran % (50.0-68.0) % Lymph % (Auto) (22.0-35.0) % Talbot % (Auto) (1.0-6.0) % Eos % (Auto) (1.5-5.0) % Baso % (Auto) (0.0-3.0) % Gran # (1.4-6.5) Lymph # (Auto) (1.2-3.4) Talbot # (Auto) (0.1-0.6) Eos # (Auto) (0.0-0.7) Baso # (Auto) (0.0-2.0) K/mm3 pCO2 (35-45) mm/Hg pO2 (80-100) mm/Hg HCO3 (21-28) mmol/L ABG pH (7.35-7.45) ABG Total CO2 (22-28) mmol.L ABG O2 Saturation (95-98) % ABG O2 Content (15-23) ML/dl ABG Base Excess (-2.0-3.0) mmol/L ABG Hemoglobin (11.7-17.4) g/dL ABG Carboxyhemoglobin (0.5-1.5) % POC ABG HHb (Measured) (0-5) % ABG Methemoglobin (0.0-3.0) % ABG O2 Capacity (16-24) mL/dl Hgb O2 Saturation (95.0-98.0) % FiO2 % Sodium 145 (132-148) mmol/L Potassium 3.0 L (3.6-5.0) mmol/L Chloride 103 (98-107) mmol/L Carbon Dioxide 34 H (21-33) mmol/L Anion Gap 11 (10-20) BUN 65 H (7-21) mg/dL Creatinine 1.4 H (0.7-1.2) mg/dl Est GFR ( Amer) 43 Est GFR (Non-Af Amer) 36 Random Glucose 86 (70-110) mg/dL Calcium 8.4 (8.4-10.5) mg/dL Phosphorus (2.5-4.5) mg/dL Magnesium 1.7 (1.7-2.2) mg/dL Total Bilirubin (0.2-1.3) mg/dL AST (14-36) U/L ALT (7-56) U/L Alkaline Phosphatase (38-126) U/L Total Protein (5.8-8.3) g/dL Albumin (3.0-4.8) g/dL Globulin gm/dL Albumin/Globulin Ratio (1.1-1.8) Laboratory Results - last 24 hr 01/16/18 01/17/18 01/17/18 20:50 05:55 06:00 WBC 5.1 RBC 3.00 L Hgb 9.4 L Hct 28.4 L MCV 94.7 MCH 31.3 MCHC 33.1 RDW 19.7 H Plt Count 151 MPV 10.4 Gran % 48.5 L Lymph % (Auto) 33.4 Talbot % (Auto) 18.1 H Eos % (Auto) 0.0 L Baso % (Auto) 0.0 Gran # 2.47 Lymph # (Auto) 1.7 [place]bot # (Auto) 0.9 H Eos # (Auto) 0.0 Baso # (Auto) 0.00 pCO2 48 H pO2 104.0 H HCO3 31.9 H ABG pH 7.43 ABG Total CO2 33.4 H ABG O2 Saturation 99.1 H ABG O2 Content 12.8 L ABG Base Excess 6.7 H ABG Hemoglobin 9.4 L ABG Carboxyhemoglobin 2.1 H POC ABG HHb (Measured) 0.9 ABG Methemoglobin 1.4 ABG O2 Capacity 12.9 L Hgb O2 Saturation 95.6 FiO2 50.0 Sodium 145 Potassium 3.0 L Chloride 103 Carbon Dioxide 34 H Anion Gap 11 BUN 65 H Creatinine 1.4 H Est GFR ( Amer) 43 Est GFR (Non-Af Amer) 36 Random Glucose 86 Calcium 8.4 Phosphorus Magnesium 1.7 Total Bilirubin AST ALT Alkaline Phosphatase Total Protein Albumin Globulin Albumin/Globulin Ratio 01/17/18 06:00 WBC RBC Hgb Hct MCV MCH MCHC RDW Plt Count MPV Gran % Lymph % (Auto) [place]bot % (Auto) Eos % (Auto) Baso % (Auto) Gran # Lymph # (Auto) [place]bot # (Auto) Eos # (Auto) Baso # (Auto) pCO2 pO2 HCO3 ABG pH ABG Total CO2 ABG O2 Saturation ABG O2 Content ABG Base Excess ABG Hemoglobin ABG Carboxyhemoglobin POC ABG HHb (Measured) ABG Methemoglobin ABG O2 Capacity Hgb O2 Saturation FiO2 Sodium 144 Potassium 4.3 Chloride 103 Carbon Dioxide 35 H Anion Gap 10 BUN 73 H Creatinine 1.4 H Est GFR ( Amer) 43 Est GFR (Non-Af Amer) 36 Random Glucose 96 Calcium 8.6 Phosphorus 3.3 Magnesium 1.8 Total Bilirubin 1.1 AST 38 H ALT 19 Alkaline Phosphatase 39 Total Protein 6.3 Albumin 3.2 Globulin 3.1 Albumin/Globulin Ratio 1.0 L Critical Care Progress Note - Nutrition Nutrition: Nutrition Category Date Time Status NPO Diet [DIET] Diets 01/15/18 Breakfast Ordered Attending/Attestation - Attestation I have personally seen and examined this patient.: Yes I have fully participated in the care of the patient.: Yes I have reviewed all pertinent clinical information: Yes Notes (Text): 01/17/18 10:53 The patient was seen and examined at the bedside. Patient care was discussed with resident Medical records, lab studies, and imaging were reviewed and management issues were discussed and formulated. Last 24H events reviewed. Agree with above treatment plans as outlined in 's note with addition of the following: Acute Respiratory Failure \ Hypoxemia \ Sepsis \ PNA \ UTI \ MAR \ COPD \ Dyastolic CHF \ -hemodynamic monitoring to maintain MAP>65 -mechanical ventilation and o2 supplementation to maintain Spo2 >90 Pao2>60 -monitor for TV 6ml\kg IBW and plateau pressure <30 -ABG in AM reviewed and PEEP decreased to 8 -PS and weaning trial once oxygenation improves -CXR reviewed -continue nebs and steroids and pulmonary toileting -continue broad spectrum Abx as per ID team and f\u cultures -f\u Bun\Cr and U\o; monitor and replace e-lites; diuresis with lasix -Tube feds diet and aspiration precautions -DVT \ PUD prophylaxis CCM time 34min
--- NOTE | 2018-01-17 11:46 | CP.PCM.PN ---
Subjective - Date & Time of Evaluation Date of Evaluation: 01/17/18 Time of Evaluation: 09:25 - Subjective Subjective: Patient continues to be on the ventilator, arousable but does not follow commands, no fevers. Objective - Vital Signs/Intake and Output Vital Signs (last 24 hours): Temp Pulse Resp BP Pulse Ox 98.8 F 106 H 24 185/75 H 95 01/16/18 10:20 01/16/18 10:20 01/16/18 06:50 01/16/18 10:00 01/16/18 10:20 Intake and Output: 01/16/18 01/16/18 06:59 18:59 Intake Total 810 239 Output Total 1600 700 Balance -790 -461 - Medications Medications: Current Medications Albuterol/Ipratropium (Duoneb 3 Mg/0.5 Mg (3 Ml) Ud) 3 ml IH [id number] [facility] Last Admin: 01/16/18 11:01 Dose: 3 ml Albuterol/Ipratropium (Duoneb 3 Mg/0.5 Mg (3 Ml) Ud) 3 ml IH Q2H PRN PRN Reason: Shortness of Breath Furosemide (Lasix) 40 mg IVP BID TWAN Heparin Sodium (Porcine) (Heparin) 5,000 units SC Q12 TWAN PRN Reason: Protocol Last Admin: 01/16/18 09:44 Dose: 5,000 units Hydrocortisone Sodium Succinate (Solu-Cortef) 50 mg IVP Q12 [facility] Last Admin: 01/16/18 09:41 Dose: 50 mg Meropenem (Merrem Iv 1 Gm Premix) 50 mls @ 100 mls/hr IVPB Q12 [facility] PRN Reason: Protocol Last Admin: 01/16/18 09:44 Dose: 100 mls/hr Doxycycline Hyclate 100 mg/ (Sodium Chloride) 100 mls @ 100 mls/hr IVPB Q12 [facility] PRN Reason: Protocol Last Admin: 01/16/18 09:43 Dose: 100 mls/hr Cisatracurium Besylate 200 mg/ (Sodium Chloride) 270 mls @ 3.04 mls/hr IV .Q24H PRN; Protocol; 0.5 MCG/KG/MIN PRN Reason: TITRATE PER MD ORDER Last Titration: 01/15/18 08:00 Dose: 0 mcg/kg/min, 0 mls/hr Fentanyl Citrate (Fentanyl Citrate/Sodium Chloride 1 Mg/100 Ml) 1,000 mcg in 100 mls @ 6 mls/hr IV .[id number] PRN; Protocol; 60 MCG/HR PRN Reason: TITRATE PER MD ORDER Pantoprazole Sodium (Protonix Inj) 40 mg IVP DAILY [facility] Last Admin: 01/16/18 09:41 Dose: 40 mg - Labs Labs: 01/16/18 06:00 01/16/18 06:00 PT 22.9 SECONDS (9.4-12.5) H 01/13/18 05:10 INR 1.96 01/13/18 05:10 APTT 25.5 Seconds (25.1-36.5) 01/13/18 05:10 - Constitutional Appears: Chronically Ill, Other (intubated) - Head Exam Head Exam: NORMAL INSPECTION - ENT Exam Additional comments: ET tube in place - Neck Exam Additional comments: left IJ TLC in place - Respiratory Exam Respiratory Exam: Decreased Breath Sounds - Cardiovascular Exam Cardiovascular Exam: +S1, +S2 - GI/Abdominal Exam GI & Abdominal Exam: Soft. absent: Tenderness Assessment and Plan - Assessment and Plan (Free Text) Plan: Assessment Consider severe sepsis/ septic shock due to bilateral lower lobe healthcare- associated pneumonia with possible gram positive cocci and/or gram negative bacilli and/or atypical organisms COPD HTN history of DVT on anticoagulation S/P IVC filter placement dementia chronic CHF Plan continue Merrem and Doxycycline day 5, we have d/c'ed Zyvox since MRSA nares is negative and so far sputum cx are negative - cx have been negative, urine Legionella Ag is negative; PCT is elevated at 0.71; reviewed CT C/A/P - should complete up to 7 days of antibiotics will continue to monitor clinically overall prognosis is poor
--- NOTE | 2018-01-17 12:22 | CP.PCM.PN ---
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 avoid hypotension. maintain hemodynamic stable Monitor Input/Output, daily weights and renal function with basic metabolic panel PRBC as needed, supplement lytes as needed continue diuresis with loop diuretics, as tolerated by BP. good UOP yesterday work up for adrenal adenoma as outpt once pt stable Dose meds/antibiotics for reduced GFR. Glycemic control Further work up/management as per primary team Thanks for allowing me to participate in care of your patient. Will follow patient with you. Please call if any Qs. had d/w team Dr Celso Mcclendon Office: [phone] Chief Complaint; Unable Reason for consultation is acute kidney injury HPI: Pt is a 87-year-old female with history of dementia osteoarthritis Ckd stage III baseline grade 1.1-1.3 with GFR 55 Chronic obstructive pulmonary disease with pulmonary hypertension also bladder tumor patient/family had refused intervention, came to hospital with shortness of breath, respi distress , pneumonia/UTI with sepsis, respi failure s/p intubated but also with MAR since presentation and hence renal consulted Patient with hx bilateral extensive deep DVT she had IVC filter placed and was also on systemic a/c No recent iodinated contrast exposure. Noted obvious episodes of low BP. ROS: unable to obtain from pt Physical Examination: General Appearance: orally intubated, better appearing. off pressors now Vitals reviewed and noted as below Head; Atraumatic, normocephalic ENT: intubated EYES: deferred Neck; supple no lymphadenopathy, no thyromegaly or bruit Lungs: Normal respiratory rate/effort. Breath sounds bilateral equal and clearer Heart: Normal rate. s1s2 normal. No rub or gallop. Extremities: no edema. No varicose veins Neurological: Patient is sedated Skin: Warm and dry. Normal turgor. No rash. Palpitation: Normal elasticity for age Abdomen: Abdomen is soft. Bowel sounds +. There is no abdominal tenderness, no guarding/rigidity no organomegaly Psych: unable MSK: no joint tenderness or swelling. Digits and nails normal, no deformity : kidney/bladder not palpable, has nazario Labs/imaging reviewed. Past medical history, past surgical history, family history, social history, allergy reviewed and noted as below Family hx: no hx of CKD. Rest non-contributory work up reviewed Objective - Vital Signs/Intake and Output Vital Signs (last 24 hours): Temp Pulse Resp BP Pulse Ox 97.7 F 75 18 154/65 H 98 01/17/18 11:30 01/17/18 11:30 01/17/18 10:10 01/17/18 11:30 01/17/18 11:30 Intake and Output: 01/17/18 01/17/18 06:59 18:59 Intake Total 1361.2 100 Output Total 350 Balance 1011.2 100 - Medications Medications: Current Medications Albuterol/Ipratropium (Duoneb 3 Mg/0.5 Mg (3 Ml) Ud) 3 ml IH [id number] [facility] Last Admin: 01/17/18 10:55 Dose: 3 ml Albuterol/Ipratropium (Duoneb 3 Mg/0.5 Mg (3 Ml) Ud) 3 ml IH Q2H PRN PRN Reason: Shortness of Breath Furosemide (Lasix) 40 mg IVP BID [facility] Last Admin: 01/17/18 09:36 Dose: 40 mg Heparin Sodium (Porcine) (Heparin) 5,000 units SC Q12 [facility] PRN Reason: Protocol Last Admin: 01/17/18 09:40 Dose: 5,000 units Hydrocortisone Sodium Succinate (Solu-Cortef) 25 mg IVP Q12 [facility] Last Admin: 01/17/18 09:32 Dose: 25 mg Meropenem (Merrem Iv 1 Gm Premix) 50 mls @ 100 mls/hr IVPB Q12 [facility] PRN Reason: Protocol Last Admin: 08/10/18 09:43 Dose: 100 mls/hr Doxycycline Hyclate 100 mg/ (Sodium Chloride) 100 mls @ 100 mls/hr IVPB Q12 [facility] PRN Reason: Protocol Last Admin: 01/17/18 09:43 Dose: 100 mls/hr Fentanyl Citrate (Fentanyl Citrate/Sodium Chloride 1 Mg/100 Ml) 1,000 mcg in 100 mls @ 6 mls/hr IV .[id number] PRN; Protocol; 60 MCG/HR PRN Reason: TITRATE PER MD ORDER Last Admin: 01/17/18 09:58 Dose: 100 mcg/hr, 10 mls/hr Propofol (Diprivan) 1,000 mg in 100 mls @ 4.872 mls/hr IV .[id number] PRN; Protocol; 10 MCG/KG/MIN PRN Reason: TITRATE PER MD ORDER Last Admin: 01/17/18 04:00 Dose: 15 mcg/kg/min, 7.307 mls/hr Pantoprazole Sodium (Protonix Inj) 40 mg IVP DAILY [facility] Last Admin: 01/17/18 09:42 Dose: 40 mg - Labs Labs: 01/17/18 06:00 01/17/18 06:00 PT 22.9 SECONDS (9.4-12.5) H 01/13/18 05:10 INR 1.96 01/13/18 05:10 APTT 25.5 Seconds (25.1-36.5) 01/13/18 05:10
--- NOTE | 2018-01-17 13:03 | CP.PCM.PN ---
Subjective - Date & Time of Evaluation Date of Evaluation: 01/17/18 Time of Evaluation: 11:30 - Subjective Subjective: on vent AC TV360, FiO2 50%, PEEP8, lethargic, Objective - Vital Signs/Intake and Output Vital Signs (last 24 hours): Temp Pulse Resp BP Pulse Ox 97.7 F 75 18 154/65 H 98 01/17/18 11:30 01/17/18 11:30 01/17/18 10:10 01/17/18 11:30 01/17/18 11:30 Intake and Output: 01/17/18 01/17/18 06:59 18:59 Intake Total 1361.2 100 Output Total 350 Balance 1011.2 100 - Medications Medications: Current Medications Albuterol/Ipratropium (Duoneb 3 Mg/0.5 Mg (3 Ml) Ud) 3 ml IH [id number] [facility] Last Admin: 01/17/18 10:55 Dose: 3 ml Albuterol/Ipratropium (Duoneb 3 Mg/0.5 Mg (3 Ml) Ud) 3 ml IH Q2H PRN PRN Reason: Shortness of Breath Furosemide (Lasix) 40 mg IVP BID [facility] Last Admin: 01/17/18 09:36 Dose: 40 mg Heparin Sodium (Porcine) (Heparin) 5,000 units SC Q12 [facility] PRN Reason: Protocol Last Admin: 01/17/18 09:40 Dose: 5,000 units Hydrocortisone Sodium Succinate (Solu-Cortef) 25 mg IVP Q12 [facility] Last Admin: 01/17/18 09:32 Dose: 25 mg Meropenem (Merrem Iv 1 Gm Premix) 50 mls @ 100 mls/hr IVPB Q12 [facility] PRN Reason: Protocol Last Admin: 01/17/18 09:43 Dose: 100 mls/hr Doxycycline Hyclate 100 mg/ (Sodium Chloride) 100 mls @ 100 mls/hr IVPB Q12 [facility] PRN Reason: Protocol Last Admin: 01/17/18 09:43 Dose: 100 mls/hr Fentanyl Citrate (Fentanyl Citrate/Sodium Chloride 1 Mg/100 Ml) 1,000 mcg in 100 mls @ 6 mls/hr IV .[id number] PRN; Protocol; 60 MCG/HR PRN Reason: TITRATE PER MD ORDER Last Admin: 01/17/18 09:58 Dose: 100 mcg/hr, 10 mls/hr Propofol (Diprivan) 1,000 mg in 100 mls @ 4.872 mls/hr IV .[id number] PRN; Protocol; 10 MCG/KG/MIN PRN Reason: TITRATE PER MD ORDER Last Admin: 01/17/18 04:00 Dose: 15 mcg/kg/min, 7.307 mls/hr Pantoprazole Sodium (Protonix Inj) 40 mg IVP DAILY [facility] Last Admin: 01/17/18 09:42 Dose: 40 mg - Labs Labs: 01/17/18 06:00 01/17/18 06:00 PT 22.9 SECONDS (9.4-12.5) H 01/13/18 05:10 INR 1.96 01/13/18 05:10 APTT 25.5 Seconds (25.1-36.5) 01/13/18 05:10 - Respiratory Exam Respiratory Exam: Rhonchi Additional comments: ET tube intact, good air entry bilat - Cardiovascular Exam Cardiovascular Exam: REGULAR RHYTHM - GI/Abdominal Exam GI & Abdominal Exam: Soft, Normal Bowel Sounds - Extremities Exam Extremities Exam: Pedal Edema - Neurological Exam Neurological Exam: Altered - Skin Skin Exam: Dry, Warm Assessment and Plan (1) Acute and chronic respiratory failure Status: Acute (2) CHF (congestive heart failure) Status: Acute (3) Acute renal failure Status: Acute (4) Congestive heart failure Status: Chronic (5) UTI (urinary tract infection) Status: Acute (6) Bladder carcinoma Status: Chronic (7) Dementia Status: Chronic (8) HTN (hypertension) Status: Chronic - Assessment and Plan (Free Text) Plan: continue vent support/IV Abx/enteral feeding/wean as tolerated/prognosis guarded
[2018-01-18] MEDS: Albuterol-Ipratrop 3 mg / 0.5 (3 ml) UD IH SCH ×7 (03:51→23:30)
[2018-01-18] MEDS: Propofol 10 mg/ml 1,000 MG/100 ML VIAL IV PRN ×2 (05:36→21:15)
[2018-01-18] MEDS: Meropenem IV 1 gm in NS 50 ML IVPB SCH ×2 (09:39→21:16)
--- NOTE | 2018-01-18 10:26 | CP.PCM.PN ---
Subjective - Date & Time of Evaluation Date of Evaluation: 01/18/18 Time of Evaluation: 10:00 - Subjective Subjective: on vent, sedated Objective - Vital Signs/Intake and Output Vital Signs (last 24 hours): Temp Pulse Resp BP Pulse Ox 98.8 F 82 17 111/39 L 94 L 01/18/18 05:40 01/18/18 06:00 01/17/18 14:00 01/18/18 09:40 01/18/18 05:40 Intake and Output: 01/18/18 01/18/18 06:59 18:59 Intake Total 936 Output Total 1000 Balance -64 - Medications Medications: Current Medications Albuterol/Ipratropium (Duoneb 3 Mg/0.5 Mg (3 Ml) Ud) 3 ml IH [id number] [facility] Last Admin: 01/18/18 07:59 Dose: 3 ml Albuterol/Ipratropium (Duoneb 3 Mg/0.5 Mg (3 Ml) Ud) 3 ml IH Q2H PRN PRN Reason: Shortness of Breath Furosemide (Lasix) 40 mg IVP BID [facility] Last Admin: 01/18/18 09:40 Dose: 40 mg Heparin Sodium (Porcine) (Heparin) 5,000 units SC Q12 [facility] PRN Reason: Protocol Last Admin: 01/18/18 09:40 Dose: 5,000 units Hydrocortisone Sodium Succinate (Solu-Cortef) 25 mg IVP Q12 [facility] Last Admin: 01/18/18 09:40 Dose: 25 mg Meropenem (Merrem Iv 1 Gm Premix) 50 mls @ 100 mls/hr IVPB Q12 [facility] PRN Reason: Protocol Last Admin: 01/18/18 09:39 Dose: 100 mls/hr Doxycycline Hyclate 100 mg/ (Sodium Chloride) 100 mls @ 100 mls/hr IVPB Q12 [facility] PRN Reason: Protocol Last Admin: 01/18/18 09:41 Dose: 100 mls/hr Fentanyl Citrate (Fentanyl Citrate/Sodium Chloride 1 Mg/100 Ml) 1,000 mcg in 100 mls @ 6 mls/hr IV .[id number] PRN; Protocol; 60 MCG/HR PRN Reason: TITRATE PER MD ORDER Last Admin: 01/17/18 22:07 Dose: 100 mcg/hr, 10 mls/hr Propofol (Diprivan) 1,000 mg in 100 mls @ 4.872 mls/hr IV .[id number] PRN; Protocol; 10 MCG/KG/MIN PRN Reason: TITRATE PER MD ORDER Last Admin: 01/18/18 05:36 Dose: 15 mcg/kg/min, 7.307 mls/hr Pantoprazole Sodium (Protonix Inj) 40 mg IVP DAILY [facility] Last Admin: 01/18/18 09:38 Dose: 40 mg - Labs Labs: 01/17/18 06:00 01/17/18 06:00 PT 22.9 SECONDS (9.4-12.5) H 01/13/18 05:10 INR 1.96 01/13/18 05:10 APTT 25.5 Seconds (25.1-36.5) 01/13/18 05:10 - Respiratory Exam Respiratory Exam: Rhonchi Additional comments: ET tube intact, vent rr20, TV 350, FiO2 50%, PEEP 8, good air entry bilat - Cardiovascular Exam Cardiovascular Exam: REGULAR RHYTHM - GI/Abdominal Exam GI & Abdominal Exam: Soft, Normal Bowel Sounds Additional comments: orogastri ctube intact - Exam Additional comments: nazario cath intact urine clear - Neurological Exam Neurological Exam: Altered - Skin Skin Exam: Dry, Warm Assessment and Plan (1) Acute and chronic respiratory failure Status: Acute (2) CHF (congestive heart failure) Status: Acute (3) Acute renal failure Status: Resolved (4) Congestive heart failure Status: Chronic (5) UTI (urinary tract infection) Status: Resolved (6) Bladder carcinoma Status: Chronic (7) Dementia Status: Chronic (8) HTN (hypertension) Status: Chronic - Assessment and Plan (Free Text) Plan: continue IV Abx (meropenem and doxycycline), vent support/wean as tolerated, continue enteral feeding, prognosis remains guarded
--- NOTE | 2018-01-18 11:04 | CP.PCM.PN ---
Subjective - Date & Time of Evaluation Date of Evaluation: 01/18/18 Time of Evaluation: 10:45 - Subjective Subjective: Still on the ventilator, arousable, not in distress, no fevers overnight, no diarrhea. Objective - Vital Signs/Intake and Output Vital Signs (last 24 hours): Temp Pulse Resp BP Pulse Ox 97.7 F 75 18 154/65 H 98 01/17/18 11:30 01/17/18 11:30 01/17/18 10:10 01/17/18 11:30 01/17/18 11:30 Intake and Output: 01/17/18 01/17/18 06:59 18:59 Intake Total 1361.2 100 Output Total 350 Balance 1011.2 100 - Medications Medications: Current Medications Albuterol/Ipratropium (Duoneb 3 Mg/0.5 Mg (3 Ml) Ud) 3 ml IH [id number] [facility] Last Admin: 01/17/18 10:55 Dose: 3 ml Albuterol/Ipratropium (Duoneb 3 Mg/0.5 Mg (3 Ml) Ud) 3 ml IH Q2H PRN PRN Reason: Shortness of Breath Furosemide (Lasix) 40 mg IVP BID [facility] Last Admin: 01/17/18 09:36 Dose: 40 mg Heparin Sodium (Porcine) (Heparin) 5,000 units SC Q12 [facility] PRN Reason: Protocol Last Admin: 01/17/18 09:40 Dose: 5,000 units Hydrocortisone Sodium Succinate (Solu-Cortef) 25 mg IVP Q12 [facility] Last Admin: 01/17/18 09:32 Dose: 25 mg Meropenem (Merrem Iv 1 Gm Premix) 50 mls @ 100 mls/hr IVPB Q12 [facility] PRN Reason: Protocol Last Admin: 01/17/18 09:43 Dose: 100 mls/hr Doxycycline Hyclate 100 mg/ (Sodium Chloride) 100 mls @ 100 mls/hr IVPB Q12 [facility] PRN Reason: Protocol Last Admin: 01/17/18 09:43 Dose: 100 mls/hr Fentanyl Citrate (Fentanyl Citrate/Sodium Chloride 1 Mg/100 Ml) 1,000 mcg in 100 mls @ 6 mls/hr IV .[id number] PRN; Protocol; 60 MCG/HR PRN Reason: TITRATE PER MD ORDER Last Admin: 01/17/18 09:58 Dose: 100 mcg/hr, 10 mls/hr Propofol (Diprivan) 1,000 mg in 100 mls @ 4.872 mls/hr IV .[id number] PRN; Protocol; 10 MCG/KG/MIN PRN Reason: TITRATE PER MD ORDER Last Admin: 01/17/18 04:00 Dose: 15 mcg/kg/min, 7.307 mls/hr Pantoprazole Sodium (Protonix Inj) 40 mg IVP DAILY [facility] Last Admin: 01/17/18 09:42 Dose: 40 mg - Labs Labs: 01/17/18 06:00 01/17/18 06:00 PT 22.9 SECONDS (9.4-12.5) H 01/13/18 05:10 INR 1.96 01/13/18 05:10 APTT 25.5 Seconds (25.1-36.5) 01/13/18 05:10 - Constitutional Appears: Chronically Ill, Other (intubated) - Head Exam Head Exam: NORMAL INSPECTION - ENT Exam Additional comments: ET tube in place - Neck Exam Additional comments: let IJ TLC in place - Respiratory Exam Respiratory Exam: Decreased Breath Sounds - Cardiovascular Exam Cardiovascular Exam: +S1, +S2 - GI/Abdominal Exam GI & Abdominal Exam: Soft. absent: Tenderness Assessment and Plan - Assessment and Plan (Free Text) Plan: Assessment Consider severe sepsis/ septic shock due to bilateral lower lobe healthcare- associated pneumonia with possible gram positive cocci and/or gram negative bacilli and/or atypical organisms COPD HTN history of DVT on anticoagulation S/P IVC filter placement dementia chronic CHF Plan continue Merrem and Doxycycline day 6, we have d/c'ed Zyvox since MRSA nares is negative and so far sputum cx are negative - cx have been negative, urine Legionella Ag is negative; PCT is elevated at 0.71; reviewed CT C/A/P - should complete up to 7 days of antibiotics will continue to follow clinically overall prognosis is poor
[2018-01-18] MEDS: Fentanyl 1000mcg/100ml NS 1,000 MCG/100 ML BAG IV PRN ×2 (11:16→21:52)
[2018-01-18 11:36] LABS: GRAN # 2.15 (1.4-6.5); GRAN % 44.9 % (50.0-68.0); LYMPH # 1.5 (1.2-3.4); LYMPH % 31.3 % (22.0-35.0); MEAN CELL VOLUME 96.6 fl (80.0-105.0); MEAN CORPUSCULAR HEMOGLOBIN 31.3 pg (25.0-35.0); MEAN CORPUSCULAR HGB CONC 32.4 g/dl (31.0-37.0); MEAN PLATELET VOLUME 10.6 fl (7.0-11.0); MONO # 1.1 (0.1-0.6); MONO % 23.8 % (1.0-6.0); PLATELET COUNT 146 10^3/uL (120.0-450.0); RED CELL DISTRIBUTION WIDTH 18.6 % (11.5-14.5); WHITE BLOOD COUNT 4.8 10^3/ul (4.5-11.0)
[2018-01-18 11:45] LABS: ALBUMIN 3.3 g/dL (3.0-4.8); CALCIUM 9.2 mg/dL (8.4-10.5)
--- NOTE | 2018-01-18 13:19 | RAD ---
Date of service: 01/18/2018 HISTORY: Intubated COMPARISON: No prior. FINDINGS: In situ ETT, tip of which lies approximately 2.7 cm above sidra. NGT is present tip of which has not been included on this film though distal aspect does lie well below EG junction. In situ left IJ central venous line with tip in the brachiocephalic SVC junction unchanged LUNGS: Pulmonary vascular congestive changes with bilateral lower lobe alveolar-type infiltrates and bilateral effusions. PLEURA: As above. No pneumothorax apparent. CARDIOVASCULAR: Heart size is enlarged unchanged OSSEOUS STRUCTURES: No significant abnormalities. VISUALIZED UPPER ABDOMEN: Normal. OTHER FINDINGS: None. IMPRESSION: ETT and NGT as above. Pulmonary vascular congestive changes with bilateral lower lobe alveolar-type infiltrates and bilateral effusions.
--- NOTE | 2018-01-18 13:28 | CP.CCUPN ---
<ObinnaMichael - Last Filed: 01/18/18 14:11> CCU Subjective - Physician Review Events Since Last Encounter (Free Text): Michael Yeboah, PGY-1 ICU Progress Note Patient seen and examined at bedside this morning. No acute events overnight. PEEP is down to 5 and patient tolerating well. Will do weaning trial today with possible extubation tomorrow. She is able to open eyes spontaneously and is not in respiratory difficulty. Patient unable to communicate secondary to intubation status. CCU Objective - Vital Signs / Intake & Output Vital Signs (Last 4 hours): Vital Signs BP 01/18/18 09:40 111/39 L Intake and Output (Last 8hrs): Intake & Output 01/17/18 01/18/18 01/18/18 22:59 06:59 14:59 Intake Total 764 442 100 Output Total 500 500 Balance 264 -58 100 Intake: IV 504 162 100 Left Internal Jugular 254 162 fentanyl 20 propofol 30 Tube Feeding 260 280 Output: Urine 500 500 Urethral (Starkey) 500 500 Other: # Voids Urethral (Starkey) 700 # Bowel Movements 1 1 - Physical Exam Head: Positive for: Atraumatic, Normocephalic Pupils: Positive for: PERRL Extroacular Muscles: Positive for: EOMI Mouth: Positive for: Dry Nose (External): Positive for: Atraumatic Neck: Positive for: Normal Range of Motion Respiratory/Chest: Positive for: Clear to Auscultation, Wheezes, Decreased Breath Sounds, Retracting, Tachypneic Cardiovascular: Positive for: Tachycardic Abdomen: Negative for: Tenderness, Rebound, Guarding Upper Extremity: Positive for: Cyanosis. Negative for: Edema Lower Extremity: Positive for: Cyanosis. Negative for: Edema Skin: Positive for: Cold, Pale Psychiatric: Positive for: Alert, Anxious, Agitated - Medications Active Medications: Active Medications Generic Name Dose Route Start Last Admin Trade Name Freq PRN Reason Stop Dose Admin Albuterol/Ipratropium 3 ml 01/13/18 11:30 01/18/18 12:11 Duoneb 3 Mg/0.5 Mg (3 Ml) Ud IH 3 ml [id number] TWAN Administration Albuterol/Ipratropium 3 ml 01/13/18 09:07 Duoneb 3 Mg/0.5 Mg (3 Ml) Ud IH Q2H PRN Shortness of Breath Furosemide 40 mg 01/16/18 22:00 01/18/18 09:40 Lasix IVP 40 mg BID TWAN Administration Heparin Sodium (Porcine) 5,000 units 01/14/18 10:00 01/18/18 09:40 Heparin SC 5,000 units Q12 TWAN Administration Protocol Hydrocortisone Sodium Succinate 25 mg 01/16/18 14:17 01/18/18 09:40 Solu-Cortef IVP 25 mg Q12 TWAN Administration Meropenem 50 mls @ 100 mls/hr 01/13/18 10:00 01/18/18 09:39 Merrem Iv 1 Gm Premix IVPB 100 mls/hr Q12 TWAN Administration Protocol Doxycycline Hyclate 100 mg/ 100 mls @ 100 mls/hr 01/13/18 10:00 01/18/18 09: 41 Sodium Chloride IVPB 100 mls/hr Q12 TWAN Administration Protocol Fentanyl Citrate 1,000 mcg in 100 mls @ 6 mls/hr 01/16/18 11:22 01/18/18 11: 16 Fentanyl Citrate/Sodium Chloride 1 Mg/100 Ml IV 100 mcg/hr .[id number] PRN 10 mls/hr TITRATE PER MD ORDER Administration Protocol 60 MCG/HR Propofol 1,000 mg in 100 mls @ 4.872 mls/hr 01/16/18 17:13 01/18/18 05:36 Diprivan IV 15 mcg/kg/min .[id number] PRN 7.307 mls/hr TITRATE PER MD ORDER Administration Protocol 10 MCG/KG/MIN Pantoprazole Sodium 40 mg 01/15/18 10:00 01/18/18 09:38 Protonix Inj IVP 40 mg DAILY TWAN Administration - Patient Studies Lab Studies: Lab Studies 01/18/18 01/18/18 01/17/18 Range/Units 11:20 11:20 11:15 WBC 4.8 (4.5-11.0) 10^3/ul RBC 3.20 L (3.5-6.1) 10^6/uL Hgb 10.0 L (12.0-16.0) g/dL Hct 30.9 L (36.0-48.0) % MCV 96.6 (80.0-105.0) fl MCH 31.3 (25.0-35.0) pg MCHC 32.4 (31.0-37.0) g/dl RDW 18.6 H (11.5-14.5) % Plt Count 146 (120.0-450.0) 10^3/uL MPV 10.6 (7.0-11.0) fl Gran % 44.9 L (50.0-68.0) % Lymph % (Auto) 31.3 (22.0-35.0) % [place] % (Auto) 23.8 H (1.0-6.0) % Eos % (Auto) 0.0 L (1.5-5.0) % Baso % (Auto) 0.0 (0.0-3.0) % Gran # 2.15 (1.4-6.5) Lymph # (Auto) 1.5 (1.2-3.4) [place] # (Auto) 1.1 H (0.1-0.6) Eos # (Auto) 0.0 (0.0-0.7) Baso # (Auto) 0.00 (0.0-2.0) K/mm3 Sodium 148 (132-148) mmol/L Potassium 4.1 (3.6-5.0) mmol/L Chloride 103 (98-107) mmol/L Carbon Dioxide 39 H (21-33) mmol/L Anion Gap 11 (10-20) BUN 78 H (7-21) mg/dL Creatinine 1.1 (0.7-1.2) mg/dl Est GFR ( Amer) 57 Est GFR (Non-Af Amer) 47 Random Glucose 111 H (70-110) mg/dL Calcium 9.2 (8.4-10.5) mg/dL Total Bilirubin 1.3 (0.2-1.3) mg/dL AST 54 H D (14-36) U/L ALT 39 (7-56) U/L Alkaline Phosphatase 41 (38-126) U/L Total Protein 6.6 (5.8-8.3) g/dL Albumin 3.3 (3.0-4.8) g/dL Globulin 3.3 gm/dL Albumin/Globulin Ratio 1.0 L (1.1-1.8) Ur L.pneumophila Ag Negative (NEGATIVE) Laboratory Results - last 24 hr 01/17/18 01/18/18 01/18/18 11:15 11:20 11:20 WBC 4.8 RBC 3.20 L Hgb 10.0 L Hct 30.9 L MCV 96.6 MCH 31.3 MCHC 32.4 RDW 18.6 H Plt Count 146 MPV 10.6 Gran % 44.9 L Lymph % (Auto) 31.3 [place] % (Auto) 23.8 H Eos % (Auto) 0.0 L Baso % (Auto) 0.0 Gran # 2.15 Lymph # (Auto) 1.5 [place] # (Auto) 1.1 H Eos # (Auto) 0.0 Baso # (Auto) 0.00 Sodium 148 Potassium 4.1 Chloride 103 Carbon Dioxide 39 H Anion Gap 11 BUN 78 H Creatinine 1.1 Est GFR ( Amer) 57 Est GFR (Non-Af Amer) 47 Random Glucose 111 H Calcium 9.2 Total Bilirubin 1.3 AST 54 H D ALT 39 Alkaline Phosphatase 41 Total Protein 6.6 Albumin 3.3 Globulin 3.3 Albumin/Globulin Ratio 1.0 L Ur L.pneumophila Ag Negative Fingerstick Blood Sugar Results: 209 Critical Care Progress Note - Nutrition Nutrition: Nutrition Category Date Time Status NPO Diet [DIET] Diets 01/15/18 Breakfast Ordered Assessment/Plan - Assessment and Plan (Free Text) Assessment: This is a 87F with PMH of COPD, HTN, DVT on anticoagulation S/P IVC filter placement, dementia, and chronic CHF presenting to the ICU for management of septic shock due to UTI vs HCAP PNA with multiorgan failure in the setting of lactic acidosis, possible ARDS, and MAR. PEEP turned down to 5 and patient tolerating well. Vent settings are currently TV of 360, FiO2 40% from 50%, RR 16 from 20 and PEEP of 5 from 10 yesterday. Will get ABG tomorrow at 5am and monitor if patient tolerating well. Will try extubation tomorrow. Plan: Neuro: -Maintained normothermia -Tapering down sedation for weaning trial -Patient is awake and opens eyes spontaneously Pulm: -maintain SaO2 >90% -supplementary O2 as needed -On duamna fayeu-cortef -TV of 360, FiO2 of 40%, RR 16 and PEEP of 5 -Will do trial of weaning today, possible extubation tomorrow -ABG pending tomorrow AM Cardio: -Maintain MAP > 70 in setting of septic shock -Lasix 40mg BID up from 40mg daily -Cuurently off of pressors GI: -Protonix for GI PPX -continue gastric feeding Renal: -maintain euvolemia -avoid nephrotoxic agents, hypochloremia -replace electrolytes as needed -BUN/Cr today is 73/1.4, will monitor -Per Nephro: work up for adrenal adenoma as outpt once pt stable -Dose meds/antibiotics for reduced GFR. ID: -WBC today is 4.8, afebrile -Continue Doxy, Merrem; discontinue Zyvox in setting of akbar-cytopenia -Blood culture negative after 5 days, urine culture positive for E Coli, sputum positive for yeast, MRSA negative Heme: -H/H today is 04/08.9, will monitor -Patient is s/p 3U PRBC and 2U FFP with stable Hgb -Heparin for DVT PPX. Endo: -Maintain euglycemia <Frausto,Bilal - Last Filed: 01/18/18 15:34> CCU Objective - Vital Signs / Intake & Output Vital Signs (Last 4 hours): Vital Signs Temp Pulse BP Pulse Ox 01/18/18 15:20 98.4 F 74 95 01/18/18 15:10 98.4 F 73 94 L 01/18/18 15:00 98.4 F 73 165/66 H 96 01/18/18 14:50 98.2 F 72 96 01/18/18 14:40 98.4 F 72 96 01/18/18 14:30 98.2 F 72 98 01/18/18 14:20 98.2 F 71 97 01/18/18 14:10 98.2 F 71 97 01/18/18 14:00 98.1 F 75 158/69 H 96 01/18/18 13:50 98.2 F 73 96 01/18/18 13:40 98.2 F 71 97 01/18/18 13:30 98.2 F 72 98 01/18/18 13:20 98.2 F 70 95 01/18/18 13:10 98.2 F 70 95 01/18/18 13:00 98.1 F 70 132/48 L 96 01/18/18 12:50 98.2 F 72 94 L 01/18/18 12:40 98.1 F 71 96 01/18/18 12:30 98.1 F 75 96 01/18/18 12:20 98.1 F 71 01/18/18 12:10 98.1 F 73 01/18/18 12:00 98.1 F 74 137/53 L 96 01/18/18 11:50 98.1 F 74 94 L 01/18/18 11:40 98.1 F 72 96 Intake and Output (Last 8hrs): Intake & Output 01/18/18 01/18/18 01/18/18 06:59 14:59 22:59 Intake Total 442 100 Output Total 500 Balance -58 100 Intake: IV 162 100 Left Internal Jugular 162 Tube Feeding 280 Output: Urine 500 Urethral (Starkey) 500 Other: # Bowel Movements 1 - Medications Active Medications: Active Medications Generic Name Dose Route Start Last Admin Trade Name Freq PRN Reason Stop Dose Admin Albuterol/Ipratropium 3 ml 01/13/18 11:30 01/18/18 12:11 Duoneb 3 Mg/0.5 Mg (3 Ml) Ud IH 3 ml [id number] TWAN Administration Albuterol/Ipratropium 3 ml 01/13/18 09:07 Duoneb 3 Mg/0.5 Mg (3 Ml) Ud IH Q2H PRN Shortness of Breath Furosemide 40 mg 01/16/18 22:00 01/18/18 09:40 Lasix IVP 40 mg BID TWAN Administration Heparin Sodium (Porcine) 5,000 units 01/14/18 10:00 01/18/18 09:40 Heparin SC 5,000 units Q12 TWAN Administration Protocol Hydrocortisone Sodium Succinate 25 mg 01/16/18 14:17 01/18/18 09:40 Solu-Cortef IVP 25 mg Q12 TWAN Administration Meropenem 50 mls @ 100 mls/hr 01/13/18 10:00 01/18/18 09:39 Merrem Iv 1 Gm Premix IVPB 100 mls/hr Q12 TWAN Administration Protocol Doxycycline Hyclate 100 mg/ 100 mls @ 100 mls/hr 01/13/18 10:00 01/18/18 09: 41 Sodium Chloride IVPB 100 mls/hr Q12 TWAN Administration Protocol Fentanyl Citrate 1,000 mcg in 100 mls @ 6 mls/hr 01/16/18 11:22 01/18/18 11: 16 Fentanyl Citrate/Sodium Chloride 1 Mg/100 Ml IV 100 mcg/hr .[id number] PRN 10 mls/hr TITRATE PER MD ORDER Administration Protocol 60 MCG/HR Propofol 1,000 mg in 100 mls @ 4.872 mls/hr 01/16/18 17:13 01/18/18 05:36 Diprivan IV 15 mcg/kg/min .[id number] PRN 7.307 mls/hr TITRATE PER MD ORDER Administration Protocol 10 MCG/KG/MIN Pantoprazole Sodium 40 mg 01/15/18 10:00 01/18/18 09:38 Protonix Inj IVP 40 mg DAILY TWAN Administration - Patient Studies Lab Studies: Lab Studies 01/18/18 01/18/18 01/18/18 Range/Units 13:38 11:20 11:20 WBC 4.8 (4.5-11.0) 10^3/ul RBC 3.20 L (3.5-6.1) 10^6/uL Hgb 10.0 L (12.0-16.0) g/dL Hct 30.9 L (36.0-48.0) % MCV 96.6 (80.0-105.0) fl MCH 31.3 (25.0-35.0) pg MCHC 32.4 (31.0-37.0) g/dl RDW 18.6 H (11.5-14.5) % Plt Count 146 (120.0-450.0) 10^3/uL MPV 10.6 (7.0-11.0) fl Gran % 44.9 L (50.0-68.0) % Lymph % (Auto) 31.3 (22.0-35.0) % [place] % (Auto) 23.8 H (1.0-6.0) % Eos % (Auto) 0.0 L (1.5-5.0) % Baso % (Auto) 0.0 (0.0-3.0) % Gran # 2.15 (1.4-6.5) Lymph # (Auto) 1.5 (1.2-3.4) [place] # (Auto) 1.1 H (0.1-0.6) Eos # (Auto) 0.0 (0.0-0.7) Baso # (Auto) 0.00 (0.0-2.0) K/mm3 Neutrophils % (Manual) 45 L (50.0-70.0) % Band Neutrophils % 4 H (0-2) % Lymphocytes % (Manual) 32 (22.0-35.0) % Atypical Lymphs % 2 H (0.0-0.0) % Monocytes % (Manual) 15 H (1.0-6.0) % Platelet Evaluation Normal (NORMAL) Hypochromasia Slight Anisocytosis (manual) 1+ pCO2 51 H (35-45) mm/Hg pO2 121.0 H (80-100) mm/Hg HCO3 37.1 H (21-28) mmol/L ABG pH 7.47 H (7.35-7.45) ABG Total CO2 38.7 H (22-28) mmol.L ABG O2 Saturation 99.2 H (95-98) % ABG O2 Content 12.9 L (15-23) ML/dl ABG Base Excess 12.0 H (-2.0-3.0) mmol/L ABG Hemoglobin 9.4 L (11.7-17.4) g/dL ABG Carboxyhemoglobin 2.1 H (0.5-1.5) % POC ABG HHb (Measured) 0.8 (0-5) % ABG Methemoglobin 1.1 (0.0-3.0) % ABG O2 Capacity 13.0 L (16-24) mL/dl Hgb O2 Saturation 95.9 (95.0-98.0) % FiO2 50.0 % Sodium 148 (132-148) mmol/L Potassium 4.1 (3.6-5.0) mmol/L Chloride 103 (98-107) mmol/L Carbon Dioxide 39 H (21-33) mmol/L Anion Gap 11 (10-20) BUN 78 H (7-21) mg/dL Creatinine 1.1 (0.7-1.2) mg/dl Est GFR ( Amer) 57 Est GFR (Non-Af Amer) 47 Random Glucose 111 H (70-110) mg/dL Calcium 9.2 (8.4-10.5) mg/dL Total Bilirubin 1.3 (0.2-1.3) mg/dL AST 54 H D (14-36) U/L ALT 39 (7-56) U/L Alkaline Phosphatase 41 (38-126) U/L Total Protein 6.6 (5.8-8.3) g/dL Albumin 3.3 (3.0-4.8) g/dL Globulin 3.3 gm/dL Albumin/Globulin Ratio 1.0 L (1.1-1.8) Ur L.pneumophila Ag (NEGATIVE) 01/17/18 Range/Units 11:15 WBC (4.5-11.0) 10^3/ul RBC (3.5-6.1) 10^6/uL Hgb (12.0-16.0) g/dL Hct (36.0-48.0) % MCV (80.0-105.0) fl MCH (25.0-35.0) pg MCHC (31.0-37.0) g/dl RDW (11.5-14.5) % Plt Count (120.0-450.0) 10^3/uL MPV (7.0-11.0) fl Gran % (50.0-68.0) % Lymph % (Auto) (22.0-35.0) % [place] % (Auto) (1.0-6.0) % Eos % (Auto) (1.5-5.0) % Baso % (Auto) (0.0-3.0) % Gran # (1.4-6.5) Lymph # (Auto) (1.2-3.4) [place] # (Auto) (0.1-0.6) Eos # (Auto) (0.0-0.7) Baso # (Auto) (0.0-2.0) K/mm3 Neutrophils % (Manual) (50.0-70.0) % Band Neutrophils % (0-2) % Lymphocytes % (Manual) (22.0-35.0) % Atypical Lymphs % (0.0-0.0) % Monocytes % (Manual) (1.0-6.0) % Platelet Evaluation (NORMAL) Hypochromasia Anisocytosis (manual) pCO2 (35-45) mm/Hg pO2 (80-100) mm/Hg HCO3 (21-28) mmol/L ABG pH (7.35-7.45) ABG Total CO2 (22-28) mmol.L ABG O2 Saturation (95-98) % ABG O2 Content (15-23) ML/dl ABG Base Excess (-2.0-3.0) mmol/L ABG Hemoglobin (11.7-17.4) g/dL ABG Carboxyhemoglobin (0.5-1.5) % POC ABG HHb (Measured) (0-5) % ABG Methemoglobin (0.0-3.0) % ABG O2 Capacity (16-24) mL/dl Hgb O2 Saturation (95.0-98.0) % FiO2 % Sodium (132-148) mmol/L Potassium (3.6-5.0) mmol/L Chloride (98-107) mmol/L Carbon Dioxide (21-33) mmol/L Anion Gap (10-20) BUN (7-21) mg/dL Creatinine (0.7-1.2) mg/dl Est GFR ( Amer) Est GFR (Non-Af Amer) Random Glucose (70-110) mg/dL Calcium (8.4-10.5) mg/dL Total Bilirubin (0.2-1.3) mg/dL AST (14-36) U/L ALT (7-56) U/L Alkaline Phosphatase (38-126) U/L Total Protein (5.8-8.3) g/dL Albumin (3.0-4.8) g/dL Globulin gm/dL Albumin/Globulin Ratio (1.1-1.8) Ur L.pneumophila Ag Negative (NEGATIVE) Laboratory Results - last 24 hr 01/17/18 01/18/18 01/18/18 11:15 11:20 11:20 WBC 4.8 RBC 3.20 L Hgb 10.0 L Hct 30.9 L MCV 96.6 MCH 31.3 MCHC 32.4 RDW 18.6 H Plt Count 146 MPV 10.6 Gran % 44.9 L Lymph % (Auto) 31.3 [place] % (Auto) 23.8 H Eos % (Auto) 0.0 L Baso % (Auto) 0.0 Gran # 2.15 Lymph # (Auto) 1.5 [place] # (Auto) 1.1 H Eos # (Auto) 0.0 Baso # (Auto) 0.00 Neutrophils % (Manual) 45 L Band Neutrophils % 4 H Lymphocytes % (Manual) 32 Atypical Lymphs % 2 H Monocytes % (Manual) 15 H Platelet Evaluation Normal Hypochromasia Slight Anisocytosis (manual) 1+ pCO2 pO2 HCO3 ABG pH ABG Total CO2 ABG O2 Saturation ABG O2 Content ABG Base Excess ABG Hemoglobin ABG Carboxyhemoglobin POC ABG HHb (Measured) ABG Methemoglobin ABG O2 Capacity Hgb O2 Saturation FiO2 Sodium 148 Potassium 4.1 Chloride 103 Carbon Dioxide 39 H Anion Gap 11 BUN 78 H Creatinine 1.1 Est GFR ( Amer) 57 Est GFR (Non-Af Amer) 47 Random Glucose 111 H Calcium 9.2 Total Bilirubin 1.3 AST 54 H D ALT 39 Alkaline Phosphatase 41 Total Protein 6.6 Albumin 3.3 Globulin 3.3 Albumin/Globulin Ratio 1.0 L Ur L.pneumophila Ag Negative 01/18/18 13:38 WBC RBC Hgb Hct MCV MCH MCHC RDW Plt Count MPV Gran % Lymph % (Auto) [place] % (Auto) Eos % (Auto) Baso % (Auto) Gran # Lymph # (Auto) [place] # (Auto) Eos # (Auto) Baso # (Auto) Neutrophils % (Manual) Band Neutrophils % Lymphocytes % (Manual) Atypical Lymphs % Monocytes % (Manual) Platelet Evaluation Hypochromasia Anisocytosis (manual) pCO2 51 H pO2 121.0 H HCO3 37.1 H ABG pH 7.47 H ABG Total CO2 38.7 H ABG O2 Saturation 99.2 H ABG O2 Content 12.9 L ABG Base Excess 12.0 H ABG Hemoglobin 9.4 L ABG Carboxyhemoglobin 2.1 H POC ABG HHb (Measured) 0.8 ABG Methemoglobin 1.1 ABG O2 Capacity 13.0 L Hgb O2 Saturation 95.9 FiO2 50.0 Sodium Potassium Chloride Carbon Dioxide Anion Gap BUN Creatinine Est GFR ( Amer) Est GFR (Non-Af Amer) Random Glucose Calcium Total Bilirubin AST ALT Alkaline Phosphatase Total Protein Albumin Globulin Albumin/Globulin Ratio Ur L.pneumophila Ag Critical Care Progress Note - Nutrition Nutrition: Nutrition Category Date Time Status NPO Diet [DIET] Diets 01/15/18 Breakfast Ordered Addendum Addendum: 01/18/18 15:34 ICU Attending Addendum: Patient seen and examined. Case reviewed on round with housestaff. Agree with resident note above with the following additions/exceptions: Dx: VDRF still intubated UTI CHF MAR COPD Shonda is better today on the vent. She is down to 5 of peep on minimal setting overall. Will wean and if acceptable parameters will extubate. Her BUN is rising which is likely from keeping her fluid negative. Will keep her neg until she is extubated. Cont abx as per ID. She is on solucoretef which we will cont for now and wean when extubated. Rest of care as noted above. Richie Frausto MD Account Technician Critical Care time: 31 minutes
[2018-01-18 13:35] LABS: NEUTROPHIL 45 % (50.0-70.0)
[2018-01-18 13:36] LABS: ATYPICAL LYMPHOCYTE 2 % (0.0-0.0); BAND 4 % (0-2); LYMPHOCYTE 32 % (22.0-35.0); MONOCYTE 15 % (1.0-6.0)
[2018-01-18 13:37] LABS: PLATELET ESTIMATE NORMAL (NORMAL)
[2018-01-18 13:38] LABS: ANISOCYTOSIS 1+; HYPOCHROMIA SLIGHT
[2018-01-18 13:41] LABS: ARTERIAL BLOOD GAS HCO3 37.1 mmol/L (21-28); ARTERIAL BLOOD GAS HEMOGLOBIN 9.4 g/dL (11.7-17.4); ARTERIAL BLOOD GAS O2 CONTENT 12.9 ML/dl (15-23); ARTERIAL BLOOD GAS O2 SAT 99.2 % (95-98); ARTERIAL BLOOD GAS PCO2 51 mm/Hg (35-45); ARTERIAL BLOOD GAS PH 7.47 (7.35-7.45); ARTERIAL BLOOD GAS TCO2 38.7 mmol.L (22-28)
[2018-01-19] MEDS: Albuterol-Ipratrop 3 mg / 0.5 (3 ml) UD IH SCH ×7 (04:07→23:51)
[2018-01-19 05:29] LABS: ARTERIAL BLOOD GAS HEMOGLOBIN 11.3 g/dL (11.7-17.4); ARTERIAL BLOOD GAS O2 CAPACITY 15.5 mL/dl (16-24); ARTERIAL BLOOD GAS O2 CONTENT 15.3 ML/dl (15-23); ARTERIAL BLOOD GAS O2 SAT 98.6 % (95-98); ARTERIAL BLOOD GAS PCO2 58 mm/Hg (35-45); ARTERIAL BLOOD GAS PH 7.48 (7.35-7.45)
[2018-01-19 05:40] LABS: ARTERIAL BLOOD GAS HCO3 43.2 mmol/L (21-28)
[2018-01-19 05:54] LABS: BASO # 0.01 K/mm3 (0.0-2.0); BASO % 0.1 % (0.0-3.0); EOS % 0.4 % (1.5-5.0); GRAN # 2.6 (1.4-6.5); GRAN % 38.3 % (50.0-68.0); HEMOGLOBIN 10.7 g/dL (12.0-16.0); LYMPH # 2.2 (1.2-3.4); LYMPH % 32.3 % (22.0-35.0); MEAN CELL VOLUME 98.3 fl (80.0-105.0); MEAN CORPUSCULAR HEMOGLOBIN 30.6 pg (25.0-35.0); MEAN CORPUSCULAR HGB CONC 31.1 g/dl (31.0-37.0); MEAN PLATELET VOLUME 9.8 fl (7.0-11.0); MONO % 28.9 % (1.0-6.0); RBC 3.5 10^6/uL (3.5-6.1); RED CELL DISTRIBUTION WIDTH 18.2 % (11.5-14.5); WHITE BLOOD COUNT 6.8 10^3/ul (4.5-11.0)
[2018-01-19 06:09] LABS: ALBUMIN 3.4 g/dL (3.0-4.8); ALT/SGPT 71 U/L (7-56); AST/SGOT 94 U/L (14-36); BLOOD UREA NITROGEN 77 mg/dL (7-21); CALCIUM 9.5 mg/dL (8.4-10.5); GFR AFRICAN-AMERICAN > 60; GFR NON-AFRICAN AMERICAN 53
[2018-01-19] MEDS: Fentanyl 1000mcg/100ml NS 1,000 MCG/100 ML BAG IV PRN (08:00)
--- NOTE | 2018-01-19 10:43 | CP.PCM.PN ---
Subjective - Date & Time of Evaluation Date of Evaluation: 01/19/18 Time of Evaluation: 10:15 - Subjective Subjective: Comfortable in bed, but still on the ventilator, not in distress, no fevers overnight, no diarrhea. Objective - Vital Signs/Intake and Output Vital Signs (last 24 hours): Temp Pulse Resp BP Pulse Ox 98.8 F 82 17 111/39 L 94 L 01/18/18 05:40 01/18/18 06:00 01/17/18 14:00 01/18/18 09:40 01/18/18 05:40 Intake and Output: 01/18/18 01/18/18 06:59 18:59 Intake Total 936 Output Total 1000 Balance -64 - Medications Medications: Current Medications Albuterol/Ipratropium (Duoneb 3 Mg/0.5 Mg (3 Ml) Ud) 3 ml IH [id number] [facility] Last Admin: 01/18/18 07:59 Dose: 3 ml Albuterol/Ipratropium (Duoneb 3 Mg/0.5 Mg (3 Ml) Ud) 3 ml IH Q2H PRN PRN Reason: Shortness of Breath Furosemide (Lasix) 40 mg IVP BID [facility] Last Admin: 01/18/18 09:40 Dose: 40 mg Heparin Sodium (Porcine) (Heparin) 5,000 units SC Q12 TWAN PRN Reason: Protocol Last Admin: 01/18/18 09:40 Dose: 5,000 units Hydrocortisone Sodium Succinate (Solu-Cortef) 25 mg IVP Q12 TWAN Last Admin: 01/18/18 09:40 Dose: 25 mg Meropenem (Merrem Iv 1 Gm Premix) 50 mls @ 100 mls/hr IVPB Q12 TWAN PRN Reason: Protocol Last Admin: 01/18/18 09:39 Dose: 100 mls/hr Doxycycline Hyclate 100 mg/ (Sodium Chloride) 100 mls @ 100 mls/hr IVPB Q12 TWAN PRN Reason: Protocol Last Admin: 01/18/18 09:41 Dose: 100 mls/hr Fentanyl Citrate (Fentanyl Citrate/Sodium Chloride 1 Mg/100 Ml) 1,000 mcg in 100 mls @ 6 mls/hr IV .[id number] PRN; Protocol; 60 MCG/HR PRN Reason: TITRATE PER MD ORDER Last Admin: 01/17/18 22:07 Dose: 100 mcg/hr, 10 mls/hr Propofol (Diprivan) 1,000 mg in 100 mls @ 4.872 mls/hr IV .[id number] PRN; Protocol; 10 MCG/KG/MIN PRN Reason: TITRATE PER MD ORDER Last Admin: 01/18/18 05:36 Dose: 15 mcg/kg/min, 7.307 mls/hr Pantoprazole Sodium (Protonix Inj) 40 mg IVP DAILY TWAN Last Admin: 01/18/18 09:38 Dose: 40 mg - Labs Labs: 01/17/18 06:00 01/17/18 06:00 PT 22.9 SECONDS (9.4-12.5) H 01/13/18 05:10 INR 1.96 01/13/18 05:10 APTT 25.5 Seconds (25.1-36.5) 01/13/18 05:10 - Constitutional Appears: Chronically Ill, Other (on the ventilator) - Head Exam Head Exam: NORMAL INSPECTION - ENT Exam Additional comments: ET tube in place - Respiratory Exam Respiratory Exam: Decreased Breath Sounds - Cardiovascular Exam Cardiovascular Exam: +S1, +S2 - GI/Abdominal Exam GI & Abdominal Exam: Soft. absent: Tenderness Assessment and Plan - Assessment and Plan (Free Text) Plan: Assessment Consider severe sepsis/ septic shock due to bilateral lower lobe healthcare- associated pneumonia with possible gram positive cocci and/or gram negative bacilli and/or atypical organisms, slowly improving COPD HTN history of DVT on anticoagulation S/P IVC filter placement dementia chronic CHF Plan continue Merrem and Doxycycline day 7, we have d/c'ed Zyvox since MRSA nares is negative and so far sputum cx are negative - cx have been negative, urine Legionella Ag is negative; PCT is elevated at 0.71; reviewed CT C/A/P - should complete up to 7 days of antibiotics will continue to follow clinically for possible extubation today overall prognosis is poor
--- NOTE | 2018-01-19 10:46 | CP.PCM.PN ---
Subjective - Date & Time of Evaluation Date of Evaluation: 01/19/18 Time of Evaluation: 10:30 - Subjective Subjective: tolerating CPAP with pressure support, on vent, awake and responsive Objective - Vital Signs/Intake and Output Vital Signs (last 24 hours): Temp Pulse Resp BP Pulse Ox 98.2 F 79 16 150/57 L 96 01/19/18 06:30 01/19/18 06:30 01/19/18 06:00 01/19/18 06:00 01/19/18 06:30 Intake and Output: 01/19/18 01/19/18 06:59 18:59 Intake Total 1132 170 Output Total 1750 Balance -618 170 - Medications Medications: Current Medications Albuterol/Ipratropium (Duoneb 3 Mg/0.5 Mg (3 Ml) Ud) 3 ml IH [id number] [facility] Last Admin: 01/19/18 08:25 Dose: 3 ml Albuterol/Ipratropium (Duoneb 3 Mg/0.5 Mg (3 Ml) Ud) 3 ml IH Q2H PRN PRN Reason: Shortness of Breath Furosemide (Lasix) 40 mg IVP BID [facility] Last Admin: 01/18/18 17:24 Dose: 40 mg Heparin Sodium (Porcine) (Heparin) 5,000 units SC Q12 TWAN PRN Reason: Protocol Last Admin: 01/18/18 21:18 Dose: 5,000 units Hydrocortisone Sodium Succinate (Solu-Cortef) 25 mg IVP Q12 TWAN Last Admin: 01/18/18 21:17 Dose: 25 mg Meropenem (Merrem Iv 1 Gm Premix) 50 mls @ 100 mls/hr IVPB Q12 TWAN PRN Reason: Protocol Last Admin: 01/18/18 21:16 Dose: 100 mls/hr Doxycycline Hyclate 100 mg/ (Sodium Chloride) 100 mls @ 100 mls/hr IVPB Q12 TWAN PRN Reason: Protocol Last Admin: 01/18/18 21:16 Dose: 100 mls/hr Fentanyl Citrate (Fentanyl Citrate/Sodium Chloride 1 Mg/100 Ml) 1,000 mcg in 100 mls @ 6 mls/hr IV .[id number] PRN; Protocol; 60 MCG/HR PRN Reason: TITRATE PER MD ORDER Last Titration: 01/19/18 09:15 Dose: 25 mcg/hr, 2.5 mls/hr Propofol (Diprivan) 1,000 mg in 100 mls @ 4.872 mls/hr IV .[id number] PRN; Protocol; 10 MCG/KG/MIN PRN Reason: TITRATE PER MD ORDER Last Titration: 01/19/18 08:40 Dose: 5 mcg/kg/min, 2.436 mls/hr Pantoprazole Sodium (Protonix Inj) 40 mg IVP DAILY TWAN Last Admin: 01/18/18 09:38 Dose: 40 mg - Labs Labs: 01/19/18 05:40 01/19/18 05:40 PT 22.9 SECONDS (9.4-12.5) H 01/13/18 05:10 INR 1.96 01/13/18 05:10 APTT 25.5 Seconds (25.1-36.5) 01/13/18 05:10 - Respiratory Exam Respiratory Exam: Rhonchi Additional comments: ET tube intact, good air entry bilaterally - Cardiovascular Exam Cardiovascular Exam: REGULAR RHYTHM - GI/Abdominal Exam GI & Abdominal Exam: Soft, Normal Bowel Sounds - Neurological Exam Neurological Exam: Awake - Skin Skin Exam: Dry, Warm Assessment and Plan (1) Acute and chronic respiratory failure Status: Acute (2) CHF (congestive heart failure) Status: Acute (3) Congestive heart failure Status: Chronic (4) Bladder carcinoma Status: Chronic (5) Dementia Status: Chronic (6) HTN (hypertension) Status: Chronic - Assessment and Plan (Free Text) Plan: continue wean as tolerated/IV Abx/enteral feeding/prognosis remains guarded
[2018-01-19 10:48] LABS: ARTERIAL BLOOD GAS HCO3 38.2 mmol/L (21-28); ARTERIAL BLOOD GAS HEMOGLOBIN 10.4 g/dL (11.7-17.4); ARTERIAL BLOOD GAS O2 CAPACITY 14.4 mL/dl (16-24); ARTERIAL BLOOD GAS O2 CONTENT 14.3 ML/dl (15-23); ARTERIAL BLOOD GAS O2 SAT 99.5 % (95-98); ARTERIAL BLOOD GAS PCO2 49 mm/Hg (35-45); ARTERIAL BLOOD GAS TCO2 39.7 mmol.L (22-28)
[2018-01-19] MEDS: Meropenem IV 1 gm in NS 50 ML IVPB SCH ×2 (10:50→21:25)
[2018-01-19] MEDS ORDERED: Sodium Chloride 0.9% 1,000 ML IV SCH (11:15)
[2018-01-19] MEDS ORDERED: Metoprolol 1 mg/ml Inj IVP ONE ×2 (11:15→11:18)
[2018-01-19] MEDS ORDERED: Metoprolol 1 mg/ml Inj IVP STA (11:15)
--- NOTE | 2018-01-19 11:30 | CP.CCUPN ---
<Florencio Rust - Last Filed: 01/19/18 12:56> CCU Subjective - Physician Review Events Since Last Encounter (Free Text): 01/19/18 08:00 Patient seen and examined at bedside; following commands, is responding with eye movement. Hx limited 2/2 intubation status. No acute overnight events. CCU Objective - Vital Signs / Intake & Output Intake and Output (Last 8hrs): Intake & Output 01/18/18 01/19/18 01/19/18 22:59 06:59 14:59 Intake Total 930 932 172 Output Total 3000 1750 Balance -2070 -818 172 Weight 79.379 kg Intake: IV 420 472 172 Left Internal Jugular 300 Right Hand 100 fentanyl 120 120 propofol 40 Oral 0 Tube Feeding 360 360 Other 150 100 Output: Urine 3000 1750 Urethral (Starkey) 3000 1750 Other: # Bowel Movements 0 - Physical Exam Head: Positive for: Atraumatic, Normocephalic Pupils: Positive for: PERRL Extroacular Muscles: Positive for: EOMI Mouth: Positive for: Dry Nose (External): Positive for: Atraumatic Neck: Positive for: Normal Range of Motion Respiratory/Chest: Positive for: Clear to Auscultation, Wheezes, Decreased Breath Sounds, Retracting, Tachypneic Cardiovascular: Positive for: Tachycardic Abdomen: Negative for: Tenderness, Rebound, Guarding Upper Extremity: Positive for: Cyanosis. Negative for: Edema Lower Extremity: Positive for: Cyanosis. Negative for: Edema Skin: Positive for: Cold, Pale Psychiatric: Positive for: Alert, Anxious, Agitated - Medications Active Medications: Active Medications Generic Name Dose Route Start Last Admin Trade Name Freq PRN Reason Stop Dose Admin Albuterol/Ipratropium 3 ml 01/13/18 11:30 01/19/18 08:25 Duoneb 3 Mg/0.5 Mg (3 Ml) Ud IH 3 ml [id number] TWAN Administration Albuterol/Ipratropium 3 ml 01/13/18 09:07 Duoneb 3 Mg/0.5 Mg (3 Ml) Ud IH Q2H PRN Shortness of Breath Furosemide 40 mg 01/16/18 22:00 01/19/18 10:50 Lasix IVP Not Given BID [facility] Heparin Sodium (Porcine) 5,000 units 01/14/18 10:00 08/12/18 10:49 Heparin SC 5,000 units Q12 TWAN Administration Protocol Hydrocortisone Sodium Succinate 25 mg 01/16/18 14:17 01/19/18 10:49 Solu-Cortef IVP 25 mg Q12 TWAN Administration Meropenem 50 mls @ 100 mls/hr 01/13/18 10:00 01/19/18 10:50 Merrem Iv 1 Gm Premix IVPB 100 mls/hr Q12 TWAN Administration Protocol Doxycycline Hyclate 100 mg/ 100 mls @ 100 mls/hr 01/13/18 10:00 01/19/18 10: 51 Sodium Chloride IVPB 100 mls/hr Q12 TWAN Administration Protocol Fentanyl Citrate 1,000 mcg in 100 mls @ 6 mls/hr 01/16/18 11:22 01/19/18 10: 47 Fentanyl Citrate/Sodium Chloride 1 Mg/100 Ml IV 0 mcg/hr .[id number] PRN 0 mls/hr TITRATE PER MD ORDER Titration Protocol 60 MCG/HR Propofol 1,000 mg in 100 mls @ 4.872 mls/hr 01/16/18 17:13 01/19/18 08:40 Diprivan IV 5 mcg/kg/min .[id number] PRN 2.436 mls/hr TITRATE PER MD ORDER Titration Protocol 10 MCG/KG/MIN Pantoprazole Sodium 40 mg 01/15/18 10:00 01/19/18 10:50 Protonix Inj IVP 40 mg DAILY TWAN Administration - Patient Studies Lab Studies: Lab Studies 01/19/18 01/19/18 01/19/18 Range/Units 10:00 05:40 05:40 WBC 6.8 D (4.5-11.0) 10^3/ul RBC 3.50 (3.5-6.1) 10^6/uL Hgb 10.7 L (12.0-16.0) g/dL Hct 34.4 L (36.0-48.0) % MCV 98.3 (80.0-105.0) fl MCH 30.6 (25.0-35.0) pg MCHC 31.1 (31.0-37.0) g/dl RDW 18.2 H (11.5-14.5) % Plt Count 137 (120.0-450.0) 10^3/uL MPV 9.8 (7.0-11.0) fl Gran % 38.3 L (50.0-68.0) % Lymph % (Auto) 32.3 (22.0-35.0) % [place] % (Auto) 28.9 H (1.0-6.0) % Eos % (Auto) 0.4 L (1.5-5.0) % Baso % (Auto) 0.1 (0.0-3.0) % Gran # 2.60 (1.4-6.5) Lymph # (Auto) 2.2 (1.2-3.4) [place] # (Auto) 2.0 H (0.1-0.6) Eos # (Auto) 0.0 (0.0-0.7) Baso # (Auto) 0.01 (0.0-2.0) K/mm3 Neutrophils % (Manual) (50.0-70.0) % Band Neutrophils % (0-2) % Lymphocytes % (Manual) (22.0-35.0) % Atypical Lymphs % (0.0-0.0) % Monocytes % (Manual) (1.0-6.0) % Platelet Evaluation (NORMAL) Hypochromasia Anisocytosis (manual) pCO2 49 H (35-45) mm/Hg pO2 125.0 H (80-100) mm/Hg HCO3 38.2 H (21-28) mmol/L ABG pH 7.50 H (7.35-7.45) ABG Total CO2 39.7 H (22-28) mmol.L ABG O2 Saturation 99.5 H (95-98) % ABG O2 Content 14.3 L (15-23) ML/dl ABG Base Excess 13.4 H (-2.0-3.0) mmol/L ABG Hemoglobin 10.4 L (11.7-17.4) g/dL ABG Carboxyhemoglobin 2.2 H (0.5-1.5) % POC ABG HHb (Measured) 0.5 (0-5) % ABG Methemoglobin 0.9 (0.0-3.0) % ABG O2 Capacity 14.4 L (16-24) mL/dl Hgb O2 Saturation 96.5 (95.0-98.0) % FiO2 40.0 % Sodium 153 H (132-148) mmol/L Potassium 3.6 (3.6-5.0) mmol/L Chloride 101 (98-107) mmol/L Carbon Dioxide 45 H (21-33) mmol/L Anion Gap 11 (10-20) BUN 77 H (7-21) mg/dL Creatinine 1.0 (0.7-1.2) mg/dl Est GFR ( Amer) > 60 Est GFR (Non-Af Amer) 53 Random Glucose 103 (70-110) mg/dL Calcium 9.5 (8.4-10.5) mg/dL Phosphorus 3.8 (2.5-4.5) mg/dL Magnesium 1.8 (1.7-2.2) mg/dL Total Bilirubin 1.9 H (0.2-1.3) mg/dL AST 94 H D (14-36) U/L ALT 71 H (7-56) U/L Alkaline Phosphatase 51 (38-126) U/L Total Protein 6.8 (5.8-8.3) g/dL Albumin 3.4 (3.0-4.8) g/dL Globulin 3.4 gm/dL Albumin/Globulin Ratio 1.0 L (1.1-1.8) 01/19/18 01/18/18 01/18/18 Range/Units 05:00 13:38 11:20 WBC (4.5-11.0) 10^3/ul RBC (3.5-6.1) 10^6/uL Hgb (12.0-16.0) g/dL Hct (36.0-48.0) % MCV (80.0-105.0) fl MCH (25.0-35.0) pg MCHC (31.0-37.0) g/dl RDW (11.5-14.5) % Plt Count (120.0-450.0) 10^3/uL MPV (7.0-11.0) fl Gran % (50.0-68.0) % Lymph % (Auto) (22.0-35.0) % [place] % (Auto) (1.0-6.0) % Eos % (Auto) (1.5-5.0) % Baso % (Auto) (0.0-3.0) % Gran # (1.4-6.5) Lymph # (Auto) (1.2-3.4) [place] # (Auto) (0.1-0.6) Eos # (Auto) (0.0-0.7) Baso # (Auto) (0.0-2.0) K/mm3 Neutrophils % (Manual) (50.0-70.0) % Band Neutrophils % (0-2) % Lymphocytes % (Manual) (22.0-35.0) % Atypical Lymphs % (0.0-0.0) % Monocytes % (Manual) (1.0-6.0) % Platelet Evaluation (NORMAL) Hypochromasia Anisocytosis (manual) pCO2 58 H 51 H (35-45) mm/Hg pO2 98.0 121.0 H (80-100) mm/Hg HCO3 43.2 H* 37.1 H (21-28) mmol/L ABG pH 7.48 H 7.47 H (7.35-7.45) ABG Total CO2 45.0 H 38.7 H (22-28) mmol.L ABG O2 Saturation 98.6 H 99.2 H (95-98) % ABG O2 Content 15.3 12.9 L (15-23) ML/dl ABG Base Excess 17.1 H 12.0 H (-2.0-3.0) mmol/L ABG Hemoglobin 11.3 L 9.4 L (11.7-17.4) g/dL ABG Carboxyhemoglobin 2.0 H 2.1 H (0.5-1.5) % POC ABG HHb (Measured) 1.4 0.8 (0-5) % ABG Methemoglobin 1.0 1.1 (0.0-3.0) % ABG O2 Capacity 15.5 L 13.0 L (16-24) mL/dl Hgb O2 Saturation 95.6 95.9 (95.0-98.0) % FiO2 40.0 50.0 % Sodium 148 (132-148) mmol/L Potassium 4.1 (3.6-5.0) mmol/L Chloride 103 (98-107) mmol/L Carbon Dioxide 39 H (21-33) mmol/L Anion Gap 11 (10-20) BUN 78 H (7-21) mg/dL Creatinine 1.1 (0.7-1.2) mg/dl Est GFR ( Amer) 57 Est GFR (Non-Af Amer) 47 Random Glucose 111 H (70-110) mg/dL Calcium 9.2 (8.4-10.5) mg/dL Phosphorus (2.5-4.5) mg/dL Magnesium (1.7-2.2) mg/dL Total Bilirubin 1.3 (0.2-1.3) mg/dL AST 54 H D (14-36) U/L ALT 39 (7-56) U/L Alkaline Phosphatase 41 (38-126) U/L Total Protein 6.6 (5.8-8.3) g/dL Albumin 3.3 (3.0-4.8) g/dL Globulin 3.3 gm/dL Albumin/Globulin Ratio 1.0 L (1.1-1.8) 01/18/18 Range/Units 11:20 WBC 4.8 (4.5-11.0) 10^3/ul RBC 3.20 L (3.5-6.1) 10^6/uL Hgb 10.0 L (12.0-16.0) g/dL Hct 30.9 L (36.0-48.0) % MCV 96.6 (80.0-105.0) fl MCH 31.3 (25.0-35.0) pg MCHC 32.4 (31.0-37.0) g/dl RDW 18.6 H (11.5-14.5) % Plt Count 146 (120.0-450.0) 10^3/uL MPV 10.6 (7.0-11.0) fl Gran % 44.9 L (50.0-68.0) % Lymph % (Auto) 31.3 (22.0-35.0) % [place] % (Auto) 23.8 H (1.0-6.0) % Eos % (Auto) 0.0 L (1.5-5.0) % Baso % (Auto) 0.0 (0.0-3.0) % Gran # 2.15 (1.4-6.5) Lymph # (Auto) 1.5 (1.2-3.4) [place] # (Auto) 1.1 H (0.1-0.6) Eos # (Auto) 0.0 (0.0-0.7) Baso # (Auto) 0.00 (0.0-2.0) K/mm3 Neutrophils % (Manual) 45 L (50.0-70.0) % Band Neutrophils % 4 H (0-2) % Lymphocytes % (Manual) 32 (22.0-35.0) % Atypical Lymphs % 2 H (0.0-0.0) % Monocytes % (Manual) 15 H (1.0-6.0) % Platelet Evaluation Normal (NORMAL) Hypochromasia Slight Anisocytosis (manual) 1+ pCO2 (35-45) mm/Hg pO2 (80-100) mm/Hg HCO3 (21-28) mmol/L ABG pH (7.35-7.45) ABG Total CO2 (22-28) mmol.L ABG O2 Saturation (95-98) % ABG O2 Content (15-23) ML/dl ABG Base Excess (-2.0-3.0) mmol/L ABG Hemoglobin (11.7-17.4) g/dL ABG Carboxyhemoglobin (0.5-1.5) % POC ABG HHb (Measured) (0-5) % ABG Methemoglobin (0.0-3.0) % ABG O2 Capacity (16-24) mL/dl Hgb O2 Saturation (95.0-98.0) % FiO2 % Sodium (132-148) mmol/L Potassium (3.6-5.0) mmol/L Chloride (98-107) mmol/L Carbon Dioxide (21-33) mmol/L Anion Gap (10-20) BUN (7-21) mg/dL Creatinine (0.7-1.2) mg/dl Est GFR ( Amer) Est GFR (Non-Af Amer) Random Glucose (70-110) mg/dL Calcium (8.4-10.5) mg/dL Phosphorus (2.5-4.5) mg/dL Magnesium (1.7-2.2) mg/dL Total Bilirubin (0.2-1.3) mg/dL AST (14-36) U/L ALT (7-56) U/L Alkaline Phosphatase (38-126) U/L Total Protein (5.8-8.3) g/dL Albumin (3.0-4.8) g/dL Globulin gm/dL Albumin/Globulin Ratio (1.1-1.8) Laboratory Results - last 24 hr 01/18/18 01/18/18 01/18/18 11:20 11:20 13:38 WBC 4.8 RBC 3.20 L Hgb 10.0 L Hct 30.9 L MCV 96.6 MCH 31.3 MCHC 32.4 RDW 18.6 H Plt Count 146 MPV 10.6 Gran % 44.9 L Lymph % (Auto) 31.3 [place] % (Auto) 23.8 H Eos % (Auto) 0.0 L Baso % (Auto) 0.0 Gran # 2.15 Lymph # (Auto) 1.5 [place] # (Auto) 1.1 H Eos # (Auto) 0.0 Baso # (Auto) 0.00 Neutrophils % (Manual) 45 L Band Neutrophils % 4 H Lymphocytes % (Manual) 32 Atypical Lymphs % 2 H Monocytes % (Manual) 15 H Platelet Evaluation Normal Hypochromasia Slight Anisocytosis (manual) 1+ pCO2 51 H pO2 121.0 H HCO3 37.1 H ABG pH 7.47 H ABG Total CO2 38.7 H ABG O2 Saturation 99.2 H ABG O2 Content 12.9 L ABG Base Excess 12.0 H ABG Hemoglobin 9.4 L ABG Carboxyhemoglobin 2.1 H POC ABG HHb (Measured) 0.8 ABG Methemoglobin 1.1 ABG O2 Capacity 13.0 L Hgb O2 Saturation 95.9 FiO2 50.0 Sodium 148 Potassium 4.1 Chloride 103 Carbon Dioxide 39 H Anion Gap 11 BUN 78 H Creatinine 1.1 Est GFR ( Amer) 57 Est GFR (Non-Af Amer) 47 Random Glucose 111 H Calcium 9.2 Phosphorus Magnesium Total Bilirubin 1.3 AST 54 H D ALT 39 Alkaline Phosphatase 41 Total Protein 6.6 Albumin 3.3 Globulin 3.3 Albumin/Globulin Ratio 1.0 L 01/19/18 01/19/18 01/19/18 05:00 05:40 05:40 WBC 6.8 D RBC 3.50 Hgb 10.7 L Hct 34.4 L MCV 98.3 MCH 30.6 MCHC 31.1 RDW 18.2 H Plt Count 137 MPV 9.8 Gran % 38.3 L Lymph % (Auto) 32.3 [place] % (Auto) 28.9 H Eos % (Auto) 0.4 L Baso % (Auto) 0.1 Gran # 2.60 Lymph # (Auto) 2.2 [place] # (Auto) 2.0 H Eos # (Auto) 0.0 Baso # (Auto) 0.01 Neutrophils % (Manual) Band Neutrophils % Lymphocytes % (Manual) Atypical Lymphs % Monocytes % (Manual) Platelet Evaluation Hypochromasia Anisocytosis (manual) pCO2 58 H pO2 98.0 HCO3 43.2 H* ABG pH 7.48 H ABG Total CO2 45.0 H ABG O2 Saturation 98.6 H ABG O2 Content 15.3 ABG Base Excess 17.1 H ABG Hemoglobin 11.3 L ABG Carboxyhemoglobin 2.0 H POC ABG HHb (Measured) 1.4 ABG Methemoglobin 1.0 ABG O2 Capacity 15.5 L Hgb O2 Saturation 95.6 FiO2 40.0 Sodium 153 H Potassium 3.6 Chloride 101 Carbon Dioxide 45 H Anion Gap 11 BUN 77 H Creatinine 1.0 Est GFR ( Amer) > 60 Est GFR (Non-Af Amer) 53 Random Glucose 103 Calcium 9.5 Phosphorus 3.8 Magnesium 1.8 Total Bilirubin 1.9 H AST 94 H D ALT 71 H Alkaline Phosphatase 51 Total Protein 6.8 Albumin 3.4 Globulin 3.4 Albumin/Globulin Ratio 1.0 L 01/19/18 10:00 WBC RBC Hgb Hct MCV MCH MCHC RDW Plt Count MPV Gran % Lymph % (Auto) [place] % (Auto) Eos % (Auto) Baso % (Auto) Gran # Lymph # (Auto) [place] # (Auto) Eos # (Auto) Baso # (Auto) Neutrophils % (Manual) Band Neutrophils % Lymphocytes % (Manual) Atypical Lymphs % Monocytes % (Manual) Platelet Evaluation Hypochromasia Anisocytosis (manual) pCO2 49 H pO2 125.0 H HCO3 38.2 H ABG pH 7.50 H ABG Total CO2 39.7 H ABG O2 Saturation 99.5 H ABG O2 Content 14.3 L ABG Base Excess 13.4 H ABG Hemoglobin 10.4 L ABG Carboxyhemoglobin 2.2 H POC ABG HHb (Measured) 0.5 ABG Methemoglobin 0.9 ABG O2 Capacity 14.4 L Hgb O2 Saturation 96.5 FiO2 40.0 Sodium Potassium Chloride Carbon Dioxide Anion Gap BUN Creatinine Est GFR ( Amer) Est GFR (Non-Af Amer) Random Glucose Calcium Phosphorus Magnesium Total Bilirubin AST ALT Alkaline Phosphatase Total Protein Albumin Globulin Albumin/Globulin Ratio Fingerstick Blood Sugar Results: 209 Critical Care Progress Note - Nutrition Nutrition: Nutrition Category Date Time Status NPO Diet [DIET] Diets 01/15/18 Breakfast Ordered Assessment/Plan - Assessment and Plan (Free Text) Assessment: 87 F under ICU mgmt for septic shock due to UTI vs HCAP PNA with MOF in setting of lactic acidosis, possible ARDS, and MAR. 1. Acute Metabolic Acidosis with Superimposed Respiratory Alkalosis - resolved 2. Acute Anemia s/p 4 U PRBC, 2 U FFP 3. Hx DVT on eliquis, s/p IVC filter RE: anemia, patient's hemoglobin has stabilized after discontinuation of Zyvox. On admission, patient's Hgb 6.2 5A-->1U at 8:41 and 1 U at 10:56; 1 FFP at 1: 04-->Hg 7.8 at 2P-->1 U FFP at 3:52P--> Hgb on 01/14 am 7.7; 01/15 morning, Hgb was 6.3, now stable. Regarding septic shock, WBC of 14.2 --> 8.1 --> 3.7 yesterday AM, now stabilized patient pressures maintained now off of pressors. Blood cultures are negative thus far, but U Cx with akbar-sensitive E. Coli; Chest XR from this am shows no interval change from yesterday. RE: MAR, patient 's creatinine was improving from 2.0 to 1.3, but started bumping back up; today it is stable, BUN is riding up. Patient's acidosis status is improved now, in fact becoming alkalotic 2/2 contraction. Patient's shock has resolved. Some concern re: pancytopenia arose , could have been secondary to ABx vs Sepsis; pancytopenia improved after Zyvox was discontinued. Patient's SBI < 100, chest XR reveals less fluid, and patient's respiratory status overall improved. Plan: Neuro: Discontinue fentanyl; weaning trial; maintain normothermia. Pulm: Extubate; Abx: Continue Doxy, Merrem; d/c Zyvox. Continue Duonebs. Continue Solu-cortef 25q12. Maintain O2 Sats > 92% Cardio: Hold Lasix. Maintain MAP > 65 GI: D/c Protonix for GI PPX; Continue gastric feeding : Maintain euvolemia; Monitor MAR Per Nephro: work up for adrenal adenoma as outpt once pt stable Dose meds/ antibiotics for reduced GFR. ID: Continue Doxy, Merrem; discontinue Zyvox in setting of akbar-cytopenia Heme: Patient is s/p 3U PRBC and 2 U FFP with stable Hgb; Heparin for DVT PPX. Endo: Maintain euglycemia <FraustoBilal - Last Filed: 01/19/18 14:37> CCU Objective - Vital Signs / Intake & Output Vital Signs (Last 4 hours): Vital Signs Temp Pulse Resp BP Pulse Ox 01/19/18 13:45 98.6 F 90 52 H 174/71 H 95 01/19/18 13:44 98.6 F 89 95 01/19/18 13:40 169/76 H 01/19/18 13:39 98.6 F 91 H 18 95 01/19/18 13:35 98.6 F 88 19 172/74 H 95 01/19/18 13:30 98.8 F 88 18 168/70 H 94 L 01/19/18 13:25 98.8 F 88 16 175/71 H 95 01/19/18 13:20 98.8 F 90 19 178/74 H 95 01/19/18 13:15 98.8 F 84 23 166/80 H 97 01/19/18 13:14 98.8 F 85 98 01/19/18 13:10 98.8 F 86 22 146/66 97 01/19/18 13:05 98.8 F 85 18 130/56 L 96 01/19/18 13:00 99.0 F 84 18 128/62 96 01/19/18 12:59 99.0 F 83 96 01/19/18 12:55 99.0 F 84 18 118/57 L 94 L 01/19/18 12:50 99.0 F 82 27 H 88/46 L 93 L 01/19/18 12:46 99.0 F 83 20 118/55 L 92 L 01/19/18 12:40 99.0 F 95 H 20 91 L 01/19/18 12:39 99.0 F 115 H 24 217/90 H 91 L 01/19/18 12:36 117 H 211/106 H 01/19/18 12:35 99.0 F 118 H 28 H 221/99 H 92 L 01/19/18 12:34 99.0 F 116 H 35 H 211/106 H 90 L 01/19/18 12:30 99.0 F 114 H 26 H 92 L 01/19/18 12:25 99.0 F 116 H 49 H 220/94 H 88 L 01/19/18 12:21 99.0 F 114 H 95 01/19/18 12:20 99.0 F 115 H 27 H 205/121 H 92 L 01/19/18 12:15 99.0 F 101 H 23 207/95 H 95 01/19/18 12:10 99.1 F 98 H 17 209/110 H 94 L 01/19/18 12:09 99.1 F 95 H 96 01/19/18 12:05 223/91 H 01/19/18 12:04 99.0 F 86 19 96 01/19/18 12:02 86 209/91 H 01/19/18 12:00 99.0 F 86 12 95 01/19/18 11:18 102 H 196/91 H Intake and Output (Last 8hrs): Intake & Output 01/18/18 01/19/18 01/19/18 22:59 06:59 14:59 Intake Total 930 932 172 Output Total 3000 1750 Balance -2070 -818 172 Weight 175 lb Intake: IV 420 472 172 Left Internal Jugular 300 Right Hand 100 fentanyl 120 120 propofol 40 Oral 0 Tube Feeding 360 360 Other 150 100 Output: Urine 3000 1750 Urethral (Starkey) 3000 1750 Other: # Bowel Movements 0 - Medications Active Medications: Active Medications Generic Name Dose Route Start Last Admin Trade Name Freq PRN Reason Stop Dose Admin Acetylcysteine 1 ml 01/19/18 18:00 Acetylcysteine 20% IH Q6 TWAN Albuterol/Ipratropium 3 ml 01/13/18 11:30 01/19/18 13:14 Duoneb 3 Mg/0.5 Mg (3 Ml) Ud IH 3 ml [id number] TWAN Administration Albuterol/Ipratropium 3 ml 01/13/18 09:07 Duoneb 3 Mg/0.5 Mg (3 Ml) Ud IH Q2H PRN Shortness of Breath Heparin Sodium (Porcine) 5,000 units 01/14/18 10:00 01/19/18 10:49 Heparin SC 5,000 units Q12 TWAN Administration Protocol Hydrocortisone Sodium Succinate 25 mg 01/16/18 14:17 01/19/18 10:49 Solu-Cortef IVP 25 mg Q12 TWAN Administration Meropenem 50 mls @ 100 mls/hr 01/13/18 10:00 01/19/18 10:50 Merrem Iv 1 Gm Premix IVPB 100 mls/hr Q12 TWAN Administration Protocol Doxycycline Hyclate 100 mg/ 100 mls @ 100 mls/hr 01/13/18 10:00 01/19/18 10: 51 Sodium Chloride IVPB 100 mls/hr Q12 TWAN Administration Protocol Sodium Chloride 1,000 mls @ 150 mls/hr 01/19/18 11:15 01/19/18 12:05 Sodium Chloride 0.9% IV 150 mls/hr .[id number] TWAN Administration Nicardipine HCl 20 mg in 200 mls @ 50 mls/hr 01/19/18 12:30 Cardene Iv Premix IV .Q4H PRN TITRATE PER MD ORDER Protocol 5 MG/HR - Patient Studies Lab Studies: Lab Studies 01/19/18 01/19/18 01/19/18 Range/Units 10:00 05:40 05:40 WBC 6.8 D (4.5-11.0) 10^3/ul RBC 3.50 (3.5-6.1) 10^6/uL Hgb 10.7 L (12.0-16.0) g/dL Hct 34.4 L (36.0-48.0) % MCV 98.3 (80.0-105.0) fl MCH 30.6 (25.0-35.0) pg MCHC 31.1 (31.0-37.0) g/dl RDW 18.2 H (11.5-14.5) % Plt Count 137 (120.0-450.0) 10^3/uL MPV 9.8 (7.0-11.0) fl Gran % 38.3 L (50.0-68.0) % Lymph % (Auto) 32.3 (22.0-35.0) % [place] % (Auto) 28.9 H (1.0-6.0) % Eos % (Auto) 0.4 L (1.5-5.0) % Baso % (Auto) 0.1 (0.0-3.0) % Gran # 2.60 (1.4-6.5) Lymph # (Auto) 2.2 (1.2-3.4) [place] # (Auto) 2.0 H (0.1-0.6) Eos # (Auto) 0.0 (0.0-0.7) Baso # (Auto) 0.01 (0.0-2.0) K/mm3 pCO2 49 H (35-45) mm/Hg pO2 125.0 H (80-100) mm/Hg HCO3 38.2 H (21-28) mmol/L ABG pH 7.50 H (7.35-7.45) ABG Total CO2 39.7 H (22-28) mmol.L ABG O2 Saturation 99.5 H (95-98) % ABG O2 Content 14.3 L (15-23) ML/dl ABG Base Excess 13.4 H (-2.0-3.0) mmol/L ABG Hemoglobin 10.4 L (11.7-17.4) g/dL ABG Carboxyhemoglobin 2.2 H (0.5-1.5) % POC ABG HHb (Measured) 0.5 (0-5) % ABG Methemoglobin 0.9 (0.0-3.0) % ABG O2 Capacity 14.4 L (16-24) mL/dl Hgb O2 Saturation 96.5 (95.0-98.0) % FiO2 40.0 % Sodium 153 H (132-148) mmol/L Potassium 3.6 (3.6-5.0) mmol/L Chloride 101 (98-107) mmol/L Carbon Dioxide 45 H (21-33) mmol/L Anion Gap 11 (10-20) BUN 77 H (7-21) mg/dL Creatinine 1.0 (0.7-1.2) mg/dl Est GFR ( Amer) > 60 Est GFR (Non-Af Amer) 53 Random Glucose 103 (70-110) mg/dL Calcium 9.5 (8.4-10.5) mg/dL Phosphorus 3.8 (2.5-4.5) mg/dL Magnesium 1.8 (1.7-2.2) mg/dL Total Bilirubin 1.9 H (0.2-1.3) mg/dL AST 94 H D (14-36) U/L ALT 71 H (7-56) U/L Alkaline Phosphatase 51 (38-126) U/L Total Protein 6.8 (5.8-8.3) g/dL Albumin 3.4 (3.0-4.8) g/dL Globulin 3.4 gm/dL Albumin/Globulin Ratio 1.0 L (1.1-1.8) /18 Range/Units 05:00 WBC (4.5-11.0) 10^3/ul RBC (3.5-6.1) 10^6/uL Hgb (12.0-16.0) g/dL Hct (36.0-48.0) % MCV (80.0-105.0) fl MCH (25.0-35.0) pg MCHC (31.0-37.0) g/dl RDW (11.5-14.5) % Plt Count (120.0-450.0) 10^3/uL MPV (7.0-11.0) fl Gran % (50.0-68.0) % Lymph % (Auto) (22.0-35.0) % [place] % (Auto) (1.0-6.0) % Eos % (Auto) (1.5-5.0) % Baso % (Auto) (0.0-3.0) % Gran # (1.4-6.5) Lymph # (Auto) (1.2-3.4) [place]y # (Auto) (0.1-0.6) Eos # (Auto) (0.0-0.7) Baso # (Auto) (0.0-2.0) K/mm3 pCO2 58 H (35-45) mm/Hg pO2 98.0 (80-100) mm/Hg HCO3 43.2 H* (21-28) mmol/L ABG pH 7.48 H (7.35-7.45) ABG Total CO2 45.0 H (22-28) mmol.L ABG O2 Saturation 98.6 H (95-98) % ABG O2 Content 15.3 (15-23) ML/dl ABG Base Excess 17.1 H (-2.0-3.0) mmol/L ABG Hemoglobin 11.3 L (11.7-17.4) g/dL ABG Carboxyhemoglobin 2.0 H (0.5-1.5) % POC ABG HHb (Measured) 1.4 (0-5) % ABG Methemoglobin 1.0 (0.0-3.0) % ABG O2 Capacity 15.5 L (16-24) mL/dl Hgb O2 Saturation 95.6 (95.0-98.0) % FiO2 40.0 % Sodium (132-148) mmol/L Potassium (3.6-5.0) mmol/L Chloride (98-107) mmol/L Carbon Dioxide (21-33) mmol/L Anion Gap (10-20) BUN (7-21) mg/dL Creatinine (0.7-1.2) mg/dl Est GFR ( Amer) Est GFR (Non-Af Amer) Random Glucose (70-110) mg/dL Calcium (8.4-10.5) mg/dL Phosphorus (2.5-4.5) mg/dL Magnesium (1.7-2.2) mg/dL Total Bilirubin (0.2-1.3) mg/dL AST (14-36) U/L ALT (7-56) U/L Alkaline Phosphatase (38-126) U/L Total Protein (5.8-8.3) g/dL Albumin (3.0-4.8) g/dL Globulin gm/dL Albumin/Globulin Ratio (1.1-1.8) Laboratory Results - last 24 hr 01/19/18 01/19/18 01/19/18 05:00 05:40 05:40 WBC 6.8 D RBC 3.50 Hgb 10.7 L Hct 34.4 L MCV 98.3 MCH 30.6 MCHC 31.1 RDW 18.2 H Plt Count 137 MPV 9.8 Gran % 38.3 L Lymph % (Auto) 32.3 Kenedy % (Auto) 28.9 H Eos % (Auto) 0.4 L Baso % (Auto) 0.1 Gran # 2.60 Lymph # (Auto) 2.2 Kenedy # (Auto) 2.0 H Eos # (Auto) 0.0 Baso # (Auto) 0.01 pCO2 58 H pO2 98.0 HCO3 43.2 H* ABG pH 7.48 H ABG Total CO2 45.0 H ABG O2 Saturation 98.6 H ABG O2 Content 15.3 ABG Base Excess 17.1 H ABG Hemoglobin 11.3 L ABG Carboxyhemoglobin 2.0 H POC ABG HHb (Measured) 1.4 ABG Methemoglobin 1.0 ABG O2 Capacity 15.5 L Hgb O2 Saturation 95.6 FiO2 40.0 Sodium 153 H Potassium 3.6 Chloride 101 Carbon Dioxide 45 H Anion Gap 11 BUN 77 H Creatinine 1.0 Est GFR ( Amer) > 60 Est GFR (Non-Af Amer) 53 Random Glucose 103 Calcium 9.5 Phosphorus 3.8 Magnesium 1.8 Total Bilirubin 1.9 H AST 94 H D ALT 71 H Alkaline Phosphatase 51 Total Protein 6.8 Albumin 3.4 Globulin 3.4 Albumin/Globulin Ratio 1.0 L 01/19/18 10:00 WBC RBC Hgb Hct MCV MCH MCHC RDW Plt Count MPV Gran % Lymph % (Auto) [place] % (Auto) Eos % (Auto) Baso % (Auto) Gran # Lymph # (Auto) [place] # (Auto) Eos # (Auto) Baso # (Auto) pCO2 49 H pO2 125.0 H HCO3 38.2 H ABG pH 7.50 H ABG Total CO2 39.7 H ABG O2 Saturation 99.5 H ABG O2 Content 14.3 L ABG Base Excess 13.4 H ABG Hemoglobin 10.4 L ABG Carboxyhemoglobin 2.2 H POC ABG HHb (Measured) 0.5 ABG Methemoglobin 0.9 ABG O2 Capacity 14.4 L Hgb O2 Saturation 96.5 FiO2 40.0 Sodium Potassium Chloride Carbon Dioxide Anion Gap BUN Creatinine Est GFR ( Amer) Est GFR (Non-Af Amer) Random Glucose Calcium Phosphorus Magnesium Total Bilirubin AST ALT Alkaline Phosphatase Total Protein Albumin Globulin Albumin/Globulin Ratio Critical Care Progress Note - Nutrition Nutrition: Nutrition Category Date Time Status NPO Diet [DIET] Diets 01/15/18 Breakfast Ordered Addendum Addendum: 01/19/18 14:35 ICU Attending Addendum: Patient seen and examined. Case reviewed on round with housestaff. Agree with resident note above with the following additions/exceptions: Dx: VDRF UTI CHF MAR COPD Shonda continues to improve. No events overnight. Sedation weaned off this morning. She is undergoing SBT this AM while hopeful extubation if tolerates. I have kept her on the dry side since she had pulm edema before. My concern was re-distribution of interstitial fluid once positive pressure is removed. After extubation, will hydrate slowly. Her CXR today is much improved with less pulm edema. She remained hypertensive as the propofol is coming off. Will resume home anti- HTN when we are able to and use IV for now. Cont abx as per ID. Would de-escalate given identification of bug which is akbar- sens (UTI) Cont steroids for now and wean if extubated. Hold Lasix today since we kalpesh hydrate. I expect her metab alk to improve with hydration. Rest of care as noted above. Richie Frausto MD Microarray Specialist Critical Care time: 35 minutes 01/19/18 14:36
[2018-01-19] MEDS ORDERED: Labetalol 5 mg/ml Inj 20ML IV STA (12:29)
[2018-01-19] MEDS: Nicardipine 20 MG/200 ML 20 MG/200 ML BAG IV PRN ×2 (12:44→16:15)
[2018-01-19] MEDS ORDERED: Racepinephrine 2.25% Inhal Soln 0.5 ML UD IH STA ×2 (12:54→14:02)
--- NOTE | 2018-01-19 12:58 | RAD ---
Date of service: 01/19/2018 HISTORY: intubation COMPARISON: No prior. FINDINGS: In situ ETT, tip of which lies approximately 3.94 cm above sidra. NGT is present, tip of which has not been included on this film though distal aspect does lie well below EG junction. Left subclavian central line again seen with tip located in the distal brachiocephalic vein near the SVC junction (45 degrees with respect to the long axis of the SVC) Note made of tubing over the right supraclavicular region and right base of neck. Clinical correlation recommended LUNGS: Mild pulmonary vascular congestion, bilateral lower lobe alveolar-type infiltrates and bilateral effusions are present though all of these changes have improved when compared with the prior exam PLEURA: As above. No pneumothorax apparent. CARDIOVASCULAR: Normal. OSSEOUS STRUCTURES: No significant abnormalities. VISUALIZED UPPER ABDOMEN: Normal. OTHER FINDINGS: None. IMPRESSION: Support lines and tubes as above. Mild pulmonary vascular congestion, bilateral lower lobe alveolar-type infiltrates and bilateral effusions are present though all of these changes have improved when compared with the prior exam
[2018-01-19] MEDS: Acetylcysteine 20% Inhal Soln (4ml) IH SCH (19:50)
[2018-01-20] MEDS: Albuterol-Ipratrop 3 mg / 0.5 (3 ml) UD IH SCH ×6 (04:07→23:26)
[2018-01-20 05:54] LABS: BASO # 0.01 K/mm3 (0.0-2.0); BASO % 0.2 % (0.0-3.0); GRAN # 1.79 (1.4-6.5); GRAN % 30.6 % (50.0-68.0); HEMOGLOBIN 11.6 g/dL (12.0-16.0); LYMPH % 33.3 % (22.0-35.0); MEAN CELL VOLUME 98.4 fl (80.0-105.0); MEAN CORPUSCULAR HEMOGLOBIN 31.3 pg (25.0-35.0); MEAN CORPUSCULAR HGB CONC 31.8 g/dl (31.0-37.0); MEAN PLATELET VOLUME 10.1 fl (7.0-11.0); MONO # 2.1 (0.1-0.6); MONO % 35.9 % (1.0-6.0); RBC 3.71 10^6/uL (3.5-6.1); WHITE BLOOD COUNT 5.9 10^3/ul (4.5-11.0)
[2018-01-20 06:43] LABS: ALBUMIN 3.5 g/dL (3.0-4.8); ALT/SGPT 87 U/L (7-56); AST/SGOT 71 U/L (14-36); BLOOD UREA NITROGEN 67 mg/dL (7-21); GFR AFRICAN-AMERICAN > 60; GFR NON-AFRICAN AMERICAN 60
[2018-01-20] MEDS: Acetylcysteine 20% Inhal Soln (4ml) IH SCH ×4 (07:50→23:26)
[2018-01-20] MEDS: Nicardipine 20 MG/200 ML 20 MG/200 ML BAG IV PRN (08:07)
[2018-01-20] MEDS: Meropenem IV 1 gm in NS 50 ML IVPB SCH (09:11)
[2018-01-20] MEDS ORDERED: Dextrose 5%/0.45% NS 1,000 ML IV SCH (09:15)
--- NOTE | 2018-01-20 10:35 | CP.CCUPN ---
<YocastaFlorencio - Last Filed: 01/20/18 10:16> CCU Subjective - Physician Review Events Since Last Encounter (Free Text): 01/20/18 10:16 Patient seen and examined at bedside. Patient was extubated yesterday, at around that time she became hypertensive, Cardine drip was started at that time PRN. Patient otherwise doing better clinically, is able to follow commands but is having difficulty moving extremities. No acute overnight events. CCU Objective - Vital Signs / Intake & Output Intake and Output (Last 8hrs): Intake & Output 01/19/18 01/20/18 01/20/18 22:59 06:59 14:59 Intake Total 185 156 200 Output Total 1400 Balance 185 -1244 200 Intake: IV 65 156 200 Left Internal Jugular 156 fentanyl 50 propofol 15 Tube Feeding 120 Output: Urine 1400 Urethral (Starkey) 1400 Other: # Voids Urethral (Starkey) 2,100 # Bowel Movements 0 - Physical Exam Head: Positive for: Atraumatic, Normocephalic Pupils: Positive for: PERRL Extroacular Muscles: Positive for: EOMI Mouth: Positive for: Dry Nose (External): Positive for: Atraumatic Neck: Positive for: Normal Range of Motion Respiratory/Chest: Positive for: Clear to Auscultation, Wheezes, Decreased Breath Sounds, Retracting, Tachypneic Cardiovascular: Positive for: Tachycardic Abdomen: Negative for: Tenderness, Rebound, Guarding Upper Extremity: Positive for: Cyanosis. Negative for: Edema Lower Extremity: Positive for: Cyanosis. Negative for: Edema Skin: Positive for: Cold, Pale Psychiatric: Positive for: Alert, Anxious, Agitated - Medications Active Medications: Active Medications Generic Name Dose Route Start Last Admin Trade Name Freq PRN Reason Stop Dose Admin Acetylcysteine 1 ml 01/19/18 18:00 01/20/18 07:50 Acetylcysteine 20% IH 1 ml Q6 [facility] Administration Albuterol/Ipratropium 3 ml 01/13/18 11:30 01/20/18 07:51 Duoneb 3 Mg/0.5 Mg (3 Ml) Ud IH 3 ml [id number] TWAN Administration Albuterol/Ipratropium 3 ml 01/13/18 09:07 Duoneb 3 Mg/0.5 Mg (3 Ml) Ud IH Q2H PRN Shortness of Breath Heparin Sodium (Porcine) 5,000 units 01/14/18 10:00 01/20/18 09:25 Heparin SC 5,000 units Q12 TWAN Administration Protocol Hydrocortisone Sodium Succinate 10 mg 01/20/18 09:04 01/20/18 10:11 Solu-Cortef IVP 10 mg Q12 TWAN Administration Nicardipine HCl 20 mg in 200 mls @ 50 mls/hr 01/19/18 12:30 01/20/18 08:07 Cardene Iv Premix IV 1 mg/hr .Q4H PRN 10 mls/hr TITRATE PER MD ORDER Administration Protocol 5 MG/HR Dextrose/Sodium Chloride 1,000 mls @ 75 mls/hr 01/20/18 09:15 01/20/18 10:12 Dextrose 5%/0.45% Ns 1000 Ml IV 75 mls/hr .[id number] TWAN Administration - Patient Studies Lab Studies: Lab Studies 01/20/18 01/20/18 01/19/18 Range/Units 05:15 05:15 10:00 WBC 5.9 (4.5-11.0) 10^3/ul RBC 3.71 (3.5-6.1) 10^6/uL Hgb 11.6 L (12.0-16.0) g/dL Hct 36.5 (36.0-48.0) % MCV 98.4 (80.0-105.0) fl MCH 31.3 (25.0-35.0) pg MCHC 31.8 (31.0-37.0) g/dl RDW 18.0 H (11.5-14.5) % Plt Count 143 (120.0-450.0) 10^3/uL MPV 10.1 (7.0-11.0) fl Gran % 30.6 L (50.0-68.0) % Lymph % (Auto) 33.3 (22.0-35.0) % [place] % (Auto) 35.9 H (1.0-6.0) % Eos % (Auto) 0.0 L (1.5-5.0) % Baso % (Auto) 0.2 (0.0-3.0) % Gran # 1.79 (1.4-6.5) Lymph # (Auto) 2.0 (1.2-3.4) [place] # (Auto) 2.1 H (0.1-0.6) Eos # (Auto) 0.0 (0.0-0.7) Baso # (Auto) 0.01 (0.0-2.0) K/mm3 pCO2 49 H (35-45) mm/Hg pO2 125.0 H (80-100) mm/Hg HCO3 38.2 H (21-28) mmol/L ABG pH 7.50 H (7.35-7.45) ABG Total CO2 39.7 H (22-28) mmol.L ABG O2 Saturation 99.5 H (95-98) % ABG O2 Content 14.3 L (15-23) ML/dl ABG Base Excess 13.4 H (-2.0-3.0) mmol/L ABG Hemoglobin 10.4 L (11.7-17.4) g/dL ABG Carboxyhemoglobin 2.2 H (0.5-1.5) % POC ABG HHb (Measured) 0.5 (0-5) % ABG Methemoglobin 0.9 (0.0-3.0) % ABG O2 Capacity 14.4 L (16-24) mL/dl Hgb O2 Saturation 96.5 (95.0-98.0) % FiO2 40.0 % Sodium 155 H (132-148) mmol/L Potassium 3.6 (3.6-5.0) mmol/L Chloride 107 (98-107) mmol/L Carbon Dioxide 40 H (21-33) mmol/L Anion Gap 11 (10-20) BUN 67 H (7-21) mg/dL Creatinine 0.9 (0.7-1.2) mg/dl Est GFR ( Amer) > 60 Est GFR (Non-Af Amer) 60 Random Glucose 104 (70-110) mg/dL Calcium 10.0 (8.4-10.5) mg/dL Total Bilirubin 2.3 H (0.2-1.3) mg/dL AST 71 H D (14-36) U/L ALT 87 H (7-56) U/L Alkaline Phosphatase 52 (38-126) U/L Total Protein 7.1 (5.8-8.3) g/dL Albumin 3.5 (3.0-4.8) g/dL Globulin 3.6 gm/dL Albumin/Globulin Ratio 1.0 L (1.1-1.8) Laboratory Results - last 24 hr 01/19/18 01/20/18 01/20/18 10:00 05:15 05:15 WBC 5.9 RBC 3.71 Hgb 11.6 L Hct 36.5 MCV 98.4 MCH 31.3 MCHC 31.8 RDW 18.0 H Plt Count 143 MPV 10.1 Gran % 30.6 L Lymph % (Auto) 33.3 [place] % (Auto) 35.9 H Eos % (Auto) 0.0 L Baso % (Auto) 0.2 Gran # 1.79 Lymph # (Auto) 2.0 [place] # (Auto) 2.1 H Eos # (Auto) 0.0 Baso # (Auto) 0.01 pCO2 49 H pO2 125.0 H HCO3 38.2 H ABG pH 7.50 H ABG Total CO2 39.7 H ABG O2 Saturation 99.5 H ABG O2 Content 14.3 L ABG Base Excess 13.4 H ABG Hemoglobin 10.4 L ABG Carboxyhemoglobin 2.2 H POC ABG HHb (Measured) 0.5 ABG Methemoglobin 0.9 ABG O2 Capacity 14.4 L Hgb O2 Saturation 96.5 FiO2 40.0 Sodium 155 H Potassium 3.6 Chloride 107 Carbon Dioxide 40 H Anion Gap 11 BUN 67 H Creatinine 0.9 Est GFR ( Amer) > 60 Est GFR (Non-Af Amer) 60 Random Glucose 104 Calcium 10.0 Total Bilirubin 2.3 H AST 71 H D ALT 87 H Alkaline Phosphatase 52 Total Protein 7.1 Albumin 3.5 Globulin 3.6 Albumin/Globulin Ratio 1.0 L Fingerstick Blood Sugar Results: 209 Critical Care Progress Note - Nutrition Nutrition: Nutrition Category Date Time Status NPO Diet [DIET] Diets 01/15/18 Breakfast Ordered Assessment/Plan - Assessment and Plan (Free Text) Assessment: 87 F under ICU mgmt for septic shock due to UTI vs HCAP PNA with MOF in setting of lactic acidosis, possible ARDS, and MAR. 1. Acute Metabolic Acidosis with Superimposed Respiratory Alkalosis - resolved 2. Acute Anemia s/p 4 U PRBC, 2 U FFP 3. Hx DVT on eliquis, s/p IVC filter RE: anemia, patient's hemoglobin has stabilized after discontinuation of Zyvox. On admission, patient's Hgb 6.2 5A-->1U at 8:41 and 1 U at 10:56; 1 FFP at 1: 04-->Hg 7.8 at 2P-->1 U FFP at 3:52P--> Hgb on 01/14 am 7.7; 01/15 morning, Hgb was 6.3, now stable. Regarding septic shock, WBC of 14.2 --> 8.1 --> 3.7 yesterday AM, now stabilized patient pressures maintained now off of pressors. Blood cultures are negative thus far, but U Cx with akbar-sensitive E. Coli; Chest XR from this am shows no interval change from yesterday. RE: MAR, patient 's creatinine was improving from 2.0 to 1.3, but started bumping back up; today it is stable, BUN is riding up. Patient's acidosis status is improved now, in fact becoming alkalotic 2/2 contraction. Patient's shock has resolved. Some concern re: pancytopenia arose , could have been secondary to ABx vs Sepsis; pancytopenia improved after Zyvox was discontinued. Patient's SBI < 100 before extubation, chest XR revealed less fluid, and patient 's respiratory status overall improved. Plan: Neuro: Discontinue fentanyl; weaning trial; maintain normothermia. Pulm: Continue VentiMask at 50L; Abx: Continue Doxy, Merrem; d/c Zyvox. Continue Duonebs. Taper Solu-cortef 10q12. Maintain O2 Sats > 92% Cardio: Hold Lasix. Maintain MAP > 65; Continue to hydrate with D5-1/2NS GI: D/c Protonix for GI PPX : Maintain euvolemia; Monitor MAR Per Nephro: work up for adrenal adenoma as outpt once pt stable Dose meds/ antibiotics for reduced GFR. ID: Continue Doxy, Merrem; discontinue Zyvox in setting of akbar-cytopenia; de- escalate as per ID recommendations Heme: Patient is s/p 3U PRBC and 2 U FFP with stable Hgb; Heparin for DVT PPX. Endo: Maintain Euglycemia <Garett Gil - Last Filed: 01/20/18 14:48> CCU Objective - Vital Signs / Intake & Output Vital Signs (Last 4 hours): Vital Signs Temp Pulse Resp BP Pulse Ox 01/20/18 11:15 98.6 F 82 97 01/20/18 11:10 98.6 F 79 12 97 01/20/18 11:06 98.6 F 82 97 01/20/18 11:00 98.4 F 82 13 145/50 L 97 01/20/18 10:50 98.4 F 82 12 98 Intake and Output (Last 8hrs): Intake & Output 01/19/18 01/20/18 01/20/18 22:59 06:59 14:59 Intake Total 185 156 200 Output Total 1400 Balance 185 -1244 200 Intake: IV 65 156 200 Left Internal Jugular 156 fentanyl 50 propofol 15 Tube Feeding 120 Output: Urine 1400 Urethral (Starkey) 1400 Other: # Voids Urethral (Starkey) 2,100 # Bowel Movements 0 - Medications Active Medications: Active Medications Generic Name Dose Route Start Last Admin Trade Name Freq PRN Reason Stop Dose Admin Acetylcysteine 1 ml 01/19/18 18:00 01/20/18 11:14 Acetylcysteine 20% IH 1 ml Q6 [facility]AN Administration Albuterol/Ipratropium 3 ml 01/13/18 11:30 01/20/18 11:15 Duoneb 3 Mg/0.5 Mg (3 Ml) Ud IH 3 ml [id number] [facility]AN Administration Albuterol/Ipratropium 3 ml 01/13/18 09:07 Duoneb 3 Mg/0.5 Mg (3 Ml) Ud IH Q2H PRN Shortness of Breath Heparin Sodium (Porcine) 5,000 units 01/14/18 10:00 01/20/18 09:25 Heparin SC 5,000 units Q12 TWAN Administration Protocol Hydrocortisone Sodium Succinate 10 mg 01/20/18 09:04 01/20/18 10:11 Solu-Cortef IVP 10 mg Q12 TWAN Administration Nicardipine HCl 20 mg in 200 mls @ 50 mls/hr 01/19/18 12:30 01/20/18 08:07 Cardene Iv Premix IV 1 mg/hr .Q4H PRN 10 mls/hr TITRATE PER MD ORDER Administration Protocol 5 MG/HR Dextrose/Sodium Chloride 1,000 mls @ 75 mls/hr 01/20/18 09:15 01/20/18 10:12 Dextrose 5%/0.45% Ns 1000 Ml IV 75 mls/hr .[id number] TWAN Administration - Patient Studies Lab Studies: Lab Studies 01/20/18 01/20/18 Range/Units 05:15 05:15 WBC 5.9 (4.5-11.0) 10^3/ul RBC 3.71 (3.5-6.1) 10^6/uL Hgb 11.6 L (12.0-16.0) g/dL Hct 36.5 (36.0-48.0) % MCV 98.4 (80.0-105.0) fl MCH 31.3 (25.0-35.0) pg MCHC 31.8 (31.0-37.0) g/dl RDW 18.0 H (11.5-14.5) % Plt Count 143 (120.0-450.0) 10^3/uL MPV 10.1 (7.0-11.0) fl Gran % 30.6 L (50.0-68.0) % Lymph % (Auto) 33.3 (22.0-35.0) % [place] % (Auto) 35.9 H (1.0-6.0) % Eos % (Auto) 0.0 L (1.5-5.0) % Baso % (Auto) 0.2 (0.0-3.0) % Gran # 1.79 (1.4-6.5) Lymph # (Auto) 2.0 (1.2-3.4) [place] # (Auto) 2.1 H (0.1-0.6) Eos # (Auto) 0.0 (0.0-0.7) Baso # (Auto) 0.01 (0.0-2.0) K/mm3 Sodium 155 H (132-148) mmol/L Potassium 3.6 (3.6-5.0) mmol/L Chloride 107 (98-107) mmol/L Carbon Dioxide 40 H (21-33) mmol/L Anion Gap 11 (10-20) BUN 67 H (7-21) mg/dL Creatinine 0.9 (0.7-1.2) mg/dl Est GFR ( Amer) > 60 Est GFR (Non-Af Amer) 60 Random Glucose 104 (70-110) mg/dL Calcium 10.0 (8.4-10.5) mg/dL Total Bilirubin 2.3 H (0.2-1.3) mg/dL AST 71 H D (14-36) U/L ALT 87 H (7-56) U/L Alkaline Phosphatase 52 (38-126) U/L Total Protein 7.1 (5.8-8.3) g/dL Albumin 3.5 (3.0-4.8) g/dL Globulin 3.6 gm/dL Albumin/Globulin Ratio 1.0 L (1.1-1.8) Laboratory Results - last 24 hr 01/20/18 01/20/18 05:15 05:15 WBC 5.9 RBC 3.71 Hgb 11.6 L Hct 36.5 MCV 98.4 MCH 31.3 MCHC 31.8 RDW 18.0 H Plt Count 143 MPV 10.1 Gran % 30.6 L Lymph % (Auto) 33.3 [place] % (Auto) 35.9 H Eos % (Auto) 0.0 L Baso % (Auto) 0.2 Gran # 1.79 Lymph # (Auto) 2.0 [place] # (Auto) 2.1 H Eos # (Auto) 0.0 Baso # (Auto) 0.01 Sodium 155 H Potassium 3.6 Chloride 107 Carbon Dioxide 40 H Anion Gap 11 BUN 67 H Creatinine 0.9 Est GFR ( Amer) > 60 Est GFR (Non-Af Amer) 60 Random Glucose 104 Calcium 10.0 Total Bilirubin 2.3 H AST 71 H D ALT 87 H Alkaline Phosphatase 52 Total Protein 7.1 Albumin 3.5 Globulin 3.6 Albumin/Globulin Ratio 1.0 L Critical Care Progress Note - Nutrition Nutrition: Nutrition Category Date Time Status NPO Diet [DIET] Diets 01/15/18 Breakfast Ordered Attending/Attestation - Attestation I have personally seen and examined this patient.: Yes I have fully participated in the care of the patient.: Yes I have reviewed all pertinent clinical information: Yes Notes (Text): 01/20/18 14:44 The patient was seen and examined at the bedside. Patient care was discussed with resident Medical records, lab studies, and imaging were reviewed and management issues were discussed and formulated. Last 24H events reviewed. Agree with above treatment plans as outlined in 's note with addition of the following: s\p Acute Respiratory Failure \ Hypoxemia \ Sepsis \ PNA \ UTI \ MAR \ COPD \ Dyastolic CHF \ Hypernatremia \ Uncontrolled HTN \ -hemodynamic monitoring to maintain MAP>65 -continue nicardipine; switch to PO regiment once PO diet started -o2 supplementation to maintain Spo2 >90 Pao2>60; pt is comfortable on NC -continue nebs and taper steroids; continue pulmonary toileting -continue broad spectrum Abx as per ID team and f\u cultures -f\u Bun\Cr and U\o; monitor and replace e-lites; start D5 1/2NS and monitor serial Na+ level -NPO diet pending dysphagia reeval ; continue aspiration precautions -PT\OT eval -restart anticoagulation for h\o DVT as per primary team -DVT \ PUD prophylaxis CCM time 30min
--- NOTE | 2018-01-20 11:35 | CP.PCM.PN ---
Subjective - Date & Time of Evaluation Date of Evaluation: 01/20/18 Time of Evaluation: 10:45 - Subjective Subjective: Patient is now extubated, no fevers, not in distress, still somewhat lethargic but answers questions. Objective - Vital Signs/Intake and Output Vital Signs (last 24 hours): Temp Pulse Resp BP Pulse Ox 98.6 F 82 12 145/50 L 97 01/20/18 11:15 01/20/18 11:15 01/20/18 11:10 01/20/18 11:00 01/20/18 11:15 Intake and Output: 01/20/18 01/20/18 06:59 18:59 Intake Total 156 200 Output Total 1400 Balance -1244 200 - Medications Medications: Current Medications Acetylcysteine (Acetylcysteine 20%) 1 ml IH Q6 [facility] Last Admin: 01/20/18 11:14 Dose: 1 ml Albuterol/Ipratropium (Duoneb 3 Mg/0.5 Mg (3 Ml) Ud) 3 ml IH [id number] [facility] Last Admin: 01/20/18 11:15 Dose: 3 ml Albuterol/Ipratropium (Duoneb 3 Mg/0.5 Mg (3 Ml) Ud) 3 ml IH Q2H PRN PRN Reason: Shortness of Breath Heparin Sodium (Porcine) (Heparin) 5,000 units SC Q12 [facility] PRN Reason: Protocol Last Admin: 01/20/18 09:25 Dose: 5,000 units Hydrocortisone Sodium Succinate (Solu-Cortef) 10 mg IVP Q12 [facility] Last Admin: 01/20/18 10:11 Dose: 10 mg Nicardipine HCl (Cardene Iv Premix) 20 mg in 200 mls @ 50 mls/hr IV .Q4H PRN; Protocol; 5 MG/HR PRN Reason: TITRATE PER MD ORDER Last Admin: 01/20/18 08:07 Dose: 1 mg/hr, 10 mls/hr Dextrose/Sodium Chloride (Dextrose 5%/0.45% Ns 1000 Ml) 1,000 mls @ 75 mls/hr IV .[id number] [facility] Last Admin: 01/20/18 10:12 Dose: 75 mls/hr - Labs Labs: 01/20/18 05:15 01/20/18 05:15 PT 22.9 SECONDS (9.4-12.5) H 08/06/18 05:10 INR 1.96 01/13/18 05:10 APTT 25.5 Seconds (25.1-36.5) 01/13/18 05:10 - Constitutional Appears: Non-toxic, Chronically Ill - Head Exam Head Exam: NORMAL INSPECTION - Neck Exam Neck Exam: absent: Meningismus Additional comments: left IJ TLC in place - Respiratory Exam Respiratory Exam: Decreased Breath Sounds - Cardiovascular Exam Cardiovascular Exam: +S1, +S2 - GI/Abdominal Exam GI & Abdominal Exam: Soft. absent: Tenderness Assessment and Plan - Assessment and Plan (Free Text) Plan: Assessment Consider severe sepsis/ septic shock due to bilateral lower lobe healthcare- associated pneumonia with possible gram positive cocci and/or gram negative bacilli and/or atypical organisms, clinically improved, now S/P VDRF, S/P treatment with antibiotics COPD HTN history of DVT on anticoagulation S/P IVC filter placement dementia chronic CHF Plan completed 7 days of Merrem and Doxycycline - will continue to follow clinically off antibiotics since she is at risk for nosocomial infections
--- NOTE | 2018-01-20 12:07 | CP.PCM.PN ---
Subjective - Date & Time of Evaluation Date of Evaluation: 01/20/18 Time of Evaluation: 11:15 - Subjective Subjective: extubated, slightly lethargic but arousable Objective - Vital Signs/Intake and Output Vital Signs (last 24 hours): Temp Pulse Resp BP Pulse Ox 98.6 F 82 12 145/50 L 97 01/20/18 11:15 01/20/18 11:15 01/20/18 11:10 01/20/18 11:00 01/20/18 11:15 Intake and Output: 01/20/18 01/20/18 06:59 18:59 Intake Total 156 200 Output Total 1400 Balance -1244 200 - Medications Medications: Current Medications Acetylcysteine (Acetylcysteine 20%) 1 ml IH Q6 [facility] Last Admin: 01/20/18 11:14 Dose: 1 ml Albuterol/Ipratropium (Duoneb 3 Mg/0.5 Mg (3 Ml) Ud) 3 ml IH [id number] [facility] Last Admin: 01/20/18 11:15 Dose: 3 ml Albuterol/Ipratropium (Duoneb 3 Mg/0.5 Mg (3 Ml) Ud) 3 ml IH Q2H PRN PRN Reason: Shortness of Breath Heparin Sodium (Porcine) (Heparin) 5,000 units SC Q12 [facility] PRN Reason: Protocol Last Admin: 01/20/18 09:25 Dose: 5,000 units Hydrocortisone Sodium Succinate (Solu-Cortef) 10 mg IVP Q12 [facility] Last Admin: 01/20/18 10:11 Dose: 10 mg Nicardipine HCl (Cardene Iv Premix) 20 mg in 200 mls @ 50 mls/hr IV .Q4H PRN; Protocol; 5 MG/HR PRN Reason: TITRATE PER MD ORDER Last Admin: 01/20/18 08:07 Dose: 1 mg/hr, 10 mls/hr Dextrose/Sodium Chloride (Dextrose 5%/0.45% Ns 1000 Ml) 1,000 mls @ 75 mls/hr IV .[id number] [facility] Last Admin: 01/20/18 10:12 Dose: 75 mls/hr - Labs Labs: 01/20/18 05:15 01/20/18 05:15 PT 22.9 SECONDS (9.4-12.5) H 01/13/18 05:10 INR 1.96 08/06/18 05:10 APTT 25.5 Seconds (25.1-36.5) 01/13/18 05:10 - Respiratory Exam Respiratory Exam: Rhonchi - Cardiovascular Exam Cardiovascular Exam: REGULAR RHYTHM - GI/Abdominal Exam GI & Abdominal Exam: Soft, Normal Bowel Sounds - Extremities Exam Extremities Exam: Normal Inspection - Neurological Exam Neurological Exam: Altered - Skin Skin Exam: Dry, Warm Assessment and Plan (1) Acute and chronic respiratory failure Status: Acute (2) CHF (congestive heart failure) Status: Acute (3) Congestive heart failure Status: Chronic (4) Bladder carcinoma Status: Chronic (5) Dementia Status: Chronic (6) HTN (hypertension) Status: Chronic - Assessment and Plan (Free Text) Plan: PT eval and TX when medically stable, SW for discharge planning
--- NOTE | 2018-01-20 14:48 | CP.PCM.PN ---
Subjective - Date & Time of Evaluation Date of Evaluation: 01/20/18 Time of Evaluation: 14:46 - Subjective Subjective: Nephrology Consultation Note: Assessment: stable Hypernatremia Acute Kidney Injury (N17.9) likely ATN as pt with sepsis/shock: IMPROVING Hypokalemia lactic acidosis, HAGMA, acute respi failure s/p intubation, pneumonia/UTI, severe anemia, hypothermia, ARDS b/l DVT, COPD with mild-moderate pulm HTN, diastolic CHF, Dementia Hypertensive Chronic Kidney Disease (I12.9) Chronic Kidney Disease (N18.3) Stage 3 without proteinuria (R80.9) likely due to HTN/age related decline in renal function 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 consider to add once pt able to take PO Monitor Input/Output, daily weights and renal function with basic metabolic panel PRBC as needed, supplement lytes as needed continue with IVF, can change to D5W alone if Na stays elevated work up for adrenal adenoma as outpt once pt stable Dose meds/antibiotics for improved GFR. Glycemic control Further work up/management as per primary team Thanks for allowing me to participate in care of your patient. Will follow patient with you. Please call if any Qs. had d/w team Dr Celso Mcclendon Office: [phone] Chief Complaint; Unable Reason for consultation is acute kidney injury HPI: Pt is a 87-year-old female with history of dementia osteoarthritis Ckd stage III baseline grade 1.1-1.3 with GFR 55 Chronic obstructive pulmonary disease with pulmonary hypertension also bladder tumor patient/family had refused intervention, came to hospital with shortness of breath, respi distress , pneumonia/UTI with sepsis, respi failure s/p intubated but also with MAR since presentation and hence renal consulted Patient with hx bilateral extensive deep DVT she had IVC filter placed and was also on systemic a/c No recent iodinated contrast exposure. Noted obvious episodes of low BP. ROS: unable to obtain from pt. she is mostly non communating Physical Examination: General Appearance: better appearing. off pressors now, extubated. Vitals reviewed and noted as below Head; Atraumatic, normocephalic ENT: unable EYES: deferred Neck; supple no lymphadenopathy, no thyromegaly or bruit Lungs: Normal respiratory rate/effort. Breath sounds bilateral equal and clearer Heart: Normal rate. s1s2 normal. No rub or gallop. Extremities: no edema. No varicose veins Neurological: Patient is confused Skin: Warm and dry. Normal turgor. No rash. Palpitation: Normal elasticity for age Abdomen: Abdomen is soft. Bowel sounds +. There is no abdominal tenderness, no guarding/rigidity no organomegaly Psych: unable MSK: no joint tenderness or swelling. Digits and nails normal, no deformity : kidney/bladder not palpable, has nazario Labs/imaging reviewed. Past medical history, past surgical history, family history, social history, allergy reviewed and noted as below Family hx: no hx of CKD. Rest non-contributory work up reviewed Objective - Vital Signs/Intake and Output Vital Signs (last 24 hours): Temp Pulse Resp BP Pulse Ox 98.6 F 82 12 145/50 L 97 01/20/18 11:15 01/20/18 11:15 01/20/18 11:10 01/20/18 11:00 01/20/18 11:15 Intake and Output: 01/20/18 01/20/18 06:59 18:59 Intake Total 156 200 Output Total 1400 Balance -1244 200 - Medications Medications: Current Medications Acetylcysteine (Acetylcysteine 20%) 1 ml IH Q6 [facility] Last Admin: 01/20/18 11:14 Dose: 1 ml Albuterol/Ipratropium (Duoneb 3 Mg/0.5 Mg (3 Ml) Ud) 3 ml IH [id number] [facility] Last Admin: 01/20/18 11:15 Dose: 3 ml Albuterol/Ipratropium (Duoneb 3 Mg/0.5 Mg (3 Ml) Ud) 3 ml IH Q2H PRN PRN Reason: Shortness of Breath Heparin Sodium (Porcine) (Heparin) 5,000 units SC Q12 [facility] PRN Reason: Protocol Last Admin: 01/20/18 09:25 Dose: 5,000 units Hydrocortisone Sodium Succinate (Solu-Cortef) 10 mg IVP Q12 [facility] Last Admin: 01/20/18 10:11 Dose: 10 mg Nicardipine HCl (Cardene Iv Premix) 20 mg in 200 mls @ 50 mls/hr IV .Q4H PRN; Protocol; 5 MG/HR PRN Reason: TITRATE PER MD ORDER Last Admin: 01/20/18 08:07 Dose: 1 mg/hr, 10 mls/hr Dextrose/Sodium Chloride (Dextrose 5%/0.45% Ns 1000 Ml) 1,000 mls @ 75 mls/hr IV .[id number] [facility] Last Admin: 01/20/18 10:12 Dose: 75 mls/hr - Labs Labs: 01/20/18 05:15 01/20/18 05:15 PT 22.9 SECONDS (9.4-12.5) H 01/13/18 05:10 INR 1.96 01/13/18 05:10 APTT 25.5 Seconds (25.1-36.5) 01/13/18 05:10
[2018-01-20 16:22] LABS: BLOOD UREA NITROGEN 68 mg/dL (7-21); CALCIUM 9.9 mg/dL (8.4-10.5); GFR AFRICAN-AMERICAN > 60; GFR NON-AFRICAN AMERICAN > 60
[2018-01-21] MEDS: Acetylcysteine 20% Inhal Soln (4ml) IH SCH ×4 (03:26→19:45)
[2018-01-21] MEDS: Albuterol-Ipratrop 3 mg / 0.5 (3 ml) UD IH SCH ×6 (03:26→23:30)
[2018-01-21] MEDS: Nicardipine 20 MG/200 ML 20 MG/200 ML BAG IV PRN ×2 (05:35→13:30)
[2018-01-21 06:42] LABS: BASO # 0.01 K/mm3 (0.0-2.0); BASO % 0.1 % (0.0-3.0); GRAN # 2.19 (1.4-6.5); GRAN % 31.9 % (50.0-68.0); HEMOGLOBIN 12.2 g/dL (12.0-16.0); LYMPH # 2.1 (1.2-3.4); MEAN CELL VOLUME 97.7 fl (80.0-105.0); MEAN CORPUSCULAR HGB CONC 31.7 g/dl (31.0-37.0); MEAN PLATELET VOLUME 10.4 fl (7.0-11.0); MONO # 2.6 (0.1-0.6); RBC 3.94 10^6/uL (3.5-6.1); RED CELL DISTRIBUTION WIDTH 17.4 % (11.5-14.5); WHITE BLOOD COUNT 6.9 10^3/ul (4.5-11.0)
[2018-01-21 06:59] LABS: ALBUMIN 3.5 g/dL (3.0-4.8); ALT/SGPT 85 U/L (7-56); AST/SGOT 66 U/L (14-36); BLOOD UREA NITROGEN 59 mg/dL (7-21); GFR AFRICAN-AMERICAN > 60; GFR NON-AFRICAN AMERICAN > 60
--- NOTE | 2018-01-21 11:55 | CP.PCM.PN ---
Subjective - Date & Time of Evaluation Date of Evaluation: 01/21/18 Time of Evaluation: 09:00 - Subjective Subjective: Comfortable in bed, more conversant now, no fevers, no diarrhea, no abdominal pain. Objective - Vital Signs/Intake and Output Vital Signs (last 24 hours): Temp Pulse Resp BP Pulse Ox 98.6 F 82 12 145/50 L 97 01/20/18 11:15 01/20/18 11:15 01/20/18 11:10 01/20/18 11:00 01/20/18 11:15 Intake and Output: 01/20/18 01/20/18 06:59 18:59 Intake Total 156 200 Output Total 1400 Balance -1244 200 - Medications Medications: Current Medications Acetylcysteine (Acetylcysteine 20%) 1 ml IH Q6 [facility] Last Admin: 01/20/18 11:14 Dose: 1 ml Albuterol/Ipratropium (Duoneb 3 Mg/0.5 Mg (3 Ml) Ud) 3 ml IH [id number] [facility] Last Admin: 01/20/18 11:15 Dose: 3 ml Albuterol/Ipratropium (Duoneb 3 Mg/0.5 Mg (3 Ml) Ud) 3 ml IH Q2H PRN PRN Reason: Shortness of Breath Heparin Sodium (Porcine) (Heparin) 5,000 units SC Q12 [facility]AN PRN Reason: Protocol Last Admin: 01/20/18 09:25 Dose: 5,000 units Hydrocortisone Sodium Succinate (Solu-Cortef) 10 mg IVP Q12 [facility] Last Admin: 01/20/18 10:11 Dose: 10 mg Nicardipine HCl (Cardene Iv Premix) 20 mg in 200 mls @ 50 mls/hr IV .Q4H PRN; Protocol; 5 MG/HR PRN Reason: TITRATE PER MD ORDER Last Admin: 01/20/18 08:07 Dose: 1 mg/hr, 10 mls/hr Dextrose/Sodium Chloride (Dextrose 5%/0.45% Ns 1000 Ml) 1,000 mls @ 75 mls/hr IV .[id number] [facility] Last Admin: 01/20/18 10:12 Dose: 75 mls/hr - Labs Labs: 01/20/18 05:15 01/20/18 05:15 PT 22.9 SECONDS (9.4-12.5) H 01/13/18 05:10 INR 1.96 01/13/18 05:10 APTT 25.5 Seconds (25.1-36.5) 01/13/18 05:10 - Constitutional Appears: Chronically Ill - Head Exam Head Exam: NORMAL INSPECTION - ENT Exam ENT Exam: Mucous Membranes Moist - Neck Exam Neck Exam: absent: Meningismus - Respiratory Exam Respiratory Exam: Decreased Breath Sounds - Cardiovascular Exam Cardiovascular Exam: +S1, +S2 - GI/Abdominal Exam GI & Abdominal Exam: Soft. absent: Tenderness Assessment and Plan - Assessment and Plan (Free Text) Plan: Assessment S/P severe sepsis/ septic shock due to bilateral lower lobe healthcare- associated pneumonia with possible gram positive cocci and/or gram negative bacilli and/or atypical organisms, clinically improved, now S/P VDRF, S/P treatment with antibiotics mild transaminitis, etiology to be determined COPD HTN history of DVT on anticoagulation S/P IVC filter placement dementia chronic CHF Plan completed 7 days of Merrem and Doxycycline - will continue to follow clinically off antibiotics since she is at risk for hospital-acquired infections will get U/S abdomen for the elevated liver enzymes
--- NOTE | 2018-01-21 12:11 | CP.PCM.PN ---
Subjective - Date & Time of Evaluation Date of Evaluation: 01/21/18 Time of Evaluation: 11:40 - Subjective Subjective: resting comfortably, NAD Objective - Vital Signs/Intake and Output Vital Signs (last 24 hours): Temp Pulse Resp BP Pulse Ox 98.4 F 76 11 L 151/62 H 100 01/21/18 07:30 01/21/18 07:30 01/21/18 07:30 01/21/18 07:00 01/21/18 07:30 Intake and Output: 01/21/18 01/21/18 06:59 18:59 Intake Total 2105 Output Total 1800 Balance 305 - Medications Medications: Current Medications Acetylcysteine (Acetylcysteine 20%) 1 ml IH Q6 [facility] Last Admin: 01/21/18 07:13 Dose: 1 ml Albuterol/Ipratropium (Duoneb 3 Mg/0.5 Mg (3 Ml) Ud) 3 ml IH [id number] [facility] Last Admin: 01/21/18 11:04 Dose: 3 ml Albuterol/Ipratropium (Duoneb 3 Mg/0.5 Mg (3 Ml) Ud) 3 ml IH Q2H PRN PRN Reason: Shortness of Breath Amlodipine Besylate (Norvasc) 10 mg PO DAILY [facility] Heparin Sodium (Porcine) (Heparin) 5,000 units SC Q12 [facility] PRN Reason: Protocol Last Admin: 01/21/18 09:21 Dose: 5,000 units Hydrocortisone Sodium Succinate (Solu-Cortef) 10 mg IVP Q12 [facility] Last Admin: 01/21/18 09:22 Dose: 10 mg Nicardipine HCl (Cardene Iv Premix) 20 mg in 200 mls @ 50 mls/hr IV .Q4H PRN; Protocol; 5 MG/HR PRN Reason: TITRATE PER MD ORDER Last Admin: 01/21/18 05:35 Dose: 2.5 mg/hr, 25 mls/hr Dextrose (Dextrose 5% In Water 1000 Ml) 1,000 mls @ 75 mls/hr IV .[id number] [facility] Last Admin: 01/21/18 08:14 Dose: 75 mls/hr Potassium Chloride (Potassium Chloride 20 Meq/100 Ml) 20 meq in 100 mls @ 50 mls/hr IVPB Q2H [facility] Stop: 01/21/18 13:14 Last Admin: 01/21/18 09:21 Dose: 50 mls/hr Lisinopril (Zestril) 5 mg PO DAILY TWAN - Labs Labs: 01/21/18 05:30 01/21/18 05:30 PT 22.9 SECONDS (9.4-12.5) H 01/13/18 05:10 INR 1.96 01/13/18 05:10 APTT 25.5 Seconds (25.1-36.5) 01/13/18 05:10 - Respiratory Exam Respiratory Exam: Rhonchi - Cardiovascular Exam Cardiovascular Exam: REGULAR RHYTHM - GI/Abdominal Exam GI & Abdominal Exam: Soft, Normal Bowel Sounds - Extremities Exam Extremities Exam: Normal Inspection - Neurological Exam Neurological Exam: Altered - Skin Skin Exam: Dry, Warm Assessment and Plan (1) Acute and chronic respiratory failure Status: Acute (2) CHF (congestive heart failure) Status: Acute (3) Congestive heart failure Status: Chronic (4) Bladder carcinoma Status: Chronic (5) Dementia Status: Chronic (6) HTN (hypertension) Status: Chronic
--- NOTE | 2018-01-21 12:21 | CP.PCM.PN ---
Subjective - Date & Time of Evaluation Date of Evaluation: 01/21/18 Time of Evaluation: 12:19 - Subjective Subjective: Nephrology Consultation Note: Assessment: stable Hypernatremia Acute Kidney Injury (N17.9) likely ATN as pt with sepsis/shock: IMPROVING Hypokalemia lactic acidosis, HAGMA, acute respi failure s/p intubation, pneumonia/UTI, severe anemia, hypothermia, ARDS b/l DVT, COPD with mild-moderate pulm HTN, diastolic CHF, Dementia Hypertensive Chronic Kidney Disease (I12.9) Chronic Kidney Disease (N18.3) Stage 3 without proteinuria (R80.9) likely due to HTN/age related decline in renal function 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 MAR has resolved held ACEI/ARB due to MAR. agree with adding RAAS chester, uptitrate dose further as needed. added low dose hctz 12.5 mg as well Monitor Input/Output, daily weights and renal function with basic metabolic panel PRBC as needed, supplement lytes as needed work up for adrenal adenoma as outpt once pt stable Dose meds/antibiotics for improved GFR. Glycemic control Further work up/management as per primary team Thanks for allowing me to participate in care of your patient. Will follow patient with you. Please call if any Qs. had d/w team Dr Celso Mcclendon Office: [phone] Chief Complaint; Unable Reason for consultation is acute kidney injury HPI: Pt is a 87-year-old female with history of dementia osteoarthritis Ckd stage III baseline grade 1.1-1.3 with GFR 55 Chronic obstructive pulmonary disease with pulmonary hypertension also bladder tumor patient/family had refused intervention, came to hospital with shortness of breath, respi distress , pneumonia/UTI with sepsis, respi failure s/p intubated but also with MAR since presentation and hence renal consulted Patient with hx bilateral extensive deep DVT she had IVC filter placed and was also on systemic a/c No recent iodinated contrast exposure. Noted obvious episodes of low BP. ROS:pt feels better. denies SOB/pain. Physical Examination: General Appearance: better appearing.comfortable not in distress Vitals reviewed and noted as below Head; Atraumatic, normocephalic Neck; supple no lymphadenopathy, no thyromegaly or bruit Lungs: Normal respiratory rate/effort. Breath sounds bilateral equal and clearer Heart: Normal rate. s1s2 normal. No rub or gallop. Extremities: no edema. No varicose veins Neurological: Patient is alert awake follows commands. hx of dementia Skin: Warm and dry. Normal turgor. No rash. Palpitation: Normal elasticity for age Abdomen: Abdomen is soft. Bowel sounds +. There is no abdominal tenderness, no guarding/rigidity no organomegaly Psych: lack insight MSK: no joint tenderness or swelling. Digits and nails normal, no deformity : kidney/bladder not palpable, has nazario Labs/imaging reviewed. Past medical history, past surgical history, family history, social history, allergy reviewed and noted as below Family hx: no hx of CKD. Rest non-contributory work up reviewed Objective - Vital Signs/Intake and Output Vital Signs (last 24 hours): Temp Pulse Resp BP Pulse Ox 98.4 F 76 11 L 151/62 H 100 01/21/18 07:30 01/21/18 07:30 01/21/18 07:30 01/21/18 07:00 01/21/18 07:30 Intake and Output: 01/21/18 01/21/18 06:59 18:59 Intake Total 2105 Output Total 1800 Balance 305 - Medications Medications: Current Medications Acetylcysteine (Acetylcysteine 20%) 1 ml IH Q6 [facility] Last Admin: 01/21/18 07:13 Dose: 1 ml Albuterol/Ipratropium (Duoneb 3 Mg/0.5 Mg (3 Ml) Ud) 3 ml IH [id number] [facility] Last Admin: 01/21/18 11:04 Dose: 3 ml Albuterol/Ipratropium (Duoneb 3 Mg/0.5 Mg (3 Ml) Ud) 3 ml IH Q2H PRN PRN Reason: Shortness of Breath Amlodipine Besylate (Norvasc) 10 mg PO DAILY [facility] Heparin Sodium (Porcine) (Heparin) 5,000 units SC Q12 [facility] PRN Reason: Protocol Last Admin: 01/21/18 09:21 Dose: 5,000 units Hydrochlorothiazide (Microzide) 12.5 mg PO DAILY [facility] Hydrocortisone Sodium Succinate (Solu-Cortef) 10 mg IVP Q12 [facility] Last Admin: 01/21/18 09:22 Dose: 10 mg Nicardipine HCl (Cardene Iv Premix) 20 mg in 200 mls @ 50 mls/hr IV .Q4H PRN; Protocol; 5 MG/HR PRN Reason: TITRATE PER MD ORDER Last Admin: 01/21/18 05:35 Dose: 2.5 mg/hr, 25 mls/hr Dextrose (Dextrose 5% In Water 1000 Ml) 1,000 mls @ 75 mls/hr IV .[id number] [facility] Last Admin: 01/21/18 08:14 Dose: 75 mls/hr Potassium Chloride (Potassium Chloride 20 Meq/100 Ml) 20 meq in 100 mls @ 50 mls/hr IVPB Q2H [facility] Stop: 01/21/18 13:14 Last Admin: 01/21/18 09:21 Dose: 50 mls/hr Lisinopril (Zestril) 5 mg PO DAILY TWAN - Labs Labs: 01/21/18 05:30 01/21/18 05:30 PT 22.9 SECONDS (9.4-12.5) H 01/13/18 05:10 INR 1.96 01/13/18 05:10 APTT 25.5 Seconds (25.1-36.5) 01/13/18 05:10
--- NOTE | 2018-01-21 12:57 | CP.CCUPN ---
<YocastaFlorencio - Last Filed: 01/21/18 12:47> CCU Subjective - Physician Review Events Since Last Encounter (Free Text): 01/21/18 12:48 Patient seen and examined at bedside. Patient still on cardine drip. Continues to improve clinically by following commands, but patient is still having difficulty communicating. CCU Objective - Vital Signs / Intake & Output Intake and Output (Last 8hrs): Intake & Output 01/20/18 01/21/18 01/21/18 22:59 06:59 14:59 Intake Total 900 1205 Output Total 800 1000 Balance 100 205 Weight 72.121 kg Intake: IV 900 1205 Left Internal Jugular 1005 fentanyl 900 Output: Urine 800 1000 Urethral (Starkey) 800 1000 - Physical Exam Head: Positive for: Atraumatic, Normocephalic Pupils: Positive for: PERRL Extroacular Muscles: Positive for: EOMI Mouth: Positive for: Dry Nose (External): Positive for: Atraumatic Neck: Positive for: Normal Range of Motion Respiratory/Chest: Positive for: Clear to Auscultation, Wheezes, Decreased Breath Sounds, Retracting, Tachypneic Cardiovascular: Positive for: Tachycardic Abdomen: Negative for: Tenderness, Rebound, Guarding Upper Extremity: Positive for: Cyanosis. Negative for: Edema Lower Extremity: Positive for: Cyanosis. Negative for: Edema Skin: Positive for: Cold, Pale Psychiatric: Positive for: Alert, Anxious, Agitated - Medications Active Medications: Active Medications Generic Name Dose Route Start Last Admin Trade Name Freq PRN Reason Stop Dose Admin Acetylcysteine 1 ml 01/19/18 18:00 01/21/18 07:13 Acetylcysteine 20% IH 1 ml Q6 TWAN Administration Albuterol/Ipratropium 3 ml 01/13/18 11:30 01/21/18 11:04 Duoneb 3 Mg/0.5 Mg (3 Ml) Ud IH 3 ml [id number] TWAN Administration Albuterol/Ipratropium 3 ml 01/13/18 09:07 Duoneb 3 Mg/0.5 Mg (3 Ml) Ud IH Q2H PRN Shortness of Breath Amlodipine Besylate 10 mg 01/21/18 11:15 Norvasc PO DAILY TWAN Heparin Sodium (Porcine) 5,000 units 01/14/18 10:00 01/21/18 09:21 Heparin SC 5,000 units Q12 TWAN Administration Protocol Hydrochlorothiazide 12.5 mg 01/22/18 10:00 Microzide PO DAILY TWAN Hydrocortisone Sodium Succinate 10 mg 01/20/18 09:04 01/21/18 09:22 Solu-Cortef IVP 10 mg Q12 TWAN Administration Nicardipine HCl 20 mg in 200 mls @ 50 mls/hr 01/19/18 12:30 01/21/18 05:35 Cardene Iv Premix IV 2.5 mg/hr .Q4H PRN 25 mls/hr TITRATE PER MD ORDER Administration Protocol 5 MG/HR Dextrose 1,000 mls @ 75 mls/hr 01/20/18 17:15 01/21/18 08:14 Dextrose 5% In Water 1000 Ml IV 75 mls/hr .[id number] TWAN Administration Potassium Chloride 20 meq in 100 mls @ 50 mls/hr 01/21/18 09:15 01/21/18 09: 21 Potassium Chloride 20 Meq/100 Ml IVPB 01/21/18 13:14 50 mls/hr Q2H TWAN Administration Lisinopril 5 mg 01/21/18 11:15 Zestril PO DAILY TWAN - Patient Studies Lab Studies: Lab Studies 01/21/18 01/21/18 01/20/18 Range/Units 05:30 05:30 15:55 WBC 6.9 (4.5-11.0) 10^3/ul RBC 3.94 (3.5-6.1) 10^6/uL Hgb 12.2 (12.0-16.0) g/dL Hct 38.5 (36.0-48.0) % MCV 97.7 (80.0-105.0) fl MCH 31.0 (25.0-35.0) pg MCHC 31.7 (31.0-37.0) g/dl RDW 17.4 H (11.5-14.5) % Plt Count 138 (120.0-450.0) 10^3/uL MPV 10.4 (7.0-11.0) fl Gran % 31.9 L (50.0-68.0) % Lymph % (Auto) 30.0 (22.0-35.0) % [place] % (Auto) 38.0 H (1.0-6.0) % Eos % (Auto) 0.0 L (1.5-5.0) % Baso % (Auto) 0.1 (0.0-3.0) % Gran # 2.19 (1.4-6.5) Lymph # (Auto) 2.1 (1.2-3.4) [place] # (Auto) 2.6 H (0.1-0.6) Eos # (Auto) 0.0 (0.0-0.7) Baso # (Auto) 0.01 (0.0-2.0) K/mm3 Sodium 151 H 154 H (132-148) mmol/L Potassium 3.0 L 3.4 L (3.6-5.0) mmol/L Chloride 106 109 H (98-107) mmol/L Carbon Dioxide 38 H 38 H (21-33) mmol/L Anion Gap 10 11 (10-20) BUN 59 H 68 H (7-21) mg/dL Creatinine 0.8 0.8 (0.7-1.2) mg/dl Est GFR ( Amer) > 60 > 60 Est GFR (Non-Af Amer) > 60 > 60 Random Glucose 116 H 121 H (70-110) mg/dL Calcium 10.0 9.9 (8.4-10.5) mg/dL Total Bilirubin 1.9 H (0.2-1.3) mg/dL AST 66 H (14-36) U/L ALT 85 H (7-56) U/L Alkaline Phosphatase 51 (38-126) U/L Total Protein 7.0 (5.8-8.3) g/dL Albumin 3.5 (3.0-4.8) g/dL Globulin 3.5 gm/dL Albumin/Globulin Ratio 1.0 L (1.1-1.8) Procalcitonin (0.19-0.49) NG/ML 01/20/18 Range/Units 06:00 WBC (4.5-11.0) 10^3/ul RBC (3.5-6.1) 10^6/uL Hgb (12.0-16.0) g/dL Hct (36.0-48.0) % MCV (80.0-105.0) fl MCH (25.0-35.0) pg MCHC (31.0-37.0) g/dl RDW (11.5-14.5) % Plt Count (120.0-450.0) 10^3/uL MPV (7.0-11.0) fl Gran % (50.0-68.0) % Lymph % (Auto) (22.0-35.0) % [place] % (Auto) (1.0-6.0) % Eos % (Auto) (1.5-5.0) % Baso % (Auto) (0.0-3.0) % Gran # (1.4-6.5) Lymph # (Auto) (1.2-3.4) [place] # (Auto) (0.1-0.6) Eos # (Auto) (0.0-0.7) Baso # (Auto) (0.0-2.0) K/mm3 Sodium (132-148) mmol/L Potassium (3.6-5.0) mmol/L Chloride (98-107) mmol/L Carbon Dioxide (21-33) mmol/L Anion Gap (10-20) BUN (7-21) mg/dL Creatinine (0.7-1.2) mg/dl Est GFR ( Amer) Est GFR (Non-Af Amer) Random Glucose (70-110) mg/dL Calcium (8.4-10.5) mg/dL Total Bilirubin (0.2-1.3) mg/dL AST (14-36) U/L ALT (7-56) U/L Alkaline Phosphatase (38-126) U/L Total Protein (5.8-8.3) g/dL Albumin (3.0-4.8) g/dL Globulin gm/dL Albumin/Globulin Ratio (1.1-1.8) Procalcitonin 0.66 H (0.19-0.49) NG/ML Laboratory Results - last 24 hr 01/20/18 01/20/18 01/21/18 06:00 15:55 05:30 WBC 6.9 RBC 3.94 Hgb 12.2 Hct 38.5 MCV 97.7 MCH 31.0 MCHC 31.7 RDW 17.4 H Plt Count 138 MPV 10.4 Gran % 31.9 L Lymph % (Auto) 30.0 [place] % (Auto) 38.0 H Eos % (Auto) 0.0 L Baso % (Auto) 0.1 Gran # 2.19 Lymph # (Auto) 2.1 [place] # (Auto) 2.6 H Eos # (Auto) 0.0 Baso # (Auto) 0.01 Sodium 154 H Potassium 3.4 L Chloride 109 H Carbon Dioxide 38 H Anion Gap 11 BUN 68 H Creatinine 0.8 Est GFR ( Amer) > 60 Est GFR (Non-Af Amer) > 60 Random Glucose 121 H Calcium 9.9 Total Bilirubin AST ALT Alkaline Phosphatase Total Protein Albumin Globulin Albumin/Globulin Ratio Procalcitonin 0.66 H 01/21/18 05:30 WBC RBC Hgb Hct MCV MCH MCHC RDW Plt Count MPV Gran % Lymph % (Auto) [place] % (Auto) Eos % (Auto) Baso % (Auto) Gran # Lymph # (Auto) [place] # (Auto) Eos # (Auto) Baso # (Auto) Sodium 151 H Potassium 3.0 L Chloride 106 Carbon Dioxide 38 H Anion Gap 10 BUN 59 H Creatinine 0.8 Est GFR ( Amer) > 60 Est GFR (Non-Af Amer) > 60 Random Glucose 116 H Calcium 10.0 Total Bilirubin 1.9 H AST 66 H ALT 85 H Alkaline Phosphatase 51 Total Protein 7.0 Albumin 3.5 Globulin 3.5 Albumin/Globulin Ratio 1.0 L Procalcitonin Fingerstick Blood Sugar Results: 209 Critical Care Progress Note - Nutrition Nutrition: Nutrition Category Date Time Status Dysphagia/Modified Consistency Diet [DIET] Diets 01/21/18 Lunch Ordered Assessment/Plan - Assessment and Plan (Free Text) Assessment: 87 F under ICU mgmt for septic shock due to UTI vs HCAP PNA with MOF in setting of lactic acidosis, possible ARDS, and MAR. 1. Acute Metabolic Acidosis with Superimposed Respiratory Alkalosis - resolved 2. Acute Anemia s/p 4 U PRBC, 2 U FFP 3. Hx DVT on eliquis, s/p IVC filter RE: anemia, patient's hemoglobin has stabilized after discontinuation of Zyvox. On admission, patient's Hgb 6.2 5A-->1U at 8:41 and 1 U at 10:56; 1 FFP at 1: 04-->Hg 7.8 at 2P-->1 U FFP at 3:52P--> Hgb on 01/14 am 7.7; 01/15 morning, Hgb was 6.3, now stable. Regarding septic shock, WBC of 14.2 --> 8.1 --> 3.7 yesterday AM, now stabilized patient pressures maintained now off of pressors. Blood cultures are negative thus far, but U Cx with akbar-sensitive E. Coli; Chest XR from this am shows no interval change from yesterday. RE: MAR, patient 's creatinine was improving from 2.0 to 1.3, but started bumping back up; today it is stable, BUN is riding up. Patient's acidosis status is improved now, in fact becoming alkalotic 2/2 contraction. Patient's shock has resolved. Some concern re: pancytopenia arose , could have been secondary to ABx vs Sepsis; pancytopenia improved after Zyvox was discontinued. Patient's SBI < 100 before extubation, chest XR revealed less fluid, and patient 's respiratory status overall improved. Patient continues to become hypertensive and is still on Cardene drip. Plan: Neuro: Discontinue fentanyl; weaning trial; maintain normothermia. Pulm: Continue Duonebs. Solu-cortef 10q12; Mucomyst. Maintain O2 Sats > 92 % with pulmonary toileting and supplemental O2 PRN Cardio: Hold Lasix. Maintain MAP > 65; Continue to hydrate with D5-1/2NS, continue Cardene drip but start PO Lisinopril 5 and Norvasc 10. Start to wean off cardene drip. GI: D/c Protonix for GI PPX : Maintain euvolemia; Monitor MAR Per Nephro: work up for adrenal adenoma as outpt once pt stable Dose meds/ antibiotics for reduced GFR. ID: [id number] de-escalated, patient off antibiotics Heme: Patient is s/p 3U PRBC and 2 U FFP with stable Hgb; Patient is on Eliquis at home, will start therapeutic lovenox Endo: Maintain Euglycemia <FraustoBilal - Last Filed: 01/21/18 14:39> CCU Objective - Vital Signs / Intake & Output Vital Signs (Last 4 hours): Vital Signs Pulse BP 01/21/18 13:25 75 144/100 H Intake and Output (Last 8hrs): Intake & Output 08/13/18 08/14/18 08/14/18 22:59 06:59 14:59 Intake Total 900 1205 200 Output Total 800 1000 Balance 100 205 200 Weight 159 lb Intake: IV 900 1205 200 Left Internal Jugular 1005 fentanyl 900 Output: Urine 800 1000 Urethral (Starkey) 800 1000 - Medications Active Medications: Active Medications Generic Name Dose Route Start Last Admin Trade Name Freq PRN Reason Stop Dose Admin Acetylcysteine 1 ml 01/19/18 18:00 01/21/18 07:13 Acetylcysteine 20% IH 1 ml Q6 TWAN Administration Albuterol/Ipratropium 3 ml 01/13/18 11:30 01/21/18 11:04 Duoneb 3 Mg/0.5 Mg (3 Ml) Ud IH 3 ml [id number] TWAN Administration Albuterol/Ipratropium 3 ml 01/13/18 09:07 Duoneb 3 Mg/0.5 Mg (3 Ml) Ud IH Q2H PRN Shortness of Breath Amlodipine Besylate 10 mg 01/21/18 11:15 01/21/18 13:25 Norvasc PO 10 mg DAILY TWAN Administration Enoxaparin Sodium 70 mg 01/21/18 13:00 01/21/18 13:25 Lovenox SC 70 mg Q12H TWAN Administration Protocol Hydrochlorothiazide 12.5 mg 01/22/18 10:00 Microzide PO DAILY TWAN Hydrocortisone Sodium Succinate 10 mg 01/20/18 09:04 01/21/18 09:22 Solu-Cortef IVP 10 mg Q12 TWAN Administration Nicardipine HCl 20 mg in 200 mls @ 50 mls/hr 01/19/18 12:30 01/21/18 13:30 Cardene Iv Premix IV 2.5 mg/hr .Q4H PRN 25 mls/hr TITRATE PER MD ORDER Administration Protocol 5 MG/HR Dextrose 1,000 mls @ 75 mls/hr 01/20/18 17:15 01/21/18 08:14 Dextrose 5% In Water 1000 Ml IV 75 mls/hr .[id number] TWAN Administration Lisinopril 5 mg 01/21/18 11:15 01/21/18 13:25 Zestril PO 5 mg DAILY TAWN Administration - Patient Studies Lab Studies: Lab Studies 01/21/18 01/21/18 01/20/18 Range/Units 05:30 05:30 15:55 WBC 6.9 (4.5-11.0) 10^3/ul RBC 3.94 (3.5-6.1) 10^6/uL Hgb 12.2 (12.0-16.0) g/dL Hct 38.5 (36.0-48.0) % MCV 97.7 (80.0-105.0) fl MCH 31.0 (25.0-35.0) pg MCHC 31.7 (31.0-37.0) g/dl RDW 17.4 H (11.5-14.5) % Plt Count 138 (120.0-450.0) 10^3/uL MPV 10.4 (7.0-11.0) fl Gran % 31.9 L (50.0-68.0) % Lymph % (Auto) 30.0 (22.0-35.0) % [place] % (Auto) 38.0 H (1.0-6.0) % Eos % (Auto) 0.0 L (1.5-5.0) % Baso % (Auto) 0.1 (0.0-3.0) % Gran # 2.19 (1.4-6.5) Lymph # (Auto) 2.1 (1.2-3.4) [place] # (Auto) 2.6 H (0.1-0.6) Eos # (Auto) 0.0 (0.0-0.7) Baso # (Auto) 0.01 (0.0-2.0) K/mm3 Sodium 151 H 154 H (132-148) mmol/L Potassium 3.0 L 3.4 L (3.6-5.0) mmol/L Chloride 106 109 H (98-107) mmol/L Carbon Dioxide 38 H 38 H (21-33) mmol/L Anion Gap 10 11 (10-20) BUN 59 H 68 H (7-21) mg/dL Creatinine 0.8 0.8 (0.7-1.2) mg/dl Est GFR ( Amer) > 60 > 60 Est GFR (Non-Af Amer) > 60 > 60 Random Glucose 116 H 121 H (70-110) mg/dL Calcium 10.0 9.9 (8.4-10.5) mg/dL Total Bilirubin 1.9 H (0.2-1.3) mg/dL AST 66 H (14-36) U/L ALT 85 H (7-56) U/L Alkaline Phosphatase 51 (38-126) U/L Total Protein 7.0 (5.8-8.3) g/dL Albumin 3.5 (3.0-4.8) g/dL Globulin 3.5 gm/dL Albumin/Globulin Ratio 1.0 L (1.1-1.8) Procalcitonin (0.19-0.49) NG/ML 01/20/18 Range/Units 06:00 WBC (4.5-11.0) 10^3/ul RBC (3.5-6.1) 10^6/uL Hgb (12.0-16.0) g/dL Hct (36.0-48.0) % MCV (80.0-105.0) fl MCH (25.0-35.0) pg MCHC (31.0-37.0) g/dl RDW (11.5-14.5) % Plt Count (120.0-450.0) 10^3/uL MPV (7.0-11.0) fl Gran % (50.0-68.0) % Lymph % (Auto) (22.0-35.0) % [place] % (Auto) (1.0-6.0) % Eos % (Auto) (1.5-5.0) % Baso % (Auto) (0.0-3.0) % Gran # (1.4-6.5) Lymph # (Auto) (1.2-3.4) [place] # (Auto) (0.1-0.6) Eos # (Auto) (0.0-0.7) Baso # (Auto) (0.0-2.0) K/mm3 Sodium (132-148) mmol/L Potassium (3.6-5.0) mmol/L Chloride (98-107) mmol/L Carbon Dioxide (21-33) mmol/L Anion Gap (10-20) BUN (7-21) mg/dL Creatinine (0.7-1.2) mg/dl Est GFR ( Amer) Est GFR (Non-Af Amer) Random Glucose (70-110) mg/dL Calcium (8.4-10.5) mg/dL Total Bilirubin (0.2-1.3) mg/dL AST (14-36) U/L ALT (7-56) U/L Alkaline Phosphatase (38-126) U/L Total Protein (5.8-8.3) g/dL Albumin (3.0-4.8) g/dL Globulin gm/dL Albumin/Globulin Ratio (1.1-1.8) Procalcitonin 0.66 H (0.19-0.49) NG/ML Laboratory Results - last 24 hr 01/20/18 01/20/18 01/21/18 06:00 15:55 05:30 WBC 6.9 RBC 3.94 Hgb 12.2 Hct 38.5 MCV 97.7 MCH 31.0 MCHC 31.7 RDW 17.4 H Plt Count 138 MPV 10.4 Gran % 31.9 L Lymph % (Auto) 30.0 [place] % (Auto) 38.0 H Eos % (Auto) 0.0 L Baso % (Auto) 0.1 Gran # 2.19 Lymph # (Auto) 2.1 [place] # (Auto) 2.6 H Eos # (Auto) 0.0 Baso # (Auto) 0.01 Sodium 154 H Potassium 3.4 L Chloride 109 H Carbon Dioxide 38 H Anion Gap 11 BUN 68 H Creatinine 0.8 Est GFR ( Amer) > 60 Est GFR (Non-Af Amer) > 60 Random Glucose 121 H Calcium 9.9 Total Bilirubin AST ALT Alkaline Phosphatase Total Protein Albumin Globulin Albumin/Globulin Ratio Procalcitonin 0.66 H 01/21/18 05:30 WBC RBC Hgb Hct MCV MCH MCHC RDW Plt Count MPV Gran % Lymph % (Auto) [place] % (Auto) Eos % (Auto) Baso % (Auto) Gran # Lymph # (Auto) [place] # (Auto) Eos # (Auto) Baso # (Auto) Sodium 151 H Potassium 3.0 L Chloride 106 Carbon Dioxide 38 H Anion Gap 10 BUN 59 H Creatinine 0.8 Est GFR ( Amer) > 60 Est GFR (Non-Af Amer) > 60 Random Glucose 116 H Calcium 10.0 Total Bilirubin 1.9 H AST 66 H ALT 85 H Alkaline Phosphatase 51 Total Protein 7.0 Albumin 3.5 Globulin 3.5 Albumin/Globulin Ratio 1.0 L Procalcitonin Critical Care Progress Note - Nutrition Nutrition: Nutrition Category Date Time Status Dysphagia/Modified Consistency Diet [DIET] Diets 01/21/18 Lunch Ordered Addendum Addendum: 01/21/18 14:33 ICU Attending Addendum: Patient seen and examined. Case reviewed on round with housestaff. Agree with resident note above with the following additions/exceptions: VDRF / Accelerated HTN / ARDS / CHF / pleural effusions Ms Grant is doing well from a pulm perspective since being extubated. She still cannot pass a swallow eval which is why her bp has been controlled via IV Nicardipine. Will insert OGT today and deliver PO meds. For her BP, we will start norvasc 10mg and lisinopril 5 mg. SHould be able to titrate off the drip. Goal BP is normotensive. She has a hx of a DVT, will get more information regarding this as she should be resumed on eliquis if indicated. Unclear what her neuro/functional status is at baseline. She is very weak jose in her upper extremeties. She will need PT. Pall care should come see her as well. Cont ICU care while on nicardipine drip Rest of care as noted above. Richie Frausto MD [employer] Critical care time : 35mins 01/21/18 14:37
--- NOTE | 2018-01-21 13:12 | US ---
Date of service: 01/21/2018 HISTORY: bilirubin, liver enzymes elevation COMPARISON: None. TECHNIQUE: Sonographic evaluation of the abdomen. FINDINGS: LIVER: Measures 15.6 cm. Increased echogenicity of the liver parenchyma. No mass. No intrahepatic bile duct dilatation. GALLBLADDER: Multiple stones. No focal tenderness. No mural edema or fluid COMMON BILE DUCT: Measures 3.2 mm. No stones. No dilatation. PANCREAS: Unremarkable as visualized. No mass. No ductal dilatation. RIGHT KIDNEY: Measures 10.4 x 5.8 x 5.6cm. Normal echogenicity. No calculus, mass, or hydronephrosis. LEFT KIDNEY: Measures 10.0 x 5.6 x 5.9cm. Mild left-sided hydronephrosis. SPLEEN: Normal in size and contour. No mass. 8.9 x 4.6 x 3.6 cm AORTA: No aneurysmal dilatation. IVC: Unremarkable. OTHER FINDINGS: Small left pleural effusion IMPRESSION: Gallstones
[2018-01-21] MEDS: Enoxaparin 80 mg Syringe SC SCH (13:25)
[2018-01-22] MEDS: Enoxaparin 80 mg Syringe SC SCH (01:15)
[2018-01-22] MEDS: Acetylcysteine 20% Inhal Soln (4ml) IH SCH ×3 (04:00→11:01)
[2018-01-22] MEDS: Albuterol-Ipratrop 3 mg / 0.5 (3 ml) UD IH SCH ×4 (04:00→15:54)
[2018-01-22 06:41] LABS: EOS % 0.3 % (1.5-5.0); GRAN # 2.24 (1.4-6.5); GRAN % 31.9 % (50.0-68.0); HEMOGLOBIN 11.3 g/dL (12.0-16.0); LYMPH # 2.4 (1.2-3.4); LYMPH % 33.6 % (22.0-35.0); MEAN CELL VOLUME 96.5 fl (80.0-105.0); MEAN CORPUSCULAR HEMOGLOBIN 30.8 pg (25.0-35.0); MEAN CORPUSCULAR HGB CONC 31.9 g/dl (31.0-37.0); MEAN PLATELET VOLUME 10.7 fl (7.0-11.0); MONO # 2.4 (0.1-0.6); MONO % 34.2 % (1.0-6.0); PLATELET COUNT 109 10^3/uL (120.0-450.0); RBC 3.67 10^6/uL (3.5-6.1); RED CELL DISTRIBUTION WIDTH 17.2 % (11.5-14.5)
[2018-01-22 06:54] LABS: ALT/SGPT 98 U/L (7-56); AST/SGOT 78 U/L (14-36); BLOOD UREA NITROGEN 57 mg/dL (7-21); CALCIUM 9.5 mg/dL (8.4-10.5); GFR AFRICAN-AMERICAN > 60; GFR NON-AFRICAN AMERICAN 60
[2018-01-22 08:09] LABS: LYMPHOCYTE 40 % (22.0-35.0); MONOCYTE 23 % (1.0-6.0); NEUTROPHIL 37 % (50.0-70.0); PLATELET ESTIMATE NORMAL (NORMAL)
--- NOTE | 2018-01-22 09:17 | PN ---
Copied To: Jake Machado MD Attending MD: Jake Machado MD DATE: 01/22/2018 LOCATION: The patient is seen in the ICU, room 128, bed 3. SUBJECTIVE: The patient's nurse states that the patient had an uneventful night. There has been no fevers and no chills. No nausea, no vomiting. PHYSICAL EXAMINATION: VITAL SIGNS: Temperature is 98, blood pressure is 130/40, respiratory rate of 18, heart rate of 82. HEENT: Unremarkable. NECK: Supple. LUNGS: Decreased breath sounds. HEART: Normal S1, S2. ABDOMEN: Soft, nontender. LABORATORY DATA: Laboratory examination reveals the patient has a white count of 6.9, hemoglobin of 12, platelets of 138. Coagulation is noted and chemistries reveals a BUN of 59, creatinine is 0.8, procalcitonin is 0.66. LFTs are mildly elevated and microbiology reveals yeast in the trach aspirate. Culture is pansensitive E. coli in the urine. Review of orders reveals the patient to be off of antibiotics. The urinalysis is noted to have too numerous to count wbc's. ASSESSMENT AND PLAN: This is an 87-year-old female who was seen earlier today in the Intensive Care Unit, 128, bed 3, comfortable. No abdominal pain. No fevers, no chills. No dysuria or frequency. Status post severe sepsis and septic shock due to bilateral lower lobe healthcare-associated pneumonia with possible gram-positive cocci, possible gram-negative rods and elevated procalcitonin, status post ventilatory-dependent respiratory failure and treated with antibiotics, mild liver function test elevations in a patient with chronic obstructive lung disease, hypertension, history of deep venous thrombosis, on anticoagulation with status post inferior vena cava filter placement. The patient with dementia, chronic congestive heart failure. Has completed 7 days of meropenem, doxycycline, currently off of antibiotics, afebrile and we will follow the liver function tests. The patient did have an ultrasound of the abdomen which revealed gallstones, however, no bile duct dilatation. We will follow closely with you. Jake Machado MD
--- NOTE | 2018-01-22 11:07 | CP.CCUPN ---
<YocastaFlorencio Shay - Last Filed: 01/22/18 13:11> CCU Subjective - Physician Review Events Since Last Encounter (Free Text): Patient seen and examined at bedside. No acute events overnight, Cardene drip discontinued yesterday. Patient is more awake alert and oriented right now, only complaint she states is that she wants to go home. Denies any chest pain, shortness of breath. CCU Objective - Vital Signs / Intake & Output Vital Signs (Last 4 hours): Vital Signs Temp Pulse Resp BP Pulse Ox 01/22/18 09:38 68 120/50 L 01/22/18 08:00 98.1 F 67 65 H 137/63 100 01/22/18 07:50 98.1 F 68 15 100 01/22/18 07:49 98.1 F 68 100 01/22/18 07:48 98.1 F 65 20 01/22/18 07:47 98.1 F 61 14 01/22/18 07:46 98.1 F 62 17 01/22/18 07:45 98.1 F 60 14 01/22/18 07:44 98.1 F 59 L 15 01/22/18 07:43 98.1 F 59 L 12 01/22/18 07:42 98.1 F 61 12 01/22/18 07:41 98.1 F 63 12 01/22/18 07:40 98.1 F 62 28 H 01/22/18 07:39 98.1 F 60 13 01/22/18 07:38 98.1 F 61 18 01/22/18 07:37 98.1 F 59 L 14 01/22/18 07:36 98.1 F 59 L 14 01/22/18 07:35 98.1 F 59 L 14 01/22/18 07:34 98.1 F 60 13 01/22/18 07:33 98.1 F 61 14 01/22/18 07:32 98.1 F 60 17 01/22/18 07:31 98.1 F 62 13 01/22/18 07:30 98.1 F 61 12 01/22/18 07:29 98.1 F 61 14 01/22/18 07:28 98.1 F 61 12 01/22/18 07:27 98.1 F 61 17 01/22/18 07:26 98.1 F 62 14 01/22/18 07:25 98.1 F 60 13 01/22/18 07:24 98.1 F 61 13 01/22/18 07:23 98.1 F 60 12 01/22/18 07:22 98.1 F 61 13 01/22/18 07:21 98.1 F 63 13 01/22/18 07:20 98.1 F 66 13 01/22/18 07:19 98.1 F 61 13 01/22/18 07:18 98.1 F 61 15 01/22/18 07:17 98.1 F 60 13 01/22/18 07:16 98.1 F 64 17 01/22/18 07:15 98.1 F 60 13 01/22/18 07:14 98.1 F 60 14 01/22/18 07:13 98.1 F 61 14 01/22/18 07:12 98.1 F 62 15 01/22/18 07:11 98.1 F 66 15 01/22/18 07:10 98.1 F 68 13 01/22/18 07:09 98.1 F 61 12 01/22/18 07:08 98.1 F 61 18 01/22/18 07:07 98.1 F 63 14 01/22/18 07:06 98.1 F 63 17 01/22/18 07:05 98.1 F 63 13 01/22/18 07:04 98.1 F 62 13 Intake and Output (Last 8hrs): Intake & Output 01/21/18 01/22/18 01/22/18 22:59 06:59 14:59 Intake Total 2545 1360 Output Total 475 400 Balance 2070 960 Intake: IV 2095 910 Left Forearm 10 10 Left Internal Jugular 2000 Right Hand 10 900 Oral 450 450 Output: Urine 475 400 Urethral (Starkey) 475 400 Emesis 0 Other: # Bowel Movements 0 0 - Physical Exam Head: Positive for: Atraumatic, Normocephalic Pupils: Positive for: PERRL Extroacular Muscles: Positive for: EOMI Mouth: Positive for: Dry Nose (External): Positive for: Atraumatic Neck: Positive for: Normal Range of Motion Respiratory/Chest: Positive for: Clear to Auscultation, Wheezes, Decreased Breath Sounds, Retracting, Tachypneic Cardiovascular: Positive for: Tachycardic Abdomen: Negative for: Tenderness, Rebound, Guarding Upper Extremity: Positive for: Cyanosis. Negative for: Edema Lower Extremity: Positive for: Cyanosis. Negative for: Edema Skin: Positive for: Cold, Pale Psychiatric: Positive for: Alert, Anxious, Agitated - Medications Active Medications: Active Medications Generic Name Dose Route Start Last Admin Trade Name Freq PRN Reason Stop Dose Admin Acetylcysteine 1 ml 01/19/18 18:00 01/22/18 07:48 Acetylcysteine 20% IH 1 ml Q6 TWAN Administration Albuterol/Ipratropium 3 ml 01/13/18 11:30 01/22/18 07:49 Duoneb 3 Mg/0.5 Mg (3 Ml) Ud IH 3 ml [id number] TWAN Administration Albuterol/Ipratropium 3 ml 01/13/18 09:07 Duoneb 3 Mg/0.5 Mg (3 Ml) Ud IH Q2H PRN Shortness of Breath Amlodipine Besylate 10 mg 01/21/18 11:15 01/21/18 13:25 Norvasc PO 10 mg DAILY TWAN Administration Apixaban 5 mg 01/22/18 10:00 01/22/18 09:38 Eliquis PO 5 mg BID TWAN Administration Protocol Hydrochlorothiazide 12.5 mg 01/22/18 10:00 01/22/18 09:38 Microzide PO 12.5 mg DAILY TWAN Administration Hydrocortisone Sodium Succinate 10 mg 01/20/18 09:04 01/22/18 09:38 Solu-Cortef IVP 10 mg Q12 TWAN Administration Dextrose 1,000 mls @ 75 mls/hr 01/20/18 17:15 01/21/18 08:14 Dextrose 5% In Water 1000 Ml IV 75 mls/hr .[id number] TWAN Administration Lisinopril 5 mg 01/21/18 11:15 01/22/18 09:38 Zestril PO 5 mg DAILY TWAN Administration - Patient Studies Lab Studies: Lab Studies 01/22/18 01/22/18 Range/Units 06:00 06:00 WBC 7.0 (4.5-11.0) 10^3/ul RBC 3.67 (3.5-6.1) 10^6/uL Hgb 11.3 L (12.0-16.0) g/dL Hct 35.4 L (36.0-48.0) % MCV 96.5 (80.0-105.0) fl MCH 30.8 (25.0-35.0) pg MCHC 31.9 (31.0-37.0) g/dl RDW 17.2 H (11.5-14.5) % Plt Count 109 L (120.0-450.0) 10^3/uL MPV 10.7 (7.0-11.0) fl Gran % 31.9 L (50.0-68.0) % Lymph % (Auto) 33.6 (22.0-35.0) % [place] % (Auto) 34.2 H (1.0-6.0) % Eos % (Auto) 0.3 L (1.5-5.0) % Baso % (Auto) 0.0 (0.0-3.0) % Gran # 2.24 (1.4-6.5) Lymph # (Auto) 2.4 (1.2-3.4) [place] # (Auto) 2.4 H (0.1-0.6) Eos # (Auto) 0.0 (0.0-0.7) Baso # (Auto) 0.00 (0.0-2.0) K/mm3 Neutrophils % (Manual) 37 L (50.0-70.0) % Lymphocytes % (Manual) 40 H (22.0-35.0) % Monocytes % (Manual) 23 H (1.0-6.0) % Platelet Evaluation Normal (NORMAL) Sodium 144 (132-148) mmol/L Potassium 3.4 L (3.6-5.0) mmol/L Chloride 103 (98-107) mmol/L Carbon Dioxide 37 H (21-33) mmol/L Anion Gap 8 L (10-20) BUN 57 H (7-21) mg/dL Creatinine 0.9 (0.7-1.2) mg/dl Est GFR ( Amer) > 60 Est GFR (Non-Af Amer) 60 Random Glucose 100 (70-110) mg/dL Calcium 9.5 (8.4-10.5) mg/dL Total Bilirubin 1.8 H (0.2-1.3) mg/dL AST 78 H (14-36) U/L ALT 98 H (7-56) U/L Alkaline Phosphatase 48 (38-126) U/L Total Protein 6.2 (5.8-8.3) g/dL Albumin 3.0 (3.0-4.8) g/dL Globulin 3.2 gm/dL Albumin/Globulin Ratio 1.0 L (1.1-1.8) Laboratory Results - last 24 hr 01/22/18 01/22/18 06:00 06:00 WBC 7.0 RBC 3.67 Hgb 11.3 L Hct 35.4 L MCV 96.5 MCH 30.8 MCHC 31.9 RDW 17.2 H Plt Count 109 L MPV 10.7 Gran % 31.9 L Lymph % (Auto) 33.6 [place] % (Auto) 34.2 H Eos % (Auto) 0.3 L Baso % (Auto) 0.0 Gran # 2.24 Lymph # (Auto) 2.4 [place] # (Auto) 2.4 H Eos # (Auto) 0.0 Baso # (Auto) 0.00 Neutrophils % (Manual) 37 L Lymphocytes % (Manual) 40 H Monocytes % (Manual) 23 H Platelet Evaluation Normal Sodium 144 Potassium 3.4 L Chloride 103 Carbon Dioxide 37 H Anion Gap 8 L BUN 57 H Creatinine 0.9 Est GFR ( Amer) > 60 Est GFR (Non-Af Amer) 60 Random Glucose 100 Calcium 9.5 Total Bilirubin 1.8 H AST 78 H ALT 98 H Alkaline Phosphatase 48 Total Protein 6.2 Albumin 3.0 Globulin 3.2 Albumin/Globulin Ratio 1.0 L Fingerstick Blood Sugar Results: 209 Critical Care Progress Note - Nutrition Nutrition: Nutrition Category Date Time Status Dysphagia/Modified Consistency Diet [DIET] Diets 01/21/18 Lunch Ordered Assessment/Plan - Assessment and Plan (Free Text) Assessment: 87 F formerly under ICU mgmt for septic shock due to pansensitive E. Coli UTI vs HCAP PNA with MOF in setting of lactic acidosis, possible ARDS, and MAR. 1. Acute Metabolic Acidosis with Superimposed Respiratory Alkalosis - resolved 2. Acute Anemia s/p 4 U PRBC, 2 U FFP 3. Hx DVT on eliquis, s/p IVC filter Patient is presently extubated on 3L NC and tolerating well. Improved mental status from before, she is awake, alert and oriented X 3 and moving all extremities. Patient's blood pressures are holding well without Cardene drip, patient's labs have stabilized with resolution of white count, pancytopenia, and electrolytes. Patient has remained afebrile and without qSOFA or SIRS criteria. Given this information, patient's septic shock has resolved, as well as her multiorgan failure. LFT's are starting to trend upward, likely as a medication side effect vs recent shock. Plan: Neuro: Maintain normothermia. Pulm: Continue Duonebs. Discontinue Solu-cortef 10q12; Continue Mucomyst. Maintain O2 Sats > 92% with pulmonary toileting and supplemental O2 PRN Cardio: Hold Lasix. Maintain MAP > 65; Cardene drip off; Continue with Lisinopril, Norvasc. GI: Monitor LFT's : Maintain euvolemia; MAR has resolved Per Nephro: work up for adrenal adenoma as outpt once pt stable Dose meds/ antibiotics for reduced GFR. ID: [id number] de-escalated Heme: Re-started Eliquis Endo: Maintain Euglycemia Dispo: Patient is off Cardene drip and is now stable for discharge to med/surg <Richie Frausto - Last Filed: 01/22/18 17:30> CCU Objective - Vital Signs / Intake & Output Intake and Output (Last 8hrs): Intake & Output 01/22/18 01/22/18 01/22/18 06:59 14:59 22:59 Intake Total 1360 Output Total 400 Balance 960 Intake: IV 910 Left Forearm 10 Right Hand 900 Oral 450 Output: Urine 400 Urethral (Starkey) 400 Emesis 0 Other: # Bowel Movements 0 - Patient Studies Lab Studies: Lab Studies 01/22/18 01/22/18 Range/Units 06:00 06:00 WBC 7.0 (4.5-11.0) 10^3/ul RBC 3.67 (3.5-6.1) 10^6/uL Hgb 11.3 L (12.0-16.0) g/dL Hct 35.4 L (36.0-48.0) % MCV 96.5 (80.0-105.0) fl MCH 30.8 (25.0-35.0) pg MCHC 31.9 (31.0-37.0) g/dl RDW 17.2 H (11.5-14.5) % Plt Count 109 L (120.0-450.0) 10^3/uL MPV 10.7 (7.0-11.0) fl Gran % 31.9 L (50.0-68.0) % Lymph % (Auto) 33.6 (22.0-35.0) % [place] % (Auto) 34.2 H (1.0-6.0) % Eos % (Auto) 0.3 L (1.5-5.0) % Baso % (Auto) 0.0 (0.0-3.0) % Gran # 2.24 (1.4-6.5) Lymph # (Auto) 2.4 (1.2-3.4) [place] # (Auto) 2.4 H (0.1-0.6) Eos # (Auto) 0.0 (0.0-0.7) Baso # (Auto) 0.00 (0.0-2.0) K/mm3 Neutrophils % (Manual) 37 L (50.0-70.0) % Lymphocytes % (Manual) 40 H (22.0-35.0) % Monocytes % (Manual) 23 H (1.0-6.0) % Platelet Evaluation Normal (NORMAL) Sodium 144 (132-148) mmol/L Potassium 3.4 L (3.6-5.0) mmol/L Chloride 103 (98-107) mmol/L Carbon Dioxide 37 H (21-33) mmol/L Anion Gap 8 L (10-20) BUN 57 H (7-21) mg/dL Creatinine 0.9 (0.7-1.2) mg/dl Est GFR ( Amer) > 60 Est GFR (Non-Af Amer) 60 Random Glucose 100 (70-110) mg/dL Calcium 9.5 (8.4-10.5) mg/dL Total Bilirubin 1.8 H (0.2-1.3) mg/dL AST 78 H (14-36) U/L ALT 98 H (7-56) U/L Alkaline Phosphatase 48 (38-126) U/L Total Protein 6.2 (5.8-8.3) g/dL Albumin 3.0 (3.0-4.8) g/dL Globulin 3.2 gm/dL Albumin/Globulin Ratio 1.0 L (1.1-1.8) Laboratory Results - last 24 hr 01/22/18 01/22/18 06:00 06:00 WBC 7.0 RBC 3.67 Hgb 11.3 L Hct 35.4 L MCV 96.5 MCH 30.8 MCHC 31.9 RDW 17.2 H Plt Count 109 L MPV 10.7 Gran % 31.9 L Lymph % (Auto) 33.6 [place] % (Auto) 34.2 H Eos % (Auto) 0.3 L Baso % (Auto) 0.0 Gran # 2.24 Lymph # (Auto) 2.4 [place] # (Auto) 2.4 H Eos # (Auto) 0.0 Baso # (Auto) 0.00 Neutrophils % (Manual) 37 L Lymphocytes % (Manual) 40 H Monocytes % (Manual) 23 H Platelet Evaluation Normal Sodium 144 Potassium 3.4 L Chloride 103 Carbon Dioxide 37 H Anion Gap 8 L BUN 57 H Creatinine 0.9 Est GFR ( Amer) > 60 Est GFR (Non-Af Amer) 60 Random Glucose 100 Calcium 9.5 Total Bilirubin 1.8 H AST 78 H ALT 98 H Alkaline Phosphatase 48 Total Protein 6.2 Albumin 3.0 Globulin 3.2 Albumin/Globulin Ratio 1.0 L Critical Care Progress Note - Nutrition Nutrition: Nutrition Category Date Time Status Dysphagia/Modified Consistency Diet [DIET] Diets 01/21/18 Lunch Ordered Addendum Addendum: 01/22/18 17:30 ICU Attending Addendum: Patient seen and examined. Case reviewed on round with housestaff. Agree with resident note above with the following additions/exceptions: VDRF / Accelerated HTN / ARDS / CHF / pleural effusions Ms Grant is much more awake and alert today f/u swallow eval she is volume +3L, hold off on any more fluids soidium has normalized monitor urine output off nicardipine, cont po anti-htn norvasc 10mg and lisinopril 5 mg. resumed eliquis for hx of dvt PT eval Pall care Ok to transfer out of ICU Rest of care as noted above. Richie Frausto MD Director Of Early Childhood Critical care time : 35mins
[2018-01-22 11:08] VITALS: BP 122/47; TEMP 98.2
[2018-01-22 11:18] VITALS: PULSE 67; RESP 15; O2SAT 99
--- NOTE | 2018-01-22 11:19 | CP.PCM.PN ---
Subjective - Date & Time of Evaluation Date of Evaluation: 01/22/18 Time of Evaluation: 10:30 - Subjective Subjective: awake and responsive, NAD Objective - Vital Signs/Intake and Output Vital Signs (last 24 hours): Temp Pulse Resp BP Pulse Ox 98.2 F 66 13 122/47 L 93 L 01/22/18 11:00 01/22/18 11:00 01/22/18 11:00 01/22/18 11:00 01/22/18 11:00 Intake and Output: 01/22/18 01/22/18 06:59 18:59 Intake Total 1360 Output Total 400 Balance 960 - Medications Medications: Current Medications Acetylcysteine (Acetylcysteine 20%) 1 ml IH Q6 [facility] Last Admin: 01/22/18 11:01 Dose: 1 ml Albuterol/Ipratropium (Duoneb 3 Mg/0.5 Mg (3 Ml) Ud) 3 ml IH [id number] [facility] Last Admin: 01/22/18 11:02 Dose: 3 ml Albuterol/Ipratropium (Duoneb 3 Mg/0.5 Mg (3 Ml) Ud) 3 ml IH Q2H PRN PRN Reason: Shortness of Breath Amlodipine Besylate (Norvasc) 10 mg PO DAILY [facility] Last Admin: 01/21/18 13:25 Dose: 10 mg Apixaban (Eliquis) 5 mg PO BID TWAN PRN Reason: Protocol Last Admin: 01/22/18 09:38 Dose: 5 mg Hydrochlorothiazide (Microzide) 12.5 mg PO DAILY [facility] Last Admin: 01/22/18 09:38 Dose: 12.5 mg Hydrocortisone Sodium Succinate (Solu-Cortef) 10 mg IVP Q12 TWAN Last Admin: 01/22/18 09:38 Dose: 10 mg Dextrose (Dextrose 5% In Water 1000 Ml) 1,000 mls @ 75 mls/hr IV .[id number] [facility] Last Admin: 01/21/18 08:14 Dose: 75 mls/hr Lisinopril (Zestril) 5 mg PO DAILY [facility] Last Admin: 01/22/18 09:38 Dose: 5 mg - Labs Labs: 01/22/18 06:00 01/22/18 06:00 PT 22.9 SECONDS (9.4-12.5) H 01/13/18 05:10 INR 1.96 01/13/18 05:10 APTT 25.5 Seconds (25.1-36.5) 01/13/18 05:10 - Respiratory Exam Respiratory Exam: Rhonchi - Cardiovascular Exam Cardiovascular Exam: REGULAR RHYTHM - GI/Abdominal Exam GI & Abdominal Exam: Soft, Normal Bowel Sounds - Extremities Exam Extremities Exam: Normal Inspection - Neurological Exam Neurological Exam: Altered, Awake - Skin Skin Exam: Dry, Warm Assessment and Plan (1) Acute and chronic respiratory failure Status: Acute (2) CHF (congestive heart failure) Status: Acute (3) Congestive heart failure Status: Chronic (4) Bladder carcinoma Status: Chronic (5) Dementia Status: Chronic (6) HTN (hypertension) Status: Chronic - Assessment and Plan (Free Text) Plan: may transfer to med/surg, physical therapy and for discharge planning
[2018-01-22] MEDS ORDERED: Potassium Chloride 40 mEq/30 ml LIQ UD PO ONE (11:20)
--- NOTE | 2018-01-22 14:13 | CP.PCM.PN ---
Subjective - Date & Time of Evaluation Date of Evaluation: 01/22/18 Time of Evaluation: 14:13 - Subjective Subjective: Nephrology Consultation Note: Assessment: stable Hypernatremia Acute Kidney Injury (N17.9) likely ATN as pt with sepsis/shock: IMPROVING Hypokalemia lactic acidosis, HAGMA, acute respi failure s/p intubation, pneumonia/UTI, severe anemia, hypothermia, ARDS b/l DVT, COPD with mild-moderate pulm HTN, diastolic CHF, Dementia Hypertensive Chronic Kidney Disease (I12.9) Chronic Kidney Disease (N18.3) Stage 3 without proteinuria (R80.9) likely due to HTN/age related decline in renal function 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 MAR has resolved held ACEI/ARB due to MAR. agree with adding RAAS chester, uptitrate dose further as needed. added low dose hctz 12.5 mg as well Monitor Input/Output, daily weights and renal function with basic metabolic panel PRBC as needed, supplement lytes as needed d/c IVF work up for adrenal adenoma as outpt once pt stable Dose meds/antibiotics for improved GFR. Glycemic control Further work up/management as per primary team pt stable for d/c from renal perspective when planned Thanks for allowing me to participate in care of your patient. Will follow patient with you. Please call if any Qs. had d/w team Dr Celso Mcclendon Office: [phone] Reason for consultation is acute kidney injury HPI: Pt is a 87-year-old female with history of dementia osteoarthritis Ckd stage III baseline grade 1.1-1.3 with GFR 55 Chronic obstructive pulmonary disease with pulmonary hypertension also bladder tumor patient/family had refused intervention, came to hospital with shortness of breath, respi distress , pneumonia/UTI with sepsis, respi failure s/p intubated but also with MAR since presentation and hence renal consulted Patient with hx bilateral extensive deep DVT she had IVC filter placed and was also on systemic a/c No recent iodinated contrast exposure. Noted obvious episodes of low BP. ROS:pt feels better. denies SOB/pain. Physical Examination: General Appearance: better appearing.comfortable not in distress Vitals reviewed and noted as below Head; Atraumatic, normocephalic Neck; supple no lymphadenopathy, no thyromegaly or bruit Lungs: Normal respiratory rate/effort. Breath sounds bilateral equal and clearer Heart: Normal rate. s1s2 normal. No rub or gallop. Extremities: no edema. No varicose veins Neurological: Patient is alert awake follows commands. hx of dementia Skin: Warm and dry. Normal turgor. No rash. Palpitation: Normal elasticity for age Abdomen: Abdomen is soft. Bowel sounds +. There is no abdominal tenderness, no guarding/rigidity no organomegaly Psych: lack insight MSK: no joint tenderness or swelling. Digits and nails normal, no deformity : kidney/bladder not palpable, has nazario Labs/imaging reviewed. Past medical history, past surgical history, family history, social history, allergy reviewed and noted as below Family hx: no hx of CKD. Rest non-contributory work up reviewed Objective - Vital Signs/Intake and Output Vital Signs (last 24 hours): Temp Pulse Resp BP Pulse Ox 98.2 F 67 15 122/47 L 99 01/22/18 11:10 01/22/18 11:10 01/22/18 11:10 01/22/18 11:00 01/22/18 11:10 Intake and Output: 01/22/18 01/22/18 06:59 18:59 Intake Total 1360 Output Total 400 Balance 960 - Medications Medications: Current Medications Acetylcysteine (Acetylcysteine 20%) 1 ml IH Q6 [facility] Last Admin: 01/22/18 11:01 Dose: 1 ml Albuterol/Ipratropium (Duoneb 3 Mg/0.5 Mg (3 Ml) Ud) 3 ml IH [id number] [facility] Last Admin: 01/22/18 11:02 Dose: 3 ml Albuterol/Ipratropium (Duoneb 3 Mg/0.5 Mg (3 Ml) Ud) 3 ml IH Q2H PRN PRN Reason: Shortness of Breath Amlodipine Besylate (Norvasc) 10 mg PO DAILY [facility] Last Admin: 01/21/18 13:25 Dose: 10 mg Apixaban (Eliquis) 5 mg PO BID [facility] PRN Reason: Protocol Last Admin: 01/22/18 09:38 Dose: 5 mg Hydrochlorothiazide (Microzide) 12.5 mg PO DAILY [facility] Last Admin: 01/22/18 09:38 Dose: 12.5 mg Dextrose (Dextrose 5% In Water 1000 Ml) 1,000 mls @ 75 mls/hr IV .[id number] [facility] Last Admin: 01/21/18 08:14 Dose: 75 mls/hr Lisinopril (Zestril) 5 mg PO DAILY [facility] Last Admin: 01/22/18 09:38 Dose: 5 mg - Labs Labs: 01/22/18 06:00 01/22/18 06:00 PT 22.9 SECONDS (9.4-12.5) H 01/13/18 05:10 INR 1.96 01/13/18 05:10 APTT 25.5 Seconds (25.1-36.5) 01/13/18 05:10
--- NOTE | 2018-01-23 22:53 | DS ---
Copied To: CHRISTOFER Cardenas MD Attending MD: CHRISTOFER Cardenas MD HOSPITAL COURSE: The patient is an 87-year-old female admitted through the emergency department on 01/13/2018 with respiratory failure secondary to pneumonia. The patient was intubated and transferred to the intensive care unit where she was seen in consultation by Infectious Disease. She received a course of meropenem, vancomycin and intravenous doxycycline with improvement and she was weaned from the ventilator approximately 2 days ago. Physical examination, vital signs are as per progress note of 01/22/2018. The patient was discharged to subacute rehab to [facility] in stable condition. IMPRESSION: 1. Pneumonia with ventilatory failure. 2. Acute kidney injury improved. 3. Hypertension, hypertensive cardiovascular disease, congestive heart failure. 4. Chronic obstructive pulmonary disease. 5. Alzheimer's disease. 6. History of bladder cancer status post transurethral resection of bladder tumor. 7. History of deep venous thrombosis, status post inferior vena cava filter, on Eliquis. The patient was discharged to [facility] on the following medications: Eliquis 5 mg twice daily, amlodipine 5 mg daily, lisinopril 5 mg daily, amlodipine 10 mg daily, tramadol 50 mg every 12 hours. She will be maintained on a heart-healthy diet. Activities as per the rehab facility. CHRISTOFER Cardenas MD
== END 2018-01-22 17:18 | DRG 870 ==
LOC: ED 05:06 → ERH 06:30 → ICU 08:13
PROVIDERS: ADMIT Internal Medicine; ATTEND Internal Medicine
PROC: 5A1955Z Respiratory Ventilation, Greater than 96 Consecutive Hours (ICD-10-PCS; principal; 2018-01-13)
PROC: 0BH17EZ Insertion of Endotracheal Airway into Trachea, Via Natural or Artificial Opening (ICD-10-PCS; 2018-01-13)
PROC: 05HN33Z Insertion of Infusion Device into Left Internal Jugular Vein, Percutaneous Approach (ICD-10-PCS; 2018-01-13)
PROC: B544ZZA Ultrasonography of Left Jugular Veins, Guidance (ICD-10-PCS; 2018-01-13)
PROC: 3E033XZ Introduction of Vasopressor into Peripheral Vein, Percutaneous Approach (ICD-10-PCS; 2018-01-13)
PROC: 3E03328 Introduction of Oxazolidinones into Peripheral Vein, Percutaneous Approach (ICD-10-PCS; 2018-01-13)
PROC: 30233K1 Transfusion of Nonautologous Frozen Plasma into Peripheral Vein, Percutaneous Approach (ICD-10-PCS; 2018-01-13)
PROC: 30233N1 Transfusion of Nonautologous Red Blood Cells into Peripheral Vein, Percutaneous Approach (ICD-10-PCS; 2018-01-13)
DX: A41.9 Sepsis, unspecified organism (principal); R65.21 Severe sepsis with septic shock; J96.21 Acute and chronic respiratory failure with hypoxia; N17.0 Acute kidney failure with tubular necrosis; J18.9 Pneumonia, unspecified organism; G93.41 Metabolic encephalopathy; E87.4 Mixed disorder of acid-base balance; I13.0 Hypertensive heart and chronic kidney disease with heart failure and stage 1 through stage 4 chronic kidney disease, or unspecified chronic kidney disease; I50.32 Chronic diastolic (congestive) heart failure; J44.0 Chronic obstructive pulmonary disease with (acute) lower respiratory infection; D61.818 Other pancytopenia; E87.0 Hyperosmolality and hypernatremia; N39.0 Urinary tract infection, site not specified; B96.20 Unspecified Escherichia coli [E. coli] as the cause of diseases classified elsewhere; N18.3 Chronic kidney disease, stage 3 (moderate); F03.90 Unspecified dementia, unspecified severity, without behavioral disturbance, psychotic disturbance, mood disturbance, and anxiety; I27.20 Pulmonary hypertension, unspecified; M19.90 Unspecified osteoarthritis, unspecified site; E87.6 Hypokalemia; C67.9 Malignant neoplasm of bladder, unspecified; K80.20 Calculus of gallbladder without cholecystitis without obstruction; D35.00 Benign neoplasm of unspecified adrenal gland; Z86.718 Personal history of other venous thrombosis and embolism; Z87.891 Personal history of nicotine dependence; Z79.01 Long term (current) use of anticoagulants; S42.302D Unspecified fracture of shaft of humerus, left arm, subsequent encounter for fracture with routine healing

== ENCOUNTER 2018-02-28 23:36 | Inpatient (IN) | payer MEDICARE, OTHER ==
--- NOTE | 2018-02-28 23:57 | ED PDOC ---
Arrival/HPI - General Time Seen by Provider: 02/28/18 23:43 Historian: Patient - History of Present Illness Narrative History of Present Illness (Text): 03/01/18 00:07 A 87 year old female, whose past medical history includes hypertension and bladder cancer(refuses treatment), presents to the emergency department complaining of weakness. Per family, patient was brought in early January 2018 for respiratory failure and was admitted into the ICU for 10 days. [facility] where she remained for 5 weeks until she was discharge due to patient being uncooperative. Today patient was unable to ambulate to her bed due to weakness and family became concerned and called 911. Patient denies any other complaints at this time. Also, patient was given Tramadol [employer]. PMD: Dr. Jorge A Daniel Past Medical History - Provider Review Nursing Documentation Reviewed: Yes - Infectious Disease Hx of Infectious Diseases: None - Cardiac Hx Congestive Heart Failure: Yes Hx Hypertension: Yes - Pulmonary Hx Chronic Obstructive Pulmonary Disease (COPD): Yes - Neurological Hx Dementia: Yes - HEENT Hx HEENT Disorder: No - Renal Hx Renal Disorder: Yes (BLADDER TUMOR/MASS) - Endocrine/Metabolic Hx Endocrine Disorders: No - Hematological/Oncological Hx Cancer: Yes - Integumentary Hx Dermatological Disorder: Yes Hx Psoriasis: Yes (EXSTENSIVE SPECIALLY TO WHOLE BACK AND BUTTOCKS.FLUSHED SKIN. ) - Musculoskeletal/Rheumatological Hx Arthritis: Yes (OA) - Genitourinary/Gynecological Hx Genitourinary Disorders: Yes Hx Bladder Cancer: Yes - Psychiatric Hx Substance Use: No - Anesthesia Hx Anesthesia Reactions: Yes (diff waking up) Hx Malignant Hyperthermia: No - Suicidal Assessment Feels Threatened In Home Enviroment: No Family/Social History - Physician Review Nursing Documentation Reviewed: Yes Family/Social History: No Known Family HX Smoking Status: Former Smoker Hx Alcohol Use: No Hx Substance Use: No Allergies/Home Meds Allergies/Adverse Reactions: Allergies No Known Allergies Allergy (Verified 03/01/18 00:00) Home Medications: Home Meds Medication Instructions Recorded Confirmed Apixaban [Eliquis] 5 mg PO BID 01/13/18 03/01/18 amLODIPine [Norvasc] 5 mg PO DAILY 01/13/18 03/01/18 hydrALAZINE [Apresoline] 25 mg PO Q6H 01/13/18 03/01/18 traMADol [Ultram] 50 mg PO Q12H 01/13/18 03/01/18 Review of Systems - Physician Review All systems were reviewed & negative as marked: Yes - Review of Systems Constitutional: Other (weakness) Neurological: absent: Headache Physical Exam Vital Signs Reviewed: Yes Vital Signs Temp Pulse Resp BP Pulse Ox 03/01/18 00:04 98.5 F 82 16 140/54 L 96 Temperature: Afebrile Blood Pressure: Normal Pulse: Regular Respiratory Rate: Normal Appearance: Positive for: Well-Appearing, Non-Toxic, Comfortable Pain Distress: None Mental Status: Positive for: Confused - Systems Exam Head: Present: Atraumatic, Normocephalic Pupils: Present: PERRL Extroacular Muscles: Present: EOMI Conjunctiva: Present: Normal Mouth: Present: Moist Mucous Membranes Neck: Present: Normal Range of Motion Respiratory/Chest: Present: Clear to Auscultation, Good Air Exchange. No: Respiratory Distress, Accessory Muscle Use Cardiovascular: Present: Regular Rate and Rhythm, Normal S1, S2. No: Murmurs Abdomen: No: Tenderness, Distention, Peritoneal Signs Back: Present: Normal Inspection Upper Extremity: Present: Normal Inspection. No: Cyanosis, Edema Lower Extremity: Present: Normal Inspection. No: Edema Neurological: Present: GCS=15, CN II-XII Intact, Speech Normal Skin: Present: Warm, Dry, Normal Color. No: Rashes Psychiatric: Present: Other (confused) Medical Decision Making ED Course and Treatment: 03/01/18 00:10 Impression: 87 year old female with weakness. Plan: -- Venous Blood Gas -- Chest X-ray -- Labs -- Blood Culture -- Urine Culture -- Urinalysis -- Reassess and disposition Prior Visits: Notes and results from previous visits were reviewed. Patient was last seen here in the emergency department on 01/13/2018 for respiratory distress. Patient was admitted. Progress Notes: EKG: Ordered, reviewed, and independently interpreted the EKG. Rate : 73 BPM Rhythm : NSR Interpretation : No ST-segment elevations or depressions, no T-wave inversions, normal intervals. Comparison : No previous EKG for comparison. 03/01/18 03:[address] Jorge A Daniel, who states Dr. Nino is taking care of alll of his patient. Case discussed with Dr. Nino who agrees to have patient admitted under her service. She requests consult with Dr. Mcclendon and Dr. Holliday. - Lab Interpretations Lab Results: 03/01/18 01:02 03/01/18 01:02 Lab Results 03/01/18 01:02: Sodium 136, Chloride 98, Potassium 5.3 H, Carbon Dioxide 26, Anion Gap 17, BUN 59 H, Creatinine 2.8 H, Est GFR ( Amer) 19, Est GFR ( Non-Af Amer) 16, Random Glucose 131 H, Calcium 10.7 H, Phosphorus 4.3, Magnesium 1.9, Total Bilirubin 0.5, AST 30, ALT 24, Alkaline Phosphatase 55, Lactate Dehydrogenase 574, Total Creatine Kinase 33 L, Troponin I 0.06, Total Protein 7.3, Albumin 3.8, Globulin 3.4, Albumin/Globulin Ratio 1.1 03/01/18 01:02: pO2 40, VBG pH 7.34, VBG pCO2 53.0, VBG HCO3 28.6 H, VBG Total CO2 30.2 H, VBG O2 Sat (Calc) 68.1 H, VBG Base Excess 1.8, VBG Potassium 5.0, Sodium 134.0, Chloride 102.0, Glucose 133 H, Lactate 2.4 H, FiO2 21.0, Venous Blood Potassium 5.0 03/01/18 01:02: PT 17.6 H, INR 1.53 03/01/18 01:02: WBC 6.9, RBC 2.68 L, Hgb 8.3 L D, Hct 25.3 L, MCV 94.4, MCH 31.0 , MCHC 32.8, RDW 18.8 H, Plt Count 180, MPV 10.2, Gran % 34.2 L, Lymph % (Auto) 30.2, Edmonson % (Auto) 35.1 H, Eos % (Auto) 0.4 L, Baso % (Auto) 0.1, Gran # 2.34, Lymph # (Auto) 2.1, [place] # (Auto) 2.4 H, Eos # (Auto) 0.0, Baso # (Auto) 0.01, Neutrophils % (Manual) Pending, Lymphocytes % (Manual) Pending, Monocytes % ( Manual) Pending - RAD Interpretation Radiology Orders: 03/01/18 00:00 CHEST PORTABLE [RAD] Stat - Medication Orders Current Medication Orders: Sodium Chloride (Sodium Chloride 0.9%) 1,000 mls @ 999 mls/hr IV .Q1H1M STA Stop: 03/01/18 03:34 Sodium Chloride (Sodium Chloride 0.9%) 1,000 mls @ 100 mls/hr IV .Q10H TWAN - Scribe Statement The provider has reviewed the documentation as recorded by the Kinjalibkenia Bright Provider Scribe Provider Scribe Attestation: All medical record entries made by the Bianca were at my direction and personally dictated by me. I have reviewed the chart and agree that the record accurately reflects my personal performance of the history, physical exam, medical decision making, and the department course for this patient. I have also personally directed, reviewed, and agree with the discharge instructions and disposition. Disposition/Present on Arrival - Present on Arrival Any Indicators Present on Arrival: Yes History of DVT/PE: Yes History of Uncontrolled Diabetes: No Urinary Catheter: Yes History Surgical Site Infection Following: None - Disposition Have Diagnosis and Disposition been Completed?: Yes Diagnosis: Acute kidney injury, Dehydration, Generalized weakness, Bladder carcinoma, Dementia Disposition: HOSPITALIZED Disposition Time: 02:41 Patient Plan: Admission Patient Problems: Current Active Problems Problem Status Onset Bladder carcinoma Chronic Dementia Chronic Acute kidney injury Acute Dehydration Acute Generalized weakness Acute Condition: FAIR
[2018-03-01] VITALS: BMI 28.7
[2018-03-01 01:17] LABS: VENOUS BLOOD GAS BASE EXCESS 1.8 mmol/L (0.0-2.0); VENOUS BLOOD GAS PO2 40 mm/Hg (30-55); VENOUS BLOOD PH 7.34 (7.32-7.43)
[2018-03-01 01:27] LABS: ALB/GLOB RATIO 1.1 (1.1-1.8); ALBUMIN 3.8 g/dL (3.0-4.8); CALCIUM 10.7 mg/dL (8.4-10.5)
[2018-03-01 01:34] LABS: BASO # 0.01 K/mm3 (0.0-2.0); BASO % 0.1 % (0.0-3.0); EOS % 0.4 % (1.5-5.0); GRAN # 2.34 (1.4-6.5); GRAN % 34.2 % (50.0-68.0); HEMOGLOBIN 8.3 g/dL (12.0-16.0); LYMPH # 2.1 (1.2-3.4); LYMPH % 30.2 % (22.0-35.0); MEAN CELL VOLUME 94.4 fl (80.0-105.0); MEAN CORPUSCULAR HGB CONC 32.8 g/dl (31.0-37.0); MEAN PLATELET VOLUME 10.2 fl (7.0-11.0); MONO # 2.4 (0.1-0.6); MONO % 35.1 % (1.0-6.0); PLATELET COUNT 180 10^3/uL (120.0-450.0); RBC 2.68 10^6/uL (3.5-6.1); RED CELL DISTRIBUTION WIDTH 18.8 % (11.5-14.5); WHITE BLOOD COUNT 6.9 10^3/ul (4.5-11.0)
[2018-03-01 01:39] LABS: TROPONIN I 0.06 ng/mL
[2018-03-01 01:44] LABS: INR 1.53; PROTHROMBIN TIME 17.6 SECONDS (9.4-12.5)
[2018-03-01] MEDS ORDERED: Sodium Chloride 0.9% 1,000 ML IV STA (02:34)
[2018-03-01 03:15] LABS: BAND 3 % (0-2); LYMPHOCYTE 42 % (22.0-35.0); MONOCYTE 18 % (1.0-6.0); NEUTROPHIL 37 % (50.0-70.0); PLATELET ESTIMATE NORMAL (NORMAL)
[2018-03-01 03:16] LABS: ROULEAU 2+
[2018-03-01 05:03] LABS: VENOUS BLOOD GAS BASE EXCESS 1.3 mmol/L (0.0-2.0); VENOUS BLOOD GAS PO2 68 mm/Hg (30-55); VENOUS BLOOD PH 7.37 (7.32-7.43)
[2018-03-01] MEDS: Sodium Chloride 0.9% 1,000 ML IV SCH ×2 (05:29→12:45)
[2018-03-01 10:25] LABS: TROPONIN I 0.05 ng/mL
--- NOTE | 2018-03-01 11:21 | CP.PCM.CON ---
History of Present Illness - History of Present Illness History of Present Illness: Awake, alert, no distress Reason for consultation: Cardiac evaluation for abnormal troponin Brief history of present illness:An 87 year old female who was brought to the ER by daughter due to weakness. She was just recently discharge from [facility] for reconditioning and physical therapy. She was admitted last January 2018 due to respiratory failure and admitted in ICU clinically improved then transferred to rehab center. History of hypertension and bladder cancer ( refusing treatment),COPD, CHF, dementia, psoriasis, arthritis, former smoker. Seen and examined by me and Dr. Ramirez Review of Systems - Review of Systems All systems: reviewed and no additional remarkable complaints except Review of Systems: from HPI Past Patient History - Infectious Disease Hx of Infectious Diseases: None - Past Medical History & Family History Past Medical History?: Yes - Past Social History Smoking Status: Former Smoker - CARDIAC Hx Cardiac Disorders: Yes Hx Congestive Heart Failure: Yes Hx Hypertension: Yes Hx Peripheral Vascular Disease: Yes - PULMONARY Hx Respiratory Disorders: Yes (Intubation) Hx Chronic Obstructive Pulmonary Disease (COPD): Yes - NEUROLOGICAL Hx Neurological Disorder: Yes Hx Dementia: Yes - HEENT Hx HEENT Problems: No - RENAL Hx Chronic Kidney Disease: Yes (BLADDER TUMOR/MASS) - ENDOCRINE/METABOLIC Hx Endocrine Disorders: No - HEMATOLOGICAL/ONCOLOGICAL Hx Blood Disorders: Yes (blood transfusion) Hx Anemia: Yes Hx Cancer: Yes (bladder) - INTEGUMENTARY Hx Dermatological Problems: Yes Hx Psoriasis: Yes - MUSCULOSKELETAL/RHEUMATOLOGICAL Hx Falls: Yes - GASTROINTESTINAL Hx Gastrointestinal Disorders: No - GENITOURINARY/GYNECOLOGICAL Hx Genitourinary Disorders: Yes Hx Urinary Tract Infection: Yes - PSYCHIATRIC Hx Substance Use: No - SURGICAL HISTORY Hx Surgeries: Yes (TONSILLECTOMY,BLADDER SX- TURBT,TONSILLECTOMY) - ANESTHESIA Hx Anesthesia Reactions: Yes (diff waking up) Hx Malignant Hyperthermia: No Meds Allergies/Adverse Reactions: Allergies Allergy/AdvReac Type Severity Reaction Status Date / Time No Known Allergies Allergy Verified 03/01/18 00:00 - Medications Medications: Current Medications Sodium Chloride (Sodium Chloride 0.9%) 1,000 mls @ 100 mls/hr IV .Q10H TWAN Last Admin: 03/01/18 05:29 Dose: 100 mls/hr Physical Exam - Constitutional Appears: No Acute Distress - Head Exam Head Exam: NORMOCEPHALIC - Eye Exam Eye Exam: Normal appearance - ENT Exam ENT Exam: Mucous Membranes Moist - Respiratory Exam Respiratory Exam: Decreased Breath Sounds, Clear to Auscultation Bilateral, NORMAL BREATHING PATTERN - Cardiovascular Exam Cardiovascular Exam: REGULAR RHYTHM, +S1, +S2 - GI/Abdominal Exam GI & Abdominal Exam: Normal Bowel Sounds, Soft - Neurological Exam Neurological exam: Alert, Oriented x3 - Psychiatric Exam Psychiatric exam: Normal Affect - Skin Skin Exam: Intact, Warm Results - Vital Signs Recent Vital Signs: Last Vital Signs Temp 97.8 F 03/01/18 06:00 Pulse 84 03/01/18 06:00 Resp 18 03/01/18 06:00 BP 115/63 03/01/18 06:00 Pulse Ox 94 L 03/01/18 06:00 - Labs Result Diagrams: 03/01/18 01:02 03/01/18 01:02 Labs: Laboratory Results - last 24 hr 03/01/18 03/01/18 03/01/18 04:49 04:50 09:50 pO2 68 H VBG pH 7.37 VBG pCO2 47.0 VBG HCO3 27.2 VBG Total CO2 28.6 H VBG O2 Sat (Calc) 95.6 H VBG Base Excess 1.3 VBG Potassium 4.1 Sodium 134.0 Chloride 103.0 Glucose 114 H Lactate 0.9 FiO2 21.0 Lactate Dehydrogenase 553 Total Creatine Kinase 34 L Troponin I 0.05 Venous Blood Potassium 4.1 Blood Type A NEGATIVE Antibody Screen Negative BBK History Checked Patient has bt Assessment & Plan - Assessment and Plan (Free Text) Assessment: An 87 year old female who was brought to the ER by daughter due to weakness. She was just recently discharge from [facility] for reconditioning and physical therapy. She was admitted last January 2018 due to respiratory failure and admitted in ICU clinically improved then transferred to rehab center. History of hypertension and bladder cancer (refusing treatment),COPD, CHF, dementia, psoriasis, arthritis, former smoker.Cardiac consult called due to indeterminate troponin level, initial 0.06, repeat 0.05.Elevated due to dehydration, elevated BUn/Creatinine. Rule out acute coronary syndrome. Patient denies chest pain or shortness of breath. EKG normal with no ischemia.no evidence of cardiac ischemia. Previous cardiac work up: 01/14/18-Echo done- LV size normal, LVEF normal, Moderate MR/TR Moderate pulmonary hypertension Moderate aortic valve sclerosis Plan: Denies chest pain, denies shortness of breath Continue IV hydration of NSS 100 cc/hr Will repeat labs in AM Heart rate and blood pressure stable Cardiac status stable Continue current medications Continue current treatment Further recommendations during hospital course Will follow up Plan and treatment discussed with Dr. Ramirez Thank you Dr. Nino for the opportunity of taking care of Ms. Shonda Grant - Date & Time Date: 03/01/18 Time: 07:00
--- NOTE | 2018-03-01 12:44 | CP.PCM.CON ---
History of Present Illness - History of Present Illness History of Present Illness: Neurology Consultation Note: Mrs. Grant is an 87-year-old woman with a past medical history of hypertension and bladder cancer (untreated), recently discharged from [facility] after a 5 week ICU stay for respiratory failure, who was brought in to the ED for weakness significant enough to prevent her fro getting out of bed. The family was concerned and brought her in for evaluation. When I saw the patient today, she was awake, alert, oriented and was eating her lunch without assistance. She was pleasant and conversant with no focal weakness or neurological deficits noted. Her home medications include Eliquis, Tramadol and antihypertensives. Review of Systems - Review of Systems All systems: reviewed and no additional remarkable complaints except Past Patient History - Infectious Disease Hx of Infectious Diseases: None - Past Medical History & Family History Past Medical History?: Yes - Past Social History Smoking Status: Former Smoker - CARDIAC Hx Cardiac Disorders: Yes Hx Congestive Heart Failure: Yes Hx Hypertension: Yes Hx Peripheral Vascular Disease: Yes - PULMONARY Hx Respiratory Disorders: Yes (Intubation) Hx Chronic Obstructive Pulmonary Disease (COPD): Yes - NEUROLOGICAL Hx Neurological Disorder: Yes Hx Dementia: Yes - HEENT Hx HEENT Problems: No - RENAL Hx Chronic Kidney Disease: Yes (BLADDER TUMOR/MASS) - ENDOCRINE/METABOLIC Hx Endocrine Disorders: No - HEMATOLOGICAL/ONCOLOGICAL Hx Blood Disorders: Yes (blood transfusion) Hx Anemia: Yes Hx Cancer: Yes (bladder) - INTEGUMENTARY Hx Dermatological Problems: Yes Hx Psoriasis: Yes - MUSCULOSKELETAL/RHEUMATOLOGICAL Hx Falls: Yes - GASTROINTESTINAL Hx Gastrointestinal Disorders: No - GENITOURINARY/GYNECOLOGICAL Hx Genitourinary Disorders: Yes Hx Urinary Tract Infection: Yes - PSYCHIATRIC Hx Substance Use: No - SURGICAL HISTORY Hx Surgeries: Yes (TONSILLECTOMY,BLADDER SX- TURBT,TONSILLECTOMY) - ANESTHESIA Hx Anesthesia Reactions: Yes (diff waking up) Hx Malignant Hyperthermia: No Meds Allergies/Adverse Reactions: Allergies Allergy/AdvReac Type Severity Reaction Status Date / Time No Known Allergies Allergy Verified 03/01/18 00:00 - Medications Medications: Current Medications Sodium Chloride (Sodium Chloride 0.9%) 1,000 mls @ 100 mls/hr IV .Q10H TWAN Last Admin: 03/01/18 05:29 Dose: 100 mls/hr Physical Exam - Neurological Exam Neurological exam: Abnormal Gait, Alert, CN II-XII Intact, Oriented x3, Reflexes Normal Additional comments: Wide-based gait. Results - Vital Signs Recent Vital Signs: Last Vital Signs Temp 97.8 F 03/01/18 12:00 Pulse 86 03/01/18 12:00 Resp 21 03/01/18 12:00 BP 120/48 L 03/01/18 12:00 Pulse Ox 94 L 03/01/18 06:00 - Labs Result Diagrams: 03/01/18 01:02 03/01/18 01:02 Labs: Laboratory Results - last 24 hr 03/01/18 03/01/18 03/01/18 04:49 04:50 09:50 pO2 68 H VBG pH 7.37 VBG pCO2 47.0 VBG HCO3 27.2 VBG Total CO2 28.6 H VBG O2 Sat (Calc) 95.6 H VBG Base Excess 1.3 VBG Potassium 4.1 Sodium 134.0 Chloride 103.0 Glucose 114 H Lactate 0.9 FiO2 21.0 Lactate Dehydrogenase 553 Total Creatine Kinase 34 L Troponin I 0.05 Venous Blood Potassium 4.1 Blood Type A NEGATIVE Antibody Screen Negative BBK History Checked Patient has bt Assessment & Plan (1) Generalized weakness Assessment and Plan: Likely due to dehydration, deconditioning and normocytic anemia. No focal neurological deficits noted. Continue current medications and avoid opiates. Consider starting a small dose of Seroquel 25 mg QHS for agitation. Thank you. Status: Acute
--- NOTE | 2018-03-01 12:55 | CARD ---
APPROVED REPORT Date of service: 03/01/2018 EKG Measurement Heart [id number] <Conclusion> Normal sinus rhythm Inferior infarct, age undetermined Cannot rule out Anterior infarct, age undetermined Abnormal ECG
--- NOTE | 2018-03-01 13:06 | RAD ---
Date of service: 03/01/2018 HISTORY: generalized weakness COMPARISON: 01/19/2018 FINDINGS: LUNGS: No active pulmonary disease. PLEURA: No significant pleural effusion identified, no pneumothorax apparent. CARDIOVASCULAR: Normal. OSSEOUS STRUCTURES: No significant abnormalities. VISUALIZED UPPER ABDOMEN: Normal. OTHER FINDINGS: None. IMPRESSION: No active disease.
[2018-03-01 14:24] LABS: ALB/GLOB RATIO 1.1 (1.1-1.8); ALBUMIN 3.2 g/dL (3.0-4.8); CALCIUM 9.6 mg/dL (8.4-10.5)
--- NOTE | 2018-03-01 15:04 | CP.PCM.CON ---
History of Present Illness - History of Present Illness History of Present Illness: renal consult note HPI: 87-year-old woman with a past medical history of hypertension and bladder cancer (untreated), [facility] after [facility] week ICU stay for respiratory failure, who was brought in to the ED for weakness. shee has baseline ckd stage 3 non proteinuric sec to htn, baseline cr around 1.5 -1.7 no urinary complaints complete ros is negative meds reviewed pmh and social hx reviewed, non smoker no alcohol fam hx non significant labs reviewed vss heent normal op moist no jvd s1s2 present no resp distress abd soft skin normal ao times 3 normal affect PLAN: MAR/ckd stage 3/weakness/htn/hyperkalemia mar sec to prerenal, agree with fluids monitor I&Os mild hyperkalemia medical management with low K diet weakness work up per primary team bp ok thank you for [facility] consult will continue to follow please call us at [phone] if any qs Past Patient History - Infectious Disease Hx of Infectious Diseases: None - Past Medical History & Family History Past Medical History?: Yes - Past Social History Smoking Status: Former Smoker - CARDIAC Hx Cardiac Disorders: Yes Hx Congestive Heart Failure: Yes Hx Hypertension: Yes Hx Peripheral Vascular Disease: Yes - PULMONARY Hx Respiratory Disorders: Yes (Intubation) Hx Chronic Obstructive Pulmonary Disease (COPD): Yes - NEUROLOGICAL Hx Neurological Disorder: Yes Hx Dementia: Yes - HEENT Hx HEENT Problems: No - RENAL Hx Chronic Kidney Disease: Yes (BLADDER TUMOR/MASS) - ENDOCRINE/METABOLIC Hx Endocrine Disorders: No - HEMATOLOGICAL/ONCOLOGICAL Hx Blood Disorders: Yes (blood transfusion) Hx Anemia: Yes Hx Cancer: Yes (bladder) - INTEGUMENTARY Hx Dermatological Problems: Yes Hx Psoriasis: Yes - MUSCULOSKELETAL/RHEUMATOLOGICAL Hx Falls: Yes - GASTROINTESTINAL Hx Gastrointestinal Disorders: No - GENITOURINARY/GYNECOLOGICAL Hx Genitourinary Disorders: Yes Hx Urinary Tract Infection: Yes - PSYCHIATRIC Hx Substance Use: No - SURGICAL HISTORY Hx Surgeries: Yes (TONSILLECTOMY,BLADDER SX- TURBT,TONSILLECTOMY) - ANESTHESIA Hx Anesthesia Reactions: Yes (diff waking up) Hx Malignant Hyperthermia: No Meds Allergies/Adverse Reactions: Allergies Allergy/AdvReac Type Severity Reaction Status Date / Time No Known Allergies Allergy Verified 03/01/18 00:00 - Medications Medications: Current Medications Apixaban (Eliquis) 2.5 mg PO BID [facility] PRN Reason: Protocol Sodium Chloride (Sodium Chloride 0.9%) 1,000 mls @ 100 mls/hr IV .Q10H TWAN Last Admin: 03/01/18 12:45 Dose: Not Given Results - Vital Signs Recent Vital Signs: Last Vital Signs Temp 97.8 F 03/01/18 12:00 Pulse 93 H 03/01/18 14:00 Resp 21 03/01/18 12:00 BP 120/48 L 03/01/18 12:00 Pulse Ox 94 L 03/01/18 06:00 - Labs Result Diagrams: 03/01/18 01:02 03/01/18 13:00 Labs: Laboratory Results - last 24 hr 03/01/18 03/01/18 03/01/18 04:49 04:50 09:50 pO2 68 H VBG pH 7.37 VBG pCO2 47.0 VBG HCO3 27.2 VBG Total CO2 28.6 H VBG O2 Sat (Calc) 95.6 H VBG Base Excess 1.3 VBG Potassium 4.1 Sodium 134.0 Chloride 103.0 Glucose 114 H Lactate 0.9 FiO2 21.0 Potassium Carbon Dioxide Anion Gap BUN Creatinine Est GFR ( Amer) Est GFR (Non-Af Amer) Random Glucose Calcium Total Bilirubin AST ALT Alkaline Phosphatase Lactate Dehydrogenase 553 Total Creatine Kinase 34 L Troponin I 0.05 Total Protein Albumin Globulin Albumin/Globulin Ratio Venous Blood Potassium 4.1 Blood Type A NEGATIVE Antibody Screen Negative BBK History Checked Patient has bt 03/01/18 13:00 pO2 VBG pH VBG pCO2 VBG HCO3 VBG Total CO2 VBG O2 Sat (Calc) VBG Base Excess VBG Potassium Sodium 136 Chloride 102 Glucose Lactate FiO2 Potassium 4.0 Carbon Dioxide 24 Anion Gap 14 BUN 51 H Creatinine 2.0 H Est GFR ( Amer) 29 Est GFR (Non-Af Amer) 24 Random Glucose 115 H Calcium 9.6 Total Bilirubin 0.3 AST 24 ALT 21 Alkaline Phosphatase 44 Lactate Dehydrogenase Total Creatine Kinase Troponin I Total Protein 6.3 Albumin 3.2 Globulin 3.0 Albumin/Globulin Ratio 1.1 Venous Blood Potassium Blood Type Antibody Screen BBK History Checked
[2018-03-02 00:13] LABS: TROPONIN I 0.05 ng/mL
[2018-03-02 00:26] LABS: IRON 131 ug/dL (45-180)
[2018-03-02 00:36] LABS: % IRON SATURATION 55 % (20-55); TOTAL IRON BINDING CAPACITY 238 ug/dL (265-497)
--- NOTE | 2018-03-02 06:59 | CP.PCM.PN ---
Subjective - Date & Time of Evaluation Date of Evaluation: 03/02/18 Time of Evaluation: 06:15 - Subjective Subjective: Lying in bed, awake, alert, no distress, hungry Reason for consultation: Cardiac evaluation for abnormal troponin, admitted for generalized weakness,History of hypertension and bladder cancer (refusing treatment),COPD, CHF, dementia, psoriasis, arthritis, former smoker. Seen and examined by me and Dr. Ramirez Objective - Vital Signs/Intake and Output Vital Signs (last 24 hours): Temp Pulse Resp BP Pulse Ox 98.0 F 70 19 122/72 93 L 03/02/18 00:01 03/02/18 01:43 03/02/18 00:01 03/02/18 00:01 03/02/18 00:01 Intake and Output: 03/01/18 03/02/18 18:59 06:59 Intake Total 2220 0 Output Total 0 Balance 2220 0 - Medications Medications: Current Medications Apixaban (Eliquis) 2.5 mg PO BID TWAN PRN Reason: Protocol Sodium Chloride (Sodium Chloride 0.9%) 1,000 mls @ 100 mls/hr IV .Q10H TWAN Last Admin: 03/01/18 12:45 Dose: Not Given - Labs Labs: 03/01/18 13:00 PT 17.6 SECONDS (9.4-12.5) H 03/01/18 01:02 INR 1.53 03/01/18 01:02 - Constitutional Appears: No Acute Distress - Eye Exam Eye Exam: Normal appearance - ENT Exam ENT Exam: Mucous Membranes Moist - Respiratory Exam Respiratory Exam: Clear to Ausculation Bilateral, NORMAL BREATHING PATTERN - Cardiovascular Exam Cardiovascular Exam: REGULAR RHYTHM, +S1, +S2 Additional comments: NSR -telemetry 70's - GI/Abdominal Exam GI & Abdominal Exam: Soft, Normal Bowel Sounds - Extremities Exam Extremities Exam: Normal Capillary Refill - Neurological Exam Neurological Exam: Alert, Awake, Oriented x3 - Psychiatric Exam Psychiatric exam: Normal Affect - Skin Skin Exam: Dry, Warm Assessment and Plan - Assessment and Plan (Free Text) Assessment: An 87 year old female who was brought to the ER by daughter due to weakness. She was just recently discharge from [facility] for reconditioning and physical therapy. She was admitted last January 2018 due to respiratory failure and admitted in ICU clinically improved then transferred to rehab center. History of hypertension and bladder cancer (refusing treatment),COPD, CHF, dementia, psoriasis, arthritis, former smoker.Cardiac consult called due to indeterminate troponin level, initial 0.06, repeat 0.05.Elevated due to dehydration, elevated BUn/Creatinine. Rule out acute coronary syndrome. Patient denies chest pain or shortness of breath. EKG normal with no ischemia.no evidence of cardiac ischemia.01/14/18-Echo done- LV size normal, LVEF normal, Moderate MR/TR, Moderate pulmonary hypertension, Moderate aortic valve sclerosis Plan: Comfortable,awake,alert hungry reassured breakfast will be served soon Denies chest pain, denies shortness of breath Continue IV hydration of NSS 100 cc/hr Heart rate and blood pressure stable Cardiac status stable Discontinue telemetry Continue current medications Continue current treatment Further recommendations during hospital course Will follow up Plan and treatment discussed with Dr. Ramirez
[2018-03-02 08:08] LABS: BASO # 0.01 K/mm3 (0.0-2.0); BASO % 0.2 % (0.0-3.0); EOS % 0.6 % (1.5-5.0); GRAN # 0.94 (1.4-6.5); GRAN % 17.5 % (50.0-68.0); HEMOGLOBIN 7.3 g/dL (12.0-16.0); LYMPH # 2.5 (1.2-3.4); LYMPH % 46.3 % (22.0-35.0); MEAN CELL VOLUME 95.2 fl (80.0-105.0); MEAN CORPUSCULAR HEMOGLOBIN 31.6 pg (25.0-35.0); MEAN CORPUSCULAR HGB CONC 33.2 g/dl (31.0-37.0); MEAN PLATELET VOLUME 9.9 fl (7.0-11.0); MONO # 1.9 (0.1-0.6); MONO % 35.4 % (1.0-6.0); RBC 2.31 10^6/uL (3.5-6.1); RED CELL DISTRIBUTION WIDTH 19.2 % (11.5-14.5); WHITE BLOOD COUNT 5.4 10^3/ul (4.5-11.0)
[2018-03-02 08:35] LABS: CALCIUM 9.1 mg/dL (8.4-10.5)
[2018-03-02] MEDS: Sodium Chloride 0.9% 1,000 ML IV SCH ×2 (09:19→19:30)
[2018-03-02] MEDS: Albuterol-Ipratrop 3 mg / 0.5 (3 ml) UD IH SCH (19:46)
--- NOTE | 2018-03-02 23:47 | CON ---
DATE: 03/02/2018 REASON FOR CONSULTATION: Short of breath. HISTORY OF PRESENT ILLNESS: This is an 87-year-old female with past medical history significant for hypertension, history of bladder cancer.. She refused treatment, recently discharged from another hospital with respiratory failure, was in intensive care unit more than a week or so, recently discharged to subacute, brought back with shortness of breath and able to ambulate. No chest pain. No nausea. No leg pain or leg swelling. Admit to snoring, daytime sleepy and tired. PAST MEDICAL HISTORY: Hypertension, heart failure, chronic lung disease, dementia, bladder tumor, history of osteoarthritis, bladder cancer. FAMILY HISTORY: No significant cardiopulmonary disease reported. SOCIAL HISTORY: Former smoker. ALLERGIES: NONE KNOWN. MEDICATIONS: She is on Eliquis and IV fluid with normal saline. Home medications include Ultram, hydralazine, Norvasc, Zestril and Eliquis. REVIEW OF SYSTEMS: Presently no headache, no rhinitis, short of breath with exertion. No chest pain. No abdominal pain. No leg pain or leg swelling. Admits to have snoring, daytime sleepy and tired. PHYSICAL EXAMINATION: GENERAL: Sleepy, arousable. VITAL SIGNS: Temperature is 98, heart rate 87, respiratory rate is 18, blood pressure 122/42, pulse ox 95% on room air. HEENT: Moist mucous membrane. Crowded airway. NECK: Supple. No JVD. LUNGS: Have a few scattered rhonchi. HEART: S1, S2, regular. ABDOMEN: Soft, nontender, no organomegaly. EXTREMITIES: No edema. NEUROLOGIC: Awake, alert, follows simple commands. LABORATORY DATA: Shows hemoglobin 7.3, hematocrit 22, WBC 5.4, platelet is 138. VBG show pH 7.37, pCO2 of 47, O2 68. Sodium 137, potassium 3.8, chloride 106, bicarbonate 24, BUN 40, creatinine 1.4, glucose is 84, calcium is 9.1, phosphorus 3, magnesium 1.6, iron is 131. LDH 538. Troponin is less than 0.05. B12 of 476. Folate 6. Microbiology, blood culture has been negative. Chest x-ray done in ER shows no active disease. EKG done shows normal sinus rhythm, inferior infarct, age undetermined. IMPRESSION AND PLAN: Recently has a respiratory failure, probably have hypoventilation syndrome, bladder cancer. The patient refused treatment, chronic obstructive pulmonary disease, history of congestive heart failure, hypertension, peripheral vascular disease, dementia, history of anemia. We will restart her home medication, keep head at 45 degrees. Add inhaled bronchodilator. Also have pulmonary hypertension. Cardiology consult wet cotton feeder. Follow up the labs in the morning. Thank you and we will follow with you. Elyssa Collins MD
[2018-03-03] MEDS: Albuterol-Ipratrop 3 mg / 0.5 (3 ml) UD IH SCH ×4 (01:39→19:31)
[2018-03-03] MEDS: Sodium Chloride 0.9% 1,000 ML IV SCH (05:08)
[2018-03-03] MEDS ORDERED: Pantoprazole 40 mg EC Tab PO SCH (06:00)
--- NOTE | 2018-03-03 07:39 | CP.PCM.PN ---
Subjective - Date & Time of Evaluation Date of Evaluation: 03/03/18 Time of Evaluation: 06:40 - Subjective Subjective: Lying in bed, awake, alert, no distress, feels cold Reason for consultation: Cardiac evaluation for abnormal troponin, admitted for generalized weakness,History of hypertension and bladder cancer (refusing treatment),COPD, CHF, dementia, psoriasis, arthritis, former smoker. Seen and examined by me and Dr. Acosta Objective - Vital Signs/Intake and Output Vital Signs (last 24 hours): Temp Pulse Resp BP Pulse Ox 98.5 F 80 17 117/56 L 97 03/02/18 18:00 03/02/18 19:54 03/02/18 18:00 03/02/18 18:00 03/02/18 18:00 - Medications Medications: Current Medications Albuterol/Ipratropium (Duoneb 3 Mg/0.5 Mg (3 Ml) Ud) 3 ml IH [id number] [facility] Last Admin: 03/03/18 01:39 Dose: Not Given Amlodipine Besylate (Norvasc) 5 mg PO DAILY [facility] Apixaban (Eliquis) 2.5 mg PO BID [facility] PRN Reason: Protocol Last Admin: 03/02/18 17:49 Dose: 2.5 mg Sodium Chloride (Sodium Chloride 0.9%) 1,000 mls @ 100 mls/hr IV .Q10H [facility] Last Admin: 03/03/18 05:08 Dose: 100 mls/hr Lisinopril (Zestril) 5 mg PO DAILY [facility] Pantoprazole Sodium (Protonix Ec Tab) 40 mg PO 0600 [facility] Last Admin: 03/03/18 05:08 Dose: 40 mg - Labs Labs: 03/02/18 07:00 03/02/18 07:00 PT 17.6 SECONDS (9.4-12.5) H 03/01/18 01:02 INR 1.53 03/01/18 01:02 - Constitutional Appears: No Acute Distress - Eye Exam Eye Exam: Normal appearance - ENT Exam ENT Exam: Mucous Membranes Moist - Cardiovascular Exam Cardiovascular Exam: +S1, +S2 - GI/Abdominal Exam GI & Abdominal Exam: Soft, Normal Bowel Sounds - Extremities Exam Extremities Exam: Normal Capillary Refill - Neurological Exam Neurological Exam: Alert, Awake, Oriented x3 - Psychiatric Exam Psychiatric exam: Normal Affect - Skin Skin Exam: Dry, Warm Assessment and Plan - Assessment and Plan (Free Text) Assessment: An 87 year old female who was brought to the ER by daughter due to weakness. She was just recently discharge from [facility] for reconditioning and physical therapy. She was admitted last January 2018 due to respiratory failure and admitted in ICU clinically improved then transferred to rehab center. History of hypertension and bladder cancer (refusing treatment),COPD, CHF, dementia, psoriasis, arthritis, former smoker.Cardiac consult called due to indeterminate troponin level, initial 0.06, repeat 0.05.Elevated due to dehydration, elevated BUn/Creatinine. Rule out acute coronary syndrome. Patient denies chest pain or shortness of breath. EKG normal with no ischemia.no evidence of cardiac ischemia.01/14/18-Echo done- LV size normal, LVEF normal, Moderate MR/TR, Moderate pulmonary hypertension, Moderate aortic valve sclerosis Plan: No distress, Comfortable,awake,alert Denies chest pain, denies shortness of breath Heart rate and blood pressure stable Cardiac status stable Hemoglobin dropped to 7.3/22 yesterday repeat level today if still low consider blood transfusion Continue current medications Continue current treatment Physical therapy Will follow up Plan and treatment discussed with Dr. Acosta
--- NOTE | 2018-03-03 08:48 | CON ---
DATE: 03/01/2018 Consult has already dictated by Zaira Cárdenas APN LOCATION: The patient in room 267, bed 2. REASON FOR CONSULTATION: Abnormal troponin, weakness, BUN and creatinine elevated, anemia. The patient admitted with weakness. Denies any chest pain, shortness of breath, or palpitation. The patient has history of bladder CA, refuses treatment. LABORATORY DATA: The patient's labs showed sodium 136, potassium 5.3, BUN 59, creatinine 2.8, troponin 0.06 and 0.05, both are indeterminate range. Hemoglobin 8.3, hematocrit 25.3. The patient had echo, 01/14/2018, which showed LV size normal, normal LV ejection fraction, moderate mitral regurgitation, moderate tricuspid regurgitation, moderate pulmonary hypertension, moderate aortic valve sclerosis. PLAN: From cardiac point of view, the patient's cardiac status is stable. No evidence of acute CT. The patient is dehydrated plus has anemia. The patient continued to have IV fluid. We will continue that and we will repeat labs in the morning. The patient's blood culture and urine culture has been already ordered. The patient was on Eliquis at home 5 b.i.d., but since BUN and creatinine are high, we will put 2.5 b.i.d. The patient was also on lisinopril, but BUN and creatinine are high and potassium is high, we will hold off. Blood pressure is normal, so we will put Eliquis 2.5 b.i.d. Repeat labs in the morning. We will follow. Elyssa Ramirez MD
--- NOTE | 2018-03-03 09:05 | HP ---
Patient is 86-year-old male. The patient was seen and examined at the bedside on 03/01/2018. History and physical is doing for 03/01/2018. CHIEF COMPLIANT: High blood pressure, fatigue, tired. HISTORY OF PRESENT ILLNESS: Ms. Grant is an 87-year-old lady well-known to me from previous admissions from [facility], has past medical history of hypertension, bladder cancer for which she received treatment, came to the Emergency Department complaining of weakness. Patient was brought in early 01/2018 for respiratory failure and was admitted to the ICU for 10 days. Then, she was transferred to [facility] where she remained for 5 weeks until she was discharged due to patient being uncooperative while on getting benefit of physical therapy. According to the patient, she is still weak. She cannot move. Family called 911. Patient denies any other complaints at this moment mainly if the fatigue and tired. Patient was given tramadol. PAST MEDICAL HISTORY: Congestive heart failure, hypertension, COPD, dementia, bladder tumor/mass, history of psoriasis, arthritis and bladder cancer. FAMILY HISTORY: Father and mother, noncontributory. HABITS: No smoking, no drugs, no ethanol. ALLERGIES: PATIENT IS NOT ALLERGIC WITH ANY MEDICATION. HOME MEDICATION: Eliquis, Norvasc, hydralazine and tramadol. REVIEW OF SYSTEMS: Patient was seen and examined at the bedside in her room, feeling fatigue and tired. I remember her very well from the rehab. No fever. No chills. No nausea, vomiting or diarrhea. No hematuria or hematochezia. No swelling of the legs. No headaches. No dizziness. PHYSICAL EXAMINATION: VITAL SIGNS: Temperature 98.5, pulse 82, respiratory rate 15, blood pressure 140/54, pulse oximetry 96%. HEENT: Head normocephalic, atraumatic. Eyes, PERRLA, extraocular muscles intact. Conjunctivae clear. Nose patent. Mucous membranes moist. NECK: Supple. No carotid bruit. No JVD, thyromegaly. CHEST: Bilaterally symmetrical. HEART: S1, S2 positive. LUNGS: Clear to auscultation. ABDOMEN: Soft. Bowel sounds present. No organomegaly. EXTREMITIES: No edema, no cyanosis. NEUROLOGIC: The patient is awake, alert. Moving all 4 extremities . No focal deficit. LABORATORY DATA: White blood cell 6.9, hemoglobin 8.3, hematocrit 25.6, platelet 180. Sodium 139, potassium 5.3, BUN 15, creatinine 2.8 and glucose 131. ASSESSMENT AND PLAN: Ms. Grant is an 87-year-old female with anemia, hyperkalemia, renal insufficiency, hyperglycemia, history of bladder cancer, chronic obstructive pulmonary disease, is admitted with acute kidney injury existing one and dehydration, generalized fatigue, dementia. Patient has positive troponin in the presence of acute kidney injury. We will repeat troponin; seen by neurologist Dr. Mg Nolan ; principal accounts clerk, Dr. Ramirez; may be weakness due to dehydration and deconditioning and normocytic anemia. No focal neurological deficit noted. Continue current medications. Consider starting as mild dose of Seroquel 25 mg at bedtime for agitation as per Dr. Ovidio Holliday. Patient is noncompliant, she is Dr. Jorge A Daniel's patient, I am covering him. Chest x-ray done. Electrocardiogram done. History of congestive heart failure, chronic obstructive pulmonary disease, dementia, psoriasis, arthritis; former smoker, now quit smoking, treatments. Denies chest pain, denies shortness of breath at this moment. Cardiac status stable as per principal accounts clerk. Gastrointestinal and deep vein thrombosis prophylaxes. Repeat labs. We will follow up. Damari Nino MD
[2018-03-03 09:24] LABS: HEMOGLOBIN 7.4 g/dL (12.0-16.0); MEAN CELL VOLUME 94.1 fl (80.0-105.0); MEAN CORPUSCULAR HEMOGLOBIN 31.4 pg (25.0-35.0); MEAN CORPUSCULAR HGB CONC 33.3 g/dl (31.0-37.0); MEAN PLATELET VOLUME 9.5 fl (7.0-11.0); RBC 2.36 10^6/uL (3.5-6.1); RED CELL DISTRIBUTION WIDTH 19.3 % (11.5-14.5); WHITE BLOOD COUNT 6.6 10^3/ul (4.5-11.0)
[2018-03-03 09:40] LABS: BLOOD UREA NITROGEN 21 mg/dL (7-21); CALCIUM 8.9 mg/dL (8.4-10.5); GFR NON-AFRICAN AMERICAN 53
--- NOTE | 2018-03-03 09:47 | PN ---
DATE: 03/02/2018 The patient is an 87-year-old female. SUBJECTIVE: The patient was seen and examined at the bedside on 03/02/2018, looking comfortable. No fever. No chills. No headache. No dizziness. No chest pain. No palpitations. No coughing. PHYSICAL EXAMINATION: VITAL SIGNS: Temperature 98, pulse 70, respiratory rate 19, blood pressure 122/72, pulse oximetry is 96%. HEENT: Head is normocephalic and atraumatic. Eyes; PERRLA. Extraocular muscles are intact. Conjunctivae are clear. Nose is patent. Mucous membrane moist. NECK: Supple. No carotid bruits. No JVD or thyromegaly. CHEST: Bilaterally symmetrical. HEART: S1 and S2 positive. LUNGS: Clear to auscultation. ABDOMEN: Soft. Bowel sounds positive. No organomegaly. EXTREMITIES: No edema. No cyanosis. NEUROLOGIC: The patient is awake and alert. Follows simple commands. MEDICATIONS: Reviewed by me. The patient is on Eliquis and NS. LABORATORY DATA: Sodium 136, potassium 4, BUN 51, creatinine 2, and glucose 115. ASSESSMENT AND PLAN: Ms. is an 87-year-old female with renal insufficiency, hyperglycemia, history of respiratory failure, chronic obstructive pulmonary disease, congestive heart failure, dementia, psoriasis, arthritis, history of smoking, this time came with high troponin level, history of dehydration. Rehab Manager is on the case. comfortable, alert, and awake. Denies chest pain. Denies shortness of breath. Continue hydration. According to higher education administrator, cardiac status is stable. Even they discontinue the telemetry. GI and DVT prophylaxis. Repeat labs. We will follow up. Damari Nino MD
--- NOTE | 2018-03-03 12:00 | CP.PCM.CON ---
History of Present Illness - History of Present Illness History of Present Illness: Palliative consult requested by Dr Cyn Nino Reason: Advance care planning 87 year old female with history of non invasive balder cancer, COPD, HTN who was brought to ED by daughter on 03/01/18 with complaints of weakness. She was recently discharged from [facility] after being previously being admitted in january for respiratory failure s/p intubation. She denies fever, chills, nausea, vomiting, chest/abdominal pain, shortness of breath, headache. Chest x ray showed no acute disease. EKG: NSR, inferior infarct/anterior infarct age undetermined Labs on admission:Wbc 6.9, Hgb 8.3, Plt 180,Na136, K 4.0, Bun 51, Creat 2.0, glucose 115, AST 24, ALT 21, albumin 3.2 PMHx: COPD, respiratory failure s/p intubation, CHF, dementia, OA. PSHx: tonsillectomy, TURB. Social History: Former smoker, no alcohol or drug use. Lives with daughter, Candy who is POA. Family History: Non contributory Review of Systems: Denies any complaints, 12 point review negative Past Patient History - Infectious Disease Hx of Infectious Diseases: None - Past Medical History & Family History Past Medical History?: Yes - Past Social History Smoking Status: Former Smoker - CARDIAC Hx Cardiac Disorders: Yes Hx Congestive Heart Failure: Yes Hx Hypertension: Yes Hx Peripheral Vascular Disease: Yes - PULMONARY Hx Respiratory Disorders: Yes (Intubation) Hx Chronic Obstructive Pulmonary Disease (COPD): Yes - NEUROLOGICAL Hx Neurological Disorder: Yes Hx Dementia: Yes - HEENT Hx HEENT Problems: No - RENAL Hx Chronic Kidney Disease: Yes (BLADDER TUMOR/MASS) - ENDOCRINE/METABOLIC Hx Endocrine Disorders: No - HEMATOLOGICAL/ONCOLOGICAL Hx Blood Disorders: Yes (blood transfusion) Hx Anemia: Yes Hx Cancer: Yes (bladder) - INTEGUMENTARY Hx Dermatological Problems: Yes Hx Psoriasis: Yes - MUSCULOSKELETAL/RHEUMATOLOGICAL Hx Falls: Yes - GASTROINTESTINAL Hx Gastrointestinal Disorders: No - GENITOURINARY/GYNECOLOGICAL Hx Genitourinary Disorders: Yes Hx Urinary Tract Infection: Yes - PSYCHIATRIC Hx Substance Use: No - SURGICAL HISTORY Hx Surgeries: Yes (TONSILLECTOMY,BLADDER SX- TURBT,TONSILLECTOMY) - ANESTHESIA Hx Anesthesia Reactions: Yes (diff waking up) Hx Malignant Hyperthermia: No Meds Allergies/Adverse Reactions: Allergies Allergy/AdvReac Type Severity Reaction Status Date / Time No Known Allergies Allergy Verified 03/01/18 00:00 - Medications Medications: Current Medications Albuterol/Ipratropium (Duoneb 3 Mg/0.5 Mg (3 Ml) Ud) [id number] [facility] Last Admin: 03/03/18 08:02 Dose: 3 ml Amlodipine Besylate (Norvasc) [address] [facility] Last Admin: 03/03/18 10:32 Dose: Not Given Apixaban (Eliquis) 2.[address] [facility] PRN Reason: Protocol Last Admin: 03/03/18 09:26 Dose: Not Given Potassium Chloride (Potassium Chloride 20 Meq/100 Ml) 20 meq in 100 mls @ 50 mls/hr IVPB Q2H [facility] Stop: 03/03/18 14:14 Last Admin: 03/03/18 10:33 Dose: 50 mls/hr Lisinopril (Zestril) [address] [facility] Last Admin: 03/03/18 10:34 Dose: Not Given Pantoprazole Sodium (Protonix Ec Tab) [address] [facility] Last Admin: 03/03/18 05:08 Dose: 40 mg Physical Exam - Constitutional Appears: No Acute Distress - Head Exam Head Exam: NORMOCEPHALIC - Eye Exam Eye Exam: Normal appearance, PERRL - ENT Exam ENT Exam: Mucous Membranes Moist, Normal Oropharynx - Neck Exam Neck exam: Positive for: Normal Inspection - Respiratory Exam Respiratory Exam: Decreased Breath Sounds, NORMAL BREATHING PATTERN - Cardiovascular Exam Cardiovascular Exam: REGULAR RHYTHM, +S1, +S2 - GI/Abdominal Exam GI & Abdominal Exam: Normal Bowel Sounds, Soft Additional comments: no tenderness - Extremities Exam Extremities exam: Positive for: normal inspection, pedal pulses present - Back Exam Back exam: NORMAL INSPECTION - Neurological Exam Neurological exam: Alert Additional comments: oriented to self - Skin Skin Exam: Dry, Warm - Additional Findings Additional findings: Palliative performance scale rating 50% Results - Vital Signs Recent Vital Signs: Last Vital Signs Temp 98.2 F 03/03/18 07:35 Pulse 85 03/03/18 07:35 Resp 20 03/03/18 07:35 BP 129/56 L 03/03/18 07:35 Pulse Ox 94 L 03/03/18 07:35 - Labs Result Diagrams: 03/03/18 09:00 03/03/18 09:00 Labs: Laboratory Results - last 24 hr 03/02/18 03/02/18 03/03/18 00:00 07:00 09:00 WBC 6.6 D RBC 2.36 L Hgb 7.4 L Hct 22.2 L MCV 94.1 MCH 31.4 MCHC 33.3 RDW 19.3 H Plt Count 137 MPV 9.5 Sodium Potassium Chloride Carbon Dioxide Anion Gap BUN Creatinine Est GFR ( Amer) Est GFR (Non-Af Amer) Random Glucose Hemoglobin A1c 6.5 Calcium Vitamin B12 476 Folate 6.0 03/03/18 09:00 WBC RBC Hgb Hct MCV MCH MCHC RDW Plt Count MPV Sodium 140 Potassium 2.9 L* D Chloride 109 H Carbon Dioxide 21 Anion Gap 13 BUN 21 Creatinine 1.0 Est GFR ( Amer) > 60 Est GFR (Non-Af Amer) 53 Random Glucose 102 Hemoglobin A1c Calcium 8.9 Vitamin B12 Folate Assessment & Plan - Assessment and Plan (Free Text) Assessment: 87 year old female with history of non invasive bladder cancer, COPD, CHF and HTN who is admitted with dehydration, resolving MAR, anemia and weakness. The pait is alert, oriented to self. Forgetful, does not know why she in that hospital. States she is feeling fine and ready to go home. Remembers being at rehab in the past but can not give details. Aware that she has history of bladder cancer, states she wasn't offered any treatment and does not want it any way. When asked about resuscitation states she doesn't want CPR or intubaion. States her daughter Savannah is her POA. I spoke with aSvannah via phone who affirms that the patient has a Living Will and that she does not want to be intubated/cpr. Savannah is planning on coming to hospital later today. She will meet with may to discuss POLST directive Daughter and I met POLST directive explained. POST DNR/DNI completed Time spent with patient and family in goals of care and advance care planning, 50 minutes Plan: Goals of care and advance care planning; POLSTDNR/DNI Continue DVT prophylaxis Anemia: Monitor Hgb/ Hct , Hgb 7.6 today Abnormal EKG: cardiology follow up MAR resolved PT/OT
[2018-03-03] MEDS ORDERED: Potassium Chloride 20 mEq ER Tab PO ONE (12:40)
--- NOTE | 2018-03-03 13:46 | CP.PCM.PN ---
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 MAR has resolved BP controlled on current meds. pt on ACEI as lisinopril Monitor Input/Output, daily weights and renal function with basic metabolic panel PRBC as needed, anemia management as per primary team supplement lytes as needed d/c IVF work up for adrenal adenoma as outpt once pt stable Dose meds/antibiotics for improved GFR. Glycemic control Further work up/management as per primary team pt stable for d/c from renal perspective when planned Thanks for allowing me to participate in care of your patient. Will follow patient with you. Please call if any Qs. had d/w team Dr Celso Mcclendon Office: [phone] Reason for consultation is acute kidney injury HPI: Pt is a 87-year-old female with history of dementia osteoarthritis Ckd stage III baseline grade 1.1-1.3 with GFR 55 Chronic obstructive pulmonary disease with pulmonary hypertension also bladder tumor patient/family had refused intervention, came to hospital with weakness but also with MAR since presentation and hence renal consulted ROS:pt feels better. denies SOB/pain. hx limited from her due to dementia Physical Examination: General Appearance: better appearing.comfortable not in distress Vitals reviewed and noted as below Head; Atraumatic, normocephalic Neck; supple no lymphadenopathy, no thyromegaly or bruit Lungs: Normal respiratory rate/effort. Breath sounds bilateral equal and clearer Heart: Normal rate. s1s2 normal. No rub or gallop. Extremities: no edema. No varicose veins Neurological: Patient is alert awake follows commands. hx of dementia Skin: Warm and dry. Normal turgor. No rash. Palpitation: Normal elasticity for age Abdomen: Abdomen is soft. Bowel sounds +. There is no abdominal tenderness, no guarding/rigidity no organomegaly Psych: lack insight MSK: no joint tenderness or swelling. Digits and nails normal, no deformity : kidney/bladder not palpable Labs/imaging reviewed. Past medical history, past surgical history, family history, social history, allergy reviewed and noted as below Family hx: no hx of CKD. Rest non-contributory work up reviewed Objective - Vital Signs/Intake and Output Vital Signs (last 24 hours): Temp Pulse Resp BP Pulse Ox 98.2 F 85 20 129/56 L 94 L 03/03/18 07:35 03/03/18 07:35 03/03/18 07:35 03/03/18 07:35 03/03/18 07:35 - Medications Medications: Current Medications Albuterol/Ipratropium (Duoneb 3 Mg/0.5 Mg (3 Ml) Ud) 3 ml IH [id number] [facility] Last Admin: 03/03/18 08:02 Dose: 3 ml Amlodipine Besylate (Norvasc) 5 mg PO DAILY [facility] Last Admin: 03/03/18 10:32 Dose: Not Given Apixaban (Eliquis) 2.5 mg PO BID [facility] PRN Reason: Protocol Last Admin: 03/03/18 09:26 Dose: Not Given Potassium Chloride (Potassium Chloride 20 Meq/100 Ml) 20 meq in 100 mls @ 50 mls/hr IVPB Q2H [facility] Stop: 03/03/18 14:14 Last Admin: 03/03/18 12:30 Dose: 50 mls/hr Lisinopril (Zestril) 5 mg PO DAILY [facility] Last Admin: 03/03/18 10:34 Dose: Not Given Pantoprazole Sodium (Protonix Ec Tab) 40 mg PO 0600 [facility] Last Admin: 03/03/18 05:08 Dose: 40 mg - Labs Labs: 03/03/18 09:00 03/03/18 09:00 PT 17.6 SECONDS (9.4-12.5) H 03/01/18 01:02 INR 1.53 03/01/18 01:02
--- NOTE | 2018-03-03 22:07 | PN ---
DATE: 03/03/2018 PULMONARY PROGRESS NOTE REFERRING PHYSICIAN: Dr. Nino SUBJECTIVE: She is lying in the bed at 45 degrees. Feels okay. No headache or rhinitis. No vomiting. No hematuria, diarrhea, leg pain or leg swelling. OBJECTIVE: GENERAL: In no acute distress. VITAL SIGNS: Temperature is 98, heart rate is 88, respiratory rate is 20, blood pressure 115/56, pulse of 94% on room air. HEENT: Moist mucous membrane. Crowded airway. Mallampati score is 4. NECK: Supple. No JVD. LUNGS: Have fair airflow with rhonchi. HEART: S1 and S2. ABDOMEN: Soft, nontender, no organomegaly. EXTREMITIES: No edema. NEUROLOGICALLY: Sleepy, arousable. Follows simple command. MEDICATIONS: She is on DuoNeb every 6 hours, Eliquis 2.5 mg twice a day, Norvasc 5 mg daily, Protonix 40 mg daily, Zestril 5 mg daily. LABORATORY DATA: Shows hemoglobin 7.4, hematocrit 22.2, WBC 6.6, platelet is 137. Sodium 140, potassium 2.9, chloride 109, bicarbonate is 21, BUN 21, creatinine 1, glucose is 102, calcium 8.9. Microbiology; blood culture, there is no growth. IMPRESSION AND PLAN: Bladder cancer, chronic obstructive lung disease, heart failure, hypertension, improving renal function, anemia, may have sleep apnea syndrome. The patient was seen by Palliative Care. We will keep head elevated at 45 degrees. Gastric prophylaxis. Follow up hemoglobin and hematocrit closely. Overall poor prognosis. The patient is do not resuscitate and do not intubate. Thank you and we will follow with you. Elyssa Collins MD
[2018-03-03 22:54] VITALS: TEMP 98.4
[2018-03-04 00:02] VITALS: RESP 20
[2018-03-04] MEDS: Albuterol-Ipratrop 3 mg / 0.5 (3 ml) UD IH SCH ×2 (01:06→07:35)
--- NOTE | 2018-03-04 06:46 | CP.PCM.PN ---
Subjective - Date & Time of Evaluation Date of Evaluation: 03/04/18 Time of Evaluation: 06:10 - Subjective Subjective: Awake,Lying in bed, alert, no distress, feels cold Reason for consultation and follow up: Cardiac evaluation for abnormal troponin, admitted for generalized weakness,History of hypertension and bladder cancer (refusing treatment),COPD, CHF, dementia, psoriasis, arthritis, former smoker. Seen and examined by me and Dr. Acosta Objective - Vital Signs/Intake and Output Vital Signs (last 24 hours): Temp Pulse Resp BP Pulse Ox 98.4 F 105 H 20 157/64 H 94 L 03/04/18 01:33 03/04/18 01:33 03/04/18 01:33 03/04/18 01:33 03/03/18 20:47 Intake and Output: 03/03/18 03/04/18 18:59 06:59 Intake Total 1540 325 Balance 1540 325 - Medications Medications: Current Medications Albuterol/Ipratropium (Duoneb 3 Mg/0.5 Mg (3 Ml) Ud) 3 ml IH [id number] [facility] Last Admin: 03/04/18 01:06 Dose: 3 ml Amlodipine Besylate (Norvasc) 5 mg PO DAILY [facility] Last Admin: 03/03/18 10:32 Dose: Not Given Lisinopril (Zestril) 5 mg PO DAILY [facility] Last Admin: 03/03/18 10:34 Dose: Not Given Pantoprazole Sodium (Protonix Ec Tab) 40 mg PO 0600 [facility] Last Admin: 03/03/18 05:08 Dose: 40 mg - Labs Labs: 03/03/18 09:00 03/03/18 09:00 PT 17.6 SECONDS (9.4-12.5) H 03/01/18 01:02 INR 1.53 03/01/18 01:02 - Constitutional Appears: No Acute Distress - Eye Exam Eye Exam: Normal appearance - ENT Exam ENT Exam: Mucous Membranes Moist - Respiratory Exam Respiratory Exam: Clear to Ausculation Bilateral, NORMAL BREATHING PATTERN - Cardiovascular Exam Cardiovascular Exam: +S1, +S2 - Neurological Exam Neurological Exam: Alert, Awake - Psychiatric Exam Psychiatric exam: Normal Affect - Skin Skin Exam: Intact, Warm Assessment and Plan - Assessment and Plan (Free Text) Assessment: An 87 year old female who was brought to the ER by daughter due to weakness. She was just recently discharge from [facility] for reconditioning and physical therapy. She was admitted last January 2018 due to respiratory failure and admitted in ICU clinically improved then transferred to rehab center. History of hypertension and bladder cancer (refusing treatment),COPD, CHF, dementia, psoriasis, arthritis, former smoker.Cardiac consult called due to indeterminate troponin level, initial 0.06, repeat 0.05.Elevated due to dehydration, elevated BUn/Creatinine. Rule out acute coronary syndrome. Patient denies chest pain or shortness of breath. EKG normal with no ischemia.no evidence of cardiac ischemia.01/14/18-Echo done- LV size normal, LVEF normal, Moderate MR/TR, Moderate pulmonary hypertension, Moderate aortic valve sclerosis. Low H/H yesterday, post PRBC blood transfusion. DNR/DNI. Awaiting rehab placement. Plan: Status post blood transfusion for low hemoglobin yesterday No distress, Comfortable,awake,alert Denies chest pain, denies shortness of breath Heart rate and blood pressure stable Cardiac status stable Continue current medications Continue current treatment Physical therapy Awaiting rehab placement Will follow up Plan and treatment discussed with Dr. Acosta
[2018-03-04 08:34] VITALS: O2SAT 96
--- NOTE | 2018-03-04 09:31 | PN ---
DATE: 03/03/2018 This note is an addendum to initial progress note dictated by nurse practitioner, Zaira Cárdenas. REASON FOR ADDENDUM: Chart reviewed. Patient had history of DVT in the past, was on Eliquis 5 mg b.i.d., came in with 5 mg of b.i.d. but since the patient had acute renal insufficiency, it was cut down to 2.5. The patient's borderline troponin indeterminate secondary to acute kidney injury. No evidence of acute FL. PLAN: We will increase Eliquis to 5 p.o. b.i.d. because of history of DVT, history of IVC filter. Also, we will aggressively correct potassium because the patient's potassium today is 2.9. Also, the patient needs GI workup because of the anemia. We will follow with you. I will increase Eliquis if the kidney function improves more, still calculated GFR in non -[place] is 50%, so we will hold and continue as 2.5 and check BUN and creatinine tomorrow. If it goes to normal, it will be increased from tomorrow to 5 b.i.d. For now, we will leave it as 2.5 b.i.d., but aggressively supplement potassium. Repeat the blood workup in the morning, also needs GI workup as mentioned above. We will repeat SMA-7, magnesium phosphate and CBC tomorrow. Thank you, Dr. Nino, for providing us the opportunity in taking care of the patient, Shonda Grant. Elyssa Acosta MD
--- NOTE | 2018-03-04 09:46 | PN ---
DATE: 03/03/2018 SUBJECTIVE: The patient was seen and examined on the bedside on 03/03/2018, looking comfortable. No fever. No chills. No nausea, vomiting, diarrhea. No hematuria or hematochezia. No swelling of the legs. No headache. No dizziness. PHYSICAL EXAMINATION: VITAL SIGNS: Heart rate 88, respiratory rate 20, blood pressure 116/56, pulse oximetry 94. HEENT: Head normocephalic, atraumatic. Eyes PERRLA. Extraocular muscles intact. Conjunctivae clear. Nose patent. NECK: Supple. No carotid bruit. No JVD or thyromegaly. CHEST: Bilaterally symmetrical. HEART: S1 and S2 positive. LUNGS: Clear to auscultation. ABDOMEN: Soft. Bowel sounds positive. No organomegaly. EXTREMITIES: No edema. No cyanosis. NEUROLOGICAL: The patient is awake and alert. Moving all 4 extremities. No focal deficits. MEDICATIONS: DuoNeb, Eliquis, Norvasc, Protonix, Zestril. LABORATORY DATA: Hemoglobin 7.4, hematocrit 22.2, white blood cells 6.6, platelets 137. Sodium 140, potassium 2.9, BUN 21, creatinine 1, glucose 102. ASSESSMENT AND PLAN: is an 87-year-old female with bladder cancer, chronic obstructive lung disease, heart failure, improved renal function, anemia. Gastric prophylaxis. Deep venous thrombosis prophylaxis. Repeat labs. We will follow up. Damari Nino MD
[2018-03-04 10:55] VITALS: BP 171/54; PULSE 101
--- NOTE | 2018-03-04 16:19 | PN ---
DATE: 03/04/2018 REASON FOR CONSULTATION AND FOLLOWUP: Cardiac evaluation, admitted with decompensated congestive heart failure secondary to diastolic dysfunction, history of moderate pulmonary hypertension, moderate MR, moderate TR, moderate valvular aortic stenosis, code status DNR. RECOMMENDATIONS: Aggressively, supplement potassium. Continue supportive care. Overall, the patient's critical long-term prognosis is guarded. We will sign off and glad to follow p.r.n. Thank you, Dr. Nino, for providing us the opportunity in taking care of the patient, Shonda Grant. Elyssa Acosta MD
--- NOTE | 2018-03-04 16:51 | CP.PCM.PN ---
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 MAR has resolved BP controlled on current meds. pt on ACEI as lisinopril, increased dose as BP high Monitor Input/Output, daily weights and renal function with basic metabolic panel PRBC as needed, anemia management as per primary team supplement lytes as needed work up for adrenal adenoma as outpt once pt stable Dose meds/antibiotics for improved GFR. Glycemic control Further work up/management as per primary team pt stable for d/c from renal perspective when planned Thanks for allowing me to participate in care of your patient. Will follow patient with you. Please call if any Qs. had d/w team Dr Celso Mcclendon Office: [phone] Reason for consultation is acute kidney injury HPI: Pt is a 87-year-old female with history of dementia osteoarthritis Ckd stage III baseline grade 1.1-1.3 with GFR 55 Chronic obstructive pulmonary disease with pulmonary hypertension also bladder tumor patient/family had refused intervention, came to hospital with weakness but also with MAR since presentation and hence renal consulted ROS:pt feels better. denies SOB/pain. hx limited from her due to dementia Physical Examination: General Appearance: better appearing.comfortable not in distress Vitals reviewed and noted as below Head; Atraumatic, normocephalic Neck; supple no lymphadenopathy, no thyromegaly or bruit Lungs: Normal respiratory rate/effort. Breath sounds bilateral equal and clearer Heart: Normal rate. s1s2 normal. No rub or gallop. Extremities: no edema. No varicose veins Neurological: Patient is alert awake follows commands. hx of dementia Skin: Warm and dry. Normal turgor. No rash. Palpitation: Normal elasticity for age Abdomen: Abdomen is soft. Bowel sounds +. There is no abdominal tenderness, no guarding/rigidity no organomegaly Psych: lack insight MSK: no joint tenderness or swelling. Digits and nails normal, no deformity : kidney/bladder not palpable Labs/imaging reviewed. Past medical history, past surgical history, family history, social history, allergy reviewed and noted as below Family hx: no hx of CKD. Rest non-contributory work up reviewed Objective - Vital Signs/Intake and Output Vital Signs (last 24 hours): Temp Pulse Resp BP Pulse Ox 98.4 F 101 H 20 171/54 H 96 03/04/18 08:34 03/04/18 09:04 03/04/18 08:34 03/04/18 09:04 03/04/18 08:34 Intake and Output: 03/04/18 03/04/18 06:59 18:59 Intake Total 325 Balance 325 - Medications Medications: Current Medications Albuterol/Ipratropium (Duoneb 3 Mg/0.5 Mg (3 Ml) Ud) 3 ml IH [id number] [facility] Last Admin: 03/04/18 07:35 Dose: 3 ml Amlodipine Besylate (Norvasc) 5 mg PO DAILY [facility] Last Admin: 03/04/18 09:04 Dose: 5 mg Lisinopril (Zestril) 10 mg PO DAILY [facility] Last Admin: 03/04/18 13:10 Dose: Not Given Pantoprazole Sodium (Protonix Ec Tab) 40 mg PO 0600 [facility] Last Admin: 03/03/18 05:08 Dose: 40 mg - Labs Labs: 03/03/18 09:00 03/03/18 09:00 PT 17.6 SECONDS (9.4-12.5) H 03/01/18 01:02 INR 1.53 03/01/18 01:02
--- NOTE | 2018-03-04 17:28 | PN ---
DATE: 03/04/2018 PULMONARY PROGRESS NOTE REFERRING PHYSICIAN: Damari Nino MD SUBJECTIVE: She is lying in the bed, head at 45 degrees. Feels okay. No headache or rhinitis. No nausea, vomiting, or diarrhea. No leg pain or leg swelling. OBJECTIVE: GENERAL: In no acute distress. VITAL SIGNS: Temperature is 98, heart rate 101, respiratory rate is 20, blood pressure 171/54, pulse ox on room air. HEENT: Moist mucous membrane. Crowded airway. NECK: Supple. No JVD. LUNGS: Fair airflow with rhonchi. HEART: S1 and S2. ABDOMEN: Soft and nontender. No organomegaly. EXTREMITIES: No edema. NEUROLOGICAL: Awake and alert. Follows simple command. MEDICATIONS: She is on DuoNeb every 6 hours, Norvasc 5 mg daily, Protonix 40 mg daily, and Zestril 10 mg daily. LABORATORY DATA: Reviewed. No new lab is available since yesterday. Blood culture has been negative. IMPRESSION AND PLAN: Bladder cancer, chronic obstructive lung disease, heart failure, hypertension, improved renal function, anemia, sleep apnea syndrome is suspected. The patient was seen by Palliative Care. She is a do not resuscitate and do not intubate. Continue bronchodilator. Keep head at 45 degrees. Aspiration precaution. Out of bed to chair. Physical therapy. We will order labs for the morning. Thank you and we will follow with you. Elyssa Collins MD
== END 2018-03-04 17:39 | disposition home health service (06) | DRG 683 ==
LOC: ED 23:36 → ERH 03-01 02:41 → 2RNO 03-01 05:11 → 3RNO 03-02 22:12
PROVIDERS: ADMIT Internal Medicine; ATTEND Internal Medicine
DX: N17.9 Acute kidney failure, unspecified (principal); I13.0 Hypertensive heart and chronic kidney disease with heart failure and stage 1 through stage 4 chronic kidney disease, or unspecified chronic kidney disease; I50.30 Unspecified diastolic (congestive) heart failure; Z85.51 Personal history of malignant neoplasm of bladder; E86.0 Dehydration; E87.5 Hyperkalemia; N18.3 Chronic kidney disease, stage 3 (moderate); Z79.899 Other long term (current) drug therapy; Z79.01 Long term (current) use of anticoagulants; F03.90 Unspecified dementia, unspecified severity, without behavioral disturbance, psychotic disturbance, mood disturbance, and anxiety; C67.9 Malignant neoplasm of bladder, unspecified; J44.9 Chronic obstructive pulmonary disease, unspecified; R73.9 Hyperglycemia, unspecified; Z91.19 Patient's noncompliance with other medical treatment and regimen; I27.20 Pulmonary hypertension, unspecified; D64.9 Anemia, unspecified; Z66 Do not resuscitate; D35.00 Benign neoplasm of unspecified adrenal gland; I35.8 Other nonrheumatic aortic valve disorders; I73.9 Peripheral vascular disease, unspecified; Z87.440 Personal history of urinary (tract) infections; Z87.891 Personal history of nicotine dependence

== ENCOUNTER 2018-03-31 08:08 | Inpatient (IN) | payer MEDICARE, OTHER ==
[2018-03-31 08:17] VITALS: BMI 30.1
[2018-03-31] MEDS: Albuterol-Ipratrop 3 mg / 0.5 (3 ml) UD IH SCH ×3 (08:32→09:54)
[2018-03-31] MEDS ORDERED: Piperacillin/Tazobact 3.375 gm 100 ML IVPB STA (08:43)
[2018-03-31] MEDS ORDERED: Vancomycin 1gm in NS 250ml 1 GM/250 ML BAG IVPB STA (08:43)
[2018-03-31 08:44] LABS: BASO # 0.01 K/mm3 (0.0-2.0); BASO % 0.1 % (0.0-3.0); EOS % 0.1 % (1.5-5.0); GRAN # 3.17 (1.4-6.5); GRAN % 28.2 % (50.0-68.0); LYMPH # 4.6 (1.2-3.4); LYMPH % 40.8 % (22.0-35.0); MEAN CELL VOLUME 97.1 fl (80.0-105.0); MEAN CORPUSCULAR HEMOGLOBIN 31.8 pg (25.0-35.0); MEAN CORPUSCULAR HGB CONC 32.7 g/dl (31.0-37.0); MEAN PLATELET VOLUME 10.9 fl (7.0-11.0); MONO # 3.5 (0.1-0.6); MONO % 30.8 % (1.0-6.0); PLATELET COUNT 149 10^3/uL (120.0-450.0); RBC 1.73 10^6/uL (3.5-6.1); RED CELL DISTRIBUTION WIDTH 20.8 % (11.5-14.5); VENOUS BLOOD GAS PO2 37 mm/Hg (30-55); VENOUS BLOOD PH 7.27 (7.32-7.43); WHITE BLOOD COUNT 11.2 10^3/ul (4.5-11.0)
--- NOTE | 2018-03-31 08:48 | ED PDOC ---
Arrival/HPI - General Chief Complaint: Respiratory Distress Time Seen by Provider: 03/31/18 08:14 Historian: Patient - History of Present Illness Narrative History of Present Illness (Text): 03/31/18 08:15 An 87 year old female, whose past medical history includes hypertension, copd, ch and bladder cancer(refuses treatment), presents to the emergency department complaining of shortness of breath for the past 2 days, reprots dry cough Patient denies any pain, fever, or any other complaints. Patient is DNR/DNI. PMD: Jorge A Newman 03/31/18 12:27 Time/Duration: Other (Patient notes shortness of breath for past 2 days) Symptom Onset: Sudden Symptom Course: Unchanged Activities at Onset: Light Past Medical History - Provider Review Nursing Documentation Reviewed: Yes - Infectious Disease Hx of Infectious Diseases: None - Cardiac Hx Cardiac Disorders: Yes Hx Congestive Heart Failure: Yes Hx Hypertension: Yes Hx Peripheral Vascular Disease: Yes - Pulmonary Hx Respiratory Disorders: Yes (Intubation) Hx Chronic Obstructive Pulmonary Disease (COPD): Yes - Neurological Hx Neurological Disorder: Yes Hx Dementia: Yes - HEENT Hx HEENT Disorder: No - Renal Hx Renal Disorder: Yes (BLADDER TUMOR/MASS) - Endocrine/Metabolic Hx Endocrine Disorders: No - Hematological/Oncological Hx Blood Disorders: Yes (blood transfusion) Hx Anemia: Yes Hx Cancer: Yes (bladder) - Integumentary Hx Dermatological Disorder: Yes Hx Psoriasis: Yes - Musculoskeletal/Rheumatological Hx Falls: Yes - Gastrointestinal Hx Gastrointestinal Disorders: No - Genitourinary/Gynecological Hx Genitourinary Disorders: Yes Hx Urinary Tract Infection: Yes - Psychiatric Hx Substance Use: No - Anesthesia Hx Anesthesia Reactions: Yes (diff waking up) Hx Malignant Hyperthermia: No - Suicidal Assessment Feels Threatened In Home Enviroment: No Family/Social History - Physician Review Nursing Documentation Reviewed: Yes Family/Social History: No Known Family HX Smoking Status: Former Smoker Hx Alcohol Use: No Hx Substance Use: No Allergies/Home Meds Allergies/Adverse Reactions: Allergies No Known Allergies Allergy (Verified 03/01/18 00:00) Home Medications: Home Meds Medication Instructions Recorded Confirmed RX: Apixaban [Eliquis] 5 mg PO BID 01/13/18 03/01/18 RX: amLODIPine [Norvasc] 5 mg PO DAILY 01/13/18 03/04/18 RX: hydrALAZINE [Apresoline] 25 mg PO Q6H 01/13/18 03/01/18 RX: traMADol [Ultram] 50 mg PO Q12H 01/13/18 03/01/18 Review of Systems - Physician Review All systems were reviewed & negative as marked: Yes - Review of Systems Respiratory: SOB (Patient notes SOB for past 2 days. ). absent: Normal Physical Exam Pulse: Tachycardic (at 97) - Systems Exam Head: Present: Atraumatic, Normocephalic Pupils: Present: PERRL Extroacular Muscles: Present: EOMI Conjunctiva: Present: Normal Mouth: Present: Moist Mucous Membranes Neck: Present: Normal Range of Motion Respiratory/Chest: Present: Clear to Auscultation, Good Air Exchange, Wheezes. No: Respiratory Distress, Accessory Muscle Use Cardiovascular: Present: Regular Rate and Rhythm, Normal S1, S2. No: Murmurs Abdomen: No: Tenderness, Distention, Peritoneal Signs Back: Present: Normal Inspection Upper Extremity: Present: Normal Inspection. No: Cyanosis, Edema Lower Extremity: Present: Normal Inspection. No: Edema Neurological: Present: GCS=15, CN II-XII Intact, Speech Normal Skin: Present: Warm, Dry, Normal Color. No: Rashes Psychiatric: Present: Alert, Oriented x 3, Normal Insight, Normal Concentration Medical Decision Making ED Course and Treatment: 03/31/18 08:15 Impression: An 87 year old female presents to the emergency department complaining of shortness of breath for the past 2 days. Differential Diagnosis included but are not limited to: copd vs pna vs chf. Plan: -- VBG Shock Panel -- EKG -- Labs -- X-ray of chest -- Duoneb -- SOLU-Medrol -- Urinalysis -- Reassess and disposition Prior Visits: Notes and results from previous visits were reviewed. Patient was last seen in the emergency department on 03/01/18 complaining of weakness. Patient was hospitalized in fair condition with diagnosis of acute kidney injury, dehydration, generalized weakness, bladder carcinoma, dementia. Progress Notes: 03/31/18 08:43 Family arrives and confirms DNR/DNI. 03/31/18 09:01 Pt is hemodynamicaly stable. Pt does not require 30 cc per kilo ebolus. 03/31/18 09:07 Brown stool guaiac negative. 03/31/18 12:27 nebs steriods dosed. cxr pathcy infiltartes vs chf as read by me. noted LA. antibiotics ordered code sepsis. pt dni dnr. accepted by dr meyer for tele. - RAD Interpretation Narrative RAD Interpretations (Text): X-ray of chest reviewed by radiologist, shows: Dictator : Kirby Groves MD Report Date : 03/31/2018 11:40:44 FINDINGS: LUNGS: Multifocal pulmonary alveolar infiltrates consistent with pulmonary edema. PLEURA: Small bilateral pleural effusions are present. CARDIOVASCULAR: Atherosclerotic calcifications identified primarily aortic arch. Cardiomegaly. OSSEOUS STRUCTURES: No significant abnormalities. VISUALIZED UPPER ABDOMEN: Normal. OTHER FINDINGS: None. IMPRESSION: Cardiomegaly and presumed cardiogenic pulmonary edema. This is a new finding compared to the prior study. Radiology Orders: 03/31/18 08:18 CHEST PORTABLE [RAD] Stat Photogrammetric Stereo Compiler: Radiologist - EKG Interpretation EKG Interpretation (Text): 03/31/18 10:29 EKG: Ordered, reviewed, and independently interpreted the EKG. Rate : 109 BPM Interpretation : Sinus Tachycardia. Non-specific ST-T wave changes. Interpreted by ED Physician: Yes Type: 12 lead EKG - Medication Orders Current Medication Orders: Albuterol/Ipratropium (Duoneb 3 Mg/0.5 Mg (3 Ml) Ud) 3 ml IH Q15M [facility] Stop: 03/31/18 09:01 Last Admin: 03/31/18 08:32 Dose: 3 ml Vancomycin HCl (Vancomycin 1gm) 1 gm in 250 mls @ 167 mls/hr IVPB STAT STA; Protocol Stop: 03/31/18 10:12 Piperacillin Sod/Tazobactam Sod (Zosyn 3.375 In Ns 100ml) 100 mls @ 200 mls/hr IVPB STAT STA; Protocol Stop: 03/31/18 09:12 Discontinued Medications Methylprednisolone (Solu-Medrol) 125 mg IVP STAT STA Stop: 03/31/18 08:20 - Scribe Statement The provider has reviewed the documentation as recorded by the Scribe Roya Whatley All medical record entries made by the Scribe were at my direction and personally dictated by me. I have reviewed the chart and agree that the record accurately reflects my personal performance of the history, physical exam, medical decision making, and the department course for this patient. I have also personally directed, reviewed, and agree with the discharge instructions and disposition. Disposition/Present on Arrival - Present on Arrival Any Indicators Present on Arrival: No History of DVT/PE: No History of Uncontrolled Diabetes: No Urinary Catheter: No History of Decub. Ulcer: No History Surgical Site Infection Following: None - Disposition Have Diagnosis and Disposition been Completed?: Yes Diagnosis: CHF (congestive heart failure), COPD (chronic obstructive pulmonary disease), Pneumonia Disposition: HOSPITALIZED Disposition Time: 12:00 Condition: FAIR
[2018-03-31 08:51] LABS: HEMOGLOBIN 5.5 g/dL (12.0-16.0)
[2018-03-31] MEDS ORDERED: Sodium Chloride 0.9% 500 ML IV STA (08:51)
[2018-03-31 08:52] LABS: INR 1.83; PARTIAL THROMBOPLASTIN TIME 22.5 Seconds (25.1-36.5); PROTHROMBIN TIME 21.3 SECONDS (9.4-12.5)
[2018-03-31 09:34] LABS: ALBUMIN 3.2 g/dL (3.0-4.8); CALCIUM 8.9 mg/dL (8.4-10.5)
[2018-03-31 09:41] LABS: TROPONIN I 0.08 ng/mL
[2018-03-31 09:59] LABS: BAND 1 % (0-2); LYMPHOCYTE 53 % (22.0-35.0); MONOCYTE 13 % (1.0-6.0); NEUTROPHIL 33 % (50.0-70.0)
[2018-03-31 10:00] LABS: ANISOCYTOSIS 1+; PLATELET ESTIMATE NORMAL (NORMAL)
--- NOTE | 2018-03-31 10:25 | CARD ---
APPROVED REPORT Date of service: 03/31/2018 EKG Measurement Heart [id number] <Conclusion> Sinus tachycardia PRWP Cannot rule out Anterior infarct, age undetermined Baseline artifact
[2018-03-31 11:41] LABS: VENOUS BLOOD GAS BASE EXCESS -1.5 mmol/L (0.0-2.0); VENOUS BLOOD GAS PO2 36 mm/Hg (30-55); VENOUS BLOOD PH 7.37 (7.32-7.43)
--- NOTE | 2018-03-31 11:44 | RAD ---
Date of service: 03/31/2018 HISTORY: Shortness of breath. COMPARISON: 03/01/2018. FINDINGS: LUNGS: Multifocal pulmonary alveolar infiltrates consistent with pulmonary edema. PLEURA: Small bilateral pleural effusions are present. CARDIOVASCULAR: Atherosclerotic calcifications identified primarily aortic arch. Cardiomegaly. OSSEOUS STRUCTURES: No significant abnormalities. VISUALIZED UPPER ABDOMEN: Normal. OTHER FINDINGS: None. IMPRESSION: Cardiomegaly and presumed cardiogenic pulmonary edema. This is a new finding compared to the prior study.
--- NOTE | 2018-03-31 13:43 | PCM.SEPTIC ---
Sepsis Progress Note - Reassessment Type Date of Evaluation: 03/31/18 Time of Evaluation: 12:55 Reassessment Type: Non-invasive reassessment - Non Invasive Reassessment Were the most recent vital sign reviewed: Yes Vital Sign (Latest): Temp Pulse Resp BP Pulse Ox 97.7 F 91 H 19 117/50 L 99 03/31/18 12:57 03/31/18 13:16 03/31/18 12:57 03/31/18 13:16 03/31/18 11:20 Cardiovascular: Yes: Regular Rate, Rhythm Respiratory: Yes: Normal Breath Sounds, Wheezing. No: Accessory Muscle Use, Respiratory Distress Capillary Refill: Normal (Less than 2 sec) Skin: Warm, Dry, Pale
[2018-03-31] MEDS ORDERED: Influenza Vaccine 60 mcg/0.5 mL SYR (4YR UP) IM ONE (18:08)
[2018-03-31] MEDS ORDERED: Pneumococcal 23-Valent Vaccine IM ONE (18:08)
[2018-03-31 18:50] LABS: URINE BILIRUBIN NEGATIVE (NEGATIVE); URINE BLOOD TRACE-LYSED (NEGATIVE); URINE GLUCOSE (UA) NEGATIVE (NEGATIVE); URINE LEUKOCYTE ESTERASE NEGATIVE Leu/uL (NEGATIVE); URINE PROTEIN NEGATIVE mg/dL (<30 mg/dL); URINE UROBILINOGEN 0.2 E.U./dL (<1 E.U./dL)
[2018-03-31 18:51] LABS: URINE APPEARANCE CLEAR (CLEAR); URINE COLOR LIGHT YELLOW (YELLOW)
[2018-03-31 19:20] LABS: URINE BACTERIA FEW (NEG); URINE WBC 0 - 2 /hpf (0-6)
[2018-03-31] MEDS: MethylPREDNISolone 40 mg Vial IVP SCH (21:39)
[2018-03-31] MEDS: Cefepime 1gm in NS 100ml 1 GM/100 ML BAG IVPB SCH (21:40)
--- NOTE | 2018-04-01 02:35 | CON ---
DATE: 03/31/2018 The patient is in room 270, bed 1 CHIEF COMPLAINT: Shortness of breath times several days. HISTORY OF PRESENT ILLNESS: This is an 87-year-old with chronic obstructive lung disease, dementia, hypertension, congestive heart failure, DVT, bladder cancer, psoriasis, and the patient admitted with the diagnoses of sepsis, chronic obstructive lung disease. The Infectious Disease doctor called for antibiotics. REVIEW OF SYSTEMS: A 12-point review of systems is performed. Based on review of systems, he has mild shortness of breath. No chest pain. No abdominal pain, diarrhea, or constipation. No bright red blood per rectum. No melena. PAST MEDICAL HISTORY: Significant for chronic obstructive lung disease, dementia, hypertension, congestive heart failure, DVT, renal disease, bladder cancer, and psoriasis. PAST SURGICAL HISTORY: Significant for IVC filter. ALLERGIES: The patient has no known allergies. MEDICATIONS: Medications at home include tramadol, Apresoline, amlodipine, Eliquis. PHYSICAL EXAMINATION: VITAL SIGNS: The patient is in bed with a temperature of 98, blood pressure is 140/60, respiratory rate of 20, heart rate of 82. Heart rate was up to 102 and the respiratory rate was up to 22. HEENT: Unremarkable. NECK: Supple. LUNGS: Decreased breath sounds. HEART: Normal S1, S2. ABDOMEN: Soft, nontender. LABORATORY EXAMINATION: Reveals a white count of 11,200, hemoglobin of 5, platelets of 149. The patient has 33% neutrophils, 1% bands, 53% lymphocytes. Coagulation is noted. BUN of 33, creatinine of 1.3. LDH is 716. Microbiology reveals blood cultures are no growth. ASSESSMENT AND PLAN: This is an 87-year-old female with chronic obstructive lung disease, dementia, hypertension, congestive heart failure, bladder cancer, psoriasis. 1. Sepsis, healthcare-associated pneumonia with congestive heart failure. Must rule out bacterial, gram-positive cocci, gram-negative [place]. We will treat the patient with doxycycline and cefepime pending procalcitonin, MRSA screen, blood and urine culture, and sputum culture, and we will make further recommendations. Jake Machado MD
[2018-04-01] MEDS: Albuterol-Ipratrop 3 mg / 0.5 (3 ml) UD IH PRN ×2 (04:32→20:30)
[2018-04-01] MEDS: Cefepime 1gm in NS 100ml 1 GM/100 ML BAG IVPB SCH ×2 (05:19→22:31)
[2018-04-01] MEDS: Pantoprazole 40 mg EC Tab PO SCH (05:20)
[2018-04-01 07:10] LABS: HEMOGLOBIN 7.6 g/dL (12.0-16.0); MEAN CELL VOLUME 89.9 fl (80.0-105.0); MEAN CORPUSCULAR HEMOGLOBIN 30.6 pg (25.0-35.0); MEAN CORPUSCULAR HGB CONC 34.1 g/dl (31.0-37.0); MEAN PLATELET VOLUME 10.4 fl (7.0-11.0); RBC 2.48 10^6/uL (3.5-6.1); RED CELL DISTRIBUTION WIDTH 17.4 % (11.5-14.5); WHITE BLOOD COUNT 9.2 10^3/ul (4.5-11.0)
[2018-04-01 07:12] LABS: VENOUS BLOOD GAS BASE EXCESS 2.1 mmol/L (0.0-2.0); VENOUS BLOOD GAS PO2 160 mm/Hg (30-55); VENOUS BLOOD PH 7.47 (7.32-7.43)
[2018-04-01 07:22] LABS: ALBUMIN 3.1 g/dL (3.0-4.8); CALCIUM 8.8 mg/dL (8.4-10.5)
--- NOTE | 2018-04-01 08:25 | CON ---
DATE: 03/31/2018 REFERRING PHYSICIAN: Dr. Daniel. REASON FOR CONSULT: Respiratory failure, noninvasive ventilation. HISTORY OF PRESENT ILLNESS: This is an 87-year-old female with known history of chronic obstructive lung disease, hypertension, has had bladder cancer, presented to emergency room with shortness of breath, cough. Was placed on noninvasive ventilation, IV and inhaled bronchodilator given, antibiotics started. Presently on noninvasive ventilation, arousable, follows simple command. No hemoptysis, hematemesis, hematuria. No diarrhea reported. Does have some leg swelling. PAST MEDICAL HISTORY: Chronic obstructive lung disease, history of dementia, bladder tumor, anemia, history of psoriasis, history of UTIs. FAMILY HISTORY: No significant cardiopulmonary disease reported. SOCIAL HISTORY: Former smoker. Denied any alcohol use. ALLERGIES: NONE KNOWN. MEDICATIONS: She is on doxycycline 100 mg twice a day, DuoNeb every 2 hours p.r.n., Lasix 40 mg daily, cefepime 1 g IV every 8 hours, Solu-Medrol 40 mg every 12 hours, Tylenol on p.r.n. basis. Received Lasix 40 mg in the ER. Solu-Medrol 125 mg was given in ER. Also got a dose of Zosyn and vancomycin. REVIEW OF SYSTEMS: Sleepy, lethargic, on noninvasive ventilation. Has cough, shortness of breath, wheezing. No nausea, no vomiting, no diarrhea, no dysuria. Does have leg swelling. PHYSICAL EXAMINATION: GENERAL: Sleepy, arousable, on noninvasive ventilation. VITAL SIGNS: Temperature is 98, heart rate is 85, respiratory rate is 20, blood pressure 144/65, pulse ox 99% on 50% oxygen on BiPAP. HEENT: Moist mucous membrane. Crowded airway. Mallampati score is 4. NECK: Supple. No JVD. LUNGS: Poor airflow. Prolonged expiratory phase with wheezing. HEART: S1 and S2. ABDOMEN: Soft, nontender. No organomegaly. EXTREMITIES: Trace edema. NEUROLOGIC: Awake and follows simple command. LABORATORY DATA: Shows hemoglobin 5.5, hematocrit 16.8, WBC 11.2, platelet is 149. INR 1.83, PTT 23. VBG showed pH 7.37, pCO2 is 41, O2 of 36. Sodium 142, potassium 4.0, chloride 110, bicarbonate 21, BUN 33, creatinine 1.3, glucose 152, calcium 8.9, magnesium 1.8, AST 26, ALT 22, alk phos is 43. LDH 716. Troponin less than 0.05. ProBNP 3020. Albumin is 3.2. Urinalysis shows wbc's 0 to 2. Chest x-ray done in the ER shows cardiomegaly with pulmonary edema. IMPRESSION AND PLAN: Chronic obstructive lung disease, cardiomyopathy, congestive heart failure, hypertension, renal failure, severe anemia, and sleep apnea syndrome. She is DNR, placed on noninvasive ventilation, being transfused. We will add pump inhibitors, SCD to lower extremity, get procalcitonin in the morning. Followup labs in the morning. We will get ABG in the morning. We will follow with you. Elyssa Collins MD
[2018-04-01] MEDS ORDERED: Potassium Chloride 20 mEq ER Tab PO STA (09:19)
[2018-04-01] MEDS: MethylPREDNISolone 40 mg Vial IVP SCH ×2 (10:21→22:04)
--- NOTE | 2018-04-01 12:10 | CON ---
DATE: 03/31/2018 CARDIOLOGY CONSULTATION REASON FOR CONSULTATION: Rule out congestive heart failure, shortness of breath, elevated BNP, admitted with severe anemia, hemoglobin 5.5. BRIEF CLINICAL HISTORY: This is an 87-year-old female with past medical history significant for COPD; bladder cancer, refused treatment in the past; hypertension, admitted with complaint of two days' progressively worsening shortness of breath. Admitting hemoglobin was 5.5 and elevated BNP to 3020. This is an 87-year-old female brought to the ER because of generalized weakness and shortness of breath. The patient was recently discharged to [facility] for deconditioning of the body. History of COPD, history of CHF, history of bladder cancer, history of dementia, history of psoriasis and psoriatic arthritis. PAST MEDICAL HISTORY: As mentioned, significant for COPD, bladder cancer, CHF, dementia, and psoriasis. History of DNR/DNI on last admission, history of moderate pulmonary hypertension, moderate MR, moderate TR, moderate valvular aortic stenosis. History of respiratory failure, admitted to ICU, improved, then was transferred to rehab center. Previous cardiac workup as follows: The patient had an echocardiography done on 01/14/2018 at [facility] that revealed ejection fraction within the normal limit, calculated ejection fraction of 64%, moderate aortic sclerosis, sehu-lk-[id number] mitral regurgitation, iona-mq-rysbexmm tricuspid regurgitation, RV systolic pressure of 45. Peak gradient across the aortic valve is 10 mmHg, dated 01/14/2018. Prior to that, the patient had another echo at [facility], read by Dr. Dorie Aguirre and was a limited study [id number] hypertrophy noted, calcific aortic valve with displaced opening, RV systolic pressure reported at 51, at this time it is 45. SOCIAL HISTORY: Denies any history of alcohol abuse. CURRENT MEDICATIONS: The patient was taking Eliquis 5 mg p.o. b.i.d., tramadol, hydralazine, and amlodipine 5 mg daily. EKG shows sinus tachycardia, previous. Today's EKG also shows sinus tachycardia. REVIEW OF SYSTEMS: As per HPI. PHYSICAL EXAMINATION: VITAL SIGNS: Height of the patient 5 feet 3 inches, weight of the patient 170 pounds, body mass index 30.1 kg/m2. Temperature afebrile, heart rate 82, blood pressure 106/52. HEENT: PERRLA. Extraocular muscles intact. NECK: Supple. No carotid bruit or thyromegaly. CHEST: Clear to auscultation. HEART: S1 and S2, regular. ABDOMEN: Soft. EXTREMITIES: Clubbing and cyanosis negative. LABORATORY DATA: Blood workup as follows: WBC 11.8, hemoglobin 5.5, hematocrit 16.8, platelet count 149,000. Chemistry shows sodium 140, potassium 4, chloride 110, carbon dioxide 21, anion gap of 15, BUN 33, creatinine 1.3. BNP 3020. Total protein 6.4, albumin 3.4, albumin globulin ratio 1. DIAGNOSTIC DATA: Chest x-ray cardiomegaly. Her previous chest x-ray consistent with congestive changes encephalization, cannot rule out pneumonia in right lower lobe. Pneumonia is interpreted in films. IMPRESSION: An 87-year-old female with past medical history significant for bladder carcinoma, refused treatment in the past; chronic obstructive pulmonary disease; admitted with anemia, severe, hemoglobin 5.5; shortness of breath. Chest x-ray showed congestive heart failure probably is mild failure.CHF is secondary to Severe anemia and diastolic dysfunction. Recently echo showed preserved left ventricular function, pgms-tk-[id number] mitral regurgitation, hfsz-ww-czheqllk tricuspid regurgitation, right ventricular systolic pressure of 45. RECOMMENDATIONS: The patient will get 2 units of blood. We will give post-transfusion, 40 of Lasix now and 40 of Lasix at 10 p.m. and then 40 mg of Lasix from tomorrow. We will get lipid profile, TSH, and hemoglobin A1c. Most likely anemia precipitated these symptoms. We will follow with you. Thank you, Dr. Conner, for providing me the opportunity in taking care of patient, Shonda Grant. Also, we will put some broad-spectrum antibiotic coverage to rule out early pneumonia. We will repeat chest x-ray, PA and lateral in the morning. Elyssa Acosta MD DONNA
--- NOTE | 2018-04-01 14:13 | PN ---
DATE: 04/01/2018 SUBJECTIVE: The patient is in bed, in no distress. PHYSICAL EXAMINATION: VITAL SIGNS: On exam, temperature is 98, blood pressure is 130/60, respiratory rate of 18. HEENT: Unremarkable. NECK: Supple. LUNGS: Have decreased breath sounds. HEART: Normal S1, S2. ABDOMEN: Soft, nontender. LABORATORY DATA: Laboratory examination reveals a white count of 9.2, hemoglobin of 7. Chemistries reveals a BUN of 34, creatinine of 1.2 and urinalysis is noted and microbiology is noted. ASSESSMENT AND PLAN: An 87-year-old with a chronic obstructive lung disease, dementia, hypertension, congestive heart failure, deep venous thrombosis, bladder cancer, psoriasis, admitted with diagnosis of sepsis, chronic obstructive lung disease and now with sepsis and healthcare-associated pneumonia with congestive heart failure, rule out bacterial versus gram-positive versus gram-negative and workup in progress. Today is day #2. Awaiting for procalcitonin. The patient is on day #2 of doxycycline and cefepime, was given a dose of vancomycin. Jake Machado MD
--- NOTE | 2018-04-01 14:57 | PN ---
DATE: 04/01/2018 REASON FOR THE CONSULTATION AND FOLLOWUP: Shortness of breath, rule out CHF. SUBJECTIVE: Patient denies any chest pain, shortness of breath, any palpitation. Yesterday's my consult is not available as of yet. OBJECTIVE: GENERAL: Not in apparent distress. VITAL SIGNS: Temperature afebrile, heart rate 104, blood pressure 120/55. HEENT: PERRLA. Extraocular muscles intact. NECK: Supple. No carotid bruit or thyromegaly. CHEST: Clear to auscultation. HEART: S1 and S2, regular. ABDOMEN: Soft. EXTREMITIES: Clubbing and cyanosis negative. LABORATORY DATA: Blood workup as follows: WBC 9.8, hemoglobin 7.2, hematocrit 22.3, platelet count 89. Chemistry shows sodium 140, potassium 3.2, chloride 109, carbon dioxide 23, anion gap of 11, BUN 34, creatinine 1.2. TSH 1.4. Triglycerides 105, total cholesterol 175, LDL 102, HDL 45. IMPRESSION: An 87-year-old female with past medical history significant for bladder cancer, status post refused treatment, admitted yesterday with shortness of breath. Cardiology consult was called for rule out congestive heart failure. Patient was severely anemic with admitting hemoglobin of 5.7, given 2 units of blood today, hemoglobin is 7.2. Chronic obstructive pulmonary disease; cardiomyopathy; history of deep venous thrombosis, was on Eliquis at home; history of renal insufficiency; history of bladder tumor, refused workup and treatment. Last echo dated 01/14/2018 showed normal left ventricle, normal left ventricular function, moderate mitral regurgitation, moderate tricuspid regurgitation, moderate pulmonary hypertension, moderate aortic valve sclerosis. RECOMMENDATION: Monitor H and H. If it goes below 7, consider packed RBC transfusion, Eliquis on hold because of severely decreased H and H. Continue gentle diuretics. We will give 20 of Lasix and start . Patient is already on 40 Lasix daily. Now, we will give an additional 20 at 3 p.m. Discontinue IV fluid. Continue antibiotics. Discontinue telemetry. We will repeat chest x-ray to rule out CHF versus early pneumonia. We will give 20 of Lasix at 3 p.m. and 40 of K-Dur. Continue 40 of Lasix everyday. I will give 40 of K-Dur as well with Lasix. If remained stable, discontinue telemetry. Thank you, Dr. Daniel, for providing us the opportunity in taking care of the patient, Shonda Grant. Elyssa Acosta MD
--- NOTE | 2018-04-01 15:45 | RAD ---
Date of service: 04/01/2018 HISTORY: R/O pneumonia Vs CHF COMPARISON: No prior. FINDINGS: LUNGS: No active pulmonary disease. PLEURA: No significant pleural effusion identified, no pneumothorax apparent. CARDIOVASCULAR: Atherosclerotic calcifications identified primarily aortic arch. Improving and presumed cardiogenic pulmonary edema. OSSEOUS STRUCTURES: No significant abnormalities. VISUALIZED UPPER ABDOMEN: Normal. OTHER FINDINGS: None. IMPRESSION: Improving pulmonary edema. An interstitial/alveolar component however remains.
[2018-04-01] MEDS ORDERED: Potassium Chloride 20 mEq ER Tab PO ONE (16:00)
--- NOTE | 2018-04-01 18:29 | PN ---
DATE: 04/01/2018 SUBJECTIVE: The patient is in room 270 bed 1, seen earlier today. No fevers and no chills. PHYSICAL EXAMINATION: VITAL SIGNS: On exam, temperature is 98, blood pressure is 120/50, respiratory rate of 18 and heart rate of 104. HEENT: Unremarkable. NECK: Supple. LUNGS: Have decreased breath sounds. HEART: Normal S1 and S2. ABDOMEN: Soft. LABORATORY DATA: Reveals the patient's white count is 9.2, hemoglobin of 7.6 and platelets of 89. Chemistries are noted; BUN of 34 and creatinine of 1.2 and urinalysis is noted. Microbiology is noted. ASSESSMENT AND PLAN: This is an 87-year-old female seen earlier today who was admitted with chronic obstructive lung disease, dementia, hypertension, congestive heart failure, deep venous thrombosis, bladder cancer, psoriasis, admitted with #1 is sepsis, healthcare-associated pneumonia, congestive heart failure and must rule out Gram-positive cocci versus Gram-negative [place]. Currently day #2 of cefepime and doxycycline and panculture results. We will follow closely with you. Jake Machado MD
--- NOTE | 2018-04-01 22:03 | HP ---
HISTORY OF PRESENT ILLNESS: The patient is an 87-year-old female admitted through the emergency department on 03/31/2018 with shortness of breath over the past 2 days. The patient denied any fever, cough, or chest pain. She was found to be severely anemic with hemoglobin of 5.5 and received 2 units of packed red cells. Her repeat hemoglobin was 7.6 today. The patient is admitted for further evaluation and management. PAST MEDICAL HISTORY: Includes COPD secondary to tobacco use, congestive heart failure, hypertension, and hypertensive cardiovascular disease. She has a history of Alzheimer's disease. PAST SURGICAL HISTORY: Includes deep vein thrombosis status post IVC filter placement. The patient is approximately 5-6 years status post transurethral resection of bladder tumor for carcinoma of the bladder. She is also status post fracture of the humerus. ALLERGIES: THE PATIENT HAS NO KNOWN DRUG ALLERGIES. CURRENT MEDICATIONS: Include Eliquis 5 mg twice daily, amlodipine 5 mg daily, hydralazine 25 mg every 6 hours. and tramadol 50 mg every 12 hours. FAMILY HISTORY: Noncontributory. SOCIAL HISTORY: The patient has a 42-xyae-uipq-year history of tobacco use in the past. There is no history of alcohol abuse. She currently lives with her daughter. She is dependent with IADLs and requires some assistance with ADLs. REVIEW OF SYSTEMS: Unobtainable as the patient is currently on a BiPAP mask. PHYSICAL EXAMINATION: GENERAL: The patient is a well-developed female in no acute distress. VITAL SIGNS: Blood pressure 120/55, temperature 98, pulse 104, respiratory rate 17 on BiPAP mask. HEENT: Head is normocephalic, atraumatic. Pupils equal, round, and reactive to light. Extraocular movements intact. NECK: Supple. No thyromegaly. No carotid bruit. No adenopathy. LUNGS: Show bibasilar crackles and scattered rhonchi. HEART: Regular rate and rhythm. Slightly tachycardic with a grade 2/6 systolic murmur. ABDOMEN: Soft and nontender. Bowel sounds are normoactive. EXTREMITIES: Without cyanosis or clubbing. There is trace bipedal edema. NEUROLOGICAL: The patient is awake and confused without focal sensory or motor deficits. SKIN: Warm and dry. LABORATORY DATA: WBC is 9.2, hemoglobin 7.6, hematocrit 22.3, status post transfusion of 2 units of packed cells. Sodium 140, potassium 3.2, chloride 109, CO2 of 23, BUN 34, creatinine 1.2, glucose 134. BNP was elevated at 3020. Troponin was 0.08. Chest x-ray showed cardiomegaly and presumed cardiogenic pulmonary edema, which is new compared to the previous study. IMPRESSION: 1. Acute pulmonary edema, rule out myocardial ischemia/infarct. 2. Anemia, rule out gastrointestinal bleed secondary to Eliquis. 3. Hypertension and hypertensive cardiovascular disease. 4. Chronic obstructive pulmonary disease. 5. Carcinoma of the bladder. 6. Status post inferior vena cava filter for deep vein thrombosis. 7. Alzheimer's dementia versus mixed dementia. PLAN: The patient is admitted to the telemetry unit. She is DNR/DNI status. Pulmonary consultation has been called with Dr. Collins, Cardiology consultation has been called with Dr. Ramirez or Dr. Acosta. She is receiving IV Lasix. We will supplement potassium secondary to mild hypokalemia. Monitor hemoglobin and hematocrit status post transfusion, physical therapy and social work for discharge planning. Prognosis is guarded. Jorge A Daniel JD/
--- NOTE | 2018-04-01 22:27 | PN ---
DATE: 04/01/2018 REFERRING PHYSICIAN: Dr. Daniel. SUBJECTIVE: She is lying in the bed, requiring noninvasive ventilation. Awake, alert, follows simple command. No hemoptysis. No hematemesis. No hematuria, diarrhea, leg pain, or leg swelling. OBJECTIVE: GENERAL: No acute distress. VITAL SIGNS: Temperature is 98, heart rate is 81, respiratory rate is 20, blood pressure 152/68, pulse ox 93% on BiPAP. HEENT: Moist mucous membrane. Crowded airway. NECK: Supple. No JVD. LUNGS: Have a few crackles, scattered rhonchi. HEART: S1 and S2. ABDOMEN: Soft and nontender. No organomegaly. EXTREMITIES: No edema. NEUROLOGIC: Awake and alert. Does follow simple commands. MEDICATIONS: She is on doxycycline 100 mg twice a day, DuoNeb every 12 hours p.r.n., Lasix 40 mg IV daily, cefepime 1 g IV every 12 hours, Protonix 40 mg daily, Solu-Medrol 40 mg every 12 hours, Tylenol p.r.n., Xanax 0.25 mg twice a day p.r.n. LABORATORY DATA: Shows hemoglobin 7.6, hematocrit 22.3, WBC 9.2, platelet is 89. VBG showed pH 7.47, pCO2 is 35, O2 160. Sodium 140, potassium 2.2, chloride 109, bicarbonate 23, BUN 34, creatinine 1.2, glucose 134. Hemoglobin A1c 6.0, calcium 8.8, phosphorus 4.6, magnesium 1.9, AST 26, ALT 28, alk phos is 38. Albumin is 3.1. Cholesterol is 175. TSH 1.40. Microbiology, blood culture is no growth. Chest x-ray done today shows improving pulmonary edema, still has alveolar component of infiltrate. IMPRESSION AND PLAN: Chronic obstructive lung disease, cardiomyopathy, congestive heart failure, hypertension, renal failure, severe anemia, sleep apnea syndrome. Spoke to nursing staff. We will continue on bilevel positive airway pressure overnight. We will try high-flow nasal cannula oxygen at 40 L flow with 50% oxygen and titrate. pulse ox about 190. Gastric prophylaxis, antibiotics, diuretics. Follow up labs in the morning. Thank you, and we will follow with you Elyssa Collins MD [facility] # [id number]
[2018-04-02] MEDS: Pantoprazole 40 mg EC Tab PO SCH (06:20)
--- NOTE | 2018-04-02 09:38 | CP.PCM.PN ---
Subjective - Date & Time of Evaluation Date of Evaluation: 04/02/18 Time of Evaluation: 09:20 - Subjective Subjective: resting comfortably, NAD, refusing phlebotomy Objective - Vital Signs/Intake and Output Vital Signs (last 24 hours): Temp Pulse Resp BP Pulse Ox 97.6 F 85 20 175/90 H 97 04/02/18 06:00 04/02/18 06:20 04/02/18 08:25 04/02/18 06:20 04/02/18 06:00 Intake and Output: 04/02/18 04/02/18 06:59 18:59 Intake Total 1045 Output Total 600 Balance 445 - Medications Medications: Current Medications Acetaminophen (Tylenol 325mg Tab) 650 mg PO Q6H PRN PRN Reason: Pain, moderate (4-7) Albuterol/Ipratropium (Duoneb 3 Mg/0.5 Mg (3 Ml) Ud) 3 ml IH Q2H PRN PRN Reason: Shortness of Breath Last Admin: 04/01/18 20:30 Dose: 3 ml Alprazolam (Xanax) 0.25 mg PO BID PRN PRN Reason: Anxiety Stop: 04/08/18 09:14 Last Admin: 04/01/18 10:18 Dose: 0.25 mg Doxycycline Hyclate (Doryx) 100 mg PO Q12 TWAN; Protocol Stop: 04/07/18 22:01 Last Admin: 04/01/18 22:36 Dose: Not Given Furosemide (Lasix) 40 mg IV DAILY TWAN Last Admin: 04/01/18 10:20 Dose: 40 mg Furosemide (Lasix) 40 mg IV ONCE ONE Stop: 04/02/18 15:01 Cefepime HCl (Maxipime 1gm) 1 gm in 100 mls @ 100 mls/hr IVPB Q12 TWAN; Protocol Stop: 04/09/18 22:01 Last Admin: 04/01/18 22:31 Dose: 100 mls/hr Methylprednisolone (Solu-Medrol) 40 mg IVP Q12 TWAN Last Admin: 04/01/18 22:04 Dose: 40 mg Pantoprazole Sodium (Protonix Ec Tab) 40 mg PO 0600 TWAN Last Admin: 04/02/18 06:20 Dose: 40 mg - Labs Labs: 04/01/18 06:00 04/01/18 06:00 PT 21.3 SECONDS (9.4-12.5) H 03/31/18 08:00 INR 1.83 03/31/18 08:00 APTT 22.5 Seconds (25.1-36.5) L 03/31/18 08:00 - Respiratory Exam Respiratory Exam: Rales, Rhonchi Additional comments: nasal bipap intact - Cardiovascular Exam Cardiovascular Exam: REGULAR RHYTHM - GI/Abdominal Exam GI & Abdominal Exam: Soft, Normal Bowel Sounds - Extremities Exam Extremities Exam: Normal Inspection - Neurological Exam Neurological Exam: Altered - Skin Skin Exam: Dry, Warm Assessment and Plan (1) CHF (congestive heart failure) Status: Acute (2) COPD (chronic obstructive pulmonary disease) Status: Acute (3) Pneumonia Status: Acute (4) Acute and chronic respiratory failure Status: Chronic (5) Bladder carcinoma Status: Chronic (6) Dementia Status: Chronic (7) HTN (hypertension) Status: Chronic - Assessment and Plan (Free Text) Plan: continue IV Abx, Lasix, cardio/pulm/ID follow-up, sociial work for DC planning
[2018-04-02] MEDS: Potassium Chloride 20 mEq ER Tab PO SCH (09:45)
[2018-04-02] MEDS: Cefepime 1gm in NS 100ml 1 GM/100 ML BAG IVPB SCH ×2 (09:46→21:59)
[2018-04-02] MEDS: MethylPREDNISolone 40 mg Vial IVP SCH ×2 (09:46→22:00)
--- NOTE | 2018-04-02 11:09 | PN ---
DATE: 04/02/2018 REASON FOR THE CONSULTATION: Followup shortness of breath, rule out CHF, severe anemia. SUBJECTIVE: The patient denies any chest pain, shortness of breath or any palpitation. OBJECTIVE: GENERAL: Lying flat on the bed, not in any apparent distress. VITAL SIGNS: Temperature afebrile, heart rate 85, blood pressure 175/90. HEENT: PERRLA. Extraocular muscles intact. NECK: Supple. No carotid bruit. No thyromegaly. CHEST: Clear to auscultation. HEART: S1 and S2 regular. ABDOMEN: Soft. EXTREMITIES: Clubbing and cyanosis negative. LABORATORY DATA: Blood workup as follows; WBC 9.8, hemoglobin 7.6, hematocrit 22.3, platelet count 89. Chemistry shows sodium 140, potassium 3.2 as of yesterday, chloride 109, carbon dioxide 23, anion gap of 11, BUN 34, creatinine 1.2. Today's lab is pending, not available as of yet. IMPRESSION: An 87-year-old female with past medical history significant for bladder cancer, status post refused treatment. Admitted yesterday with shortness of breath. Cardiac consult was called to rule out a congestive heart failure. The patient was severely anemic, got 2 units of blood. Admitting hemoglobin was 2 units of blood, 7.2. Repeat blood culture is pending. History of chronic obstructive pulmonary disease, history of cardiomyopathy, history of deep vein thrombosis, was on Eliquis at home, history of renal insufficiency, history of bladder tumor. Last echo dated 01/14/2018, ejection fraction reported normal. Moderate mitral regurgitation. Moderate tricuspid regurgitation. Moderate pulmonary hypertension. Moderate aortic sclerosis. RECOMMENDATION: Follow up the lab when it is available. Eliquis is on hold because of bleed. If hemoglobin goes below 7, consider packed RBC transfusion. Yesterday, repeat chest x-ray was done. Still shows honeycomb appearance, possibly lot of fluids around the heart and congestive changes, though is better, but still appears pulmonary edema. Last echo dated 01/14/2018, done in [place], read by Dr. Marks reported normal LV function. Prior to that, another echo at [facility] on 10/20/2017, ejection fraction also reported normal. We will follow today's lab when is available and we will give extra Lasix at 3:00 p.m. to clear the congestive changes and we will follow the lab. We will also repeat blood workup tomorrow and as mentioned, if hemoglobin goes below 7, consider packed RBC transfusion. We will give an extra dose of Lasix at 3:00 p.m. today in addition to 10 o'clock. Depending upon SMA-7, we may add on the potassium if needed. Overall, the patient's condition is critical. Long-term prognosis is guarded. Thank you, Dr. Daniel for providing us the opportunity in taking care of the patient, Shonda Grant. Elyssa Acosta MD
--- NOTE | 2018-04-02 14:16 | PN ---
DATE: 04/02/2018 SUBJECTIVE: The patient seen earlier today in 270 bed 1. She is awake and alert. She is doing well. She states she had an uneventful night. No fevers and chills. Tolerated the antibiotics. PHYSICAL EXAMINATION: VITAL SIGNS: Temperature is 97, blood pressure is 170/90, respiratory rate 21, heart rate 91. HEENT: Unremarkable. NECK: Supple. LUNGS: Decreased breath sounds. HEART EXAM: Normal S1, S2. ABDOMEN: Soft. LABORATORY DATA: Reveals a white count of 9.2, hemoglobin of 7, platelets of 89, BUN of 34, creatinine of 1.2. Urinalysis is noted and microbiology and blood cultures negative and chest x-ray is no active disease. Review of orders, the patient is on doxycycline and cefepime and 0.[address] Collins's note s reviewed. Dr. Collins states the patient has sleep apnea and congestive heart failure and chronic obstructive lung disease. ASSESSMENT AND PLAN: An 87-year-old female seen earlier today admitted with chronic obstructive lung disease, dementia, hypertension, congestive heart failure with sepsis, healthcare associated pneumonia with congestive heart failure with a negative procalcitonin, day #3 of cefepime and doxycycline. Although the procalcitonin is negative, current recommendation by [place] [employer] is to treat if clinically behaving like bacterial pneumonia treat as bacterial pneumonia. Today is day#3 of cefepime and doxycycline, we will recommend four to seven days and we will be able to switch to p.o. upon discharge. may be able to switch to p.o. Levaquin instead of doxycycline upon discharge at 500 mg p.o. once daily x3 days. Jake Machado MD
--- NOTE | 2018-04-02 15:51 | PN ---
DATE: 04/02/2018 PULMONARY PROGRESS NOTE REFERRING PHYSICIAN: Dr. Daniel. SUBJECTIVE: Patient is lying in the bed, head at 45 degrees. Tolerated BiPAP well last night, present on high-flow nasal cannula, feels better, still has some cough, shortness of breath. No nausea, no vomiting, no diarrhea, no leg pain or leg swelling. OBJECTIVE: GENERAL: In no acute distress. VITAL SIGNS: Temperature is 98, heart rate 82, respiratory rate 18, blood pressure 148/73, pulse ox is 90% on high-flow. HEENT: Moist mucous membrane. Crowded airway. NECK: Supple. No JVD. LUNGS: Scattered rhonchi and crackles. HEART: S1 and S2. ABDOMEN: Soft, nontender. No organomegaly. EXTREMITIES: No edema. NEUROLOGIC: Awake, alert, and follows simple command. MEDICATIONS: She is on doxycycline 100 mg twice a day, every 2 hours p.r.n., potassium 20 mEq daily, Lasix 40 mg IV daily, cefepime 1 g IV every 12 hours, Protonix 40 mg daily, Solu-Medrol 40 mg every 12 hours, Tylenol p.r.n., and Xanax 0.25 mg twice a day p.r.n. LABORATORY DATA: Reviewed. No lab is available since yesterday. IMPRESSION AND PLAN: Chronic obstructive lung disease, cardiomyopathy, congestive heart failure, hypertension, renal failure, severe anemia, sleep apnea syndrome, hypoventilation syndrome. Pulmonary point of view, she is doing better. We will continue IV and inhaled bronchodilator, antibiotics, and diuretics. Continue high-flow oxygen, titrate FiO2 to pulse ox 90%. BiPAP while sleeping. Follow up labs in the morning. Thank you and we will follow with you. Elyssa Collins MD
[2018-04-03] MEDS: Pantoprazole 40 mg EC Tab PO SCH (05:03)
--- NOTE | 2018-04-03 08:33 | CP.PCM.PN ---
Subjective - Date & Time of Evaluation Date of Evaluation: 04/03/18 Time of Evaluation: 06:35 - Subjective Subjective: Awake, alert, on high flow oxygen Reason for consultation and follow up: Cardiac evaluation of shortness of breath, rule out congestive heart failure. History of bladder cancer (refusing treatment), COPD, cardiomyopathy, DVT on Eliquis, Seen and examined by me and Dr. Acosta Objective - Vital Signs/Intake and Output Vital Signs (last 24 hours): Temp Pulse Resp BP Pulse Ox 97.8 F 73 19 124/53 L 94 L 04/03/18 05:50 04/03/18 07:05 04/03/18 05:50 04/03/18 07:05 04/03/18 00:01 Intake and Output: 04/03/18 04/03/18 06:59 18:59 Intake Total 260 Output Total 100 Balance 160 - Medications Medications: Current Medications Acetaminophen (Tylenol 325mg Tab) 650 mg PO Q6H PRN PRN Reason: Pain, moderate (4-7) Albuterol/Ipratropium (Duoneb 3 Mg/0.5 Mg (3 Ml) Ud) 3 ml IH Q2H PRN PRN Reason: Shortness of Breath Last Admin: 04/01/18 20:30 Dose: 3 ml Alprazolam (Xanax) 0.25 mg PO BID PRN PRN Reason: Anxiety Stop: 04/08/18 09:14 Last Admin: 04/01/18 10:18 Dose: 0.25 mg Doxycycline Hyclate (Doryx) 100 mg PO Q12 [facility]; Protocol Stop: 04/07/18 22:01 Last Admin: 04/02/18 22:00 Dose: 100 mg Furosemide (Lasix) 40 mg IV DAILY [facility] Last Admin: 04/02/18 09:45 Dose: 40 mg Cefepime HCl (Maxipime 1gm) 1 gm in 100 mls @ 100 mls/hr IVPB Q12 [facility]; Protocol Stop: 04/09/18 22:01 Last Admin: 04/02/18 21:59 Dose: 100 mls/hr Methylprednisolone (Solu-Medrol) 40 mg IVP Q12 [facility] Last Admin: 04/02/18 22:00 Dose: 40 mg Pantoprazole Sodium (Protonix Ec Tab) 40 mg PO 0600 [facility] Last Admin: 04/03/18 05:03 Dose: 40 mg Potassium Chloride (K-Dur 20 Meq Er Tab) 20 meq PO BRK [facility] Last Admin: 04/02/18 09:45 Dose: Not Given - Labs Labs: 04/01/18 06:00 04/01/18 06:00 PT 21.3 SECONDS (9.4-12.5) H 03/31/18 08:00 INR 1.83 03/31/18 08:00 APTT 22.5 Seconds (25.1-36.5) L 03/31/18 08:00 - Constitutional Appears: No Acute Distress - Eye Exam Eye Exam: Normal appearance Pupil Exam: NORMAL ACCOMODATION - ENT Exam ENT Exam: Mucous Membranes Dry - Respiratory Exam Respiratory Exam: Decreased Breath Sounds, Clear to Ausculation Bilateral, NORM AL BREATHING PATTERN Additional comments: high flow oxygen nasal cannula - Cardiovascular Exam Cardiovascular Exam: REGULAR RHYTHM, +S1, +S2 Additional comments: telemetry NSR 70's - GI/Abdominal Exam GI & Abdominal Exam: Soft, Normal Bowel Sounds - Extremities Exam Extremities Exam: Full ROM, Normal Capillary Refill - Neurological Exam Neurological Exam: Alert, Awake, Oriented x3 - Psychiatric Exam Psychiatric exam: Normal Affect, Normal Mood - Skin Skin Exam: Dry, Normal Color, Warm Assessment and Plan - Assessment and Plan (Free Text) Assessment: A 87 year old female who came in to the ER due to shortness of breath. Admitted for severe anemia, transfused 2 unit PRBC. History of bladder cancer (refusing treatment), CHF, COPD, cardiomyopathy, DVT on Eliquis. Severe anemia, exacerbation of COPD, bacterial pneumonia. Plan: No distress, on high flow oxygen H/H stable 7.6/22.3 (Post transfusion of 2 units PRBC) Continue antibiotics as per ID Controlled heart rate Controlled blood pressure Episode of high blood pressure last night, Hydralazine IV given PRN Hydralazine for high blood pressure On Lasix 40 mg daily, Solumedrol 40 mg every 12 hours Kdur 20 meq daily Continue current treatment Continue current medications Chart reviewed Will follow up Plan and treatment discussed with Dr. Acosta
[2018-04-03] MEDS: Potassium Chloride 20 mEq ER Tab PO SCH (08:40)
[2018-04-03] MEDS: MethylPREDNISolone 40 mg Vial IVP SCH ×2 (09:11→21:36)
[2018-04-03] MEDS: levoFLOXacin 500 MG TAB PO SCH (09:17)
--- NOTE | 2018-04-03 09:37 | CP.PCM.PN ---
Subjective - Date & Time of Evaluation Date of Evaluation: 04/03/18 Time of Evaluation: 09:20 - Subjective Subjective: more awake and respionsive, no chest pain, no SOB Objective - Vital Signs/Intake and Output Vital Signs (last 24 hours): Temp Pulse Resp BP Pulse Ox 97.8 F 73 19 136/61 94 L 04/03/18 05:50 04/03/18 07:05 04/03/18 05:50 04/03/18 09:12 04/03/18 00:01 Intake and Output: 04/03/18 04/03/18 06:59 18:59 Intake Total 260 Output Total 100 Balance 160 - Medications Medications: Current Medications Acetaminophen (Tylenol 325mg Tab) 650 mg PO Q6H PRN PRN Reason: Pain, moderate (4-7) Albuterol/Ipratropium (Duoneb 3 Mg/0.5 Mg (3 Ml) Ud) 3 ml IH Q2H PRN PRN Reason: Shortness of Breath Last Admin: 04/01/18 20:30 Dose: 3 ml Alprazolam (Xanax) 0.25 mg PO BID PRN PRN Reason: Anxiety Stop: 04/08/18 09:14 Last Admin: 04/01/18 10:18 Dose: 0.25 mg Doxycycline Hyclate (Doryx) 100 mg PO Q12 [facility]; Protocol Stop: 04/07/18 22:01 Last Admin: 04/03/18 09:11 Dose: 100 mg Furosemide (Lasix) 40 mg IV DAILY [facility] Last Admin: 04/03/18 09:12 Dose: 40 mg Hydralazine HCl (Apresoline) 10 mg IVP Q6 PRN PRN Reason: Hypertension Levofloxacin (Levaquin) 500 mg PO DAILY [facility]; Protocol Stop: 04/05/18 10:01 Last Admin: 04/03/18 09:17 Dose: 500 mg Methylprednisolone (Solu-Medrol) 40 mg IVP Q12 [facility] Last Admin: 04/03/18 09:11 Dose: 40 mg Pantoprazole Sodium (Protonix Ec Tab) 40 mg PO 0600 [facility] Last Admin: 04/03/18 05:03 Dose: 40 mg Potassium Chloride (K-Dur 20 Meq Er Tab) 20 meq PO BRK [facility] Last Admin: 04/03/18 08:40 Dose: 20 meq - Labs Labs: 04/01/18 06:00 04/01/18 06:00 PT 21.3 SECONDS (9.4-12.5) H 03/31/18 08:00 INR 1.83 03/31/18 08:00 APTT 22.5 Seconds (25.1-36.5) L 03/31/18 08:00 - Respiratory Exam Respiratory Exam: Rales - Cardiovascular Exam Cardiovascular Exam: REGULAR RHYTHM - GI/Abdominal Exam GI & Abdominal Exam: Soft, Normal Bowel Sounds - Neurological Exam Neurological Exam: Altered, Awake - Skin Skin Exam: Dry, Warm Assessment and Plan (1) CHF (congestive heart failure) Status: Acute (2) COPD (chronic obstructive pulmonary disease) Status: Acute (3) Pneumonia Status: Acute (4) Acute and chronic respiratory failure Status: Chronic (5) Bladder carcinoma Status: Chronic (6) Dementia Status: Chronic (7) HTN (hypertension) Status: Chronic - Assessment and Plan (Free Text) Plan: continue present tx., PT NEREIDA valerio for DC planning
--- NOTE | 2018-04-03 09:47 | PN ---
DATE: 04/03/2018 SUBJECTIVE: The patient is in bed, in no acute distress. PHYSICAL EXAMINATION: VITAL SIGNS: On exam, temperature is 97, blood pressure is 120/50, respiratory rate of 18. HEENT: Examination of HEENT is unremarkable. NECK: Supple. LUNGS: Have decreased breath sounds. HEART: Normal S1 and S2. ABDOMEN: Soft. LABORATORY DATA: Laboratory examination reveals the blood cultures are negative. Urine cultures are negative. MRSA is not detected. ASSESSMENT AND PLAN: An 87-year-old female, admitted with chronic obstructive lung disease, dementia, hypertension, congestive heart failure with sepsis with healthcare-associated pneumonia, negative procalcitonin. Day #4 of cefepime and doxycycline. May switch to p.o. Levaquin to complete therapy with 500 mg p.o. once daily for 3 days. Jake Machado MD
--- NOTE | 2018-04-03 19:57 | PN ---
DATE: 04/03/2018 REASON FOR CONSULTATION: Rule out CHF, severe anemia. The patient is seen, discussed with our nurse practitioner, Zaira Cárdenas. SUBJECTIVE: An 87-year-old female admitted with generalized weakness; confused; history of blood cancer, refused treatment in the past; admitted with shortness of breath; hemoglobin severely decreased, status post packed RBCs transfusion, improved; history of DVT, history of Eliquis at home; history of cardiomyopathy, in last ejection fraction reported normal, [id number] tricuspid regurgitation, moderate pulmonary hypertension, moderate aortic stenosis. RECOMMENDATIONS: Continue supportive care, continue diuretics. Repeat x-ray done yesterday shows improving pulmonary edema. Today, hemoglobin is 7.6, status post packed RBC transfusion. We will repeat chest x-ray today, supplement electrolytes as needed. We will repeat the blood workup and chest x-ray. Chest x-ray, routine blood workup tomorrow. Overall, the patient's condition is critical, long-term prognosis is guarded. The patient's code status is DNR/DNI. For the time being, continue IV Lasix. The patient was at home on hydralazine and we will put 25 b.i.d. Because of severe anemia, the patient's Eliquis on hold, if H and H remain stable, we will resume back Eliquis. We will put hydralazine 10 mg IV every 6 for systolic more than 170 and put 25 b.i.d. standing order for hypertension. We will follow with you and repeat blood workup tomorrow. Thank you, Dr. Daniel, for providing us the opportunity in taking care of the patient, Shonda Grant. Elyssa Acosta MD
--- NOTE | 2018-04-03 22:42 | PN ---
DATE: 04/03/2018 REFERRING PHYSICIAN: Dr. Daniel. SUBJECTIVE: The patient is lying in the bed. Night was unremarkable. High-flow nasal cannula oxygen. Feels much better. No headache, no rhinitis. Mild cough and shortness of breath. No chest pain. No dysuria. No leg pain or leg swelling. OBJECTIVE: GENERAL: No acute distress. VITAL SIGNS: Temperature is 98, heart rate 53, respiratory rate is 18, blood pressure 130/88, pulse ox 97% on high-flow oxygen. HEENT: Moist mucous membrane. Crowded airway. NECK: Supple. No JVD. LUNGS: Have decreased breath sounds at the bases. HEART: S1 and S2. ABDOMEN: Soft, nontender. No organomegaly. EXTREMITIES: No edema. NEUROLOGIC: Awake, alert, follows simple command. MEDICATIONS: She is on hydralazine 10 mg every 6 hours p.r.n. and also hydralazine 25 mg twice a day [id number], doxycycline 100 mg twice a day, DuoNeb every 2 hours p.r.n., potassium 20 mEq daily, Lasix 40 mg daily, Levaquin 500 mg daily, Protonix 40 mg daily, Solu-Medrol 40 mg every 12 hours, Tylenol p.r.n., Xanax 0.25 mg twice a day. LABORATORY DATA: Reviewed and no new lab is available since yesterday. Microbiology, blood culture, nares culture, urine culture all are unremarkable. IMPRESSION AND PLAN: Chronic obstructive lung disease, cardiomyopathy, congestive heart failure, hypertension, renal failure, severe anemia, sleep apnea syndrome, hypoventilation syndrome. Pulmonary point of view, much improved. Spoke to nursing staff. We will try to switch to nasal cannula oxygen and titrate FIO2 to pulse ox 88-90. Continue antibiotics, inhaled bronchodilator. Keep head elevated at 45 degrees. May use BiPap while sleeping. Thank you and we will follow with you. Elyssa Collins MD
[2018-04-04] MEDS: Pantoprazole 40 mg EC Tab PO SCH (05:23)
--- NOTE | 2018-04-04 06:10 | CP.PCM.PN ---
Subjective - Date & Time of Evaluation Date of Evaluation: 04/04/18 Time of Evaluation: 06:30 - Subjective Subjective: Awake, alert, on high flow oxygen, no distress Reason for consultation and follow up: Cardiac evaluation of shortness of breath, rule out congestive heart failure. History of bladder cancer (refusing treatment), COPD, cardiomyopathy, DVT on Eliquis, Seen and examined by me and Dr. Acosta Objective - Vital Signs/Intake and Output Vital Signs (last 24 hours): Temp Pulse Resp BP Pulse Ox 98.3 F 53 L 16 130/88 97 04/03/18 16:50 04/03/18 18:10 04/04/18 01:42 04/03/18 18:10 04/03/18 16:50 Intake and Output: 04/03/18 04/04/18 18:59 06:59 Intake Total 360 Output Total 800 Balance -440 - Medications Medications: Current Medications Acetaminophen (Tylenol 325mg Tab) 650 mg PO Q6H PRN PRN Reason: Pain, moderate (4-7) Albuterol/Ipratropium (Duoneb 3 Mg/0.5 Mg (3 Ml) Ud) 3 ml IH Q2H PRN PRN Reason: Shortness of Breath Last Admin: 04/01/18 20:30 Dose: 3 ml Alprazolam (Xanax) 0.25 mg PO BID PRN PRN Reason: Anxiety Stop: 04/08/18 09:14 Last Admin: 04/01/18 10:18 Dose: 0.25 mg Doxycycline Hyclate (Doryx) 100 mg PO Q12 [facility]; Protocol Stop: 04/07/18 22:01 Last Admin: 04/03/18 21:36 Dose: 100 mg Furosemide (Lasix) 40 mg IV DAILY [facility] Last Admin: 04/03/18 09:12 Dose: 40 mg Hydralazine HCl (Apresoline) 10 mg IVP Q6 PRN PRN Reason: FOR SBP>170 Hydralazine HCl (Apresoline) 25 mg PO BID [facility] Last Admin: 04/03/18 18:10 Dose: 25 mg Levofloxacin (Levaquin) 500 mg PO DAILY [facility]; Protocol Stop: 04/05/18 10:01 Last Admin: 04/03/18 09:17 Dose: 500 mg Methylprednisolone (Solu-Medrol) 40 mg IVP Q12 [facility] Last Admin: 04/03/18 21:36 Dose: 40 mg Pantoprazole Sodium (Protonix Ec Tab) 40 mg PO 0600 [facility] Last Admin: 04/04/18 05:23 Dose: 40 mg Potassium Chloride (K-Dur 20 Meq Er Tab) 20 meq PO BRK [facility] Last Admin: 04/03/18 08:40 Dose: 20 meq - Labs Labs: 04/01/18 06:00 04/01/18 06:00 PT 21.3 SECONDS (9.4-12.5) H 03/31/18 08:00 INR 1.83 03/31/18 08:00 APTT 22.5 Seconds (25.1-36.5) L 03/31/18 08:00 - Constitutional Appears: Non-toxic, No Acute Distress - Head Exam Head Exam: NORMAL INSPECTION, NORMOCEPHALIC - Eye Exam Eye Exam: Normal appearance Pupil Exam: NORMAL ACCOMODATION - ENT Exam ENT Exam: Mucous Membranes Moist - Respiratory Exam Respiratory Exam: Decreased Breath Sounds, NORMAL BREATHING PATTERN Additional comments: high flow oxygen nasal cannula - Cardiovascular Exam Cardiovascular Exam: +S1, +S2 - GI/Abdominal Exam GI & Abdominal Exam: Soft, Normal Bowel Sounds - Neurological Exam Neurological Exam: Alert, Awake, Oriented x3 - Psychiatric Exam Psychiatric exam: Normal Affect, Normal Mood - Skin Skin Exam: Dry, Normal Color, Warm Assessment and Plan - Assessment and Plan (Free Text) Assessment: A 87 year old female who came in to the ER due to shortness of breath. Admitted for severe anemia, transfused 2 unit PRBC. History of bladder cancer (refusing treatment), CHF, COPD, cardiomyopathy, DVT on Eliquis. Severe anemia, exacerbation of COPD, bacterial pneumonia.H/H stable 7.6/22.3 (Post transfusion of 2 units PRBC) Plan: No distress, on high flow oxygen, being weaned off Cardiac status stable Controlled heart rate Controlled blood pressure Clinically improved On Lasix 40 mg daily, Solumedrol 40 mg every 12 hours Kdur 20 meq daily Continue current treatment Continue current medications Chart reviewed DNR/DNI Discharge planning Will follow up Plan and treatment discussed with Dr. Acosta
[2018-04-04] MEDS: Potassium Chloride 20 mEq ER Tab PO SCH (08:23)
--- NOTE | 2018-04-04 10:13 | RAD ---
Date of service: 04/03/2018 HISTORY: R/O pneumonia Vs CHF COMPARISON: 04/01/2018 FINDINGS: LUNGS: Continued improvement in pulmonary edema. Residual interstitial changes noted. PLEURA: No significant pleural effusion identified, no pneumothorax apparent. CARDIOVASCULAR: Cardiomegaly. No evidence of acute, significant cardiovascular disease. Atherosclerotic calcifications identified primarily aortic arch. OSSEOUS STRUCTURES: No significant abnormalities. VISUALIZED UPPER ABDOMEN: Normal. OTHER FINDINGS: None. IMPRESSION: Continued improvement without complete resolution pulmonary edema.
--- NOTE | 2018-04-04 11:35 | CP.PCM.PN ---
Subjective - Date & Time of Evaluation Date of Evaluation: 04/04/18 Time of Evaluation: 11:30 - Subjective Subjective: NAD, awake and responsive, no chest pain, no SOB Objective - Vital Signs/Intake and Output Vital Signs (last 24 hours): Temp Pulse Resp BP Pulse Ox 98.1 F 78 17 140/79 93 L 04/04/18 06:00 04/04/18 06:00 04/04/18 07:19 04/04/18 06:00 04/04/18 06:00 - Medications Medications: Current Medications Acetaminophen (Tylenol 325mg Tab) 650 mg PO Q6H PRN PRN Reason: Pain, moderate (4-7) Alprazolam (Xanax) 0.25 mg PO BID PRN PRN Reason: Anxiety Stop: 04/08/18 09:14 Last Admin: 04/01/18 10:18 Dose: 0.25 mg Furosemide (Lasix) 40 mg PO DAILY [facility] Hydralazine HCl (Apresoline) 10 mg IVP Q6 PRN PRN Reason: FOR SBP>170 Hydralazine HCl (Apresoline) 25 mg PO BID [facility] Last Admin: 04/03/18 18:10 Dose: 25 mg Levofloxacin (Levaquin) 500 mg PO DAILY [facility]; Protocol Stop: 04/05/18 10:01 Last Admin: 04/03/18 09:17 Dose: 500 mg Pantoprazole Sodium (Protonix Ec Tab) 40 mg PO 0600 [facility] Last Admin: 04/04/18 05:23 Dose: 40 mg Potassium Chloride (K-Dur 20 Meq Er Tab) 20 meq PO BRK [facility] Last Admin: 04/04/18 08:23 Dose: 20 meq Prednisone (Prednisone Tab) 20 mg PO DAILY [facility] - Labs Labs: 04/01/18 06:00 04/01/18 06:00 PT 21.3 SECONDS (9.4-12.5) H 03/31/18 08:00 INR 1.83 03/31/18 08:00 APTT 22.5 Seconds (25.1-36.5) L 03/31/18 08:00 - Respiratory Exam Respiratory Exam: Rales - Cardiovascular Exam Cardiovascular Exam: REGULAR RHYTHM - GI/Abdominal Exam GI & Abdominal Exam: Soft, Normal Bowel Sounds - Extremities Exam Extremities Exam: Normal Inspection - Neurological Exam Neurological Exam: Altered, Awake - Skin Skin Exam: Dry, Warm Assessment and Plan (1) CHF (congestive heart failure) Status: Acute (2) COPD (chronic obstructive pulmonary disease) Status: Acute (3) Pneumonia Status: Acute (4) Acute and chronic respiratory failure Status: Chronic (5) Bladder carcinoma Status: Chronic (6) Dementia Status: Chronic (7) HTN (hypertension) Status: Chronic - Assessment and Plan (Free Text) Plan: DC IV Lasix/steroid to PO, continue PT, SW for DC planning
[2018-04-04] MEDS: levoFLOXacin 500 MG TAB PO SCH (12:06)
--- NOTE | 2018-04-04 12:14 | PN ---
DATE: 04/04/2018 SUBJECTIVE: The patient is in bed, in no acute distress, nontoxic. PHYSICAL EXAMINATION: VITAL SIGNS: On exam, temperature is 98, blood pressure is 140/70, respiratory rate of 20. HEENT: Examination of HEENT is unremarkable. NECK: Supple. LUNGS: Have decreased breath sounds. HEART: Normal S1, S2. ABDOMEN: Soft, nontender. LABORATORY DATA: Laboratory examination reveals the blood cultures are negative. Urine cultures are negative. The patient had a chest x-ray yesterday, pulmonary edema, interstitial changes. ASSESSMENT AND PLAN: An 87-year-old female admitted with a chronic obstructive lung disease, dementia, hypertension, congestive heart failure, sepsis, healthcare-associated pneumonia, negative procalcitonin. Today is day #5 of cefepime and doxycycline. Switch to p.o. Levaquin once daily for 3 days. Review of orders reveals the patient is on doxycycline and Levaquin. Dr. Collins's note is reviewed from yesterday. We will complete with p.o. Levaquin. Jake Machado MD
[2018-04-04] MEDS: MethylPREDNISolone 40 mg Vial IVP SCH (16:29)
[2018-04-04 17:29] VITALS: BP 128/71; PULSE 81; RESP 19; TEMP 97.9; O2SAT 97
--- NOTE | 2018-04-04 19:35 | PN ---
DATE: 04/04/2018 PULMONARY PROGRESS NOTE REFERRING PHYSICIAN: Dr. Daniel. SUBJECTIVE: She is sitting up in the bed. Night was unremarkable. Toileted by BiPAP well, presently on nasal cannula. Pulse ox is 96% on 5 L nasal cannula. Cough is better. No chest pain. No nausea, vomiting or diarrhea. No leg pain or leg swelling. OBJECTIVE: GENERAL: In no acute distress. VITAL SIGNS: Temperature is 98, heart rate 78, respiratory rate is 20, blood pressure 140/79, pulse ox 93% on nasal cannula. HEENT: Moist mucous membrane. Crowded airway. NECK: Supple. No JVD. LUNGS: Have a fair airflow with rhonchi. HEART: S1 and S2. ABDOMEN: Soft, nontender. No organomegaly. EXTREMITIES: No edema. NEUROLOGICAL: Awake and alert. Follows simple command. MEDICATIONS: She is on hydralazine 10 mg every 6 hours p.r.n., also hydralazine 25 mg twice a day [id number], potassium 20 mEq daily, Lasix 40 mg daily, Levaquin 500 mg daily, prednisone 20 mg daily, Protonix 40 mg daily, Tylenol p.r.n., Xanax 0.25 mg twice a day p.r.n. LABORATORY DATA: Reviewed. No new lab is available since yesterday. Blood culture, there is no growth. Nares culture, no organism. Urine culture is unremarkable. IMPRESSION AND PLAN: Chronic obstructive lung disease, cardiomyopathy, congestive heart failure, hypertension, renal failure, severe anemia, sleep apnea syndrome, hypoventilation syndrome. Case discussed with respiratory therapist. Also spoke to nursing staff. We will titrate FiO2 only to pulse ox about 90% or so. Continue steroid. We will decrease the doses though. Continue inhaled bronchodilator. On antibiotics. Out of bed to chair if possible. Gastric and deep vein thrombosis prophylaxis. Thank you and we will follow with you. Elyssa Collins MD
--- NOTE | 2018-04-04 22:36 | PN ---
DATE: 04/04/2018 REASON FOR THE CONSULTATION AND FOLLOWUP: Severe anemia, rule out congestive heart failure, cardiac evaluation. Patient was seen with the nurse practitioner, chart reviewed. History of bladder cancer, refused treatment, status post packed RBC transfusion, history of DVT on Eliquis, stopped because of the GI bleed. Now patient is stable. Most recent hemoglobin is 7.6, post transfusion was day before yesterday. RECOMMENDATION: Continue hydralazine 25 p.o. b.i.d. Blood pressure is fairly stable. If the H and H is stable, we will restart Eliquis low dose 2.5 p.o. b.i.d. for history of DVT in the past. History of bladder cancer, refused treatment. Patient is lying down. High risk of recurrent DVT, PE, history of cardiomyopathy. Discharge planning. Thank you, Dr. Daniel, for providing us the opportunity in taking care of the patient, Shonda Grant. Elyssa Acosta MD
== END 2018-04-04 20:48 | DRG 871 ==
LOC: ED 08:08 → ERH 09:43 → 2RSO 11:50 → 3RSO 04-03 22:20
PROVIDERS: ADMIT Internal Medicine; ATTEND Internal Medicine
PROC: 5A09457 Assistance with Respiratory Ventilation, 24-96 Consecutive Hours, Continuous Positive Airway Pressure (ICD-10-PCS; principal; 2018-03-31)
PROC: 30233N1 Transfusion of Nonautologous Red Blood Cells into Peripheral Vein, Percutaneous Approach (ICD-10-PCS; 2018-03-31)
PROC: 3E0F7GC Introduction of Other Therapeutic Substance into Respiratory Tract, Via Natural or Artificial Opening (ICD-10-PCS; 2018-04-01)
DX: A41.9 Sepsis, unspecified organism (principal); J18.9 Pneumonia, unspecified organism; J96.20 Acute and chronic respiratory failure, unspecified whether with hypoxia or hypercapnia; J44.0 Chronic obstructive pulmonary disease with (acute) lower respiratory infection; I50.30 Unspecified diastolic (congestive) heart failure; I42.9 Cardiomyopathy, unspecified; J44.1 Chronic obstructive pulmonary disease with (acute) exacerbation; D64.9 Anemia, unspecified; I11.0 Hypertensive heart disease with heart failure; F02.80 Dementia in other diseases classified elsewhere, unspecified severity, without behavioral disturbance, psychotic disturbance, mood disturbance, and anxiety; G30.9 Alzheimer's disease, unspecified; I27.20 Pulmonary hypertension, unspecified; L40.50 Arthropathic psoriasis, unspecified; G47.30 Sleep apnea, unspecified; Z66 Do not resuscitate; I08.3 Combined rheumatic disorders of mitral, aortic and tricuspid valves; Y95 Nosocomial condition; Z85.51 Personal history of malignant neoplasm of bladder; Z86.718 Personal history of other venous thrombosis and embolism; Z87.891 Personal history of nicotine dependence